=== PATIENT | male | born 1960 | race Caucasian/White ===

== ENCOUNTER 2024-03-09 09:48 | Inpatient (IN) | payer MEDICARE, SELFPAY ==
[2024-03-09] VITALS (25 sets, daily range): BP systolic 115–164; BP diastolic 82–103; PULSE 85–122; TEMP 36.3–36.7; O2SAT 93–99; BMI 25.1
--- NOTE | 2024-03-09 10:00 | ECG_ITS ---
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
--- NOTE | 2024-03-09 10:00 | XR_ITS ---
The [address] [address] Patient Name: PAIGE BALTAZAR MRN: [id number] date: 1960 Sex: M Assigned Patient Location: ED.MAIN Current Patient Location: ER Accession/Order Number: [id number] Exam Date: 03/09/2024 10:45 Report Date: 03/09/2024 11:03 At the request of: MARIE RUTLEDGE Procedure: XR chest 1V EXAMINATION: XR chest 1V HISTORY: SOB , chronic which is increased in severity COMPARISON: No relevant comparison available. FINDINGS: LUNGS: No infiltrate, pneumothorax, or pleural effusion. MEDIASTINUM: No abnormal widening. BOWEL GAS PATTERN: Non-obstructed. FREE AIR: None. CALCIFICATIONS: None significant. BONES: No fracture or visible bone lesion. OTHER: Negative. XR/XR chest 1V IMPRESSION: 1. No acute cardiopulmonary process. 2. Hyperexpanded lungs; mild COPD versus exaggerated inspiratory effort. Electronically authenticated by: KIM SOSA Date: 03/09/2024 11:03
--- NOTE | 2024-03-09 10:01 | ED_ITS ---
HPI - SOB/Dyspnea General Chief Complaint: Shortness of Breath/Dyspnea Stated Complaint: SOB Time Seen by Provider: 03/09/24 09:55 Source: patient Mode of arrival: ambulance History of Present Illness HPI Narrative: 63-year-old male presents to the emergency department for chief complaint of shortness of breath. He has had this apparently for several months. He was admitted to another hospital in early January and was told that he may have asthma. He has had follow-up with his PCP and has not seen a fur designer. He has been a heavy smoker all of his life but he is cut down and they prescribed him a nebulizer and albuterol inhaler. He has not had a fever or hemoptysis or complaints of chest pain or palpitations. No syncope or presyncope. Related Data Home Medications ?Medication ?Instructions ?Recorded ?Confirmed albuterol sulfate 90 mcg/actuation 1 puff inhalation Q8H PRN 03/09/24 03/09/24 aerosol inhaler shortness of breath or wheezing cetirizine 10 mg tablet 10 mg PO DAILY 03/09/24 03/09/24 montelukast 10 mg tablet 10 mg PO DAILY 03/09/24 03/09/24 nifedipine 60 mg tablet,extended 60 mg PO DAILY 03/09/24 03/09/24 release Previous Rx's ?Medication ?Instructions ?Recorded apixaban 5 mg tablet (Eliquis) 5 mg PO BID #30 tabs 03/09/24 Allergies Allergy/AdvReac Type Severity Reaction Status Date / Time No Known Drug Allergies Allergy Verified 03/09/24 09:52 Review of Systems ROS Narrative A ten point review of systems is negative except as noted above. Exam Narrative Exam Narrative: Nurses note and vital signs reviewed and patient is not hypoxic. General: The patient appears in no apparent respiratory distress. Skin: Warm, dry, no pallor noted. There is no rash noted. Head: Normocephalic, atraumatic Eye: Normal conjunctiva, no drainage Ears, Nose, Mouth, and Throat: oral mucosa is moist. Nares patent. Cardiovascular: Irregularly irregular, not tachycardic Respiratory: Bilateral rhonchi present Back: non-tender GI: Soft and nontender Musculoskeletal: The patient has no evidence of calf tenderness, bilateral ankle edema present Neurological: A&O, normal speech Psychiatric: Cooperative Constitutional Vital Signs, click to edit/add: Last Vital Signs Temp 98.0 F 03/09/24 09:49 Pulse 101 H 03/09/24 11:22 Resp 31 H 03/09/24 11:22 BP 133/95 H 03/09/24 11:45 Pulse Ox 96 03/09/24 11:32 O2 Del Method Nasal Cannula 03/09/24 10:11 O2 Flow Rate 2 03/09/24 10:11 Course Vital Signs Vital signs: Vital Signs Temperature 98.0 F 03/09/24 09:49 Pulse Rate 94 H 03/09/24 09:49 Respiratory Rate 28 H 03/09/24 09:49 Blood Pressure 164/88 H 03/09/24 09:49 Pulse Oximetry 94 L 03/09/24 09:49 Oxygen Delivery Method Nasal Cannula 03/09/24 09:49 Oxygen Delivery Flow Rate 2 03/09/24 09:49 Temperature 98.0 F 03/09/24 09:49 Pulse Rate 101 H 03/09/24 11:22 Respiratory Rate 31 H 03/09/24 11:22 Blood Pressure 133/95 H 03/09/24 11:45 Pulse Oximetry 96 03/09/24 11:32 Oxygen Delivery Method Nasal Cannula 03/09/24 10:11 Oxygen Delivery Flow Rate 2 03/09/24 10:11 MDM - SOB/Dyspnea MDM Narrative Medical decision making narrative: The patient has atrial fibrillation. This has not been previously diagnosed. However, when he was at [facility] on January 26 he had an EKG which showed atrial fibrillation. Family was unaware. He is not on any blood thinners. I have spoken to Dr. Pedroza and follow-up is arranged. I have written a prescription for echocardiogram to be done as an outpatient with the results to Dr. Pedroza. The patient is also placed on Eliquis. Treatment diagnosis and follow-up were discussed with the patient and his family. I also suspect that COPD is playing a role in his symptoms as well. I have no clinical suspicion of PE. Treatment diagnosis and follow-up were discussed with the patient Differential Diagnosis Differential diagnosis: Likely congestive heart failure, community acquired pneumonia and other (Atrial fibrillation) Medical Records Attestation: I reviewed the patient's medical records. Lab Data Attestation: I reviewed the patient's lab results. Labs: Lab Results 03/09/24 Range/Units 10:18 WBC 7.7 (4.0-11.0) 10^3/uL RBC 4.76 (4.70-6.10) 10^6/uL Hgb 15.4 (14.0-18.0) g/dL Hct 46.4 (42.0-54.0) % MCV 97.5 H (80.0-94.0) fL MCH 32.4 (25.9-34.0) pg MCHC 33.2 (29.9-35.2) g/dL RDW 12.8 (11.0-15.0) % Plt Count 193 (150-450) 10^3/uL MPV 8.4 L (9.5-13.5) fL Neut % (Auto) 65.4 (43.0-75.0) % Lymph % (Auto) 16.5 L (20.5-60.0) % [place]ock % (Auto) 9.5 (1.7-12.0) % Eos % (Auto) 7.3 H (0.9-7.0) % Baso % (Auto) 1.0 (0.2-2.0) % Neut # (Auto) 5.0 (1.4-6.5) 10^3/uL Lymph # (Auto) 1.3 (1.2-3.8) 10^3/uL Gl[place]ock # (Auto) 0.7 (0.3-0.8) 10^3/uL Eos # (Auto) 0.6 (0.0-0.7) 10^3/uL Baso # (Auto) 0.1 (0.0-0.1) 10^3/uL Abs Immat Gran (auto) 0.02 (0.00-0.03) 10^3/uL Imm/Tot Granulo (auto) 0.3 (0.0-0.5) % Sodium 137 (136-145) mmol/L Potassium 4.4 (3.5-5.1) mmol/L Chloride 102 (98-107) mmol/L Carbon Dioxide 25.4 (21.0-32.0) mmol/L Anion Gap 14.0 BUN 23.0 H (7.0-18.0) mg/dL Creatinine 0.91 (0.70-1.30) mg/dL Est GFR ( Amer) >60 (>=60) Est GFR (Non-Af Amer) >60 (>=60) BUN/Creatinine Ratio 25.3 Glucose 95 (74-106) mg/dL Calcium 9.7 (8.5-10.1) mg/dL Troponin I High Sens 17.7 (4.0-76.1) pg/mL Imaging Data Chest x-ray: Radiologist's impression: ITS Impressions Chest X-Ray 03/09/24 10:00 IMPRESSION: 1. No acute cardiopulmonary process. 2. Hyperexpanded lungs; mild COPD versus exaggerated inspiratory effort. Electronically authenticated by: KIM SOSA Date: 03/09/2024 11:03 ECG Data Attestation: I personally reviewed and interpreted this ECG as follows: (EKG on my interpretation shows atrial fibrillation with a rate of 82) Discharge Plan Discharge Stand Alone Forms: Portal Instructions Chief Complaint: Shortness of Breath/Dyspnea Clinical Impression: Atrial fibrillation, new onset Patient Disposition: Home, Self-Care Time of Disposition Decision: 12:12 Condition: Good Mode of Transportation: Private Vehicle Prescriptions / Home Meds: New Eliquis 5 mg tablet 5 mg PO BID Qty: 30 0RF No Action albuterol sulfate 90 mcg/actuation HFA aerosol inhaler 1 puff INHALATION Q8H PRN (Reason: shortness of breath or wheezing) cetirizine 10 mg tablet 10 mg PO DAILY montelukast 10 mg tablet 10 mg PO DAILY nifedipine 60 mg tablet extended release 60 mg PO DAILY Print Language: [place] Instructions: A-fib (Atrial Fibrillation) (ED), Blood Thinners (ED) Referrals: LIZETT MANCIA [Physician] - As soon as possible Jori Lala [Primary Care Provider] - 1 week
[2024-03-09] MEDS: ALBUTEROL SULFATE 2.5 MG/3 ML VIAL NEB IH (10:10)
--- NOTE | 2024-03-09 10:11 | PC.NURSE ---
pt arrived on O2, does not wear O2 at home
[2024-03-09 10:33] LABS: Basophils Absolute Auto 0.1 10^3/uL (0.0-0.1); Eosinophils Absolute Auto 0.6 10^3/uL (0.0-0.7); Eosinophils Percent Auto 7.3 % (0.9-7.0); Hematocrit 46.4 % (42.0-54.0); Hemoglobin 15.4 g/dL (14.0-18.0); Immature Granulocytes Abs Auto 0.02 10^3/uL (0.00-0.03); Immature Granulocytes Pct Auto 0.3 % (0.0-0.5); Lymphocytes Absolute Auto 1.3 10^3/uL (1.2-3.8); Lymphocytes Percent Auto 16.5 % (20.5-60.0); Mean Corpuscular HGB Conc 33.2 g/dL (29.9-35.2); Mean Corpuscular Hemoglobin 32.4 pg (25.9-34.0); Mean Corpuscular Volume 97.5 fL (80.0-94.0); Mean Platelet Volume 8.4 fL (9.5-13.5); Monocytes Absolute Auto 0.7 10^3/uL (0.3-0.8); Monocytes Percent Auto 9.5 % (1.7-12.0); Neutrophils Percent Auto 65.4 % (43.0-75.0); Platelet Count 193 10^3/uL (150-450); Red Blood Count 4.76 10^6/uL (4.70-6.10); Red Cell Distribution Width 12.8 % (11.0-15.0); White Blood Count 7.7 10^3/uL (4.0-11.0)
[2024-03-09 11:00] LABS: BUN Creatinine Ratio 25.3; Calcium 9.7 mg/dL (8.5-10.1); Carbon Dioxide 25.4 mmol/L (21.0-32.0); Chloride 102 mmol/L (98-107); Estimated GFR (African America >60 (>=60); Estimated GFR (Non-African Ame >60 (>=60); Glucose 95 mg/dL (74-106); Potassium 4.4 mmol/L (3.5-5.1); Sodium 137 mmol/L (136-145); Troponin I High Sensitivity 17.7 pg/mL (4.0-76.1)
--- NOTE | 2024-03-09 11:25 | PC.NURSE ---
Pt. disconnected from oxygen to monitor satuation per Dr. mukherjee.
--- NOTE | 2024-03-09 12:56 | CT_ITS ---
[address] [address] Patient Name: PAIGE BALTAZAR MRN: [id number] date: 1960 Sex: M Assigned Patient Location: ER Current Patient Location: ER Accession/Order Number: [id number] Exam Date: 03/09/2024 13:15 Report Date: 03/09/2024 13:55 At the request of: MAREI RUTLEDGE Procedure: CT angio chest EXAMINATION: CT angio chest HISTORY: SOB COMPARISON: No relevant comparison available. TECHNIQUE: Multi-planar CT images were created with IV contrast. Axial, Coronal, and Sagittal images. Dose reduction techniques were achieved by using automated exposure control and/or adjustment of mA and/or kV according to patient size and/or use of iterative reconstruction technique. 3-D reconstruction was performed on a separate workstation. FINDINGS: VASCULATURE: No pulmonary embolism or abnormal opacity. LUNGS: Moderate emphysematous changes. No acute infiltrates or suspicious nodules. PLEURA: No mass, effusion, or pneumothorax. AMARILIS: No mass or adenopathy. MEDIASTINUM: No mass or adenopathy. CARDIAC: No enlargement, pericardial effusion, or pericardial thickening. AORTA: No aneurysm or dissection. CHEST WALL: No mass or axillary adenopathy. BONES: No bone lesion or fracture. LIMITED ABDOMEN: No suspicious findings. Limited images of the upper abdomen. OTHER: Negative. CT/CT angio chest IMPRESSION: 1. No pulmonary embolism. 2. Moderate emphysematous changes. 3. No acute infiltrates or specific findings to account for patient's symptoms. Electronically authenticated by: KIM SOSA Date: 03/09/2024 13:55
--- NOTE | 2024-03-09 12:58 | PC.NURSE ---
O2 placed at 2L for pt comfort
--- NOTE | 2024-03-09 14:08 | CA_ITS ---
Patient Name: PAIGE BALTAZAR MR#: [id number] : 1960 Exam Date: 03/09/2024 Ordering Doctor: DR SASHA NOVA . ECHOCARDIOGRAM REPORT PROCEDURE: CA ECHO DOPPLER COMPLETE INDICATIONS: Dyspnea COMPARISON: None. DESCRIPTION: COMPLETE ECHOCARDIOGRAM Real-time transthoracic echocardiography with 2D, M-mode, spectral and color flow Doppler performed. QUALITY: Technical quality was adequate. LEFT VENTRICLE: Normal chamber size. Normal left ventricular wall thickness. Normal systolic function. LV EF: normal left ventricular ejection fraction, (55%). DIASTOLIC: Not adequately assessed due to heart rhythm. ATRIAL SEPTUM: LEFT ATRIUM: Mild dilatation. RIGHT ATRIUM: Mild dilatation. RIGHT VENTRICLE: Normal chamber size. Normal right ventricular systolic function. TRICUSPID VALVE: Normal mobility and thickness. No stenosis with trivial regurgitation. Mild pulmonary hypertension. RVSP 40 mmHg MITRAL VALVE: Normal mobility and thickness. No evidence of mitral valve stenosis. There is no mitral annular calcification. Trivial mitral regurgitation. AORTIC VALVE: Normal trileaflet appearance. No visible sclerosis. Normal leaflet mobility. No evidence of aortic valve stenosis. AORTIC ROOT: Normal diameter and appearance. PULMONIC VALVE: Normal thickness and mobility. No stenosis. No regurgitation. PERICARDIUM: No evidence of pericardial effusion. IVC: Collapses with inspirations. Normal size. PLEURA: CONCLUSION: 1. Normal ventricular size and systolic function. LVEF is 55%. 2. Mild biatrial dilatation. 3. No significant valvular dysfunction. 4. Mildly elevated right-sided pressures. 5. The patient appears to be in atrial fibrillation during the exam. Adult Echocardiography Procedure Report Left Ventricle LVEDD (3.7 - 5.6 cm): 4.31 cm LVESD (2.2 - 4.0 cm): 2.82 cm LVIVS thickness (0.6 - 1.2 cm): 0.98 cm LVPW thickness (0.5 - 1.0 cm): 0.94 cm e': 0.11 m/s E - e': 5.56 LVOT Max Gradient: 1.07 mm[Hg] LVOT Area (cm2): 0.52 m/s Peak Velocity (LVOT): 0.52 m/s Mean Velocity (LVOT): 0.31 m/s LVOT Diameter 2.12 cm Left Ventricular Ejection Fraction: 55% Left Atrium LA Volume Index (2D A2C): 26.08 ml/m2 Left Atrium Systolic Dimension: 3.84 cm Mitral Valve MV E to A Ratio: 103.43 Mitral Valve A-Wave Peak Velocity: 0.01 m/s Mitral Valve E-Wave Peak Velocity: 0.63 m/s Right Ventricle RV Internal Diastolic Dimension: 3.33 cm Aorta AO Root Diam: 3.12 cm Aortic Valve AoV Area (Peak Sukumar): 2.63 cm2, 2.63 cm2 AoV Area (VTI): 2.69 cm2, 2.69 cm2 Peak Velocity(Antegrade Flow): 0.69 m/s Peak Gradient(Antegrade Flow): 1.93 mm[Hg] Mean Velocity(Antegrade Flow): 0.46 m/s Mean Gradient(Antegrade Flow): 0.95 mm[Hg] Velocity Time Integral: 12.62 cm Tricuspid Valve Peak Velocity (Regurgitant Flow): 2.94 m/s Pulmonic Valve Peak Velocity: 0.90 m/s Peak Gradient: 3.01 mm[Hg], 3.47 mm[Hg] Right Atrium Right Atrium Systolic Pressure: 44.82 ml, 44.82 ml Dictated by: Todd Ta M.D. on 03/09/2024 at 17:59 Approved by: Todd Ta M.D. on 03/09/2024 at 18:03
[2024-03-09 14:38] LABS: Alanine Aminotransferase 26 U/L (16-63); Albumin Globulin Ratio 1.1; Albumin Level 3.9 g/dL (3.4-5.0); Alkaline Phosphatase 78 U/L (46-116); Aspartate Amino Transferase 13 U/L (15-37); Bilirubin Direct 0.2 mg/dL (0.0-0.2); Bilirubin Total 1.1 mg/dL (0.2-1.0); Globulin 3.6 g/dL; Magnesium 2.2 mg/dL (1.8-2.4); Total Protein 7.5 g/dL (6.4-8.2)
--- NOTE | 2024-03-09 14:55 | P.HP_ITS ---
HPI H&P: HPI History of Present Illness Chief complaint: SOB, NEW ONSET A-FIB Narrative: Patient seen and evaluated in emergency with increasing shortness of breath. There is some confusion if this is new or old or recent onset of his atrial fibrillation but found to have atrial fibrillation with rapid ventricular response. His heart rate was improved. Still having significant dyspnea. He has had the dyspnea for quite some time. When I saw patient up on the medical surgical floor, and he was resting in bed not comfortable with his breathing, mild conversational dyspnea. On exam more consistent with acute exacerbation of COPD Opioid HPI Opioid Management Most Recent Opioid Data: Last Pain Assessment 03/09/24 19:00 Last ORT Total Score 0 03/09/24 15:00 Last ORT Risk Category Low Risk 03/09/24 15:00 Review of Systems ROS Status of ROS 10 or more systems reviewed and unremark able except as noted in history and below [facility] Medical History (Updated 03/09/24 @ 21:03 by Phoenix Talley MD) Hypertension ?I10 - Essential (primary) hypertension (ICD-10) Family History (Updated 03/09/24 @ 15:14 by Ashley Larsen LPN) Mother Family history of hypertension Family history of myocardial infarction Father Family history of stroke Social History Highest level of school completed/degree received: high school graduate Do you think of yourself as: straight/heterosexual Gender Identity: male Meds Home Medications and Allergies Home Medications ?Medication ?Instructions ?Recorded ?Confirmed ?Type albuterol sulfate 2.5 mg/3 mL 2.5 mg inhalation TID PRN 03/09/24 03/09/24 History (0.083 %) solution for nebulization shortness of breath or wheezing albuterol sulfate 90 mcg/actuation 1 puff inhalation Q8H PRN 03/09/24 03/09/24 History aerosol inhaler shortness of breath or wheezing apixaban 5 mg tablet (Eliquis) 5 mg PO BID #30 tabs 03/09/24 Rx cetirizine 10 mg tablet 10 mg PO DAILY 03/09/24 03/09/24 History montelukast 10 mg tablet 10 mg PO DAILY 03/09/24 03/09/24 History nifedipine 60 mg tablet,extended 60 mg PO DAILY 03/09/24 03/09/24 History release Allergies Allergy/AdvReac Type Severity Reaction Status Date / Time No Known Drug Allergies Allergy Verified 03/09/24 09:52 Exam Constitutional Vital Signs, click to edit/add: Last Vital Signs Temp 98.0 F 03/09/24 09:49 Pulse 122 H 03/09/24 12:11 Resp 16 03/09/24 14:11 BP 133/95 H 03/09/24 11:45 Pulse Ox 95 03/09/24 12:11 O2 Del Method Nasal Cannula 03/09/24 14:11 O2 Flow Rate 2 03/09/24 12:58 Documenting provider has reviewed patient's vital signs: yes Common normals: apparent distress (Mild conversational dyspnea with respiratory distress) Chest Common normals: inspection of chest normal Respiratory Common normals: abnormal respiratory effort (Mild conversational dyspnea with respiratory distress) Auscultation: rhonchi and wheezes (Tight wheeze) Cardio Common normals: irregular rate and irregular rhythm Rate: tachycardic Rhythm: abnormal rhythm GI Common normals: Normal to inspection, nondistended, normoactive bowel sounds present Extremity Common normals: normal to inspection, full ROM and no clubbing, cyanosis or edema Results Labs Labs: Short CBC 03/09/24 Range/Units 10:18 WBC 7.7 (4.0-11.0) 10^3/uL Hgb 15.4 (14.0-18.0) g/dL Hct 46.4 (42.0-54.0) % Plt Count 193 (150-450) 10^3/uL BMP 03/09/24 10:18 Sodium 137 Potassium 4.4 Chloride 102 Carbon Dioxide 25.4 BUN 23.0 H Creatinine 0.91 Glucose 95 Calcium 9.7 Liver Function 03/09/24 Range/Units 10:18 Total Bilirubin 1.1 H (0.2-1.0) mg/dL Direct Bilirubin 0.2 (0.0-0.2) mg/dL AST 13 L (15-37) U/L ALT 26 (16-63) U/L Alkaline Phosphatase 78 (46-116) U/L Albumin 3.9 (3.4-5.0) g/dL Assessment and Plan Assessment and Plan (1) Atrial fibrillation, new onset: (2) Acute exacerbation of COPD with asthma: Plan Tachycardia, respiratory distress, uncontrolled high blood pressure secondary to atrial fibrillation with rapid ventricular response. His heart rate is improved. Will place patient on oral Cardizem. Check on magnesium and thyroid levels. Check echocardiogram. Repeat BNP and HST in AM. Start Eliquis, change nifedipine to Cardizem for better rate control Acute exacerbation of COPD with 2 to 3-week history of increasing shortness of breath. Lung exam is more consistent with COPD possibly recreating the dyspnea. Patient aggressive with aerosol treatments IV antibiotics and steroids. Consider repeat chest x-ray in a.m. Admission status: Initially felt to be respiratory distress secondary to his tachycardia secondary to the atrial fibrillation, after exam I believe his dyspnea is more consistent with acute exacerbation of COPD. His medically necessary Seri treatment will span [address] patient inpatient status.
[2024-03-09 14:58] LABS: Troponin I High Sensitivity 15.1 pg/mL (4.0-76.1)
[2024-03-09] MEDS: DILTIAZEM HCL 180 MG CAP.ER.24H PO (15:31)
[2024-03-09] MEDS: CEFTRIAXONE 1,000 MG in 0.9 % SODIUM CHLORIDE 50 ML 100 MG IV (15:31)
[2024-03-09] MEDS: METHYLPREDNISOLONE SOD SUCC PF 125 MG/2 ML VIAL IVP ×2 (15:35→21:52)
[2024-03-09] MEDS: 0.9 % SODIUM CHLORIDE 250 ML 10 ML IV (15:56)
[2024-03-09] MEDS: HYDROXYZINE PAMOATE 25 MG CAPSULE PO ×2 (16:19→21:52)
[2024-03-09] MEDS: LEVALBUTEROL HCL 0.63 MG/3 ML VIAL.NEB 0.630000000000000004 MG IH ×2 (16:28→22:02)
[2024-03-09] MEDS: IPRATROPIUM BROMIDE 0.5 MG/2.5 ML VIAL.NEB IH ×2 (16:28→22:02)
[2024-03-09 17:29] LABS: Troponin I High Sensitivity 16.6 pg/mL (4.0-76.1)
[2024-03-09] MEDS: LEVOFLOXACIN IN DEXTROSE 5 % 750 MG/150 ML IV.SOLN 100 MG IV (17:34)
[2024-03-09] MEDS: APIXABAN 5 MG TABLET PO (21:52)
[2024-03-09] MEDS: BENZONATATE 100 MG CAPSULE 200 MG PO (21:52)
[2024-03-10] VITALS (22 sets, daily range): BP systolic 104–161; BP diastolic 56–96; PULSE 71–101; TEMP 36.3–36.6; O2SAT 90–98
[2024-03-10] MEDS: METHYLPREDNISOLONE SOD SUCC PF 125 MG/2 ML VIAL IVP ×2 (03:07→08:49)
[2024-03-10 04:55] LABS: Basophils Percent Auto 0.2 % (0.2-2.0); Hematocrit 47.6 % (42.0-54.0); Hemoglobin 15.7 g/dL (14.0-18.0); Immature Granulocytes Abs Auto 0.03 10^3/uL (0.00-0.03); Immature Granulocytes Pct Auto 0.5 % (0.0-0.5); Lymphocytes Absolute Auto 0.7 10^3/uL (1.2-3.8); Lymphocytes Percent Auto 11.4 % (20.5-60.0); Mean Corpuscular Hemoglobin 32.8 pg (25.9-34.0); Mean Corpuscular Volume 99.4 fL (80.0-94.0); Mean Platelet Volume 8.8 fL (9.5-13.5); Monocytes Absolute Auto 0.1 10^3/uL (0.3-0.8); Monocytes Percent Auto 1.1 % (1.7-12.0); Neutrophils Absolute Auto 5.6 10^3/uL (1.4-6.5); Neutrophils Percent Auto 86.8 % (43.0-75.0); Platelet Count 205 10^3/uL (150-450); Red Blood Count 4.79 10^6/uL (4.70-6.10); Red Cell Distribution Width 12.7 % (11.0-15.0); White Blood Count 6.4 10^3/uL (4.0-11.0)
[2024-03-10 05:06] LABS: Anion Gap 12.8; Calcium 9.9 mg/dL (8.5-10.1); Carbon Dioxide 28.2 mmol/L (21.0-32.0); Chloride 103 mmol/L (98-107); Estimated GFR (African America >60 (>=60); Estimated GFR (Non-African Ame >60 (>=60); Glucose 144 mg/dL (74-106); Sodium 140 mmol/L (136-145)
[2024-03-10] MEDS: LEVALBUTEROL HCL 0.63 MG/3 ML VIAL.NEB 0.630000000000000004 MG IH ×4 (05:20→22:45)
[2024-03-10] MEDS: IPRATROPIUM BROMIDE 0.5 MG/2.5 ML VIAL.NEB IH ×4 (05:20→22:45)
[2024-03-10] MEDS: DILTIAZEM HCL 240 MG CAP.ER.24H PO (08:49)
[2024-03-10] MEDS: APIXABAN 5 MG TABLET PO ×2 (08:49→20:55)
[2024-03-10] MEDS: CETIRIZINE HCL 10 MG TABLET PO (08:49)
[2024-03-10] MEDS: MONTELUKAST SODIUM 10 MG TABLET PO (08:50)
--- NOTE | 2024-03-10 09:26 | P.PN_ITS ---
Progress Note: Subjective Subjective Interval history: Patient seems more comfortable with his breathing this morning still some dyspnea with activity Exam Constitutional Vital Signs, click to edit/add: Last Vital Signs Temp 97.4 F L 03/10/24 07:51 Pulse 94 H 03/10/24 07:51 Resp 18 03/10/24 07:51 BP 145/96 H 03/10/24 07:51 Pulse Ox 93 L 03/10/24 07:51 O2 Del Method Room Air 03/10/24 07:51 O2 Flow Rate 2 03/10/24 05:28 Documenting provider has reviewed patient's vital signs: yes Common normals: no apparent distress Chest Common normals: inspection of chest normal Respiratory Common normals: normal respiratory effort Auscultation: rhonchi (Improved) and wheezes (Tight wheeze improved) Cardio Common normals: regular rate; irregular rhythm Rhythm: abnormal rhythm GI Common normals: Normal to inspection, nondistended, normoactive bowel sounds present Extremity Common normals: normal to inspection, full ROM and no clubbing, cyanosis or edema Progress Note: Objective Labs Labs: Short CBC 03/09/24 03/10/24 Range/Units 10:18 04:23 WBC 7.7 6.4 (4.0-11.0) 10^3/uL Hgb 15.4 15.7 (14.0-18.0) g/dL Hct 46.4 47.6 (42.0-54.0) % Plt Count 193 205 (150-450) 10^3/uL BMP 03/09/24 03/10/24 10:18 04:23 Sodium 137 140 Potassium 4.4 4.0 Chloride 102 103 Carbon Dioxide 25.4 28.2 BUN 23.0 H 23.0 H Creatinine 0.91 1.21 Glucose 95 144 H Calcium 9.7 9.9 Liver Function 03/09/24 Range/Units 10:18 Total Bilirubin 1.1 H (0.2-1.0) mg/dL Direct Bilirubin 0.2 (0.0-0.2) mg/dL AST 13 L (15-37) U/L ALT 26 (16-63) U/L Alkaline Phosphatase 78 (46-116) U/L Albumin 3.9 (3.4-5.0) g/dL Progress Note: A&P Assessment and Plan (1) Atrial fibrillation, new onset: (2) Acute exacerbation of COPD with asthma: Plan Admission findings: Tachycardia, respiratory distress, uncontrolled high blood pressure secondary to atrial fibrillation with rapid ventricular response. His heart rate is improved. Echocardiogram with only mild elevation in size of atria, consult to cardiology. Acute exacerbation of COPD with 2 to 3-week history of increasing shortness of breath. Lung exam is improved today. Maintain current treatment plan. Suspect 1 more day of IV antibiotics and steroids and possible discharge home unless cardiology has ultimate plan for his atrial fibrillation. Hyperglycemia secondary to steroids-monitor daily and will wean steroids . Admission status: Initially felt to be respiratory distress secondary to his tachycardia secondary to the atrial fibrillation, after exam I believe his dyspnea is more consistent with acute exacerbation of COPD. His medically necessary treatment will span 2 midnights. Maintain patient inpatient status. ?
--- NOTE | 2024-03-10 10:25 | CM.NOTE ---
Rounds made with Dr. Talley, pt continues with SOB increased with activity. No discharge today.
--- NOTE | 2024-03-10 14:39 | CM.NOTE ---
Important Message From Medicare discussed with pt, pt verbalizes understanding and requests for his to sign. signs paper and original given to pt and copy placed on pt's chart.
[2024-03-10] MEDS: METHYLPREDNISOLONE SOD SUCC PF 125 MG/2 ML VIAL 60 MG IVP ×2 (15:35→20:56)
[2024-03-10] MEDS: 0.9 % SODIUM CHLORIDE 250 ML 10 ML IV (15:35)
[2024-03-10] MEDS: CEFTRIAXONE 1,000 MG in 0.9 % SODIUM CHLORIDE 50 ML 100 MG IV (15:36)
[2024-03-10] MEDS: LEVOFLOXACIN IN DEXTROSE 5 % 750 MG/150 ML IV.SOLN 100 MG IV (17:03)
--- NOTE | 2024-03-10 17:43 | P.CACN_ITS ---
History of Present Illness History of Present Illness Consult date: 03/10/24 Requesting physician: Phoenix Talley Consult reason: atrial fibrillation Chief complaint: SOB, NEW ONSET A-FIB Narrative: 63yr old with PMH of COPD/ HTN was admitted to [facility] for COPD excaerbation. At this time, he was noted to be in Afib with RVR. [facility] he has been treated with meds for COPD and rates have been better controlled. No prior EKG revealed AF and this appears to be the first episode. ECHO reveals normal EF with biatrial enlargement. Review of Systems ROS Status of ROS 10 or more systems reviewed and unremark able except as noted in history and below [facility] Medical History (Updated 03/09/24 @ 21:03 by Phoenix Talley MD) Hypertension ?I10 - Essential (primary) hypertension (ICD-10) Family History Mother Family history of hypertension Family history of myocardial infarction Father Family history of stroke Social History Highest level of school completed/degree received: high school graduate Do you think of yourself as: straight/heterosexual Gender Identity: male Meds Home Medications and Allergies Home Medications ?Medication ?Instructions ?Recorded ?Confirmed ?Type albuterol sulfate 2.5 mg/3 mL 2.5 mg inhalation TID PRN 03/09/24 03/09/24 History (0.083 %) solution for nebulization shortness of breath or wheezing albuterol sulfate 90 mcg/actuation 1 puff inhalation Q8H PRN 03/09/24 03/09/24 History aerosol inhaler shortness of breath or wheezing apixaban 5 mg tablet (Eliquis) 5 mg PO BID #30 tabs 03/09/24 Rx cetirizine 10 mg tablet 10 mg PO DAILY 03/09/24 03/09/24 History montelukast 10 mg tablet 10 mg PO DAILY 03/09/24 03/09/24 History nifedipine 60 mg tablet,extended 60 mg PO DAILY 03/09/24 03/09/24 History release Allergies Allergy/AdvReac Type Severity Reaction Status Date / Time No Known Drug Allergies Allergy Verified 03/09/24 09:52 Exam Narrative Exam Narrative: GEN: Alert and oriented Chest Common normals: inspection of chest normal Respiratory Common normals: normal respiratory effort Auscultation: rhonchi (Improved) and wheezes (Tight wheeze improved) Cardio Common normals: irregular rhythm Rhythm: abnormal rhythm GI Common normals: Normal to inspection, nondistended, normoactive bowel sounds present Extremity Common normals: normal to inspection, full ROM and no clubbing, cyanosis or edema Constitutional Vital Signs, click to edit/add: Last Vital Signs Temp 97.8 F 03/10/24 15:48 Pulse 97 H 03/10/24 17:00 Resp 16 03/10/24 15:48 BP 134/88 03/10/24 15:48 Pulse Ox 95 03/10/24 16:43 O2 Del Method Room Air 03/10/24 16:43 O2 Flow Rate 2 03/10/24 05:28 Results Labs and Meds Lab results: CBC 03/10/24 Range/Units 04:23 WBC 6.4 (4.0-11.0) 10^3/uL RBC 4.79 (4.70-6.10) 10^6/uL Hgb 15.7 (14.0-18.0) g/dL Hct 47.6 (42.0-54.0) % Plt Count 205 (150-450) 10^3/uL Neut # (Auto) 5.6 (1.4-6.5) 10^3/uL Lymph # (Auto) 0.7 L (1.2-3.8) 10^3/uL [place] # (Auto) 0.1 L (0.3-0.8) 10^3/uL Eos # (Auto) 0.0 (0.0-0.7) 10^3/uL Baso # (Auto) 0.0 (0.0-0.1) 10^3/uL Comprehensive Metabolic Panel 03/10/24 Range/Units 04:23 Sodium 140 (136-145) mmol/L Potassium 4.0 (3.5-5.1) mmol/L Chloride 103 (98-107) mmol/L Carbon Dioxide 28.2 (21.0-32.0) mmol/L BUN 23.0 H (7.0-18.0) mg/dL Creatinine 1.21 (0.70-1.30) mg/dL Glucose 144 H (74-106) mg/dL Calcium 9.9 (8.5-10.1) mg/dL Intake and Output 03/10/24 03/10/24 03/10/24 07:59 15:59 23:59 Intake Total 600 / 650 50 / 650 Balance 600 / 650 50 / 650 Intake: Oral 350 / 350 IV 250 / 300 50 / 300 0.9 % Sodium Chloride 250 ml @ 250 / 250 10 mls/hr IV .Q24H PRN Rx#: [id number] Ceftriaxone 1,000 mg In 0.9 % 50 / 50 Sodium Chloride 50 ml @ 100 mls /hr IV Q24H JOHNSON Rx#:[id number] Imaging and Cardiology Echo: report reviewed ECG results: image reviewed EKG Interpretation ECG shows: atrial fibrillation Assessment and Plan Assessment and Plan (1) Atrial fibrillation, new onset: (2) Acute exacerbation of COPD with asthma: Plan Given this is the first episode, although the duration of which is unknown, I would recc continuing him on Ac with Eliquis or Xarelto. After being on Ac for 3 weeks, then consideration of cardioversion can be entertained. If he flios into sinus on his own, then add Amio at 400mg bid x 2 weeks and then 200mg once daily to follow up in EP clinic. Ct COPD treatment
[2024-03-11] VITALS (9 sets, daily range): BP systolic 131–138; BP diastolic 79–85; PULSE 78–122; TEMP 36.7; O2SAT 91–93
[2024-03-11] MEDS: METHYLPREDNISOLONE SOD SUCC PF 125 MG/2 ML VIAL 60 MG IVP ×2 (03:42→09:27)
[2024-03-11] MEDS: LEVALBUTEROL HCL 0.63 MG/3 ML VIAL.NEB 0.630000000000000004 MG IH ×2 (04:41→10:30)
[2024-03-11] MEDS: IPRATROPIUM BROMIDE 0.5 MG/2.5 ML VIAL.NEB IH ×2 (04:41→10:29)
[2024-03-11 05:29] LABS: Basophils Percent Auto 0.1 % (0.2-2.0); Hematocrit 43.3 % (42.0-54.0); Hemoglobin 14.3 g/dL (14.0-18.0); Immature Granulocytes Abs Auto 0.12 10^3/uL (0.00-0.03); Immature Granulocytes Pct Auto 0.8 % (0.0-0.5); Lymphocytes Absolute Auto 0.6 10^3/uL (1.2-3.8); Mean Corpuscular Hemoglobin 32.3 pg (25.9-34.0); Mean Corpuscular Volume 97.7 fL (80.0-94.0); Mean Platelet Volume 9.1 fL (9.5-13.5); Monocytes Absolute Auto 0.5 10^3/uL (0.3-0.8); Monocytes Percent Auto 3.1 % (1.7-12.0); Neutrophils Absolute Auto 13.7 10^3/uL (1.4-6.5); Platelet Count 208 10^3/uL (150-450); Red Blood Count 4.43 10^6/uL (4.70-6.10); Red Cell Distribution Width 12.8 % (11.0-15.0); White Blood Count 14.9 10^3/uL (4.0-11.0)
[2024-03-11 05:31] LABS: Anion Gap 12.4; BUN Creatinine Ratio 22.9; Calcium 9.9 mg/dL (8.5-10.1); Carbon Dioxide 27.8 mmol/L (21.0-32.0); Chloride 102 mmol/L (98-107); Estimated GFR (African America >60 (>=60); Estimated GFR (Non-African Ame >60 (>=60); Glucose 161 mg/dL (74-106); Potassium 4.2 mmol/L (3.5-5.1); Sodium 138 mmol/L (136-145)
--- NOTE | 2024-03-11 09:24 | P.DS_ITS ---
DS: Providers Provider Date of admission: 03/09/24 13:57 Primary care physician: Jori Lala Consults: 03/09/24 14:05 Consult to Pharmacy Routine Consulting Provider: Reason for consultation: Please [place] me when Med Rec is Updated Has provider been notified: No Occupational Therapy Eval and Treat Routine Reason for consultation: Only if needed for Rehab Has provider been notified: No Physical Therapy Eval and Treat Routine Reason for consultation: Eval and Treat Has provider been notified: No 03/10/24 09:25 Consult to Cardiology Routine Reason for consultation: afib Has provider been notified: No DS: Diagnosis Discharge Diagnosis (1) Atrial fibrillation, new onset: (2) Acute exacerbation of COPD with asthma: Plan Admission findings: Tachycardia, respiratory distress, uncontrolled high blood pressure secondary to atrial fibrillation with rapid ventricular response. Improving at the time of discharge Acute exacerbation of COPD with 2 to 3-week history of increasing shortness of breath. Improving at the time of discharge Hyperglycemia secondary to steroids-stable at the time of discharge Admission status: Initially felt to be respiratory distress secondary to his tachycardia secondary to the atrial fibrillation, after exam I believe his dyspnea is more consistent with acute exacerbation of COPD. His medically necessary treatment will span 2 midnights. Maintain patient inpatient status. ? ? DS: Summary Hospital Course Hospital Course: Patient presents to the emergency room with palpitations. Found to have A-fib with rapid ventricular response. His medications were adjusted and his heart rate is improved. He also has shortness of breath the last 2 weeks. I feel like this is more an acute exacerbation of his COPD causing his shortness of breath. He was started on aerosol treatments, antibiotics and steroids. On lung exam he is much improved today. He still feels little bit of shortness of breath. Will see how he does with ambulation. If ambulating well this morning, heart rate remained stable he will be discharged home in improving condition. Medications see this. Follow-up with his PCP within the next week. Status at Discharge Overall status at discharge: patient is not back to baseline Time Spent with Patient Time attestation: Total time spent providing and/or coordinating discharge services: Time spent: greater than 30 minutes Exam Constitutional Vital Signs, click to edit/add: Last Vital Signs Temp 98.1 F 03/11/24 07:27 Pulse 90 03/11/24 07:58 Resp 20 03/11/24 07:27 BP 138/85 03/11/24 07:27 Pulse Ox 92 L 03/11/24 07:27 O2 Del Method Room Air 03/11/24 07:27 O2 Flow Rate 2 03/10/24 05:28 Documenting provider has reviewed patient's vital signs: yes Common normals: no apparent distress Chest Common normals: inspection of chest normal Respiratory Common normals: normal respiratory effort Auscultation: rhonchi (Much improved from admission) and wheezes (Currently resolved) Cardio Common normals: regular rate; irregular rhythm Rhythm: abnormal rhythm GI Common normals: Normal to inspection, nondistended, normoactive bowel sounds present Extremity Common normals: normal to inspection, full ROM and no clubbing, cyanosis or edema DS: Data Data Completed and Pending Labs on day of discharge: Labs from last 24 hours 03/11/24 04:43 WBC 14.9 H RBC 4.43 L Hgb 14.3 Hct 43.3 MCV 97.7 H MCH 32.3 MCHC 33.0 RDW 12.8 Plt Count 208 MPV 9.1 L Neut % (Auto) 92.0 H Lymph % (Auto) 4.0 L [place] % (Auto) 3.1 Eos % (Auto) 0.0 L Baso % (Auto) 0.1 L Neut # (Auto) 13.7 H Lymph # (Auto) 0.6 L [place] # (Auto) 0.5 Eos # (Auto) 0.0 Baso # (Auto) 0.0 Abs Immat Gran (auto) 0.12 H Imm/Tot Granulo (auto) 0.8 H Sodium 138 Potassium 4.2 Chloride 102 Carbon Dioxide 27.8 Anion Gap 12.4 BUN 25.0 H Creatinine 1.09 Est GFR ( Amer) >60 Est GFR (Non-Af Amer) >60 BUN/Creatinine Ratio 22.9 Glucose 161 H Calcium 9.9 Discharge Plan Discharge Disposition: Home, Self-Care Condition: Good Discharge Medications: New Eliquis 5 mg tablet 5 mg PO BID Qty: 30 0RF prednisone 10 mg tablet 50 mg PO DAILY Qty: 47 0RF Rx Instructions: 5/day for 3 days. 4/day for 3 days, 3/day for 3 days, 2/day for 3 days, 1/day for 3 days, 1/2 /day for 4 days cefdinir 300 mg capsule 600 mg PO DAILY Qty: 14 0RF budesonide-formoterol [Symbicort] 80-4.5 mcg/actuation HFA aerosol inhaler 1 inh inhalation BID Qty: 10.2 11RF albuterol sulfate [Ventolin HFA] 90 mcg/actuation HFA aerosol inhaler 2 inh inhalation Q6H PRN (Reason: shortness of breath or wheezing) Qty: 8.5 11RF diltiazem HCl 240 mg Capsule,Extended Release 24hr 240 mg PO QD Qty: 30 11RF Continued albuterol sulfate 90 mcg/actuation HFA aerosol inhaler 1 puff INHALATION Q8H PRN (Reason: shortness of breath or wheezing) cetirizine 10 mg tablet 10 mg PO DAILY montelukast 10 mg tablet 10 mg PO DAILY nifedipine 60 mg tablet extended release 60 mg PO DAILY albuterol sulfate 2.5 mg /3 mL (0.083 %) solution for nebulization 2.5 mg inhalation TID PRN (Reason: shortness of breath or wheezing) Print Language: Khmer Patient Instructions: Diltiazem (By mouth), Albuterol (By breathing) (ProAir, AccuNeb, Proventil, Proventil..., Prednisone (By mouth), Cefdinir (By mouth), Budesonide/Formoterol (By breathing) (Symbicort, Symbicort Aerosphere), Apixaban (By mouth) (Eliquis), A-fib (Atrial Fibrillation) (DC), COPD (Chronic Obstructive Pulmonary Disease) (DC) Forms: Portal Instructions Follow Up Appointments: March 18 @ 10:30am with Dr. Lala [facility] [phone] March 25 @ 10:40am with [facility] at [facility] [address] [place] [address]
[2024-03-11] MEDS: MONTELUKAST SODIUM 10 MG TABLET PO (09:27)
[2024-03-11] MEDS: DILTIAZEM HCL 240 MG CAP.ER.24H PO (09:27)
[2024-03-11] MEDS: CETIRIZINE HCL 10 MG TABLET PO (09:27)
[2024-03-11] MEDS: APIXABAN 5 MG TABLET PO (09:28)
--- NOTE | 2024-03-11 09:42 | CM.NOTE ---
Rounds made with Dr. Talley. Plan for discharge today. Follow up one week with PCP and Cardiology in 2 weeks.
--- NOTE | 2024-03-17 15:47 | CM.DCFOLLOWU ---
1st attempt 03/17/24, no answer
== END 2024-03-11 10:54 | disposition home or self-care (01) | DRG 192 ==
LOC: ER 12:54 → MS 14:03
PROVIDERS: Admitting Provider Family Medicine; Emergency Provider Emergency Medicine; Visit Provider Family Medicine
DX: J44.1 Chronic obstructive pulmonary disease with (acute) exacerbation (principal); I48.91 Unspecified atrial fibrillation; I10 Essential (primary) hypertension; R06.03 Acute respiratory distress; R73.9 Hyperglycemia, unspecified; T38.0X5A Adverse effect of glucocorticoids and synthetic analogues, initial encounter; Z79.899 Other long term (current) drug therapy; Z82.3 Family history of stroke; Z82.49 Family history of ischemic heart disease and other diseases of the circulatory system; Z79.01 Long term (current) use of anticoagulants; F17.200 Nicotine dependence, unspecified, uncomplicated
CPT/HCPCS: 36415; 71045; 71275; 80048; 80076; 83735; 83880; 84484; 85025; 93005; 93306; 94640; 94667; 94668; 94761; 96365; 96366; 96367; 96375; 96376; 97161; 97165; 99285; J2919; Q9967

== ENCOUNTER 2024-04-02 17:36 | Observation (INO) | payer MEDICARE, SELFPAY ==
[2024-04-02] VITALS (8 sets, daily range): BP systolic 104–126; BP diastolic 70–88; PULSE 85–96; TEMP 36.2–37.1; O2SAT 94–97; BMI 25.6; BMI 25.5
--- NOTE | 2024-04-02 18:07 | ECG_ITS ---
The [facility] Test Date: 2024-04-02 Pat Name: PAIGE BALTAZAR Department: Room: - Gender: Male [employer]: : 1960 Requested By: 1860 Order Number: [id number] Reading MD: KITA MURPHY Measurements Intervals Hooks Rate: 85 P: -[id number] VA: -[id number] QRS: 73 QRSD: 80 T: 49 QT: 334 QTc: 377 Interpretive Statements 1210 Atrial fibrillation 0102 ARTIFACT PRESENT 9140 abnormal rhythm ECG Compared to ECG 03/09/2024 09:52:25 Myocardial infarct finding no longer present Electronically Signed On 04-02-2024 23:12:44 EDT by KITA MURPHY
[2024-04-02] MEDS: METHYLPREDNISOLONE SOD SUCC PF 125 MG/2 ML VIAL IVP (18:21)
[2024-04-02] MEDS: IPRATROPIUM/ALBUTEROL SULFATE 3 ML AMPUL.NEB 9 ML IH (18:21)
[2024-04-02 18:23] LABS: Basophils Percent Auto 0.5 % (0.2-2.0); Eosinophils Percent Auto 13.7 % (0.9-7.0); Hematocrit 41.4 % (42.0-54.0); Hemoglobin 13.9 g/dL (14.0-18.0); Immature Granulocytes Abs Auto 0.02 10^3/uL (0.00-0.03); Immature Granulocytes Pct Auto 0.3 % (0.0-0.5); Lymphocytes Absolute Auto 1.3 10^3/uL (1.2-3.8); Mean Corpuscular HGB Conc 33.6 g/dL (29.9-35.2); Mean Corpuscular Hemoglobin 32.6 pg (25.9-34.0); Mean Platelet Volume 8.6 fL (9.5-13.5); Monocytes Absolute Auto 1.1 10^3/uL (0.3-0.8); Monocytes Percent Auto 14.1 % (1.7-12.0); Neutrophils Absolute Auto 4.1 10^3/uL (1.4-6.5); Neutrophils Percent Auto 54.4 % (43.0-75.0); Platelet Count 223 10^3/uL (150-450); Red Blood Count 4.27 10^6/uL (4.70-6.10); Red Cell Distribution Width 12.8 % (11.0-15.0); White Blood Count 7.6 10^3/uL (4.0-11.0)
--- NOTE | 2024-04-02 18:35 | XR_ITS ---
The [address] [address] Patient Name: PAIGE BALTAZAR MRN: [id number] date: 1960 Sex: M Assigned Patient Location: ER Current Patient Location: ED.MAIN Accession/Order Number: [id number] Exam Date: 04/02/2024 18:30 Report Date: 04/02/2024 19:18 At the request of: GISELLA SANTOYO Procedure: XR chest 1V EXAM: XR chest 1V at 1829 hours HISTORY: shortness of breath COMPARISON: 03/09/2024 TECHNIQUE: AP upright portable chest x-ray FINDINGS: The heart is not enlarged and the vasculature is not distended. No acute infiltrate, effusion or pneumothorax is identified. The osseous structures are grossly intact. XR/XR chest 1V IMPRESSION: No acute infiltrate or evidence of cardiac decompensation. The overall appearance of the chest is essentially unchanged. Electronically authenticated by: RALPH OCHOA Date: 04/02/2024 19:18
[2024-04-02 18:39] LABS: Anion Gap 12.1; BUN Creatinine Ratio 18.6; Calcium 9.3 mg/dL (8.5-10.1); Carbon Dioxide 25.9 mmol/L (21.0-32.0); Chloride 103 mmol/L (98-107); Estimated GFR (African America >60 (>=60); Estimated GFR (Non-African Ame >60 (>=60); Glucose 90 mg/dL (74-106); Sodium 137 mmol/L (136-145); Troponin I High Sensitivity 4.1 pg/mL (4.0-76.1)
--- NOTE | 2024-04-02 18:46 | ED_ITS ---
HPI HPI - General Adult General Chief complaint: Shortness of Breath/Dyspnea Stated complaint: Difficulty Breathing, Possible Allergic Reaction Time Seen by Provider: 04/02/24 17:44 Source: patient and family Mode of arrival: walk-in Limitations: no limitations History of Present Illness HPI narrative: 63-year-old male to the emergency department chief complaint shortness of breath. Symptoms worsened over the last few days. He has a history of COPD. Recently diagnosed with atrial fibrillation. No fever, sweats, chills, cough. He did have a trace of red rash a few days ago which has resolved. Denies heart failure. Related Data Home Medications ?Medication ?Instructions ?Recorded ?Confirmed albuterol sulfate 2.5 mg/3 mL 2.5 mg inhalation TID PRN 03/09/24 03/09/24 (0.083 %) solution for nebulization shortness of breath or wheezing albuterol sulfate 90 mcg/actuation 1 puff inhalation Q8H PRN 03/09/24 03/09/24 aerosol inhaler shortness of breath or wheezing cetirizine 10 mg tablet 10 mg PO DAILY 03/09/24 03/09/24 montelukast 10 mg tablet 10 mg PO DAILY 03/09/24 03/09/24 nifedipine 60 mg tablet,extended 60 mg PO DAILY 03/09/24 03/09/24 release Previous Rx's ?Medication ?Instructions ?Recorded apixaban 5 mg tablet (Eliquis) 5 mg PO BID #30 tabs 03/09/24 albuterol sulfate 90 mcg/actuation 2 inh inhalation Q6H PRN shortness 03/11/24 aerosol inhaler (Ventolin HFA) of breath or wheezing #8.5 grams budesonide-formoterol HFA 80 1 inh inhalation BID #10.2 grams 03/11/24 mcg-4.5 mcg/actuation aerosol inhaler (Symbicort) cefdinir 300 mg capsule 600 mg (2 x 300 mg) PO DAILY #14 03/11/24 caps diltiazem HCl 240 mg 240 mg PO QD #30 caps 03/11/24 capsule,extended release 24 hr prednisone 10 mg tablet 50 mg (5 x 10 mg) PO DAILY #47 tabs 03/11/24 Allergies Allergy/AdvReac Type Severity Reaction Status Date / Time No Known Drug Allergies Allergy Verified 03/09/24 09:52 Opioid HPI Opioid Management Most Recent Opioid Data: Last Pain Intensity 3 03/10/24 09:44 Last ORT Total Score 0 03/09/24 15:00 Last ORT Risk Category Low Risk 03/09/24 15:00 Review of Systems ROS Status of ROS 10 or more systems reviewed and unremark able except as noted in history and below [facility] Medical History (Updated 04/02/24 @ 18:55 by Chavo Perez MD) Acute exacerbation of COPD with asthma ?J44.1 - Chronic obstructive pulmonary disease with (acute) exacerbation (ICD-10) ?J45.901 - Unspecified asthma with (acute) exacerbation (ICD-10) Atrial fibrillation, new onset ?I48.91 - Unspecified atrial fibrillation (ICD-10) Hypertension ?I10 - Essential (primary) hypertension (ICD-10) Family History Mother Family history of hypertension Family history of myocardial infarction Father Family history of stroke Social History Highest level of school completed/degree received: high school graduate Do you think of yourself as: straight/heterosexual Gender Identity: male Exam Narrative Exam Narrative: VITALS: I have reviewed the triage vital signs. GENERAL: Adult male in mild respiratory distress NEURO: Alert and oriented. Moves all extremities. Face is symmetric and expressive. EYES: PERRL. No scleral icterus or conjunctival injection. No discharge. HENT: Normocephalic, atraumatic. Hearing is grossly intact. Nares grossly patent and without discharge. Mucous membranes moist. NECK: No JVD. Patient moves neck without restriction. CARDIO: Rhythm regular. Normal rate. No murmur, rub, or gallop. Pulses equal bilaterally in the upper and lower extremity. No lower extremity edema. PULM: Decreased air movement. Mild conversational dyspnea. Mild increased work of breathing. GI/: Abdomen is soft and non-tender. Normoactive bowel sounds. EXTREMITIES: Symmetric muscle bulk. No joint swelling. No clubbing, cyanosis, or deformity. SKIN: Warm and dry. Normal turgor. No rash or lesions appreciated. PSYCH: Mood, affect, and interaction is appropriate to the setting. Constitutional Vital Signs, click to edit/add: Last Vital Signs Temp 98.8 F 04/02/24 17:42 Pulse 90 04/02/24 17:42 Resp 20 04/02/24 17:42 BP 126/88 04/02/24 17:42 Pulse Ox 95 04/02/24 18:01 O2 Del Method Room Air 04/02/24 18:01 Course Vital Signs Vital signs: Vital Signs Temperature 98.8 F 04/02/24 17:42 Pulse Rate 90 04/02/24 17:42 Respiratory Rate 20 04/02/24 17:42 Blood Pressure 126/88 04/02/24 17:42 Pulse Oximetry 97 04/02/24 17:42 Oxygen Delivery Method Room Air 04/02/24 17:42 Temperature 98.8 F 04/02/24 17:42 Pulse Rate 90 04/02/24 17:42 Respiratory Rate 20 04/02/24 17:42 Blood Pressure 126/88 04/02/24 17:42 Pulse Oximetry 95 04/02/24 18:01 Oxygen Delivery Method Room Air 04/02/24 18:01 Medical Decision Making MDM Narrative Medical decision making narrative: 63-year-old male to the emergency department chief complaint shortness of breath. Symptoms began over the last few days. He has a history of COPD. Recently diagnosed with atrial fibrillation. Cardiac workup is initiated. Care signed out to Dr. Delvalle with workup and disposition pending. Lab Data Lab results reviewed: Yes I reviewed the patient's lab results Labs: Lab Results 04/02/24 Range/Units 17:55 WBC 7.6 (4.0-11.0) 10^3/uL RBC 4.27 L (4.70-6.10) 10^6/uL Hgb 13.9 L (14.0-18.0) g/dL Hct 41.4 L (42.0-54.0) % MCV 97.0 H (80.0-94.0) fL MCH 32.6 (25.9-34.0) pg MCHC 33.6 (29.9-35.2) g/dL RDW 12.8 (11.0-15.0) % Plt Count 223 (150-450) 10^3/uL MPV 8.6 L (9.5-13.5) fL Neut % (Auto) 54.4 (43.0-75.0) % Lymph % (Auto) 17.0 L (20.5-60.0) % [place] % (Auto) 14.1 H (1.7-12.0) % Eos % (Auto) 13.7 H (0.9-7.0) % Baso % (Auto) 0.5 (0.2-2.0) % Neut # (Auto) 4.1 (1.4-6.5) 10^3/uL Lymph # (Auto) 1.3 (1.2-3.8) 10^3/uL [place] # (Auto) 1.1 H (0.3-0.8) 10^3/uL Eos # (Auto) 1.0 H (0.0-0.7) 10^3/uL Baso # (Auto) 0.0 (0.0-0.1) 10^3/uL Abs Immat Gran (auto) 0.02 (0.00-0.03) 10^3/uL Imm/Tot Granulo (auto) 0.3 (0.0-0.5) % Sodium 137 (136-145) mmol/L Potassium 4.0 (3.5-5.1) mmol/L Chloride 103 (98-107) mmol/L Carbon Dioxide 25.9 (21.0-32.0) mmol/L Anion Gap 12.1 BUN 22.0 H (7.0-18.0) mg/dL Creatinine 1.18 (0.70-1.30) mg/dL Est GFR ( Amer) >60 (>=60) Est GFR (Non-Af Amer) >60 (>=60) BUN/Creatinine Ratio 18.6 Glucose 90 (74-106) mg/dL Calcium 9.3 (8.5-10.1) mg/dL Troponin I High Sens 4.1 (4.0-76.1) pg/mL NT-Pro-B Natriuret Pep 973.0 H (<=900.0) pg/mL ECG Data Attestation: I personally reviewed and interpreted this ECG as follows: (Atrial fibrillation. No STEMI. Normal QTc) Discharge Plan Discharge Chief Complaint: Shortness of Breath/Dyspnea Clinical Impression: Shortness of breath Patient Disposition: Still a Patient Prescriptions / Home Meds: No Action albuterol sulfate 90 mcg/actuation HFA aerosol inhaler 1 puff INHALATION Q8H PRN (Reason: shortness of breath or wheezing) cetirizine 10 mg tablet 10 mg PO DAILY montelukast 10 mg tablet 10 mg PO DAILY nifedipine 60 mg tablet extended release 60 mg PO DAILY Eliquis 5 mg tablet 5 mg PO BID Qty: 30 0RF albuterol sulfate 2.5 mg /3 mL (0.083 %) solution for nebulization 2.5 mg inhalation TID PRN (Reason: shortness of breath or wheezing) prednisone 10 mg tablet 50 mg PO DAILY Qty: 47 0RF Rx Instructions: 5/day for 3 days. 4/day for 3 days, 3/day for 3 days, 2/day for 3 days, 1/day for 3 days, 1/2 /day for 4 days cefdinir 300 mg capsule 600 mg PO DAILY Qty: 14 0RF budesonide-formoterol [Symbicort] 80-4.5 mcg/actuation HFA aerosol inhaler 1 inh inhalation BID Qty: 10.2 11RF albuterol sulfate [Ventolin HFA] 90 mcg/actuation HFA aerosol inhaler 2 inh inhalation Q6H PRN (Reason: shortness of breath or wheezing) Qty: 8.5 11RF diltiazem HCl 240 mg Capsule,Extended Release 24hr 240 mg PO QD Qty: 30 11RF Print Language: Icelandic Referrals: Jori Lala [Primary Care Provider] - 1 week
[2024-04-02] MEDS: FUROSEMIDE 40 MG/4 ML VIAL IVP (21:26)
[2024-04-02 21:39] LABS: Adenovirus NOT DETECTED (NOT DETECTE); Coronavirus 229E NOT DETECTED (NOT DETECTE); Coronavirus HKU1 NOT DETECTED (NOT DETECTE); Coronavirus NL63 NOT DETECTED (NOT DETECTE); Coronavirus OC43 NOT DETECTED (NOT DETECTE); Human Metapneumovirus NOT DETECTED (NOT DETECTE); Human Rhinovirus/Enterovirus NOT DETECTED (NOT DETECTE); Influenza A NOT DETECTED (NOT DETECTE); Influenza B NOT DETECTED (NOT DETECTE); Parainfluenza Virus 1 NOT DETECTED (NOT DETECTE); Parainfluenza Virus 2 NOT DETECTED (NOT DETECTE); Parainfluenza Virus 3 NOT DETECTED (NOT DETECTE); Parainfluenza Virus 4 NOT DETECTED (NOT DETECTE); SARS-CoV-2 NOT DETECTED (NOT DETECTE)
[2024-04-02 21:40] LABS: Bordetella parapertussis NOT DETECTED (NOT DETECTE); Mycoplasma pneumoniae NOT DETECTED (NOT DETECTE); Respiratory Syncytial Virus NOT DETECTED (NOT DETECTE)
--- OUTSIDE RECORDS SUMMARY | 2024-04-02 22:01 | XMS_ITS | CCD ---
Author Organization [facility] Care Team Providers Care Engine Room Helper Name Role Phone DR KIM SOSA Consulting Unavailable KATTY, BEST Attending Unavailable KATTY, BEST Admitting Unavailable KATTY, BEST Consulting Unavailable JOAN, GEE Primary Care Unavailable WALL, GURVINDER Attending Unavailable POTHIREDDDOV Naqvi P Admitting Unavailable WALL, GURVINDER Attending Unavailable WALL, GURVINDER Referring Unavailable JOAN, GEE Primary Care Unavailable ELTAHAWY, EHAB Attending Unavailable Problems Problem Classification Problem Date Documented Da te Episodic/Chronic Cardiac dysrhythmias (2 sources) Paroxysmal atrial fibrillation; Translations: [Paroxysmal atrial fibrillation] Onset: 03-23-2024 Chronic E Codes: Struck by; against (1 source) Striking against or struck by other objects, initial encounter; Translations: [STRIKING AGNST/STRUCK OTH OBJ INIT] Onset: 05-30-2021 Episodic Other lower respiratory disease (1 source) Shortness of breath; Translations: [Shortness of breath] Onset: 01-27-2024 Episodic Other lower respiratory disease (1 source) Hypoxemia; Translations: [Hypoxemia] Onset: 01-27-2024 Episodic Other lower respiratory disease (1 source) Shortness of breath Onset: 01-27-2024 Episodic Other lower respiratory disease (1 source) Dyspnea Onset: 01-27-2024 Episodic Other non-traumatic joint disorders (3 sources) Pain in left knee; Translations: [PAIN IN LEFT KNEE] Onset: 05-26-2021 Episodic Other non-traumatic joint disorders (1 source) Effusion, left knee; Translations: [EFFUSION LEFT KNEE] Onset: 05-30-2021 Episodic Superficial injury; contusion (1 source) Contusion of left knee, initial encounter; Translations: [CONTUSION LEFT KNEE INITIAL ENC] Onset: 05-30-2021 Episodic Results Test Name Value Interpretation Reference Range [facility] ity Office Visiton 03-23-2024 Follow-up visit [id number] Paige Baltazar 1960 M Date Provider Department Center 03/23/2024 271-SYLVIE WARD C[facility] Family History Problem Relation Age of Onset Heart attack Mother Transient ischemic attack Father Family Status - Relation Status Age at Mother Father Level of Service:26436 [place] OFFICE/OUTPATIENT ESTABLISHED MOD MDM 30 MIN Normal [facility] CBC AND AUTO DIFFon 01-27-20 ABSOLUTE BASOPHIL 0.1 X10E9/L Normal 0.0-0.2 [facility] Comment on above: Performed By: #### C BCA, CMP, 69141-7, 97898-9, 49421-3, 04307-1 #### [facility] ([id number]) [address] [place] [address] 64510 ABSOLUTE NEUTROPHIL 4.6 X10E9/L Normal 1.5-6.6 [facility] Comment on above: Performed By: #### C BCA, CMP, 51317-6, 50010-9, 57573-9, 12741-5 #### [facility] ([id number]) [address] [place] [address] 08307 Basophils/100 WBC (Bld) 1.2 % Normal [facility] Comment on above: Performed By: #### C BCA, CMP, 18877-2, 16355-0, 52464-4, 43165-5 #### [facility] ([id number]) [address] [place] [address] 28863 Eosinophils (Bld) [#/Vol] 0.6 10*3/uL High 0.0-0.4 [facility] Comment on above: Performed By: #### C BCA, CMP, 07059-1, 27924-4, 08098-2, 46788-2 #### [facility] ([id number]) [address] [place] [address] 89035 Eosinophils/100 WBC (Bld) 6.2 % Normal [facility] Comment on above: Performed By: #### C BCA, CMP, 18440-3, 39566-0, 09574-5, 45653-3 #### [facility] ([id number]) [address] [place] [address] 78684 Erythrocyte distribution width (RBC) [Ratio] 13.8 % Normal 11.5-15.0 [facility] Comment on above: Performed By: #### C BCA, CMP, 80828-7, 01311-9, 01995-4, 60993-8 #### [facility] ([id number]) [address] [place] [address] 36037 Hematocrit (Bld) [Volume fraction] 49.1 % High 39-49 [facility] Comment on above: Performed By: #### C BCA, CMP, 83820-7, 10745-1, 90302-8, 25232-6 #### [facility] ([id number]) [address] [place] [address] 40065 Hemoglobin (Bld) [Mass/Vol] 16.9 g/dL Normal 13.0-17.0 [facility] Comment on above: Performed By: #### C BCA, CMP, 58742-2, 56442-2, 19522-7, 75979-1 #### [facility] ([id number]) [address] [place] [address] 95461 Lymphocytes (Bld) [#/Vol] 3.4 10*3/uL Normal 1.0-3.5 [facility] Comment on above: Performed By: #### C BCA, CMP, 38552-9, 26172-9, 16450-6, 58115-1 #### [facility] ([id number]) [address] [place] [address] 92379 Lymphocytes/100 WBC (Bld) 35.6 % Normal [facility] Comment on above: Performed By: #### C BCA, CMP, 14804-5, 94305-1, 38986-0, 74131-1 #### [facility] ([id number]) [address] [place] [address] 21428 MCH (RBC) [Entitic mass] 33.8 pg Normal 27-34 [facility] Comment on above: Performed By: #### C BCA, CMP, 62586-0, 98847-9, 74813-8, 95383-0 #### [facility] ([id number]) [address] [place] [address] 15140 MCHC (RBC) [Mass/Vol] 34.3 g/dL Normal 32-36 [facility] Comment on above: Performed By: #### C BCA, CMP, 29033-8, 79876-9, 68380-2, 75599-8 #### [facility] ([id number]) [address] [place] [address] 40286 MCV (RBC) [Entitic vol] 98 fL Normal 80-100 [facility] Comment on above: Performed By: #### C BCA, CMP, 41149-1, 35056-3, 53912-4, 91290-8 #### [facility] ([id number]) [address] [place] [address] 98981 Monocytes (Bld) [#/Vol] 0.9 10*3/uL Normal 0-0.9 [facility] Comment on above: Performed By: #### C BCA, CMP, 04503-0, 32800-6, 39073-2, 03758-3 #### [facility] ([id number]) [address] [place] [address] 66779 Monocytes/100 WBC (Bld) 9.3 % Normal [facility] Comment on above: Performed By: #### C BCA, CMP, 43110-9, 07997-5, 51806-2, 02536-5 #### [facility] ([id number]) [address] [place] [address] 39680 Neutrophils/100 WBC (Bld) 47.7 % Normal [facility] Comment on above: Performed By: #### C BCA, CMP, 51015-0, 82169-7, 09692-3, 09558-1 #### [facility] ([id number]) [address] [place] [address] 60918 Platelet mean volume (Bld) [Entitic vol] 7.0 fL Normal 7-12 [facility] Comment on above: Performed By: #### C BCA, CMP, 83062-1, 34844-8, 27482-6, 84219-8 #### [facility] ([id number]) [address] [place] [address] 99576 Platelets (Bld) [#/Vol] 249 10*3/uL Normal 150-450 [facility] Comment on above: Performed By: #### Rosi BCA, CMP, 32123-9, 25534-6, 75740-3, 01660-6 #### [facility] ([id number]) [address] [place] [address] 46300 RBC COUNT 4.99 X10E12/L Normal 4.10-5.70 [facility] Comment on above: Performed By: #### C BCA, CMP, 11945-5, 61659-8, 41226-7, 54818-8 #### [facility] ([id number]) [address] [place] [address] 53086 WBC (Bld) [#/Vol] 9.7 10*3/uL Normal 4.0-11.0 [facility] Comment on above: Performed By: #### C BCA, CMP, 31043-1, 20338-2, 52564-7, 17330-0 #### [facility] ([id number]) [address] [place] [address] 49905 COMPREHENSIVE METABOLIC PANE Skip 01-27-2024 Albumin [Mass/Vol] 4.7 g/dL Normal 3.2-5.3 [facility] Comment on above: Performed By: #### C BCA, CMP, 08525-7, 17789-1, 60363-2, 86635-1 #### [facility] ([id number]) [address] [place] [address] 38591 ALP [Catalytic activity/Vol] 91 U/L Normal 39-130 [facility] Comment on above: Performed By: #### C BCA, CMP, 29559-6, 07656-4, 53881-9, 42468-7 #### [facility] ([id number]) [address] [place] [address] 51031 ALT [Catalytic activity/Vol] 30 U/L Normal 0-40 [facility] Comment on above: Performed By: #### C BCA, CMP, 08611-6, 43471-4, 61831-3, 29856-7 #### [facility] ([id number]) [address] [place] [address] 24958 Anion gap [Moles/Vol] 10 mmol/L Normal 5-15 [facility] Comment on above: Performed By: #### C BCA, CMP, 24878-6, 85779-0, 30895-7, 98851-9 #### [facility] ([id number]) [address] [place] [address] 64236 AST [Catalytic activity/Vol] 27 U/L Normal 0-41 [facility] Comment on above: Performed By: #### C BCA, CMP, 75629-3, 26962-0, 63600-1, 18772-1 #### [facility] ([id number]) [address] [place] [address] 25435 Bilirubin [Mass/Vol] 0.8 mg/dL Normal 0.3-1.2 [facility] Comment on above: Performed By: #### C BCA, CMP, 07370-0, 56454-6, 62418-0, 49030-0 #### [facility] ([id number]) [address] [place] [address] 63492 Calcium [Mass/Vol] 9.5 mg/dL Normal 8.5-10.5 [facility] Comment on above: Performed By: #### C BCA, CMP, 09010-3, 81259-9, 76237-9, 80953-1 #### [facility] ([id number]) [address] [place] [address] 52844 Chloride [Moles/Vol] 99 mmol/L Normal 98-109 [facility] Comment on above: Performed By: #### C BCA, CMP, 50376-0, 22227-6, 10277-3, 76278-5 #### [facility] ([id number]) [address] [place] [address] 39570 CO2 [Moles/Vol] 26 mmol/L Normal 22-32 [facility] Comment on above: Performed By: #### C BCA, CMP, 85746-0, 98588-1, 27270-1, 07122-4 #### [facility] ([id number]) [address] [place] [address] 19029 Creatinine [Mass/Vol] 1.05 mg/dL Normal 0.70-1.20 [facility] Comment on above: Result Comment: METH OD TRACEABLE TO IDMS STANDARD Performed By: #### C BCA, CMP, 30415-3, 73942-1, 72303-8, 42357-8 #### [facility] ([id number]) [address] [place] [address] 86975 GFR/1.73 sq M.predicted among non-blacks MDRD (S/P/Bld) [Vol rate/Area] 79 mL/min/{1.73_m2} Normal >59 [facility] Comment on above: Result Comment: Reported eGFR is based on the CKD-EPI 2020 equation that does not use a race coefficient. Performed By: #### C BCA, CMP, 73002-9, 87802-2, 86557-0, 83719-9 #### [facility] ([id number]) [address] [place] [address] 37754 Glucose [Mass/Vol] 125 mg/dL High 65-99 [facility] Comment on above: Performed By: #### C BCA, CMP, 77419-3, 70646-2, 32457-9, 23305-0 #### [facility] ([id number]) [address] [place] [address] 50121 Potassium [Moles/Vol] 4.3 mmol/L Normal 3.5-5.0 [facility] Comment on above: Performed By: #### C BCA, CMP, 64293-8, 75896-8, 98627-8, 34225-3 #### [facility] ([id number]) [address] [place] [address] 48368 Protein [Mass/Vol] 8.4 g/dL High 6.0-8.0 [facility] Comment on above: Performed By: #### C BCA, CMP, 86434-2, 59018-6, 05603-0, 27011-2 #### [facility] ([id number]) [address] [place] [address] 35483 Sodium [Moles/Vol] 135 mmol/L Normal 134-146 [facility] Comment on above: Performed By: #### C BCA, CMP, 88213-7, 55064-6, 32129-7, 17907-5 #### [facility] ([id number]) [address] [place] [address] 34044 Urea nitrogen [Mass/Vol] 18 mg/dL Normal 5-27 [facility] Comment on above: Performed By: #### C BCA, CMP, 77339-6, 86874-1, 04365-4, 22955-5 #### [facility] ([id number]) [address] [place] [address] 57810 Fibrin D-dimer DDU (PPP) [Ma ss/Vol]on 01-27-2024 D DIMER <150 Normal <255 [facility] Comment on above: Result Comment: Results <255 ng/mL DDU: The presence of a VTE can safely be excluded with a negative D-Dimer result and Wells score. A negative result doesn't exclude the possibility of DIC. The test be repeated along with other diagnostic tests if the patient's symptoms persist or worsen. [email or web address] Performed By: #### C BCA, CMP, 60265-0, 95676-8, 76838-6, 96170-0 #### [facility] ([id number]) [address] [place] [address] 25447 MAGNESIUMon 01-27-2024 Magnesium [Mass/Vol] 2.1 mg/dL Normal 1.8-2.6 [facility] Comment on above: Performed By: #### C BCA, CMP, 05143-0, 41624-9, 17532-0, 34485-4 #### [facility] ([id number]) [address] [place] [address] 45558 Natriuretic peptide B [Mass/ Vol]on 01-27-2024 Natriuretic peptide B (Bld) [Mass/Vol] 64 pg/mL Normal <100.0 [facility] Comment on above: Performed By: #### C BCA, CMP, 43058-9, 47994-2, 20033-6, 78400-4 #### [facility] ([id number]) [address] [place] [address] 19182 SARS/FLU A+B/RSV by NAAT/Mol ecularon 01-27-2024 SARS/FLU A+B/RSV by NAAT/Molecular FLU A PCR Negative (qualifier value) FLU B PCR Negative (qualifier value) RSV by PCR Negative (qualifier value) SARS CoV 2 Not detected (qualifier value) NOTE The Xpert Xpress SARS-CoV-2/Flu/RSV Plus test is a rapid, multiplexed real-time RT-PCR test intended for the simultaneous qualitative detection and differentiation of SARS-CoV-2, influenza A, influenza B and respiratory syncytial virus (RSV) viral RNA from individuals suspected of respiratory viral infection consistent with COVID-19 by their healthcare provider. This test has not been validated in asymptomatic patients. The Xpert Xpress SARS-CoV-2 test is intended for use by qualified and trained operators who are performing tests using either [employer] or [employer] systems and is limited to laboratories that meet the CLIA requirements to perform high and moderate complexity tests. The Xpert Xpress SARS-CoV-2/Flu/RSV Plus is only for use under the Food and Drug Administration's Emergency Use Authorization. Results are for the simultaneous detection and differentiation of SARS-CoV-2, influenza A, influenza B and RSV nucleic acids in clinical specimens. SARS-CoV-2, influenza A, influenza B and RSV RNA identified by this test are generally detectable in upper respiratory samples during the acute phase of infection. Positive results are indicative of the presence of the identified virus, but do not rule out bacterial infection or co-infection with other pathogens not detected by this test. Clinical correlation with patient history and other diagnostic information is necessary to determine patient infection status. The agent detected may not be the definite cause of disease. Negative results do not preclude SARS-CoV-2, influenza A, influenza B and RSV infection and should not be used as the sole basis for treatment or other patient management decisions. Negative results must be combined with clinical observations, patient history and epidemiological information. An Invalid result may occur with specimen-associated inhibition unable to be resolved with specimen repeat. Fact Sheet for Healthcare Providers: https://www.fda.gov/m edia/376676/download Fact Sheet for Patients: https://www.fda.gov/m edia/762249/download Normal [facility] Comment on above: Performed By: #### C OVFLR #### [facility] ([id number]) [address] [place] [address], [place] [address] TROPONIN Ion 01-27-2024 Troponin I.cardiac [Mass/Vol] 0.01 ng/mL Normal 0.00-0.04 [facility] Comment on above: Performed By: #### C BCA, [facility], 45002-8, 39766-5, 98886-3, 84553-3 #### [facility] ([id number]) [address] [facility] [place] [address] XR CHEST 1 VWon 01-27-2024 XR CHEST 1 VW XR CHEST 1 VW Clinical history: Shortness of breath. Comparisons: 02/15/2023. Findings: AP portable upright chest radiograph obtained 1:04 AM. Heart size and pulmonary vasculature appear within normal limits. Lungs appear clear. There is no pleural effusion nor pneumothorax. IMPRESSION: No evidence for acute cardiac pulmonary disease. Finalized by Carlitos Lagunas MD on 01/27/2024 1:18 AM Normal [facility] Encounters Encounter Date Encounter Type Care Provider Facility Start: 03-23-2024 End: 03-23-2024 ambulatory [facility] Start: 01-27-2024 End: 01-28-2024 Emergency department patient visit GURVINDER NUNESGERS [facility] Start: 01-27-2024 End: 01-27-2024 ambulatory GEEVILMA FRANCO [facility] Start: 05-26-2021 End: 05-26-[address] KIM SOSA Facility: Payers Date Payer Category Payer Private Health Insurance CLI [id number] 2023 Medicare [id number] 1960 Unknown [id number] 1960 Unknown [id number] 1960 Unknown [id number] [id number] Unknown [id number] Progress note 03-23-2024 Note Date & Type Note Facility 03-23-2024 Note [facility] Cardiology Clinic Note Chief Complaint: Patient here for follow up [facility] for afib and hypertension. He was discharged on Eliquis and diltiazem, but he is not currently taking diltiazem. He denies chest pain, lightheadedness/syncope, and bleeding on Eliquis. Gets SOB, and does not see pulmonary. Still gets intermittent palpitations. HPI: In-patient consult: 63-year-old with a history of COPD and hypertension admitted to the [facility] for COPD exacerbation. Noted to be in atrial fibrillation with rapid ventricular response. Since being treated for COPD rates have been better controlled. No prior EKG revealing A-fib this appears to be the first episode. Echo reveals normal EF and biatrial enlargement. Assessment and plan: Atrial fibrillation new onset. Acute exacerbation of COPD with asthma. Plan: Given that this is the first episode, although the duration of which is unknown, I would recommend continuing anticoagulation with Eliquis or Xarelto. After being on anticoagulation for 3 weeks, consider cardioversion. If he converts to sinus on his own, then add amiodarone. He is to follow-up in the EP clinic. Has been doing well since discharge. No new cardiovascular symptoms. Denies a history of congestive heart failure, recently diagnosed with hypertension, no diabetes. No history of cerebrovascular accident or transient ischemic attacks. No history of vascular disease. Social history: Used to drink heavily at least 4-5 drinks every night, this is cut down to at least 1 or 2 currently. Denies other stimulants. He does smoke. Family history: His mother had heart disease but she was about the age of 60. Cardiology ROS: Review of Systems Cardiovascular: Positive for dyspnea on exertion and palpitations. All other systems reviewed and are negative. Past Medical History He has no past medical history on file. Surgical History He has no past surgical history on file. Social History He has no history on file for tobacco use, alcohol use, and drug use. Family History No family history on file. Allergies Patient has no allergy information on record. Medications No current outpatient medications on file. Last Recorded Vitals BP 106/70 (BP Location: Right arm, Patient Position: Sitting) Pulse 57 Ht 1.829 m (6') Wt 84.8 kg (187 lb) SpO2 97% BMI 25.36 kg/m??? Physical Examination: GENERAL: alert and oriented x3, well developed, in no acute distress. HEAD: atraumatic, normocephalic. EYES: RIGOBERTO, EOMI. NECK: trachea midline, no JVD present, no carotid bruits present. CARDIAC: S1, S2 present. RRR. No murmur, rubs, or gallops. RESPIRATORY: CTAB, no increased effort of breathing, no rales, rhonchi, or wheezing. ABDOMEN: soft, nontender, nondistended. EXTREMITIES: no lower extremity edema, peripheral pulses are 2+ bilaterally. No rash/skin discoloration present. NEURO: strength/sensation equal and symmetric in bilateral upper and lower extremities. PSYCH: appropriate mood, affect, and judgement. CTA chest 03/09/2024: Impression: No pulmonary embolism 2. Moderate emphysematous changes 3. No acute infiltrates or specific findings to account for patient's symptoms Echocardiogram 03/09/2024: Conclusion: 1. Normal ventricular size and systolic function; EF 55% 2. Mild biatrial dilatation 3. No significant valvular dysfunction 4. Mildly elevated right-sided pressures 5. The patient appears to be in atrial fibrillation during examination Assessment: Atrial fibrillation, controlled rates- on Eliquis HTN COPD - moderate emphysema Abnormal ECG ETOH use H/O COVID-19 Plan: He is to follow-up with Dr. Carrillo/our EP colleagues Given persistent atrial fibrillation, he will need to be scheduled for LAURIE guided cardioversion followed by initiation of amiodarone per Dr. Carrillo's recommendation. Given excessive ETOH intake, I have discussed the effects of ETOH on The heart including initiating and maintaining atrial fibrillation, the direct toxic effect, risk of systolic dysfunction and heart failure etc. For now until he sees Dr. Carrillo, I have instructed him to cut back significantly on any alcohol and other stimulants Treat noncardiac comorbidities particularly pulmonary as appropriate I will be happy to see him if any intervention needs arise Sylvie Ward MD, MPH, [facility], [facility], [facility] Interventional Cardiology Pager Email: [email or web address] Clinical Note 05-26-2021 Note Date & Type Note Facility 05-26-2021 Note PROCEDURE: XR KNEE L T 4V or > HISTORY: Pain ; lateral knee pain since hitting on object 3 weeks ago COMPARISON: None. FINDINGS: BONES:No fracture, acute abnormality, or significant arthropathy. SOFT TISSUES:No visible soft tissue swelling. EFFUSION:Small effusion. OTHER: Negative. IMPRESSION: 1. Small joint effusion. 2. No acute bone abnormality. Electronically authenticated by: KIM SOSA Date: 2021-05-26 12:17 [facility] Summary Purpose Family History No Family History Records FoundNo Family History Records FoundNo Family History Records Found Advance Directives No Advanced Directives Records FoundNo Advanced Directives Records FoundNo Advanced Directives Records Found Additional Source Comments (unrecognized sect ion and content) No Status Records FoundNo Status Records FoundNo Status Records Found INFORMATION SOURCE (unrecogn ized section and content) DATE CREATED AUTHOR 06/16/2021 [facility] DATE CREATED AUTHOR AUTHOR'S ORGANIZ ATION 01/28/2024 [facility] DATE CREATED AUTHOR AUTHOR'S ORGANIZ ATION 03/23/2024 [facility] FOR RECORDS PERTAINING TO PATIENTS WHO ARE OR HAVE BEEN ENROLLED IN A CHEMICAL DEPENDENCY/SUBSTANCEABUSE PROGRAM, SOME INFORMATION MAY BE OMITTED. This clinical summary was aggregated from multiple sources. Caution should be exercised in using it in the provision of clinical care. This summary normalizes information from multiple sources, and as a consequence, information in this document may materially change the coding, format and clinical context of patient data. In addition, data may be omitted in some cases. CLINICAL DECISIONS SHOULD BE BASED ON THE PRIMARY CLINICAL RECORDS. [facility]. provides no warranty or guarantee of the accuracy or completeness of information in this document.
[2024-04-02] MEDS: APIXABAN 5 MG TABLET PO (23:07)
[2024-04-03] VITALS (21 sets, daily range): BP systolic 116–150; BP diastolic 79–87; PULSE 72–117; TEMP 36.3–36.6; O2SAT 93–96
[2024-04-03 05:13] LABS: Hematocrit 40.8 % (42.0-54.0); Hemoglobin 13.8 g/dL (14.0-18.0); Mean Corpuscular HGB Conc 33.8 g/dL (29.9-35.2); Mean Corpuscular Hemoglobin 32.2 pg (25.9-34.0); Mean Corpuscular Volume 95.1 fL (80.0-94.0); Mean Platelet Volume 8.8 fL (9.5-13.5); Platelet Count 231 10^3/uL (150-450); Red Blood Count 4.29 10^6/uL (4.70-6.10); Red Cell Distribution Width 12.6 % (11.0-15.0); White Blood Count 5.6 10^3/uL (4.0-11.0)
[2024-04-03 05:29] LABS: Anion Gap 12.7; BUN Creatinine Ratio 18.7; Calcium 9.1 mg/dL (8.5-10.1); Carbon Dioxide 26.2 mmol/L (21.0-32.0); Chloride 103 mmol/L (98-107); Estimated GFR (African America >60 (>=60); Estimated GFR (Non-African Ame 59 (>=60); Glucose 165 mg/dL (74-106); Magnesium 2.1 mg/dL (1.8-2.4); Potassium 3.9 mmol/L (3.5-5.1); Sodium 138 mmol/L (136-145)
[2024-04-03] MEDS: NIFEdipine 30 MG TAB.ER.24 60 MG PO (08:26)
[2024-04-03] MEDS: APIXABAN 5 MG TABLET PO ×2 (08:26→21:37)
[2024-04-03] MEDS: FUROSEMIDE 20 MG/2 ML VIAL IVP ×2 (08:26→21:37)
[2024-04-03] MEDS: MONTELUKAST SODIUM 10 MG TABLET PO (08:26)
[2024-04-03] MEDS: CETIRIZINE HCL 10 MG TABLET PO (08:26)
--- NOTE | 2024-04-03 08:45 | CM.NOTE ---
Rounds made with Dr. Wooten. Dr. Wooten discusses plan of care. Mr. Murguia verbalizes understanding. No discharge today.
--- NOTE | 2024-04-03 09:25 | SWNOTE1 ---
SW met with pt to discuss dc needs. Pt lives at home with his . Pt is independent with all ADL'S. Pt voiced no anticipated discharge needs at this time. SW to follow as needed. Medicare Outpatient Observation Notice reviewed and discussed with patient. Pt. verbalized understanding and signed the form. Original given to patient and copy placed in patient?s chart.
[2024-04-03] MEDS: BUPROPION HCL 150 MG SR TABLET 12H PO (09:42)
[2024-04-03] MEDS: METHYLPREDNISOLONE SOD SUCC PF 125 MG/2 ML VIAL 60 MG IVP ×3 (09:42→21:37)
[2024-04-03] MEDS: FLUTICASONE PROPIONATE 50 MCG NASAL SPRAY 2 SPRAY NS (09:42)
--- NOTE | 2024-04-03 09:56 | PM.HP ---
HPI H&P: HPI History of Present Illness Chief complaint: Difficulty Breathing, Allergic Reaction, SOB Narrative: 63 y/o male to ER with SOB. History of COPD and recent diagnosis of afib presents to ER with SOB. Admitted 03/09-03/11 for COPD exacerbation and new onset afib. [place] like improved on steroids and antibiotics but symptoms started to worsen after finishing treatment. Increased SOB and chest tightness. [place] like not able to take deep breath and admitted. WBC normal and normal SpO2. Afebrile. Chest x-ray clear. BNP elevated but weight only up 2 pounds from discharge. No edema of legs. Admitted for treatment. Started IV lasix. Unchanged this am and continued SOB. Opioid HPI Opioid Management Most Recent Opioid Data: Last Pain Intensity 3 03/10/24 09:44 Last Pain Assessment 04/03/24 09:49 Last ORT Total Score 0 04/02/24 22:21 Last ORT Risk Category Low Risk 04/02/24 22:21 Review of Systems ROS Constitutional Denies: fever, chills or fatigue Cardiovascular Denies: chest pain, palpitations or edema Respiratory Reports: shortness of breath and cough; Denies: wheezing Gastrointestinal Denies: abdominal pain, nausea, vomiting or diarrhea Genitourinary Denies: painful urination [facility] Medical History (Updated 04/03/24 @ 09:01 by Gregg Wooten MD) Shortness of breath ?R06.02 - Shortness of breath (ICD-10) Atrial fibrillation, new onset ?I48.91 - Unspecified atrial fibrillation (ICD-10) Family History (Updated 04/02/24 @ 22:05 by Farheen Becerra RN) Mother Family history of hypertension Family history of myocardial infarction Family history of CHF (congestive heart failure) Father Family history of stroke Sister Family history of cancer Social History (Updated 04/02/24 @ 22:07 by Farheen Becerra RN) Within the past year, how often did you have a drink containing alcohol: monthly or less Within the past year, how many standard drinks containing alcohol did you have on a typical day: 1 or 2 Within the past year, how often did you have six or more drinks on one occasion: never Total score: 0 Score interpretation: A score less than 4 is consistent with normal alcohol consumption. Smoking status: Former smoker Non-prescribed substance use: denies use Previous occupational history: retired Highest level of school completed/degree received: 10th grade Are you now , , , , never or living with a partner: In a typical week, how many times do you talk on the telephone with family, friends, or neighbors: 3 or more times per week How often do you get together with friends or relatives: 3 or more times per week How often do you attend congregational or cheondoism services: never Little interest or pleasure in doing things: not at all Feeling down, depressed, or hopeless: not at all Feel stressed/tense/nervous/anxious/difficulty sleeping: to some extent Do you think of yourself as: straight/heterosexual Gender Identity: male Meds Home Medications and Allergies Home Medications ?Medication ?Instructions ?Recorded ?Confirmed ?Type albuterol sulfate 2.5 mg/3 mL 2.5 mg inhalation TID PRN 03/09/24 04/02/24 History (0.083 %) solution for nebulization shortness of breath or wheezing albuterol sulfate 90 mcg/actuation 1 puff inhalation Q8H PRN 03/09/24 04/02/24 History aerosol inhaler shortness of breath or wheezing apixaban 5 mg tablet (Eliquis) 5 mg PO BID #30 tabs 03/09/24 04/02/24 Rx cetirizine 10 mg tablet 10 mg PO DAILY PRN allergy symptoms 03/09/24 04/02/24 History montelukast 10 mg tablet 10 mg PO DAILY 03/09/24 04/02/24 History nifedipine 60 mg tablet,extended 60 mg PO DAILY 03/09/24 04/02/24 History release bupropion HCl (smoking deter) 150 150 mg PO QAM 04/03/24 04/03/24 History mg tablet,12 hr sustained-release(smoking deterrent) diltiazem HCl 240 mg 240 mg PO Q24H 04/03/24 04/03/24 History capsule,extended release 24 hr Allergies Allergy/AdvReac Type Severity Reaction Status Date / Time No Known Drug Allergies Allergy Verified 03/09/24 09:52 Exam Constitutional Vital Signs, click to edit/add: Last Vital Signs Temp 97.3 F L 04/03/24 07:29 Pulse 94 H 04/03/24 09:51 Resp 18 04/03/24 07:29 BP 118/80 04/03/24 04:00 Pulse Ox 94 L 04/03/24 07:29 O2 Del Method Room Air 04/03/24 07:29 Documenting provider has reviewed patient's vital signs: yes Common normals: no apparent distress, oriented x3 and alert HENMT Common normals: normocephalic Eye Common normals: PERRL and EOMs intact bilaterally Respiratory Common normals: normal respiratory effort Auscultation: wheezes expiratory wheezes and diminished lung sounds Cardio Common normals: no gallops, no murmurs and no rub Rhythm: abnormal rhythm irregularly irregular GI Common normals: Normal to inspection, nondistended, normoactive bowel sounds present and non-tender Extremity Common normals: no pedal edema Results Labs Labs: Short CBC 04/02/24 04/03/24 Range/Units 17:55 04:02 WBC 7.6 5.6 (4.0-11.0) 10^3/uL Hgb 13.9 L 13.8 L (14.0-18.0) g/dL Hct 41.4 L 40.8 L (42.0-54.0) % Plt Count 223 231 (150-450) 10^3/uL BMP 04/02/24 04/03/24 17:55 04:02 Sodium 137 138 Potassium 4.0 3.9 Chloride 103 103 Carbon Dioxide 25.9 26.2 BUN 22.0 H 23.0 H Creatinine 1.18 1.23 Glucose 90 165 H Calcium 9.3 9.1 Assessment and Plan Assessment and Plan (1) Acute on chronic heart failure with preserved ejection fraction (HFpEF): (2) Acute exacerbation of COPD with asthma: (3) Persistent atrial fibrillation: (4) Hypertension: Plan Presented with SOB and possible CHF with fluid overload. Received a lot of IV fluids during recent hospitalization. Recent echo showed normal EF 55%. Continue IV lasix. Decreased BS and chest tight. Start solu-medrol and continue breathing treatments. Resume home medication. Remains in afib but rate controlled.
[2024-04-03] MEDS: ALBUTEROL SULFATE 2.5 MG/3 ML VIAL NEB IH ×3 (11:23→23:00)
[2024-04-04] VITALS (11 sets, daily range): BP systolic 114–121; BP diastolic 73–83; PULSE 82–119; TEMP 36.3–36.6; O2SAT 92–96
[2024-04-04] MEDS: METHYLPREDNISOLONE SOD SUCC PF 125 MG/2 ML VIAL 60 MG IVP ×2 (03:22→09:21)
[2024-04-04 04:39] LABS: Basophils Percent Auto 0.1 % (0.2-2.0); Eosinophils Percent Auto 0.1 % (0.9-7.0); Hematocrit 39.6 % (42.0-54.0); Hemoglobin 13.4 g/dL (14.0-18.0); Immature Granulocytes Abs Auto 0.07 10^3/uL (0.00-0.03); Immature Granulocytes Pct Auto 0.6 % (0.0-0.5); Lymphocytes Absolute Auto 0.8 10^3/uL (1.2-3.8); Lymphocytes Percent Auto 6.4 % (20.5-60.0); Mean Corpuscular HGB Conc 33.8 g/dL (29.9-35.2); Mean Corpuscular Hemoglobin 31.9 pg (25.9-34.0); Mean Corpuscular Volume 94.3 fL (80.0-94.0); Mean Platelet Volume 8.5 fL (9.5-13.5); Monocytes Absolute Auto 0.4 10^3/uL (0.3-0.8); Monocytes Percent Auto 3.3 % (1.7-12.0); Neutrophils Absolute Auto 11.3 10^3/uL (1.4-6.5); Neutrophils Percent Auto 89.5 % (43.0-75.0); Platelet Count 238 10^3/uL (150-450); Red Cell Distribution Width 12.4 % (11.0-15.0); White Blood Count 12.6 10^3/uL (4.0-11.0)
[2024-04-04 04:47] LABS: Anion Gap 12.4; BUN Creatinine Ratio 25.8; Calcium 9.4 mg/dL (8.5-10.1); Carbon Dioxide 26.5 mmol/L (21.0-32.0); Chloride 101 mmol/L (98-107); Estimated GFR (African America >60 (>=60); Estimated GFR (Non-African Ame 59 (>=60); Glucose 152 mg/dL (74-106); Potassium 3.9 mmol/L (3.5-5.1); Sodium 136 mmol/L (136-145)
[2024-04-04 04:52] LABS: Estimated Average Glucose 123 mg/dL; Glycohemoglobin A1C 5.9 % (4.5-6.2)
[2024-04-04] MEDS: ALBUTEROL SULFATE 2.5 MG/3 ML VIAL NEB IH (07:56)
--- NOTE | 2024-04-04 08:28 | XR_ITS ---
[address] [address] Patient Name: PAIGE BALTAZAR MRN: [id number] date: 1960 Sex: M Assigned Patient Location: [place] Current Patient Location: [place] Accession/Order Number: [id number] Exam Date: 04/04/2024 08:45 Report Date: 04/04/2024 09:13 At the request of: CARMENCITA MONTANA Procedure: XR chest 1V EXAM: XR chest 1V HISTORY: shortness of breath COMPARISON: 04/02/2024 FINDINGS/IMPRESSION: 1. Lungs are clear 2. No pneumothorax. No pleural effusion. 3. Heart size and mediastinal contours are normal 4. No acute osseous abnormality Electronically authenticated by: FELIX STONER Date: 04/04/2024 09:13
--- NOTE | 2024-04-04 08:28 | PM.PN ---
Exam Constitutional Vital Signs, click to edit/add: Last Vital Signs Temp 97.9 F 04/04/24 07:52 Pulse 89 04/04/24 08:00 Resp 18 04/04/24 07:53 BP 121/83 04/04/24 07:52 Pulse Ox 96 04/04/24 07:56 O2 Del Method Room Air 04/04/24 07:56 Progress Note: Objective Labs Labs: Short CBC 04/04/24 Range/Units 04:07 WBC 12.6 H (4.0-11.0) 10^3/uL Hgb 13.4 L (14.0-18.0) g/dL Hct 39.6 L (42.0-54.0) % Plt Count 238 (150-450) 10^3/uL BMP 04/04/24 04:07 Sodium 136 Potassium 3.9 Chloride 101 Carbon Dioxide 26.5 BUN 32.0 H Creatinine 1.24 Glucose 152 H Calcium 9.4 Progress Note: A&P Assessment and Plan (1) Acute on chronic heart failure with preserved ejection fraction (HFpEF): (2) Acute exacerbation of COPD with asthma: (3) Persistent atrial fibrillation: (4) Hypertension:
[2024-04-04 08:55] LABS: Troponin I High Sensitivity 4.1 pg/mL (4.0-76.1)
[2024-04-04] MEDS: FUROSEMIDE 20 MG/2 ML VIAL IVP (09:21)
[2024-04-04] MEDS: CETIRIZINE HCL 10 MG TABLET PO (09:26)
[2024-04-04] MEDS: APIXABAN 5 MG TABLET PO (09:26)
[2024-04-04] MEDS: BUPROPION HCL 150 MG SR TABLET 12H PO (09:26)
[2024-04-04] MEDS: DILTIAZEM HCL 240 MG CAP.ER.24H PO (09:27)
[2024-04-04] MEDS: MONTELUKAST SODIUM 10 MG TABLET PO (09:28)
[2024-04-04] MEDS: FLUTICASONE PROPIONATE 50 MCG NASAL SPRAY 2 SPRAY NS (09:28)
[2024-04-04] MEDS: NIFEdipine 30 MG TAB.ER.24 60 MG PO (09:29)
--- NOTE | 2024-04-04 13:24 | PM.DS1 ---
DS: Providers Provider Date of admission: 04/02/24 21:55 Primary care physician: Jori Lala Admitting clinician: Gregg Wooten Attending physician on discharge: Mganolia Casiano DS: Diagnosis Discharge Diagnosis (1) Acute on chronic heart failure with preserved ejection fraction (HFpEF): (2) Acute exacerbation of COPD with asthma: (3) Persistent atrial fibrillation: (4) Hypertension: DS: Summary Hospital Course Hospital Course: 63 y/o male to ER with SOB. History of COPD and recent diagnosis of afib presents to ER with SOB. Admitted 03/09-03/11 for COPD exacerbation and new onset afib. [place] like improved on steroids and antibiotics but symptoms started to worsen after finishing treatment. Increased SOB and chest tightness. [place] like not able to take deep breath and admitted. WBC normal and normal SpO2. Afebrile. Chest x-ray clear. BNP elevated but weight only up 2 pounds from discharge. No edema of legs. Admitted for treatment. Started IV lasix 20mg BID, and IV steroids. At the time of discharge he has no oxygen requirements. His proBNP was normal, troponins normal and chest x-ray normal today. He has no signs of Leg edema. He will be discharged home on symbicort, albuterol, prednisone x 7 days and zithromax. He will call on saturday to Dr. Miller, pulmonology office for new patient appointment. He is to keep appointments with cardiology and PCP. Return to the ER with any worsening signs or symptoms. Status at Discharge Functional status at discharge: independent ambulation Overall status at discharge: patient is back to baseline Time Spent with Patient Time attestation: Total time spent providing and/or coordinating discharge services: Time spent: greater than 30 minutes Exam Narrative Exam Narrative: General: Patient is alert, and oriented to person, place and time with normal affect, proper hygiene Skin: no visible rashes, or ulcers Head: atraumatic, acephalic Eyes: PERRLA, no nystagmus present, conjunctiva clear, no scleral icterus Ears:normal gross auditory acuity Heart: Normal rate and rhythm, no murmurs/rubs/gallops Lungs: no audible wheezes, crackles and normal breath sounds all lung myles Musculoskeletal: no swelling bilateral lower extremities Neuro: CN II-X grossly intact Constitutional Vital Signs, click to edit/add: Last Vital Signs Temp 97.4 F L 04/04/24 11:49 Pulse 119 H 04/04/24 12:00 Resp 18 04/04/24 11:49 BP 116/73 04/04/24 11:49 Pulse Ox 92 L 04/04/24 11:49 O2 Del Method Room Air 04/04/24 11:49 DS: Data Data Completed and Pending Labs on day of discharge: Labs from last 24 hours 04/04/24 04:07 WBC 12.6 H RBC 4.20 L Hgb 13.4 L Hct 39.6 L MCV 94.3 H MCH 31.9 MCHC 33.8 RDW 12.4 Plt Count 238 MPV 8.5 L Neut % (Auto) 89.5 H Lymph % (Auto) 6.4 L [place] % (Auto) 3.3 Eos % (Auto) 0.1 L Baso % (Auto) 0.1 L Neut # (Auto) 11.3 H Lymph # (Auto) 0.8 L [place] # (Auto) 0.4 Eos # (Auto) 0.0 Baso # (Auto) 0.0 Abs Immat Gran (auto) 0.07 H Imm/Tot Granulo (auto) 0.6 H Sodium 136 Potassium 3.9 Chloride 101 Carbon Dioxide 26.5 Anion Gap 12.4 BUN 32.0 H Creatinine 1.24 Est GFR ( Amer) >60 Est GFR (Non-Af Amer) 59 L BUN/Creatinine Ratio 25.8 Glucose 152 H Estimat Average Glucose 123 Hemoglobin A1c 5.9 Calcium 9.4 Troponin I High Sens 4.1 NT-Pro-B Natriuret Pep 760.0 Discharge Plan Discharge Disposition: Home, Self-Care Discharge Medications: New prednisone 20 mg tablet 20 mg PO BID 7 Days Qty: 14 0RF azithromycin [Zithromax Z-Richi] 250 mg tablet See Rx Instructions .ROUTE .COMPLEX Qty: 6 0RF Rx Instructions: For 250 mg dose pack: take 500 mg today (day 1), then 250 mg for 4 days (days 2-5) budesonide-formoterol 80-4.5 mcg/actuation Hfa Aerosol Inhaler 1 inh inhalation BID 30 Days Qty: 1 0RF Continued albuterol sulfate 90 mcg/actuation HFA aerosol inhaler 1 puff INHALATION Q8H PRN (Reason: shortness of breath or wheezing) cetirizine 10 mg tablet 10 mg PO DAILY PRN (Reason: allergy symptoms) montelukast 10 mg tablet 10 mg PO DAILY nifedipine 60 mg tablet extended release 60 mg PO DAILY Eliquis 5 mg tablet 5 mg PO BID Qty: 30 0RF albuterol sulfate 2.5 mg /3 mL (0.083 %) solution for nebulization 2.5 mg inhalation TID PRN (Reason: shortness of breath or wheezing) diltiazem HCl 240 mg capsule,extended release 24hr 240 mg PO Q24H bupropion HCl (smoking deter) 150 mg tablet extended release 12 hr 150 mg PO QAM Activity: increase activity as tolerated Diet: advance to your usual diet Print Language: Bangladeshi Patient Instructions: A-fib (Atrial Fibrillation) (DC), COPD (Chronic Obstructive Pulmonary Disease) (DC) Forms: Portal Instructions Follow Up Appointments: please schedule follow up appt with your pcp [facility] within 5-7 days on saturday please give patient Dr. Miller clinic number at discharge for new patient appointment
--- NOTE | 2024-04-07 14:59 | CM.DCFOLLOWU ---
Person spoke with: Chang How are you feeling? pretty good. How is your pain? No pain Did you understand your discharge instructions? yes Do you have any questions about your discharge instructions? no Were you given any prescriptions at discharge? yes Were you able to get your prescriptions filled? yes Do you understand how to take your medications as ordered? yes Do you have any questions about your follow up appointment and do you plan to keep your follow up appointment? Yes I do Is there anything else that you would like to discuss? No. Feeling pretty good right now. Questions/Comments/Concerns/Other:
== END 2024-04-04 14:10 | disposition home or self-care (01) ==
LOC: ER 21:56 → MS 21:59
PROVIDERS: Family Medicine; Registered Nurse; Student in an Organized Health Care Education/Training Program; Admitting Provider Family Medicine; Emergency Provider Internal Medicine; Visit Provider Family Medicine
DX: I11.0 Hypertensive heart disease with heart failure (principal); I50.33 Acute on chronic diastolic (congestive) heart failure; J44.1 Chronic obstructive pulmonary disease with (acute) exacerbation; I48.19 Other persistent atrial fibrillation; J45.901 Unspecified asthma with (acute) exacerbation; Z87.891 Personal history of nicotine dependence; Z20.822 Contact with and (suspected) exposure to COVID-19; Z79.899 Other long term (current) drug therapy
CPT/HCPCS: 0202U; 36415; 71045; 80048; 83036; 83735; 83880; 84484; 85025; 85027; 93005; 94640; 94761; 96374; 96375; 96376; 99285; G0378; J1940; J2919

== ENCOUNTER 2024-05-12 13:00 | Outpatient (OUT) | payer MEDICARE, SELFPAY ==
--- NOTE | 2024-05-12 13:00 | RT_ITS ---
[facility] Test Date: 2024-05-12 Pat Name: PAIGE BALTAZAR Department: Room: - Gender: Male Broadcast Technician: Sindy Lindsey RRT : 1960 Requested By: Lang Miller Order Number: [id number] [place] MD: Lang Miller Interpretive Statements Pulmonary function testing was completed according to ATS criteria. Findings were considered accurate and reproducible, with exception of FVC which did not meet ATS standards. Both pre- and post-bronchodilator values utilized for spirometry. Spirometry (based on pre-bronchodilator values): -FEV1/FVC: Reduced @ 32% -FEV1: Severely reduced @ 32% -FVC: Mildly reduced @ 75% -[id number]%: Reduced @ 9 -There is a positive bronchodilator response in FEV1 and FVC. Lung volumes by plethysmography: -RV: Increased @ 162% -TLC: Normal @ 101% Diffusion capacity: -DLCO: Severe reduction @ 42% when corrected for Hb 12.6g/dL Flow-volume loop: -Very severe obstructive pattern Flow-pressure loop: ???Emphysematous pattern Impressions: -Spirometry suggests severe obstruction. There is a positive bronchodilator response. An elevated RV suggests air trapping. There is a severely reduced diffusion capacity. Overall study is compatible with COPD with a bronchodilator response or asthma/COPD overlap. Patient is at risk for ambulatory desaturations with a decreased DLCO. Clinical correlation required. Electronically Signed On 05-12-2024 17:03:33 EDT by Lang Miller
[2024-05-12] MEDS: ALBUTEROL SULFATE 2.5 MG/3 ML VIAL NEB IH (13:40)
== END 2024-05-12 13:01 | disposition home or self-care (01) ==
LOC: CARD 13:01
PROVIDERS: Visit Provider Internal Medicine
DX: J43.2 Centrilobular emphysema (principal)
CPT/HCPCS: 94060; 94726; 94729

== ENCOUNTER 2024-05-15 12:18 | Outpatient (OUT) | payer MEDICARE, SELFPAY ==
--- OUTSIDE RECORDS SUMMARY | 2024-05-15 12:22 | XMS_ITS | CCD ---
Author Organization [facility] Care Team Providers Care Profiling Machine Set Up Operator Name Role Phone DR KIM SOSA Consulting Unavailable KATTY, BEST Attending Unavailable KATTY, BEST Admitting Unavailable KATTY, BEST Consulting Unavailable JOAN, GEE Primary Care Unavailable WALL, GURVINDER Attending Unavailable POTHIREBRANDON, DOV P Admitting Unavailable WALL, GURVINDER Attending Unavailable WALL, GURVINDER Referring Unavailable JOAN, GEE Primary Care Unavailable ELTAHAWY, SYLVIE Attending Unavailable ALFONZO BARTON Attending Unavailable Problems Problem Classification Problem Date [...] LEFT KNEE INITIAL ENC] Onset: 05-30-2021 Episodic Unclassified (2 sources) Other persistent atrial fibrillation; Translations: [Other persistent atrial fibrillation] Onset: 04-07-2024 Results Test Name Value Interpretation Reference Range Facil ity Office Visiton 04-07-2024 Follow-up visit [id number] Paige Baltazar Christine 1960 M Date Provider Department Center 04/07/2024 ALFONZO WHITMAN CARD [facility] Family History Problem Relation Age of Onset Heart attack Mother Transient ischemic attack Father Family Status - Relation Status Age at Mother Father Level of Service:93557 [place] OFFICE/OUTPATIENT ESTABLISHED MOD MDM 30 MIN Normal [facility] Orders Onlyon 04-07-2024 Orders Only [id number] Paige Baltazar Christine 1960 M Date Provider Department Center 04/07/2024 DAVID GARCIA CARD [facility] Family History Problem Relation Age of Onset Heart attack Mother Transient ischemic attack Father Family Status - Relation Status Age at Mother Father Normal [facility] Office Visiton 03-23-2024 Follow-up visit [id number] Paige Baltazar Christine 1960 M Date Provider Department Center 03/23/2024 Rudy-SYLVIE WARD CARD [facility] Family History Problem Relation Age of Onset Heart attack Mother Transient ischemic attack Father Family Status - Relation Status Age at Mother Father Level of Service:66735 RI OFFICE/OUTPATIENT ESTABLISHED MOD MDM 30 MIN Normal [facility] CBC AND AUTO DIFFon 01-27-20 24 ABSOLUTE BASOPHIL 0.1 X10E9/L Normal 0.0-0.2 [facility] Comment on above: Performed By: #### C BCA, CMP, 02673-4, 61287-4, 31040-2, 34942-5 #### [facility] ([id number]) [address] [place] [address] 78121 ABSOLUTE NEUTROPHIL 4.6 X10E9/L Normal 1.5-6.6 [facility] Comment on above: Performed By: #### C BCA, CMP, 49257-5, 70777-1, 98434-6, 15833-7 #### [facility] ([id number]) [address] [place] [address] 91167 Basophils/100 WBC (Bld) 1.2 % Normal [facility] Comment on above: Performed By: #### C ARIADNE, CMP, 73506-9, 19153-1, 62019-1, 63743-9 #### [facility] ([id number]) [address] [place] [address] 54525 Eosinophils (Bld) [#/Vol] 0.6 10*3/uL High 0.0-0.4 [facility] Comment on above: Performed By: #### C ARIADNE, CMP, 10591-0, 11388-3, 40118-7, 51426-1 #### [facility] ([id number]) [address] [place] [address] 83106 Eosinophils/100 WBC (Bld) 6.2 % Normal [facility] Comment on above: Performed By: #### C ARIADNE, CMP, 67312-7, 69015-1, 82851-1, 87911-4 #### [facility] ([id number]) [address] [place] [address] 90997 Erythrocyte distribution width (RBC) [Ratio] 13.8 % Normal 11.5-15.0 [facility] Comment on above: Performed By: #### C ARIADNE, CMP, 55430-6, 22511-7, 92241-1, 22747-9 #### [facility] ([id number]) [address] [place] [address] 63180 Hematocrit (Bld) [Volume fraction] 49.1 % High 39-49 [facility] Comment on above: Performed By: #### C BCA, CMP, 01709-7, 21018-0, 30446-5, 20560-2 #### [facility] ([id number]) [address] [place] [address] 18967 Hemoglobin (Bld) [Mass/Vol] 16.9 g/dL Normal 13.0-17.0 [facility] Comment on above: Performed By: #### C BCA, CMP, 91186-6, 17129-6, 75564-2, 50810-3 #### [facility] ([id number]) [address] [place] [address] 34616 Lymphocytes (Bld) [#/Vol] 3.4 10*3/uL Normal 1.0-3.5 [facility] Comment on above: Performed By: #### C BCA, CMP, 21435-5, 92309-1, 61675-4, 82225-8 #### [facility] ([id number]) [address] [place] [address] 20787 Lymphocytes/100 WBC (Bld) 35.6 % Normal [facility] Comment on above: Performed By: #### C BCA, CMP, 91299-5, 67195-6, 30059-3, 94979-4 #### [facility] ([id number]) [address] [place] [address] 38144 MCH (RBC) [Entitic mass] 33.8 pg Normal 27-34 [facility] Comment on above: Performed By: #### C BCA, CMP, 78496-4, 98368-3, 41010-2, 10671-4 #### [facility] ([id number]) [address] [place] [address] 57933 MCHC (RBC) [Mass/Vol] 34.3 g/dL Normal 32-36 [facility] Comment on above: Performed By: #### C BCA, CMP, 65741-3, 67867-2, 75768-3, 20395-3 #### [facility] ([id number]) [address] [place] [address] 72951 MCV (RBC) [Entitic vol] 98 fL Normal 80-100 [facility] Comment on above: Performed By: #### C BCA, CMP, 99050-6, 48247-3, 92487-8, 36132-7 #### [facility] ([id number]) [address] [place] [address] 64434 Monocytes (Bld) [#/Vol] 0.9 10*3/uL Normal 0-0.9 [facility] Comment on above: Performed By: #### C BCA, CMP, 40149-6, 04851-8, 22483-9, 07575-6 #### [facility] ([id number]) [address] [place] [address] 65982 Monocytes/100 WBC (Bld) 9.3 % Normal [facility] Comment on above: Performed By: #### C BCA, CMP, 06912-5, 06153-5, 31112-2, 86620-9 #### [facility] ([id number]) [address] [place] [address] 61296 Neutrophils/100 WBC (Bld) 47.7 % Normal [facility] Comment on above: Performed By: #### C BCA, CMP, 93839-3, 49781-8, 50244-9, 09869-9 #### [facility] ([id number]) [address] [place] [address] 70721 Platelet mean volume (Bld) [Entitic vol] 7.0 fL Normal 7-12 [facility] Comment on above: Performed By: #### Rosi BCA, CMP, 11436-5, 99691-8, 11903-3, 29736-2 #### [facility] ([id number]) [address] [place] [address] 29882 Platelets (Bld) [#/Vol] 249 10*3/uL Normal 150-450 [facility] Comment on above: Performed By: #### Rosi BCA, CMP, 76891-3, 30756-4, 15017-2, 13285-8 #### [facility] ([id number]) [address] [place] [address] 64974 RBC COUNT 4.99 X10E12/L Normal 4.10-5.70 [facility] Comment on above: Performed By: #### C BCA, CMP, 88375-3, 70010-2, 10462-3, 50467-7 #### [facility] ([id number]) [address] [place] [address] 69043 WBC (Bld) [#/Vol] 9.7 10*3/uL Normal 4.0-11.0 [facility] Comment on above: Performed By: #### C BCA, CMP, 97082-8, 34320-8, 29262-5, 44505-4 #### [facility] ([id number]) [address] [place] [address] 26428 COMPREHENSIVE METABOLIC PANE Skip 01-27-2024 Albumin [Mass/Vol] 4.7 g/dL Normal 3.2-5.3 [facility] Comment on above: Performed By: #### C BCA, CMP, 04673-5, 75355-8, 06428-0, 66847-3 #### [facility] ([id number]) [address] [place] [address] 49400 ALP [Catalytic activity/Vol] 91 U/L Normal 39-130 [facility] Comment on above: Performed By: #### C BCA, CMP, 77911-6, 25293-2, 90497-4, 45536-6 #### [facility] ([id number]) [address] [place] [address] 35085 ALT [Catalytic activity/Vol] 30 U/L Normal 0-40 [facility] Comment on above: Performed By: #### C BCA, CMP, 91594-8, 62521-4, 28181-3, 90627-3 #### [facility] ([id number]) [address] [place] [address] 24511 Anion gap [Moles/Vol] 10 mmol/L Normal 5-15 [facility] Comment on above: Performed By: #### C BCA, CMP, 25882-0, 92725-1, 75588-3, 77193-6 #### [facility] ([id number]) [address] [place] [address] 30320 AST [Catalytic activity/Vol] 27 U/L Normal 0-41 [facility] Comment on above: Performed By: #### C BCA, CMP, 16466-3, 68584-6, 51056-2, 35832-8 #### [facility] ([id number]) [address] [place] [address] 41434 Bilirubin [Mass/Vol] 0.8 mg/dL Normal 0.3-1.2 [facility] Comment on above: Performed By: #### C BCA, CMP, 12261-1, 45840-5, 03152-6, 22941-7 #### [facility] ([id number]) [address] [place] [address] 38694 Calcium [Mass/Vol] 9.5 mg/dL Normal 8.5-10.5 [facility] Comment on above: Performed By: #### C BCA, CMP, 17960-3, 70728-1, 09489-2, 53273-7 #### [facility] ([id number]) [address] [place] [address] 87320 Chloride [Moles/Vol] 99 mmol/L Normal 98-109 [facility] Comment on above: Performed By: #### C BCA, CMP, 69791-7, 66200-6, 45892-5, 32310-8 #### [facility] ([id number]) [address] [place] [address] 55503 CO2 [Moles/Vol] 26 mmol/L Normal 22-32 [facility] Comment on above: Performed By: #### C BCA, CMP, 80100-2, 29593-0, 49926-3, 21905-2 #### [facility] ([id number]) [address] [place] [address] 61626 Creatinine [Mass/Vol] 1.05 mg/dL Normal 0.70-1.20 [facility] Comment on above: Result Comment: METH OD TRACEABLE TO IDMS STANDARD Performed By: #### C BCA, CMP, 99839-7, 40791-6, 43038-1, 21784-4 #### [facility] ([id number]) [address] [place] [address] 88644 GFR/1.73 sq M.predicted among non-blacks MDRD (S/P/Bld) [Vol rate/Area] 79 mL/min/{1.73_m2} Normal >59 [facility] Comment on above: Result Comment: Reported eGFR is based on the CKD-EPI 2020 equation that does not use a race coefficient. Performed By: #### C BCA, CMP, 87580-8, 91445-8, 44293-6, 26975-9 #### [facility] ([id number]) [address] [place] [address] 23115 Glucose [Mass/Vol] 125 mg/dL High 65-99 [facility] Comment on above: Performed By: #### C BCA, CMP, 85058-6, 50606-4, 98734-1, 66648-5 #### [facility] ([id number]) [address] [place] [address] 62851 Potassium [Moles/Vol] 4.3 mmol/L Normal 3.5-5.0 [facility] Comment on above: Performed By: #### C BCA, CMP, 61601-3, 48958-1, 82710-7, 84615-9 #### [facility] ([id number]) [address] [place] [address] 22270 Protein [Mass/Vol] 8.4 g/dL High 6.0-8.0 [facility] Comment on above: Performed By: #### C BCA, CMP, 69202-6, 56570-2, 78501-2, 71921-1 #### [facility] ([id number]) [address] [place] [address] 75107 Sodium [Moles/Vol] 135 mmol/L Normal 134-146 [facility] Comment on above: Performed By: #### C BCA, CMP, 15824-4, 92439-9, 43495-0, 18053-7 #### [facility] ([id number]) [address] [place] [address] 40633 Urea nitrogen [Mass/Vol] 18 mg/dL Normal 5-27 [facility] Comment on above: Performed By: #### C BCA, CMP, 05136-8, 13763-7, 94040-3, 16760-1 #### [facility] ([id number]) [address] [place] [address] 13753 Fibrin D-dimer DDU (PPP) [Ma ss/Vol]on 01-27-2024 D DIMER <150 Normal <255 [facility] Comment on above: Result Comment: Results <255 ng/mL DDU: The presence of a VTE can safely be excluded with a negative D-Dimer result and Wells score. A negative result doesn't exclude the possibility of DIC. The test be repeated along with other diagnostic tests if the patient's symptoms persist or worsen. [email or web address] Performed By: #### C BCA, CMP, 45729-4, 10108-4, 12657-0, 96059-0 #### [facility] ([id number]) [address] [place] [address] 43530 MAGNESIUMon 01-27-2024 Magnesium [Mass/Vol] 2.1 mg/dL Normal 1.8-2.6 [facility] Comment on above: Performed By: #### C BCA, CMP, 83640-6, 81590-1, 40502-3, 93520-7 #### [facility] ([id number]) [address] [facility], [place] [address] Natriuretic peptide B [Mass/ Vol]on 01-27-2024 Natriuretic peptide B (Bld) [Mass/Vol] 64 pg/mL Normal <100.0 [facility] Comment on above: Performed By: #### C BCA, [facility], 44106-8, 89259-7, 69228-2, 23982-1 #### [facility] ([id number]) [address] [facility], [place] [address] SARS/FLU A+B/RSV by NAAT/Mol ecularon 01-27-2024 SARS/FLU [...] operators who are performing tests using either [employer] or [employer] systems and is limited to laboratories that [...] repeat. Fact Sheet for Healthcare Providers: https://www.fda.gov/m edia/052654/download Fact Sheet for Patients: https://www.fda.gov/m edia/039578/download Normal [facility] Comment on above: Performed By: #### C OVFLR #### [facility] ([id number]) [address] [place] [address] 66885 TROPONIN Ion 01-27-2024 Troponin I.cardiac [Mass/Vol] 0.01 ng/mL Normal 0.00-0.04 [facility] Comment on above: Performed By: #### C BCA, CMP, 44398-3, 05858-4, 10670-1, 57586-7 #### [facility] ([id number]) [address] [place] [address] 40383 XR CHEST 1 VWon 01-27-2024 XR CHEST [...] Lagunas MD on 01/27/2024 1:18 AM Normal [facility] Encounters Encounter Date Encounter Type Care Provider Facility Start: 04-07-2024 End: 04-07-2024 ambulatory [facility] Start: 03-23-2024 End: 03-23-2024 ambulatory [facility] Start: 01-27-2024 End: 01-28-2024 Emergency department patient visit GURVINDER WALL [facility] Start: 01-27-2024 End: 01-27-2024 ambulatory GEE FRANCO [facility] Start: 05-26-2021 End: 05-26-[address] KIM SOSA Facility: Payers Date Payer Category Payer Private Health Insurance CLI [id number] 2023 Medicare [id number] 1960 Unknown [id number] [id number] 1960 Unknown [id number] [id number] 1960 Unknown [id number] Unknown [id number] Progress note 04-07-2024 Note Date & Type Note Facility 04-07-2024 Note [place] Electrophysiology Consult Note [place] [facility] - [facility] Reason for visit: atrial fibrillation HPI: Paige Baltazar is a 63 y.o. year old with past medical history of COPD was recently admitted to [facility] with A-fib with rapid ventricular rate at that time his ventricular rate was controlled with medication and echocardiogram revealed normal EF with biatrial enlargement. He was started on anticoagulation and subsequently discharged with advised to follow-up with the EP clinic. Given that he has consumed significant amount of alcohol he was advised to refrain from that. He was admitted to [facility] a few days ago for CHF and exacerbation of COPD with asthma. Denies chest pain, lightheadedness/syncope, and bleeding on Eliquis. EKG 03/23/2024 reveals atrial fibrillation PMH: Past Medical History: Diagnosis Date Abnormal ECG Arrhythmia Asthma Atrial fibrillation (CMS/HCC) COPD (chronic obstructive pulmonary disease) (CMS/HCC) Hypertension PSH: No past surgical history on file. SH: Social Determinants of Health Tobacco Use: Medium Risk (03/23/2024) Patient History Smoking Tobacco Use: Former Smokeless Tobacco Use: Never Passive Exposure: Not on file Alcohol Use: Not on file Financial Resource Strain: Not on file Food Insecurity: Not on file Transportation Needs: Not on file Physical Activity: Not on file Stress: Not on file Social Connections: Not on file Intimate Partner Violence: Unknown (03/11/2024) [place] Safety & Environment Fear of Current or Ex-Partner: Not on file Emotionally Abused: Not on file Physically Abused: Not on file Sexually Abused: Not on file Physically or Sexually Abused: Not on file Depression: Not on file Housing Stability: Not on file Utilities: Not on file Allergies: No Known Allergies Weight: 83.9kg Visit Vitals BP 108/78 (BP Location: Right arm, Patient Position: Sitting) Pulse 95 Ht 1.829 m (6') Wt 83.9 kg (185 lb) SpO2 97% BMI 25.09 kg/m??? Smoking Status Former BSA 2.06 m??? Meds: Current Outpatient Medications on File Prior to Visit Medication Sig Dispense Refill albuterol 90 mcg/actuation inhaler inhale 1 puff by mouth and INTO THE LUNGS every 8 hours if needed apixaban (Eliquis) 5 mg tablet Take 1 tablet (5 mg) by mouth in the morning and at bedtime. 60 tablet 0 buPROPion (Zyban) 150 mg 12 hr tablet 1 (one) time each day at the same time. cetirizine (ZyrTEC) 10 mg tablet Take 10 mg by mouth if needed each day. NIFEdipine CC (Adalat CC) 60 mg 24 hr tablet take 1 tablet by mouth once daily ON AN EMPTY STOMACH [DISCONTINUED] Eliquis 5 mg tablet Take 5 mg by mouth in the morning and at bedtime. No current facility-administered medications on file prior to visit. ROS: Cardio Basic Cardiovascular Symptoms: no lightheadedness, no leg edema, no syncope, no orthopnea, no PND, no claudication, Constitutional Constitutional: no fever, no night sweats, no significant weight gain, no significant weight loss, no exercise intolerance Eyes Eyes: no dry eyes, no irritation, no vision change ENMT Ears: no difficulty hearing, no ear pain Nose: no frequent nosebleeds, Mouth/Throat: no sore throat, no bleeding gums, no snoring, no dry mouth, no mouth ulcers, no oral abnormalities, no teeth problems Respiratory Respiratory: no cough, no wheezing, no coughing up blood, no sleep apnea Musculoskeletal Musculoskeletal: no muscle aches, no muscle weakness, joint pain+, no back pain, no swelling in the extremities Integumentary Skin no rash, no ulcer, no varicosities, no discoloration, no pruritus Neurologic Neurologic: no loss of consciousness, no weakness, no numbness, no seizures, no dizziness, no headaches Psychiatric Psych: no depression, feeling safe in relationship, no alcohol abuse, Hematologic/Lymphatic Hematologic/Lymphatic no swollen glands, no bruising Physical Exam: Constitutional General Appearance: well-nourished, well-developed, appears stated age Level of Distress: comfortable Psychiatric Mental Status: alert, normal affect Orientation: oriented to time, place, and person Insight: good judgement Eyes Lids and Conjunctivae: non-injected, no xanthelasma ENMT Ears: no lesions on external ear Nose: no lesions on external nose Oropharynx: no cyanosis, no pallor Neck Neck: supple, trachea midline Carotid Arteries: bilateral normal upstroke, no bruits Jugular Veins: normal jugular venous pressure Thyroid: not enlarged Lungs Respiratory Effort: unlabored Chest Exam: normal curvature, no thoracic deformity Auscultation: clear, no wheezing, no rales, no rhonchi Cardiovascular Rate And Rhythm: regular Heart Sounds: normal S1, normal s2, no gallop Systolic Murmur: not heard Diastolic Murmur: not heard Extremities: no cyanosis, no edema, no peripheral signs of emboli Peripheral Pulses Radial Pulse: normal Abdomen Inspection and (more content not included)... [facility] Progress note 03-23-2024 Note Date & Type Note Facility 03-23-2024 Note [facility] Cardiology Clinic Note Chief Complaint: Patient here for follow up [facility] for afib and hypertension. He was discharged on Eliquis and diltiazem, but he is not currently taking diltiazem. He denies chest pain, lightheadedness/syncope, and bleeding on Eliquis. Gets SOB, and does not see pulmonary. Still gets intermittent palpitations. HPI: In-patient consult: 63-year-old with a history of COPD and hypertension admitted to the [facility] for COPD exacerbation. Noted to be [...] Plan: He is to follow-up with Dr. Barton/our EP colleagues Given persistent atrial fibrillation, he will need to be scheduled for LAURIE guided cardioversion followed by initiation of amiodarone per Dr. Barton's recommendation. Given excessive ETOH intake, I have discussed the effects of ETOH on The heart including initiating and maintaining atrial fibrillation, the direct toxic effect, risk of systolic dysfunction and heart failure etc. For now until he sees Dr. Barton, I have instructed him to cut back significantly on any alcohol and other stimulants Treat noncardiac comorbidities particularly pulmonary as appropriate I will be happy to see him if any intervention needs arise Sylvie Ward MD, MPH, [facility], [facility], [facility] Interventional Cardiology Pager Email: [email or web address] Clinical Note 05-26-2021 Note Date & [...] authenticated by: KIM SOSA Date: 2021-05-26 12:17 [facility] Summary Purpose Family History No Family History Records FoundNo Family History Records FoundNo Family History Records Found Advance Directives No Advanced Directives Records FoundNo Advanced Directives Records FoundNo Advanced Directives Records Found Additional Source Comments (unrecognized sect ion and content) No Status Records FoundNo Status Records FoundNo Status Records Found INFORMATION SOURCE (unrecogn ized section and content) DATE CREATED AUTHOR 06/16/2021 [facility] DATE CREATED AUTHOR AUTHOR'S ORGANIZ ATION 01/28/2024 [facility] DATE CREATED AUTHOR AUTHOR'S ORGANIZ ATION 04/19/2024 [facility] FOR RECORDS PERTAINING TO PATIENTS [...] BE BASED ON THE PRIMARY CLINICAL RECORDS. [employer] provides no warranty or guarantee of the accuracy or completeness of information in this document.
[2024-05-15 12:47] LABS: Basophils Absolute Auto 0.1 10^3/uL (0.0-0.1); Basophils Percent Auto 0.4 % (0.2-2.0); Eosinophils Absolute Auto 0.1 10^3/uL (0.0-0.7); Eosinophils Percent Auto 0.6 % (0.9-7.0); Hematocrit 42.3 % (42.0-54.0); Hemoglobin 14.1 g/dL (14.0-18.0); Immature Granulocytes Abs Auto 0.11 10^3/uL (0.00-0.03); Immature Granulocytes Pct Auto 0.8 % (0.0-0.5); Lymphocytes Absolute Auto 1.8 10^3/uL (1.2-3.8); Mean Corpuscular HGB Conc 33.3 g/dL (29.9-35.2); Mean Corpuscular Hemoglobin 32.1 pg (25.9-34.0); Mean Corpuscular Volume 96.4 fL (80.0-94.0); Mean Platelet Volume 8.4 fL (9.5-13.5); Monocytes Absolute Auto 0.8 10^3/uL (0.3-0.8); Monocytes Percent Auto 5.9 % (1.7-12.0); Neutrophils Absolute Auto 11.1 10^3/uL (1.4-6.5); Neutrophils Percent Auto 79.3 % (43.0-75.0); Platelet Count 249 10^3/uL (150-450); Red Blood Count 4.39 10^6/uL (4.70-6.10); Red Cell Distribution Width 13.5 % (11.0-15.0)
[2024-05-15 12:54] LABS: Anion Gap 13.1; BUN Creatinine Ratio 10.4; Chloride 103 mmol/L (98-107); Estimated GFR (African America >60 (>=60); Estimated GFR (Non-African Ame 53 (>=60); Glucose 94 mg/dL (74-106); Potassium 4.1 mmol/L (3.5-5.1); Sodium 139 mmol/L (136-145)
== END 2024-05-15 12:19 | disposition home or self-care (01) ==
LOC: LAB 12:19
PROVIDERS: Visit Provider Internal Medicine Cardiovascular Disease
DX: Z01.812 Encounter for preprocedural laboratory examination (principal)
CPT/HCPCS: 36415; 80048; 85025

== ENCOUNTER 2024-10-19 06:59 | Outpatient (RCR) | payer MEDICARE, SELFPAY ==
--- NOTE | 2024-07-22 09:30 | CR1_ITS ---
[facility] Test Date: 2024-07-22 Pat Name: PAIGE BALTAZAR Department: Room: - Gender: Male Business Mgr: : 1960 Requested By: Lang Miller Order Number: [id number] Clau MD: KITA MURPHY Interpretive Statements Session Date: Electronically Signed On 07-23-2024 20:09:15 EDT by KITA MURPHY
--- NOTE | 2024-07-27 07:41 | CR1_ITS ---
[facility] Test Date: 2024-07-27 Pat Name: PAIGE BALTAZAR Department: Room: - Gender: Male Dual Rate Supervisor: : 1960 Requested By: KITA MURPHY Order Number: [id number] Clau MD: KITA MURPHY Interpretive Statements Session Date: Electronically Signed On 07-27-2024 22:41:59 EDT by KITA MURPHY
--- NOTE | 2024-08-20 12:53 | CR1_ITS ---
[facility] Test Date: 2024-08-20 Pat Name: PAIGE BALTAZAR Department: Room: - Gender: Male Music Video Producer: : 1960 Requested By: Lang Miller Order Number: [id number] Clau MD: KITA MURPHY Interpretive Statements Session Date: Electronically Signed On 08-20-2024 22:59:44 EDT by KITA MURPHY
--- NOTE | 2024-09-16 07:47 | CR1_ITS ---
The [facility] Test Date: 2024-09-16 Pat Name: PAIGE BALTAZAR Department: Room: - Gender: Male Operations Label Clerk: : 1960 Requested By: Lang Miller Order Number: [id number] Clau MD: KITA MURPHY Interpretive Statements Session Date: Electronically Signed On 09-16-2024 18:45:46 EST by KITA MURPHY
--- NOTE | 2024-10-20 07:42 | CR1_ITS ---
[facility] Test Date: 2024-10-20 Pat Name: PAIGE BALTAZAR Department: Room: - Gender: Male Early Childhood Aide Classroom: : 1960 Requested By: Lang Miller Order Number: [id number] Clau MD: KITA MURPHY Interpretive Statements Session Date: Electronically Signed On 10-21-2024 8:06:18 EST by KITA MURPHY
== END 2024-10-20 12:06 | disposition home or self-care (01) ==
LOC: CR 06:59
PROVIDERS: Visit Provider Internal Medicine
DX: J43.2 Centrilobular emphysema (principal)
CPT/HCPCS: 94625; G0239

== ENCOUNTER 2024-10-26 13:35 | Outpatient (OUT) | payer MEDICARE, SELFPAY | END 2024-10-26 13:36 | disposition home or self-care (01) | LOC: LAB 13:37 | PROVIDERS: PCP Nurse Practitioner Family; Visit Provider Nurse Practitioner Family | DX: Z12.5 Encounter for screening for malignant neoplasm of prostate (principal) | CPT/HCPCS: 36415; G0103 ==

== ENCOUNTER 2024-10-26 13:42 | Outpatient (OUT) | payer MEDICARE, SELFPAY ==
[2024-10-26 14:19] LABS: Basophils Absolute Auto 0.1 10^3/uL (0.0-0.1); Basophils Percent Auto 1.1 % (0.2-2.0); Eosinophils Absolute Auto 0.4 10^3/uL (0.0-0.7); Eosinophils Percent Auto 4.3 % (0.9-7.0); Hematocrit 43.3 % (42.0-54.0); Hemoglobin 14.3 g/dL (14.0-18.0); Immature Granulocytes Abs Auto 0.02 10^3/uL (0.00-0.03); Immature Granulocytes Pct Auto 0.2 % (0.0-0.5); Lymphocytes Percent Auto 24.2 % (20.5-60.0); Mean Corpuscular Hemoglobin 32.1 pg (25.9-34.0); Mean Corpuscular Volume 97.3 fL (80.0-94.0); Mean Platelet Volume 8.3 fL (9.5-13.5); Monocytes Absolute Auto 0.9 10^3/uL (0.3-0.8); Monocytes Percent Auto 10.5 % (1.7-12.0); Neutrophils Absolute Auto 4.8 10^3/uL (1.4-6.5); Neutrophils Percent Auto 59.7 % (43.0-75.0); Platelet Count 256 10^3/uL (150-450); Red Blood Count 4.45 10^6/uL (4.70-6.10); Red Cell Distribution Width 13.1 % (11.0-15.0); White Blood Count 8.1 10^3/uL (4.0-11.0)
[2024-10-26 14:37] LABS: Anion Gap 11.8; BUN Creatinine Ratio 9.5; Calcium 9.1 mg/dL (8.5-10.1); Carbon Dioxide 28.6 mmol/L (21.0-32.0); Chloride 105 mmol/L (98-107); Estimated GFR (African America >60 (>=60 mL/min/1.73m^2); Estimated GFR (Non-African Ame 52 (>=60 mL/min/1.73m^2); Glucose 89 mg/dL (74-106); Potassium 4.4 mmol/L (3.5-5.1); Sodium 141 mmol/L (136-145)
== END 2024-10-26 13:43 | disposition home or self-care (01) ==
LOC: LAB 13:43
PROVIDERS: PCP Nurse Practitioner Family; Visit Provider Internal Medicine Cardiovascular Disease
DX: I48.19 Other persistent atrial fibrillation (principal); Z12.5 Encounter for screening for malignant neoplasm of prostate
CPT/HCPCS: 36415; 80048; 85025; G0103

== ENCOUNTER 2024-12-23 12:11 | Inpatient (IN) | payer MEDICARE, SELFPAY ==
[2024-12-23] VITALS (41 sets, daily range): BP systolic 106–139; BP diastolic 64–100; PULSE 64–85; TEMP 36.4–36.7; O2SAT 92–99; BMI 30.3; BMI 30.1
--- OUTSIDE RECORDS SUMMARY | 2024-12-23 12:20 | XMS_ITS | CCD ---
Author Organization [facility] Care Team Providers Care News Videographer Name Role Phone DR KIM SOSA Consulting Unavailable KATTY, BEST Attending Unavailable KATTY, BEST Admitting Unavailable KATTY, BEST Consulting Unavailable JOAN, GEE Primary Care Unavailable WALL, GURVINDER Attending Unavailable POTHIREDDY, DOV Briones Admitting Unavailable WALL, GURVINDER Attending Unavailable WALL, GURVINDER Referring Unavailable JOAN, [facility] Primary Care Unavailable KVNG, HELDER Attending Unavailable CASA, JOSE Attending Unavailable JUAN, ATA Attending Unavailable CASA, JOSE Referring Unavailable CASA, JOSE Referring Unavailable CASA, JOSE Admitting Unavailable CASA, JOSE Attending Unavailable CASA, JOSE Referring Unavailable CASA, JOSE Admitting Unavailable CASA, JOSE Attending Unavailable CASA, JOSE Referring Unavailable CASA, JOSE Referring Unavailable CASA, JOSE Attending Unavailable ELTAHAWY, ALETHEA Attending Unavailable Problems Problem Classification Problem Date Documented Da te Episodic/Chronic Cardiac dysrhythmias (2 sources) Paroxysmal atrial fibrillation; Translations: [Paroxysmal atrial fibrillation] Onset: 04-17-2024 Chronic E Codes: Struck by; against (1 [...] (1 source) Dyspnea Onset: 01-27-2024 Episodic Other lower respiratory disease (2 sources) Other forms of dyspnea; Translations: [Other forms of dyspnea] Onset: 12-01-2024 Episodic Other non-traumatic joint disorders (3 sources) Pain in left knee; Translations: [PAIN IN LEFT KNEE] Onset: 05-26-2021 Episodic Other non-traumatic joint disorders (1 source) Effusion, left knee; Translations: [EFFUSION LEFT KNEE] Onset: 05-30-2021 Episodic Pulmonary heart disease (2 sources) Pulmonary hypertension, unspecified; Translations: [Pulmonary hypertension, unspecified] Onset: 12-01-2024 Chronic Superficial injury; contusion (1 source) Contusion of left knee, initial encounter; Translations: [CONTUSION LEFT KNEE INITIAL ENC] Onset: 05-30-2021 Episodic Unclassified (2 sources) Other persistent atrial fibrillation; Translations: [Other persistent atrial fibrillation] Onset: 09-24-2024 Results Test Name Value Interpretation Reference Range Facility 36on 12-09-2024 36 Ok, lets continue th e lasix 40mg daily and get a follow-up BMP/BNP in 1 week. Will plan to see him as scheduled on 01/05/25 and if he continues to have sx's when I see him then we can proceed with a stress test. Thanks [facility] 36 Did his weight come down at all? [facility] 37on 12-01-2024 37 *We will start you o n a water pill called lasix. Take 1 tablet twice a day for 2 days then start 1 tablet daily. -Monitor your weight daily in the AM after voiding and before eating. Write down readings to see if you are having any weight loss. *We will call you in 1 week to see how you are feeling. [facility] Follow-Upon 12-01-2024 Follow-Up [id number] Paige Baltazar 1960 M Date Provider Department Center 12/01/2024 [facility] Family History Problem Relation Age of Onset Heart attack Mother 65 Comments: massive PR Transient ischemic attack Father Liver disease Brother Family Status - Relation Status Age at Mother Father Brother Level of Service:71712 AL OFFICE/OUTPATIENT ESTABLISHED MOD MDM 30 MIN Reason for Visit and Comments: Atrial Fibrillation [80] Shortness of Breath [182372] [facility] Telephoneon 11-27-2024 Telephone [id number] Paige Baltazar S 1960 M Date Provider Department Center 11/27/20241986-MEENA CEBALLOS [facility] [place] [facility] Family History Problem Relation Age of Onset Heart attack Mother Transient ischemic attack Father Family Status - Relation Status Age at Mother Father Reason for Visit and Comments: 3 week post ablation f/u [Other] [facility] 36on 11-06-2024 36 returned call statin g he isnt feeling any better than before ablation.some fatigue.educated the first week with anesthesia can cause some fatigue.questioned when he could return to cardiac rehab.educated he can proceed as tolerated.otherwise taking blood thinners and antacids as ordered,groin site healing,some soreness at site of art line attempt by anesthesia.eating and drinking well.will call back with any other issues. [facility] Telephoneon 11-06-2024 Telephone [id number] Piage Baltazar 1960 M Date Provider Department Center 11/06/20241986-MEENA CEBALLOS [facility] [place] [facility] Family History Problem Relation Age of Onset Heart attack Mother Transient ischemic attack Father Family Status - Relation Status Age at Mother Father Reason for Visit and Comments: f/u post ablation [Other] [facility] Telephone [id number] ShantalPaige S 1960 M Date Provider Department Center 11/06/20241986-MEENA CEBALLOS [facility] [place] [facility] Family History Problem Relation Age of Onset Heart attack Mother Transient ischemic attack Father Family Status - Relation Status Age at Mother Father Reason for Visit and Comments: week f/u post ablation [Other] Normal [facility] HPon 10-28-2024 [facility] Electrophysiology Consult Note [place] [facility] Reason for visit: atrial fibrillation 10/28/24 Pt here for Afib ablation 08/11/24 Patient here to discuss afib ablation. He was taken for cardioversion after Amio load and an attempt on 05/25/2024 converted him to sinus rhythm. Denies chest pain, palpitations, and bleeding on Xarelto. He's up 12lbs since last month. Has some LE edema, which isn't worsening he says. He feels great in SR. Pulse check: SR. Prior HPI: Paige Baltazar is a 64 y.o. year old with past medical history of COPD was recently admitted to [facility] with A-fib with rapid ventricular rate at that time his ventricular rate was controlled with medication and echocardiogram revealed normal EF with biatrial enlargement. He was started on anticoagulation and subsequently discharged with advised to follow-up with the EP clinic. Given that he has consumed significant amount of alcohol he was advised to refrain from that. He was admitted to [facility] a few days ago for CHF and exacerbation of COPD with asthma. Denies chest pain, lightheadedness/syncop e, and bleeding on Eliquis. EKG 03/23/2024 reveals atrial fibrillation PMH: Past Medical History: Diagnosis Date Abnormal ECG Arrhythmia Asthma Atrial fibrillation (CMS/HCC) Centrilobular emphysema (CMS/HCC) COPD (chronic obstructive pulmonary disease) (CMS/HCC) Hypertension Hypoxia Other secondary pulmonary hypertension (CMS/HCC) Peripheral eosinophilia Shortness of breath PSH: Past Surgical History: Procedure Laterality Date CARDIOVERSION SH: Social Determinants of Health Tobacco Use: Medium Risk (10/28/2024) Patient History Smoking Tobacco Use: Former Smokeless Tobacco Use: Never Passive Exposure: Not on file Alcohol Use: Not At Risk (01/27/2024) Received from [employer] AUDIT-C Frequency of Alcohol Consumption: 4 or more times a week Average Number of Drinks: 1 or 2 Frequency of Binge Drinking: Never Financial Resource Strain: Low Risk (01/27/2024) Received from [employer], [employer] Overall Financial Resource Strain (CARDIA) Difficulty of Paying Living Expenses: Not hard at all Food Insecurity: No Food Insecurity (01/27/2024) Received from [employer], [employer] Hunger Screening Within the past 12 months we worried whether our food would run out before we got money to buy more.: Never True Within the past 12 months the food we bought just didn't last and we didn't have money to get more.: Never True Transportation Needs: No Transportation Needs (01/27/2024) Received from [employer], [employer] PRAPARE - Transportation Lack of Transportation (Medical): No Lack of Transportation (Non-Medical): No Physical Activity: Insufficiently Active (01/27/2024) Received from [employer] Exercise Vital Sign Days of Exercise per Week: 2 days Minutes of Exercise per Session: 20 min Stress: No Stress Concern Present (01/27/2024) Received from [employer], [employer] [place] [employer] - Occupational Stress Questionnaire Feeling of Stress : Only a little Social Connections: Moderately Integrated (01/27/2024) Received from [employer] Social Connection and Isolation Panel [NHANES] Frequency of Communication with Friends and Family: Twice a week Frequency of Social Gatherings with Friends and Family: Twice a week Attends Church Services: 1 to 4 times per year Active Member of Clubs or Organizations: No Attends Club or Organization Meetings: Never Marital Status: Intimate Partner Violence: Unknown (03/11/2024) [place] Safety & [place] Fear of Current or Ex-Partner: Not on file Emotionally Abused: Not on file Physically Abused: Not on file Sexually Abused: Not on file Physically or Sexually Abused: Not on file Depression: Not at risk (01/27/2024) Received from [employer] PHQ-2 Total Score: 0 Housing Stability: Low Risk (01/27/2024) Received from [employer] Housing Instability Are you worried or concerned that in the next two months you may not have stable housing that you own, rent or stay in as a part of a household?: No Utilities: Not At Risk (01/27/2024) Received from [employer] [facility] Utilities Threatened with loss of utilities: No Health Literacy: Not on file Allergies: No Known Allergies Weight: 93.9kg Visit Vitals BP 137/81 Pulse 86 Temp 36.5 ???C (97.7 ???F) (Temporal) Resp 16 Ht 1.829 m (6') Wt 97 kg (213 lb 13.5 oz) SpO2 98% BMI 29.00 kg/m??? Smoking Status Former BSA 2.22 m??? Meds: No current facility-administered medications on file prior to encounter. Current Out (more content not included)... Normal [facility] NURSNOTEon 10-28-2024 NURSNOTE Shift handoff to SONJA Barber. Normal [facility] POCT GLUCOSE METER UNSOLICIT ED RESULTSon 10-28-2024 Glucose [Mass/Vol] 105 mg/dL Normal 70-105 [facility] Comment on above: Order Comment: Waive d Testing in the ED is performed under the ED CLIA certificate #[id number]. Result Comment: ltol les Performed By: #### L [id number] ####[facility] ([employer])[address] [place] [address] PROTIME-INRon 10-28-2024 INR IN PPP BY COAGULATION ASSAY 0.93 Normal 0.90-1.10 [facility] Comment on above: Result Comment: ACCC P RECOMMENDED INR FOR WARFARIN THERAPY CONDITION INR PROPHYLAXIS OF VENOUS THROMBOSIS 2-3 (HIGH-RISK SURGERY) TREATMENT OF VENOUS THROMBOSIS 2-3 TREATMENT OF PULMONARY EMBOLISM 2-3 PREVENTION OF SYSTEMIC EMBOLISM: 2-3 ACUTE MYOCARDIAL INFARCTION TISSUE HEART VALVES VALVULAR HEART DISEASE ATRIAL FIBRILLATION RECURRENT SYSTEMIC EMBOLISM MECHANICAL HEART VALVE 2.5-3.5 FROM: ORAL ANTICOAGULANTS. MECHANISM OF ACTION, CLINICAL EFFECTIVENESS, AND OPTIMAL THERAPEUTIC RANGE. CHEST 1995;108:231S-246S. Performed By: #### L [id number] ####[facility] [employer])[address] [facility] [place] [address] PROTHROMBIN TIME (PT) IN PPP BY COAGULATION ASSAY 12.5 Seconds Normal 12.3-14.8 [facility] Comment on above: Performed By: #### L [id number] ####[facility] ([employer])[address] [place] [address] Prep for Procedureon 025 Prep for Procedure [id number] Paige Baltazar Christine 1960 M Date Provider Department Center 10/28/20241986-MEENA CEBALLOS [facility] [place] [facility] Family History Problem Relation Age of Onset Heart attack Mother Transient ischemic attack Father Family Status - Relation Status Age at Mother Father Normal [facility] Prep for Procedureon 024 Prep for Procedure [id number] Paige Baltazar S 1960 M Date Provider Department Center 09/24/20241986-MEENA CEBALLOS [facility] [place] [facility] Family History Problem Relation Age of Onset Heart attack Mother Transient ischemic attack Father Family Status - Relation Status Age at Mother Father Normal [facility] Orders Onlyon 09-23-2024 Orders Only [id number] TwilaalfredPaige King 1960 M Date Provider Department Center 09/23/2024 928-RAMON COOPER ALEJANDRA [facility] Family History Problem Relation Age of Onset Heart attack Mother Transient ischemic attack Father Family Status - Relation Status Age at Mother Father Normal [facility] Refillon 09-07-2024 Refill [id number] Paige Baltazar Christine 1960 M Date Provider Department Center 09/07/2024 CAITLIN TAM [facility] IM [facility] Family History Problem Relation Age of Onset Heart attack Mother Transient ischemic attack Father Family Status - Relation Status Age at Mother Father Reason for Visit and Comments: Med Refill [[id number]] Normal [facility] Office Visiton 08-11-2024 Follow-up visit [id number] CorbinaPige castillo 1960 M Date Provider Department Center 08/11/2024 241-JOSE CARRILLO ALEJANDRA [facility] Family History Problem Relation Age of Onset Heart attack Mother Transient ischemic attack Father Family Status - Relation Status Age at Mother Father Level of Service:67365 AL OFFICE/OUTPATIENT ESTABLISHED LOW MDM 20 MIN Normal [facility] Office Visiton 07-01-2024 Follow-up visit [id number] Paige Baltazar 1960 M Date Provider Department Center 07/01/2024 40413-YOBJOJPBATA LYON [facility] Family History Problem Relation Age of Onset Heart attack Mother Transient ischemic attack Father Family Status - Relation Status Age at Mother Father Level of Service:67430 AL OFFICE/OUTPATIENT ESTABLISHED LOW MDM 20 MIN Normal [facility] 36on 06-09-2024 36 Per casa pt has failed amio and will need ablation Normal [facility] HPon 05-25-2024 [facility] Electrophysiology Consult Note [place] [facility] - [facility] Reason for visit: atrial fibrillation HPI: Paige Baltazar is a 63 y.o. year old with past medical history of COPD was recently admitted to [facility] with A-fib with rapid ventricular rate at that time his ventricular rate was controlled with medication and echocardiogram revealed normal EF with biatrial enlargement. He was started on anticoagulation and subsequently discharged with advised to follow-up with the EP clinic. Given that he has consumed significant amount of alcohol he was advised to refrain from that. He was admitted to [facility] a few days ago for CHF and exacerbation of COPD with asthma. Denies chest pain, lightheadedness/syncop e, and bleeding on Eliquis. EKG 03/23/2024 reveals atrial fibrillation PMH: Past Medical History: Diagnosis Date Abnormal ECG Arrhythmia Asthma Atrial fibrillation (CMS/HCC) COPD (chronic obstructive pulmonary disease) (CMS/HCC) Hypertension PSH: History reviewed. No pertinent surgical history. SH: Social Determinants of Health Tobacco Use: Medium Risk (05/25/2024) Patient History Smoking Tobacco Use: Former Smokeless Tobacco Use: Never Passive Exposure: Not on file Alcohol Use: Not on file Financial Resource Strain: Not on file Food Insecurity: Not on file Transportation Needs: Not on file Physical Activity: Not on file Stress: Not on file Social Connections: Not on file Intimate Partner Violence: Unknown (03/11/2024) [place] Safety [place] Fear of Current or Ex-Partner: Not on file Emotionally Abused: Not on file Physically Abused: Not on file Sexually Abused: Not on file Physically or Sexually Abused: Not on file Depression: Not on file Housing Stability: Not on file Utilities: Not on file Allergies: No Known Allergies Weight: 83.9kg Visit Vitals BP (!) 113/91 Pulse 81 Resp 16 SpO2 99% Smoking Status Former Meds: No current facility-administered medications on file prior to encounter. Current Outpatient Medications on File Prior to Encounter Medication Sig Dispense Refill albuterol 90 mcg/actuation inhaler inhale 1 puff by mouth and INTO THE LUNGS every 8 hours if needed buPROPion (Zyban) 150 mg 12 hr tablet 1 (one) time each day at the same time. NIFEdipine CC (Adalat CC) 60 mg 24 hr tablet take 1 tablet by mouth once daily ON AN EMPTY STOMACH rivaroxaban (Xarelto) 20 mg tablet Take 1 tablet (20 mg) by mouth daily with evening meal. Take with food. 90 tablet 3 amiodarone (Pacerone) 200 mg tablet Take 1 tablet (200 mg) by mouth in the morning and at bedtime for 14 days, THEN 1 tablet (200 mg) in the morning. (Patient not taking: Reported on 05/25/2024) 118 tablet 0 amiodarone (Pacerone) 200 mg tablet Take 2 tablets (400 mg) by mouth in the morning and at bedtime for 14 days, THEN 1 tablet (200 mg) in the morning. (Patient not taking: Reported on 05/25/2024) 146 tablet 0 apixaban (Eliquis) 5 mg tablet Take 1 tablet (5 mg) by mouth in the morning and at bedtime. (Patient not taking: Reported on 05/25/2024) 60 tablet 0 cetirizine (ZyrTEC) 10 mg tablet Take 10 mg by mouth if needed each day. ROS: Cardio Basic Cardiovascular Symptoms: no lightheadedness, [...] pressure Thyroid: not enlarged Lungs Respiratory Effort: (more content not included)... Normal [facility] NURSNOTEon 05-25-2024 NURSNOTE RN educated pt on d/ c instructions. RN encouraged pt to voice any questions or concerns. Pt verbalizes no questions or concerns at this time. Pt was wheeled off of unit with all of belongings. Normal [facility] Office Visiton 04-07-2024 Follow-up visit [id number] Paige Baltazar 1960 M Date Provider Department Center 04/07/2024 JOSE WHITMAN ALEJANDRA [facility] Family History Problem Relation Age of Onset Heart attack Mother Transient ischemic attack Father Family Status - Relation Status Age at Mother Father Level of Service:92173 AL OFFICE/OUTPATIENT ESTABLISHED MOD MDM 30 MIN [facility] Orders Onlyon 04-07-2024 Orders Only [id number] Paige Baltazar 1960 M Date Provider Department Center 04/07/2024 DAVID GARCIA ALEJANDRA [facility] Family History Problem Relation Age of Onset Heart attack Mother Transient ischemic attack Father Family Status - Relation Status Age at Mother Father Normal [facility] Office Visiton 03-23-2024 Follow-up visit [id number] Paige Baltazar 1960 Date Provider Department Center 03/23/2024 271-LONNIE, [facility] Family History Problem Relation Age of Onset Heart attack Mother Transient ischemic attack Father Family Status - Relation Status Age at Mother Father Level of Service:14858 AL OFFICE/OUTPATIENT ESTABLISHED MOD MDM 30 MIN Normal [facility] CBC AND AUTO DIFFon 01-27-20 24 ABSOLUTE BASOPHIL 0.1 X10E9/L Normal 0.0-0.2 [facility] Comment on above: Performed By: #### C BCA, CMP, 83712-9, 35577-0, 05155-4, 70357-3 #### [facility] ([id number]) [address] [place] [address] 19457 ABSOLUTE NEUTROPHIL 4.6 X10E9/L Normal 1.5-6.6 [facility] Comment on above: Performed By: #### Rosi BCA, CMP, 12318-1, 95414-0, 68999-2, 42997-1 #### [facility] ([id number]) [address] [place] [address] 76358 Basophils/100 WBC (Bld) 1.2 % Normal [facility] Comment on above: Performed By: #### C BCA, CMP, 46396-0, 15705-2, 02905-8, 87941-5 #### [facility] ([id number]) [address] [place] [address] 08301 Eosinophils (Bld) [#/Vol] 0.6 10*3/uL High 0.0-0.4 [facility] Comment on above: Performed By: #### C BCA, CMP, 81587-1, 43533-1, 85453-3, 72411-9 #### [facility] ([id number]) [address] [place] [address] 89599 Eosinophils/100 WBC (Bld) 6.2 % Normal [facility] Comment on above: Performed By: #### C BCA, CMP, 84227-0, 04068-5, 32298-7, 58257-1 #### [facility] ([id number]) [address] [place] [address] 30334 Erythrocyte distribution width (RBC) [Ratio] 13.8 % Normal 11.5-15.0 [facility] Comment on above: Performed By: #### C BCA, CMP, 12105-4, 72835-4, 72763-4, 88229-3 #### [facility] ([id number]) [address] [place] [address] 97543 Hematocrit (Bld) [Volume fraction] 49.1 % High 39-49 [facility] Comment on above: Performed By: #### C BCA, CMP, 88191-0, 97060-5, 50869-1, 91004-7 #### [facility] ([id number]) [address] [place] [address] 04907 Hemoglobin (Bld) [Mass/Vol] 16.9 g/dL Normal 13.0-17.0 [facility] Comment on above: Performed By: #### C BCA, CMP, 66832-7, 36413-8, 37244-6, 85872-4 #### [facility] ([id number]) [address] [place] [address] 37025 Lymphocytes (Bld) [#/Vol] 3.4 10*3/uL Normal 1.0-3.5 [facility] Comment on above: Performed By: #### C BCA, CMP, 21241-5, 60422-7, 41582-9, 28951-7 #### [facility] ([id number]) [address] [place] [address] 73719 Lymphocytes/100 WBC (Bld) 35.6 % Normal [facility] Comment on above: Performed By: #### C BCA, CMP, 67534-4, 73684-5, 32702-1, 52715-4 #### [facility] ([id number]) [address] [place] [address] 98484 MCH (RBC) [Entitic mass] 33.8 pg Normal 27-34 [facility] Comment on above: Performed By: #### C BCA, CMP, 78327-8, 83624-7, 45057-5, 28202-0 #### [facility] ([id number]) [address] [place] [address] 66699 MCHC (RBC) [Mass/Vol] 34.3 g/dL Normal 32-36 [facility] Comment on above: Performed By: #### C BCA, CMP, 84226-5, 91693-6, 63446-3, 25872-6 #### [facility] ([id number]) [address] [place] [address] 25168 MCV (RBC) [Entitic vol] 98 fL Normal 80-100 [facility] Comment on above: Performed By: #### C BCA, CMP, 02277-7, 00883-6, 84899-2, 18211-7 #### [facility] ([id number]) [address] [place] [address] 39768 Monocytes (Bld) [#/Vol] 0.9 10*3/uL Normal 0-0.9 [facility] Comment on above: Performed By: #### C BCA, CMP, 45016-4, 97205-4, 08579-6, 71699-7 #### [facility] ([id number]) [address] [place] [address] 24883 Monocytes/100 WBC (Bld) 9.3 % Normal [facility] Comment on above: Performed By: #### C BCA, CMP, 17669-4, 74433-4, 19912-0, 23066-2 #### [facility] ([id number]) [address] [place] [address] 28039 Neutrophils/100 WBC (Bld) 47.7 % Normal [facility] Comment on above: Performed By: #### C BCA, CMP, 23794-0, 59063-6, 51234-8, 44819-2 #### [facility] ([id number]) [address] [place] [address] 30501 Platelet mean volume (Bld) [Entitic vol] 7.0 fL Normal 7-12 [facility] Comment on above: Performed By: #### C BCA, CMP, 39282-3, 61566-2, 47765-7, 06833-1 #### [facility] ([id number]) [address] [place] [address] 52611 Platelets (Bld) [#/Vol] 249 10*3/uL Normal 150-450 [facility] Comment on above: Performed By: #### C BCA, CMP, 53631-8, 66534-0, 05259-3, 08914-6 #### [facility] ([id number]) [address] [place] [address] 99140 RBC COUNT 4.99 X10E12/L Normal 4.10-5.70 [facility] Comment on above: Performed By: #### C BCA, CMP, 17924-7, 86098-9, 43443-5, 59010-1 #### [facility] ([id number]) [address] [place] [address] 83186 WBC (Bld) [#/Vol] 9.7 10*3/uL Normal 4.0-11.0 [facility] Comment on above: Performed By: #### C BCA, CMP, 87465-2, 89823-6, 77489-7, 51228-1 #### [facility] ([id number]) [address] [place] [address] 18167 COMPREHENSIVE METABOLIC PANE Skip 01-27-2024 Albumin [Mass/Vol] 4.7 g/dL Normal 3.2-5.3 [facility] Comment on above: Performed By: #### C BCA, CMP, 47995-4, 27333-4, 93388-5, 13241-9 #### [facility] ([id number]) [address] [place] [address]124 ALP [Catalytic activity/Vol] 91 U/L Normal 39-130 [facility] Comment on above: Performed By: #### C BCA, CMP, 26938-9, 80150-4, 09970-0, 19700-4 #### [facility] ([id number]) [address] [place] [address] 88536 ALT [Catalytic activity/Vol] 30 U/L Normal 0-40 [facility] Comment on above: Performed By: #### C BCA, CMP, 33969-2, 22268-7, 06988-8, 95086-7 #### [facility] ([id number]) [address] [place] [address] 60821 Anion gap [Moles/Vol] 10 mmol/L Normal 5-15 [facility] Comment on above: Performed By: #### C BCA, CMP, 28301-7, 08239-5, 77697-7, 95990-6 #### [facility] ([id number]) [address] [place] [address] 19987 AST [Catalytic activity/Vol] 27 U/L Normal 0-41 [facility] Comment on above: Performed By: #### C BCA, CMP, 41612-5, 76166-9, 36944-1, 27378-2 #### [facility] ([id number]) [address] [place] [address] 56716 Bilirubin [Mass/Vol] 0.8 mg/dL Normal 0.3-1.2 [facility] Comment on above: Performed By: #### C BCA, CMP, 19031-8, 37732-6, 18954-8, 50045-6 #### [facility] ([id number]) [address] [place] [address] 31442 Calcium [Mass/Vol] 9.5 mg/dL Normal 8.5-10.5 [facility] Comment on above: Performed By: #### C BCA, CMP, 46866-3, 40953-3, 05573-6, 25813-1 #### [facility] ([id number]) [address] [place] [address] 10420 Chloride [Moles/Vol] 99 mmol/L Normal 98-109 [facility] Comment on above: Performed By: #### C BCA, CMP, 27900-3, 73802-0, 44097-0, 98103-8 #### [facility] ([id number]) [address] [place] [address] 01112 CO2 [Moles/Vol] 26 mmol/L Normal 22-32 [facility] Comment on above: Performed By: #### C BCA, CMP, 71082-2, 03728-4, 86360-9, 36529-1 #### [facility] ([id number]) [address] [place] [address] 56352 Creatinine [Mass/Vol] 1.05 mg/dL Normal 0.70-1.20 [facility] Comment on above: Result Comment: METH OD TRACEABLE TO IDMS STANDARD Performed By: #### C BCA, CMP, 57100-4, 33444-3, 20460-8, 09358-0 #### [facility] ([id number]) [address] [place] [address] 71994 GFR/1.73 sq M.predicted among non-blacks MDRD (S/P/Bld) [Vol rate/Area] 79 mL/min/{1.73_m2} Normal >59 [facility] Comment on above: Result Comment: Reported eGFR is based on the CKD-EPI 2020 equation that does not use a race coefficient. Performed By: #### C BCA, CMP, 98801-3, 25749-0, 77863-5, 99274-4 #### [facility] ([id number]) [address] [place] [address] 34514 Glucose [Mass/Vol] 125 mg/dL High 65-99 [facility] Comment on above: Performed By: #### C BCA, CMP, 22161-6, 91955-9, 99646-4, 17851-8 #### [facility] ([id number]) [address] [place] [address] 68905 Potassium [Moles/Vol] 4.3 mmol/L Normal 3.5-5.0 [facility] Comment on above: Performed By: #### C BCA, CMP, 79821-1, 85373-0, 59390-7, 38093-6 #### [facility] ([id number]) [address] [place] [address] 38783 Protein [Mass/Vol] 8.4 g/dL High 6.0-8.0 [facility] Comment on above: Performed By: #### C BCA, CMP, 53579-8, 45256-0, 76313-5, 70868-1 #### [facility] ([id number]) [address] [place] [address] 38585 Sodium [Moles/Vol] 135 mmol/L Normal 134-146 [facility] Comment on above: Performed By: #### C BCA, CMP, 93463-3, 26112-5, 00007-9, 63086-0 #### [facility] ([id number]) [address] [place] [address] 52460 Urea nitrogen [Mass/Vol] 18 mg/dL Normal 5-27 [facility] Comment on above: Performed By: #### C BCA, CMP, 54250-6, 34582-6, 56526-1, 10729-3 #### [facility] ([id number]) [address] [place] [address] 70265 Fibrin D-dimer DDU (PPP) [Ma ss/Vol]on 01-27-2024 D DIMER <150 Normal <255 [facility] Comment on above: Result Comment: Results <255 ng/mL DDU: The presence of a VTE can safely be excluded with a negative D-Dimer result and Wells score. A negative result doesn't exclude the possibility of DIC. The test be repeated along with other diagnostic tests if the patient's symptoms persist or worsen. [email or web address] Performed By: #### C BCA, CMP, 91595-2, 07328-7, 28134-9, 16985-9 #### [facility] ([id number]) [address] [place] [address] 54218 MAGNESIUMon 01-27-2024 Magnesium [Mass/Vol] 2.1 mg/dL Normal 1.8-2.6 [facility] Comment on above: Performed By: #### C BCA, CMP, 60666-2, 49974-5, 28114-7, 11284-0 #### [facility] ([id number]) [address] [place] [address] 93684 Natriuretic peptide B [Mass/ Vol]on 01-27-2024 Natriuretic peptide B (Bld) [Mass/Vol] 64 pg/mL Normal <100.0 [facility] Comment on above: Performed By: #### C BCA, CMP, 93575-8, 50895-1, 08978-9, 41661-0 #### [facility] ([id number]) [address] [place] [address] 04230 SARS/FLU A+B/RSV by NAAT/Mol ecularon 01-27-2024 SARS/FLU [...] operators who are performing tests using either [employer] or [employer] systems and is limited to laboratories that [...] specimen repeat. Fact Sheet for Healthcare Providers: https://www.fda.gov/me tee/984070/download Fact Sheet for Patients: https://www.fda.gov/me tee/717330/download Normal [facility] Comment on above: Performed By: #### C OVFLR #### [facility] ([id number]) [address] [place] [address] 42968 TROPONIN Ion 01-27-2024 Troponin I.cardiac [Mass/Vol] 0.01 ng/mL Normal 0.00-0.04 [facility] Comment on above: Performed By: #### C BCA, CMP, 65753-3, 62150-0, 32329-1, 61701-6 #### [facility] ([id number]) [address] [place] [address], [place] [address] XR CHEST 1 VWon 01-27-2024 XR CHEST [...] Lagunas MD on 01/27/2024 1:18 AM Normal [facility] Encounters Encounter Date Encounter Type Care Provider Facility Start: 12-01-2024 End: 12-01-2024 ambulatory [facility] Start: 10-28-2024 ambulatory [facility] Start: 10-28-2024 End: 10-28-2024 ambulatory [facility] Start: 08-11-2024 End: 08-11-2024 ambulatory [facility] Start: 07-01-2024 End: 07-01-2024 ambulatory [facility] Start: 05-25-2024 End: 05-25-2024 ambulatory [facility] Start: 04-07-2024 End: 04-07-2024 ambulatory [facility] Start: 03-23-2024 End: 03-23-2024 ambulatory FLAQUITO[facility] Start: 01-27-2024 End: 01-28-2024 Emergency department patient visit GURVINDER WALL [facility] Start: 01-27-2024 End: 01-27-2024 ambulatory GEE FRANCO [facility] Start: 05-26-2021 End: 05-26-[address] KIM SOSA Facility: Payers Date Payer Category Payer Private Health Insurance CLI [id number] 2023 Medicare [id number] 1960 Unknown [id number] 1960 Unknown [id number] 1960 Unknown [id number] Unknown [id number] Clinical Notes 05-26-2021 to 12-01-2024 Note Date & Type Note Facility 12-01-2024 Note Patient here for [facility] afib ablation performed on 10/28/[address] Carrillo. C/o worsening SOB since procedure. C/o chest pain and tightness since procedure. Has minimal LE edema. Denies palpitations, lightheadedness/syncope, and bleeding on Xarelto. He is only taking famotidine PRN and didn't take omeprazole at all s/p ablation. Review of Systems Cardiovascular: Positive for chest pain, dyspnea on exertion and leg swelling (minimal). Respiratory: Positive for cough, shortness of breath and wheezing. All other systems reviewed and are negative. [facility] 12-01-2024 Note Cardiovascular Medic [facility] SUBJECTIVE Chief Complaint Patient presents with Atrial Fibrillation Shortness of Breath Paige Baltazar is a 64 y.o. male here for follow-up. His Melony accompanied him today. HPI PMHx: a.fib s/p ablation 10/28/24, COPD 12/01/2024 He c/o increased SOB since his ablation. Over this past weekend he had some chest tightness. Midsternal/left sided. Also felt like a pinching type of pain. Occurred at rest. Lasted february 30-45 minutes then resolved on its own. He has some leg edema. Denies any other CP, orthopnea, PND, palpitations, syncope. His notes he has had some weight gain. His baseline weight use to be 190#, he is now at 215#. Patient Active Problem List Diagnosis Hypoxia Shortness of breath Smoker Paroxysmal atrial fibrillation (CMS/HCC) Centrilobular emphysema (CMS/HCC) History of tobacco use Other secondary pulmonary hypertension (CMS/HCC) Peripheral eosinophilia Persistent atrial fibrillation (CMS/HCC) Body mass index (BMI) 32.0-32.9, adult Past Medical History: Diagnosis Date Abnormal ECG Arrhythmia Asthma Atrial fibrillation (CMS/HCC) Centrilobular emphysema (CMS/HCC) COPD (chronic obstructive pulmonary disease) (CMS/HCC) Hypertension Hypoxia Other secondary pulmonary hypertension (CMS/HCC) Peripheral eosinophilia Shortness of breath Family History Problem Relation Name Age of Onset Heart attack Mother 65 massive PR Transient ischemic attack Father Liver disease Brother Social History Tobacco Use Smoking status: Former Current packs/day: 0.00 Types: Cigarettes Quit date: 02/2024 Years since quittin.7 Smokeless tobacco: Never Vaping Use Vaping status: Never Used Substance Use Topics Alcohol use: Yes Comment: DAILY BEER 2-3 Drug use: Not Currently No Known Allergies ROS Cardiovascular: Positive for chest pain, dyspnea on exertion and leg swelling (minimal). Respiratory: Positive for cough, shortness of breath and wheezing. All other systems reviewed and are negative. OBJECTIVE Visit Vitals BP 136/84 (BP Location: Right arm, Patient Position: Sitting) Pulse 72 Ht 1.829 m (6') Wt 97.5 kg (215 lb) SpO2 97% BMI 29.16 kg/m??? Smoking Status Former BSA 2.23 m??? Medications: Current Outpatient Medications: albuterol 90 mcg/actuation inhaler, inhale 1 puff by mouth and INTO THE LUNGS every 8 hours if needed, Disp: , Rfl: famotidine (Pepcid) 20 mg tablet, Take 1 tablet (20 mg) by mouth two times daily. (Patient taking differently: Take 20 mg by mouth if needed.), Disp: 60 tablet, Rfl: 0 lwxsjhkgrfo-vnjjqxrbf-ohcaaglu (Trelegy Ellipta) 100-62.5-25 mcg blister with device, Inhale., Disp: , Rfl: NIFEdipine CC (Adalat CC) 60 mg 24 hr tablet, take 1 tablet by mouth once daily ON AN EMPTY STOMACH, Disp: , Rfl: rivaroxaban (Xarelto) 20 mg tablet, Take 1 tablet (20 mg) by mouth daily with evening meal. Take with food., Disp: 90 tablet, Rfl: 3 furosemide (Lasix) 40 mg tablet, Take 1 tablet (40 mg) by mouth in the morning., Disp: 30 tablet, Rfl: 11 Physical Exam Constitutional: Appearance: Normal appearance. He is normal weight. HENT: Head: Normocephalic and atraumatic. Right Ear: External ear normal. Left Ear: External ear normal. Eyes: Extraocular Movements: Extraocular movements intact. Pupils: Pupils are equal, round, and reactive to light. Neck: Vascular: No carotid bruit. Cardiovascular: Rate and Rhythm: Normal rate and regular rhythm. Pulses: Normal pulses. Heart sounds: Normal heart sounds. Pulmonary: Effort: Pulmonary effort is normal. Breath sounds: Normal breath sounds. Abdominal: General: Bowel sounds are normal. Palpations: Abdomen is soft. Musculoskeletal: General: Normal range of motion. Cervical back: Neck supple. Right lower leg: Edema present. Left lower leg: Edema present. Comments: +1 BLE pitting edema Skin: General: Skin is warm and dry. Neurological: General: No focal deficit present. Mental Status: He is alert and oriented to person, place, and time. Psychiatric: Mood and Affect: Mood normal. Behavior: Behavior normal. Thought Content: Thought content normal. Judgment: Judgment normal. Labs: Admission on 10/28/2024, Discharged on 10/28/2024 Component Date Value Ref Range Status Ventricular Rate 10/28/2024 73 BPM Final Atrial Rate 10/28/2024 73 BPM Final AL Interval 10/28/2024 158 ms Final QRS DURATION 10/28/2024 84 ms Final QT Interval 10/28/2024 374 ms Final QTC CALCULATION(BAZETT) 10/28/2024 412 ms Final P Whittier 10/28/2024 78 degrees Final R-Whittier 10/28/2024 32 degrees Final T Wave Whittier 10/28/2024 30 degrees Final Protime 10/28/2024 12.5 12.3 - 14.8 Seconds Final INR 10/28/2024 0.93 0.90 - 1.10 Final Glucose POC 10/28/2024 105 70 - 105 mg/dL Final Ventricular Rate 10/28/2024 75 BPM Final Atrial Rate 10/28/2024 75 BPM Final AL Interval 10/28/2024 116 (more content not included)... [facility] 10-28-2024 Note ATRIAL FIBRILLATION ABLATION PROCEDURE NOTE DATE OF PROCEDURE: 10/28/2024 PERFORMING PHYSICIAN: Dr. Jose Carrillo SUPPLY PERSON: FLOYD CONSENT: Patient NAME OF THE PROCEDURE: Pulmonary Vein Isolation and Comprehensive EP study. INDICATIONS FOR PROCEDURE: 1. Persistent atrial fibrillation. FLUROSCOPY: 1.9minutes/ 17mGy. EBL: 15cc SPECIMEN REMOVED: None PROCEDURES PERFORMED: 1. Sonosite guided venous access as noted below and images stored in PACS. 2. Comprehensive EP study and catheter ablation for persistent atrial fibrillation through the pulmonary vein isolation technique. This includes right atrial recording and pacing, His bundle recording and right ventricular recording and pacing. 3. Intracardiac EP 3D mapping. 4. Intracardiac echocardiogram 5. Left atrial and coronary sinus recording and pacing to assess ablation results. 6. Left heart pressure measurements and LV pacing and recording. 7. Induction of arrhythmia and testing of ablation results using intravenous adenosine infusion. 8. Fluroscopy. 9. Arterial line placement INDICATION: 64year old with past medical history of COPD was recently admitted to [facility] with A-fib with rapid ventricular rate. Echocardiogram revealed normal EF with biatrial enlargement. He was started on anticoagulation and subsequently discharged and was advised to refrain from alcohol. He was admitted to [facility] again for CHF and exacerbation of COPD with asthma. He was on Amio and could not tolerate and so opted to proceed with ablation. PROCEDURE NOTE: On the day of presentation, he was noted to be in SR and so LAURIE was deferred. Risks, benefits and alternatives of the procedure were discussed with the patient and family who agreed to proceed. Please refer to my consult note for details of the discussion and of indications. The patient was prepped and draped following which four venous access was procured on right side as noted below. Ultrasound was used to determine the course and patency of the femoral veins on both sides and they were noted to be patent and the image stored in PACS. After infiltration with 1% lidocaine, 4 venous sheaths were placed in the right as noted below and a left femoral arterial line was placed by me. LFA: 4F for hemodynamic monitoring. RFV: 8Fx3, [employer] ThermoCool SF Bi-Directional over SL1/ Vizigo, SL1: Octoray,, CS Catheter (EZ Steer). 9F: ICE catheter. Following venous access, heparin bolus was given followed by continuous intravenous drip to target ACT around 350. An intracardiac ultrasound catheter was inserted into the right atrium to examine the right atrial anatomy, atrial septum, pulmonary vein anatomy and to monitor for pericardial effusion and guide transseptal access. The LA and RA was moderately dilated. At baseline, there was no pericardial effusion and no HALEY clot but noted a very prominent Coumadin ridge. Esophagus was mapped using the mymxlogSOUND 3D mapping software and noted to be towards the middle. Transeptal access was procured with ICE guidance using a SL-1 sheath and Gil needle. During RF, patient went into Afib. DCCV was attempted x 2 and patient did not convert. Following this, Octoray, catheter was advanced and themultipolar mapping performed of the LA creating a geometry as well as bipolar voltage assessment was made in Afib. After FAM geometry was performed, a 2nd transseptal was performed with an SL1 sheath using a Gli needle. Following transseptal, the SL1 sheath was removed and Vizigo sheath was advanced over which the ablation catheter ST-SF thermocol ablation catheter was advanced. Ablation was then performed. A cooling probe was advanced to the stomach and cooled to 4C. Ablation was performed using 40 ruiz for 10-12s in the anterior LA and 5-8seconds in the posterior wall and roof area. After completion of the left sided WACA, no signals were noted in the LSPV or LIPV and entrance block was noted. After this, I proceeded to perform ablation of the right-sided vein. Following right WACA, the veins were isolated. I ensured that on the anterior aspect of right WACA and in fabricio area, phrenic capture was ruled out before any ablation was performed. I decided to perform superior roof line ablation and inferior roof line ablation but box isolation was not seen. I then went over to the right atrium and performed CTI ablation. Using ICE, the His and IVC junctions were marked with 3D CARTO mapping software. ICE revealed a small subeustachian pouch. Vizigo sheath was rand to the right side. Ablation was performed on the CTI line starting at the tricuspid valve aspect. 40W was utilized and I extended the ablation from the TV to the IVC aspect. Ibutilide 1mg was given along with KCl 40 Meq and 1gm of Magnesium. DCCV was then re attempted and he converted to SR. CTI bidirectional block was shown with timing of 154ms. I then mapped with pacing to note the leak and this (more content not included)... [facility] 10-28-2024 Note Patient: Paige fulton Procedure Summary Date: 10/28/24 Room / Location: [facility] DIGITAL PRESS OPERATOR 1 EP / [facility] HV VASCULAR LAB (Cath) Anesthesia Start: 0840 Anesthesia Stop: Procedure: Ablation atrial fibrillation Diagnosis: Persistent atrial fibrillation (CMS/HCC) (Persistent atrial fibrillation (CMS/HCC) [I48.19]) Providers: Jose Carrillo MD Responsible Provider: Clifford Howard MD Anesthesia Type: general ASA Status: 3 Anesthesia Type: general Vitals Value Taken Time BP 114/76 10/28/24 1220 Temp 36.1 10/28/24 1220 Pulse 67 10/28/24 1219 Resp 24 10/28/24 1219 SpO2 100 % 10/28/24 1219 Vitals shown include unfiled device data. Anesthesia Post Evaluation Patient location during evaluation: PACU Patient participation: complete - patient participated Level of consciousness: awake Pain score: 1 Pain management: adequate Airway patency: patent Cardiovascular status: stable Respiratory status: acceptable Hydration status: balanced Patient is hemodynamically stable and is able to be discharged from PACU per anesthesia protocol. No notable events documented. [facility] 10-28-2024 Note Airway Date/Time: 10/28/2024 8:59 AM Urgency: elective Airway not difficult General Information and Staff Patient location during procedure: OR Anesthesiologist: Clifford Howard MD Resident/SORT LINE/CAA: Ann Amin MD Performed: resident/SORT LINE/CAA Indications and Patient Condition Indications for airway management: anesthesia Spontaneous Ventilation: absent Sedation level: deep Preoxygenated: yes Patient position: sniffing Mask difficulty assessment: 1 - vent by mask Planned trial extubation Final Airway Details Final airway type: endotracheal airway Successful airway: ETT Cuffed: yes Successful intubation technique: video laryngoscopy Facilitating devices/methods: intubating stylet Endotracheal tube insertion site: oral Blade: Hudson Blade size: #4 ETT size (mm): 8.0 Cormack-Lehane Classification: grade I - full view of glottis Placement verified by: chest auscultation and capnometry Measured from: lips ETT to lips (cm): 23 Number of attempts at approach: 1 Number of other approaches attempted: 0 [facility] 10-28-2024 Note Patient: Paige fulton Procedure Information Date/Time: 10/28/24 0830 Procedure: Ablation atrial fibrillation Location: [facility] DIGITAL PRESS OPERATOR 1 EP / [facility] HVC VASCULAR LAB (Cath) Providers: Jose Carrillo MD Relevant Problems Anesthesia (within normal limits) Cardio (+) Other secondary pulmonary hypertension (CMS/HCC) (+) Paroxysmal atrial fibrillation (CMS/HCC) (+) Persistent atrial fibrillation (CMS/HCC) Pulmonary (+) Centrilobular emphysema (CMS/HCC) (Uses albuterol inhaler daily) Other (+) History of tobacco use (Quit January,) Encounter Date: 10/28/24 Electrocardiogram, 12-lead Result Value Ventricular Rate 73 Atrial Rate 73 AL Interval 158 QRS DURATION 84 QT Interval 374 QTC CALCULATION(BAZETT) 412 P Whittier 78 R-Whittier 32 T Wave Whittier 30 Impression Normal sinus rhythm Low voltage QRS Borderline ECG When compared with ECG of 25-MAY-2024 10:33, Criteria for Septal infarct are no longer Present No echocardiogram to review. Clinical information reviewed: Tobacco Allergies Meds Med Hx Surg Hx Fam Hx Soc Hx Physical Exam Airway Mallampati: III TM distance: >3 FB Neck ROM: full Cardiovascular Rhythm: regular Rate: normal Dental - normal exam Pulmonary Breath sounds clear to auscultation Abdominal - normal exam Anesthesia Plan ASA 3 general (GETA with standard ASA monitoring. Arterial line. ) The patient is not a current smoker. Patient was previously instructed to abstain from smoking on day of procedure. Patient did not smoke on day of procedure. Education provided regarding risk of obstructive sleep apnea. intravenous induction Postoperative administration of opioids is intended. Trial extubation is planned. Anesthetic plan and risks discussed with patient. Use of blood products discussed with patient who consented to blood products. Plan discussed with attending. Additional Equipment Requests [facility] 08-11-2024 Note [place] Electrophysiology Consult Note [place] Cardiology [facility] Reason for visit: atrial fibrillation 08/11/24 Patient here to discuss afib ablation. He was taken for cardioversion after Amio load and an attempt on 05/25/2024 converted him to sinus rhythm. Denies chest pain, palpitations, and bleeding on Xarelto. He's up 12lbs since last month. Has some LE edema, which isn't worsening he says. He feels great in SR. Pulse check: SR. Prior HPI: Paige Baltazar is a 64 y.o. year old with past medical history of COPD was recently admitted to [facility] with A-fib with rapid ventricular rate at that time his ventricular rate was controlled with medication and echocardiogram revealed normal EF with biatrial enlargement. He was started on anticoagulation and subsequently discharged with advised to follow-up with the EP clinic. Given that he has consumed significant amount of alcohol he was advised to refrain from that. He was admitted to [facility] a few days ago for CHF and exacerbation of COPD with asthma. Denies chest pain, lightheadedness/syncope, and bleeding on Eliquis. EKG 03/23/2024 reveals atrial fibrillation PMH: Past Medical History: Diagnosis Date Abnormal ECG Arrhythmia Asthma Atrial fibrillation (CMS/HCC) COPD (chronic obstructive pulmonary disease) (CMS/HCC) Hypertension PSH: Past Surgical History: Procedure Laterality Date CARDIOVERSION SH: Social Determinants of Health Tobacco Use: Medium Risk (08/11/2024) Patient History Smoking Tobacco Use: Former Smokeless Tobacco Use: Never Passive Exposure: Not on file Alcohol Use: Not on file Financial Resource Strain: Not on file Food Insecurity: Not on file Transportation Needs: Not on file Physical Activity: Not on file Stress: Not on file Social Connections: Not on file Intimate Partner Violence: Unknown (03/11/2024) [place] [facility] [employer] [place] Fear of Current or Ex-Partner: Not on file Emotionally Abused: Not on file Physically Abused: Not on file Sexually Abused: Not on file Physically or Sexually Abused: Not on file Depression: Not on file Housing Stability: Not on file Utilities: Not on file Allergies: No Known Allergies Weight: 93.9kg Visit Vitals BP 120/74 (BP Location: Right arm, Patient Position: Sitting) Pulse 78 Ht 1.829 m (6') Wt 93.9 kg (207 lb) SpO2 96% BMI 28.07 kg/m??? Smoking Status Former BSA 2.18 m??? Meds: Current Outpatient Medications on File Prior to Visit Medication Sig Dispense Refill albuterol 90 mcg/actuation inhaler inhale 1 puff by mouth and INTO THE LUNGS every 8 hours if needed buPROPion (Zyban) 150 mg 12 hr tablet 1 (one) time each day at the same time. cetirizine (ZyrTEC) 10 mg tablet Take 10 mg by mouth if needed each day. knkyxjavjir-uwuygyctt-edkoqand (Trelegy Ellipta) 100-62.5-25 mcg blister with device Inhale. NIFEdipine CC (Adalat CC) 60 mg 24 hr tablet take 1 tablet by mouth once daily ON AN EMPTY STOMACH rivaroxaban (Xarelto) 20 mg tablet Take 1 tablet (20 mg) by mouth daily with evening meal. Take with food. 90 tablet 3 [DISCONTINUED] budesonide-formoteroL (Symbicort) 160-4.5 mcg/actuation inhaler Inhale 2 puffs in the morning and at bedtime. amiodarone (Pacerone) 200 mg tablet Take 1 tablet (200 mg) by mouth in the morning. (Patient not taking: Reported on 07/01/2024) 90 tablet 0 apixaban (Eliquis) 5 mg tablet Take 1 tablet (5 mg) by mouth in the morning and at bedtime. (Patient not taking: Reported on 07/01/2024) 60 tablet 0 No current facility-administered medications on file prior to visit. ROS: Review of Systems Constitutional: Positive for weight gain (12# since Jun 2024). Cardiovascular: Positive for leg swelling. Respiratory: Positive for shortness of breath. All other systems reviewed and are negative. Physical Exam: Constitutional General Appearance: well-nourished, well-developed, [...] Pulses Radial Pulse: normal Abdomen Inspection and Palpation: soft, non distended, no bruit, non tender Musculoskeletal Inspection: no (more content not included)... [facility] 07-01-2024 Note -Discussed with brandt ent the recommendation for atrial ablation s/p cardioversion. Procedure with risk and benefits was explained. Follow-up scheduled with Dr. Carrillo for additional recommendations regarding atrial ablation. -Patient is no longer taking amiodarone due to adverse reaction of chest tightness. -Patient has switched from Eliquis to Xarelto for anticoagulation. [facility] 07-01-2024 Note [facility] CARDIOLOGY PROGR ESS NOTE [facility] HPI: Paige Baltazar is a 64 y.o. male with PMHx of COPD and a-fib with RVR s/p cardioversion for one month follow up. Pt denies chest pain, palpatations, dizziness. Review of Systems Cardiovascular: Positive for leg swelling. Respiratory: Positive for shortness of breath. Social History Tobacco Use Smoking status: Former Types: Cigarettes Quit date: 02/2024 Years since quittin.3 Smokeless tobacco: Never Substance Use Topics Alcohol use: Yes Comment: occasional No Known Allergies Medications: Current Outpatient Medications on File Prior to Visit Medication Sig Dispense Refill albuterol 90 mcg/actuation inhaler inhale 1 puff by mouth and INTO THE LUNGS every 8 hours if needed buPROPion (Zyban) 150 mg 12 hr tablet 1 (one) time each day at the same time. NIFEdipine CC (Adalat CC) 60 mg 24 hr tablet take 1 tablet by mouth once daily ON AN EMPTY STOMACH rivaroxaban (Xarelto) 20 mg tablet Take 1 tablet (20 mg) by mouth daily with evening meal. Take with food. 90 tablet 3 amiodarone (Pacerone) 200 mg tablet Take 1 tablet (200 mg) by mouth in the morning. (Patient not taking: Reported on 07/01/2024) 90 tablet 0 apixaban (Eliquis) 5 mg tablet Take 1 tablet (5 mg) by mouth in the morning and at bedtime. (Patient not taking: Reported on 07/01/2024) 60 tablet 0 cetirizine (ZyrTEC) 10 mg tablet Take 10 mg by mouth if needed each day. No current facility-administered medications on file prior to visit. No results found for: PTWEIGHT Physical Exam: BP 150/85 (BP Location: Right arm, Patient Position: Sitting) Pulse 56 Ht 1.829 m (6') Wt 88.5 kg (195 lb) SpO2 98% BMI 26.45 kg/m??? Physical exam: General: Awake, alert, good spirits. NAD Eyes: anicteric sclera. Non-injected conjunctiva. No xanthelasmas Neck: No elevated JVP. No carotid bruit Pulm: Breath sounds clear to ascultation bilaterally with no wheeze, crackles or rhonchi Cards: HRRR. NL S1, S2. No S3 or S4 gallop. Murmur: none Abd: Soft, Nontender, physiologic bowel sounds are present Extr: Lower extremity edema: none. DP pulses present bilaterally Skin: warm, dry, well perfused Neuro: A&Ox3, No gross deficits Labs: 05/15/2024 Chem: Na 139. K 4.1. BUN 14. Cr 1.34 CBC: HGB 14.1, hematocrit 42.3 Last lab values have been reviewed CV Testing: EKG 07/01/2024 Sinus bradycardia, HR 52 Echo 03/09/2024 CONCLUSION: 1. Normal ventricular size and systolic function. LVEF is 55%. 2. Mild biatrial dilatation. 3. No significant valvular dysfunction. 4. Mildly elevated right-sided pressures. 5. The patient appears to be in atrial fibrillation during the exam. CTA Chest 03/09/2024 IMPRESSION: 1. No pulmonary embolism. 2. Moderate emphysematous changes. 3. No acute infiltrates or specific findings to account for patient's symptoms. Assessment/Plan: Paige Baltazar is a 64 y.o. male with a PMHx of COPD and a-fib RVR s/p cardioversion. #Paroxysmal atrial fibrillation -Discussed with patient the recommendation for atrial ablation s/p cardioversion. Procedure with risk and benefits was explained. Follow-up scheduled with Dr. Carrillo for additional recommendations regarding atrial ablation. -Patient is no longer taking amiodarone due to adverse reaction of chest tightness. -Patient has switched from Eliquis to Xarelto for anticoagulation. #Hypertension -Patient was hypertensive at today's visit, and told us that he had been out of his nifidepine 60 mg for the past few days. He plans to resume the medication when picked up from pharmacy today. Follow up: Will follow-up with Dr. Carrillo in office in July. Ata Lyon PA-C [facility] Cardiology Available 7-5pm via [employer] Pager #: [phone] [facility] 07-01-2024 Note Pt is here for [facility] cardioversion follow up. Pt denies chest pain, palpatations, dizziness Review of Systems Cardiovascular: Positive for leg swelling. Respiratory: Positive for shortness of breath. [facility] 05-25-2024 Note DIRECT CARDIOVERSION PROCEDURE NOTE Date: 05/25/24 Type of procedure: DC Cardioversion. Performed by: Jose Carrillo MD Informed consent: Signed by patient. Preparation and technique: Patient was brought into the procedure room. After an informed consent was obtained following a discussion with the patient where I explained the risk and benefit of the procedure that is not limited to skin chan, fluid in the lungs, heart attack, stroke, or even , though that is very rare. Patches were placed in anteroposterior direction and once patient was made comfortable with Versed 4mg and Fentanyl 37..5mcg. Following sedation, the patient underwent synchronized cardioversion using 360J which failed to converted to sinus rhythm. Defibrillation was reattempted afterrepositioning of patches and 360J converted to sinus. Post procedure, the patient was stable. No complications noted. Plan: Continue anticoagulation and consider ablation. Jose Carrillo MD Cardiac Electrophysiology [facility] 05-25-2024 Note Patient: Paige fulton Procedure Information Date/Time: 05/25/24 1100 Procedure: Cardioversion - PC APPROVED Location: [facility] DIGITAL PR[facility]PER[facility] HOLDING ROOM / [facility] HV VASCULAR LAB (Cath) Providers: Jose Carrillo MD Clinical information reviewed: Allergies Meds Med Hx Surg Hx Fam Hx Soc Hx Physical Exam Airway Mallampati: II TM distance: >3 FB Neck ROM: full Cardiovascular Dental Pulmonary Abdominal Anesthesia Plan ASA 2 CSE Anesthetic plan and risks discussed with patient. Use of blood products discussed with patient who. Additional Equipment Requests [facility] 04-07-2024 Note [place] Electrophysiology Consult Note [place] Cardiology - [facility] Reason for visit: atrial fibrillation HPI: Paige Baltazar is a 63 y.o. year old with past medical history of COPD was recently admitted to [facility] with A-fib with rapid ventricular rate at that time his ventricular rate was controlled with medication and echocardiogram revealed normal EF with biatrial enlargement. He was started on anticoagulation and subsequently discharged with advised to follow-up with the EP clinic. Given that he has consumed significant amount of alcohol he was advised to refrain from that. He was admitted to [facility] a few days ago for CHF and exacerbation of COPD with asthma. Denies chest pain, lightheadedness/syncope, and bleeding on Eliquis. EKG 03/23/2024 reveals atrial fibrillation PMH: Past Medical History: Diagnosis Date Abnormal ECG Arrhythmia Asthma Atrial fibrillation ([facility]/HCC) COPD (chronic obstructive pulmonary disease) ([facility]) Hypertension PSH: No past surgical history on [...] on file Intimate Partner Violence: Unknown (03/11/2024) [place] Safety & Environment Fear of Current or [...] Abdomen Inspection and (more content not included)... [facility] 03-23-2024 Note [facility] Cardiology Clinic Note Chief Complaint: Patient here for follow up [facility] for afib and hypertension. He was discharged on Eliquis and diltiazem, but he is not currently taking diltiazem. He denies chest pain, lightheadedness/syncope, and bleeding on Eliquis. Gets SOB, and does not see pulmonary. Still gets intermittent palpitations. HPI: In-patient consult: 63-year-old with a history of COPD and hypertension admitted to the [facility] for COPD exacerbation. Noted to be [...] see him if any intervention needs arise Alethea Ward MD, MPH, FACC, [facility] Interventional Cardiology Pager Email: [email or web address] 05-26-2021 Note PROCEDURE: XR KNEE L T 4V or > HISTORY: Pain ; lateral knee pain since hitting on object 3 weeks ago COMPARISON: None. FINDINGS: BONES:No fracture, acute abnormality, or significant arthropathy. SOFT TISSUES:No visible soft tissue swelling. EFFUSION:Small effusion. OTHER: Negative. IMPRESSION: 1. Small joint effusion. 2. No acute bone abnormality. Electronically authenticated by: KIM SOSA Date: 2021-05-26 12:17 [facility] Summary Purpose Family History No Family History Records FoundNo Family History Records FoundNo Family History Records Found Advance Directives No Advanced Directives Records FoundNo Advanced Directives Records FoundNo Advanced Directives Records Found Additional Source Comments (unrecognized sect ion and content) No Status Records FoundNo Status Records FoundNo Status Records Found INFORMATION SOURCE (unrecogn ized section and content) DATE CREATED AUTHOR 06/16/2021 [facility] DATE CREATED AUTHOR AUTHOR'S ORGANIZ ATION 01/28/2024 [facility] DATE CREATED AUTHOR AUTHOR'S ORGANIZ ATION 12/10/2024 [facility] FOR RECORDS PERTAINING TO PATIENTS WHO ARE [...] BE BASED ON THE PRIMARY CLINICAL RECORDS. [employer] provides no warranty or guarantee of the accuracy or completeness of information in this document.
--- NOTE | 2024-12-23 12:36 | ECG_ITS ---
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 Measurements Intervals [place] Rate: 79 P: 90 VT: 142 QRS: 63 QRSD: 82 T: 53 QT: 366 QTc: 400 Interpretive Statements 1100 Sinus rhythm 3433 Septal myocardial infarction, probably old 9150 abnormal ECG Compared to ECG 04/02/2024 17:48:07 Atrial fibrillation no longer present Electronically Signed On 12-24-2024 6:29:52 EST by DYLAN BERNSTEIN M.D.
[2024-12-23 12:55] LABS: Basophils Absolute Auto 0.1 10^3/uL (0.0-0.1); Basophils Percent Auto 1.1 % (0.2-2.0); Eosinophils Absolute Auto 1.2 10^3/uL (0.0-0.7); Eosinophils Percent Auto 14.6 % (0.9-7.0); Hematocrit 42.2 % (42.0-54.0); Hemoglobin 14.2 g/dL (14.0-18.0); Immature Granulocytes Abs Auto 0.01 10^3/uL (0.00-0.03); Immature Granulocytes Pct Auto 0.1 % (0.0-0.5); Lymphocytes Absolute Auto 2.1 10^3/uL (1.2-3.8); Lymphocytes Percent Auto 26.8 % (20.5-60.0); Mean Corpuscular HGB Conc 33.6 g/dL (29.9-35.2); Mean Corpuscular Hemoglobin 32.5 pg (25.9-34.0); Mean Corpuscular Volume 96.6 fL (80.0-94.0); Mean Platelet Volume 8.2 fL (9.5-13.5); Monocytes Absolute Auto 0.8 10^3/uL (0.3-0.8); Monocytes Percent Auto 10.3 % (1.7-12.0); Neutrophils Absolute Auto 3.7 10^3/uL (1.4-6.5); Neutrophils Percent Auto 47.1 % (43.0-75.0); Platelet Count 247 10^3/uL (150-450); Red Blood Count 4.37 10^6/uL (4.70-6.10); Red Cell Distribution Width 12.5 % (11.0-15.0); White Blood Count 7.9 10^3/uL (4.0-11.0)
[2024-12-23 13:11] LABS: Sodium 138 mmol/L (136-145)
[2024-12-23 13:12] LABS: Alanine Aminotransferase 25 U/L (16-63); Alkaline Phosphatase 92 U/L (46-116); Anion Gap 12.1; Aspartate Amino Transferase 17 U/L (15-37); BUN Creatinine Ratio 13.1; Bilirubin Total 0.6 mg/dL (0.2-1.0); Calcium 9.3 mg/dL (8.5-10.1); Carbon Dioxide 27.9 mmol/L (21.0-32.0); Chloride 102 mmol/L (98-107); Estimated GFR (African America >60 (>=60 mL/min/1.73m^2); Estimated GFR (Non-African Ame 52 (>=60 mL/min/1.73m^2); Glucose 92 mg/dL (74-106); Total Protein 7.5 g/dL (6.4-8.2)
[2024-12-23 13:13] LABS: Albumin Globulin Ratio 1.1; Globulin 3.5 g/dL
[2024-12-23 13:16] LABS: Troponin I High Sensitivity 4.3 pg/mL (4.0-76.1)
--- NOTE | 2024-12-23 13:30 | ED_ITS ---
HPI HPI - General Adult General Chief complaint: Dizziness Stated complaint: dizziness - sent from cardiac rehab Time Seen by Provider: 12/23/24 12:19 Source: patient Mode of arrival: Wheelchair Limitations: no limitations History of Present Illness HPI narrative: Patient presents to ED from cardiac rehab for evaluation of dizziness. Patient states over the past couple of weeks he has had some dizziness but it has been increasing lately. He said today was one of the worst. He reports that the dizziness comes on suddenly and he has to sit down or he feels like he is going to pass out. Patient states a lot of family members have been sick around him and he has been having a scratchy throat and mild cough. He does have a history of COPD and feels like his lungs and breathing have been slightly worse recently. Patient had a cardiac ablation done in the past for A-fib but he is mostly in cardiac rehab for his pulmonary issues. Dr. Miller has him going to cardiac rehab. Patient has not had a stress test in the past or carotid ultrasound that he knows about. Patient denies any chest pain no diaphoresis no abdominal pain. No fevers. He does report some headaches. No neurological deficit. He also reports he gets some tightness in his throat sometimes but he does state that last year he had some issues with anxiety and this feels slightly similar however he cannot be sure if this is anxiety or not. Vital signs stable patient resting comfortably in the bed. Related Data Home Medications ?Medication ?Instructions ?Recorded ?Confirmed albuterol sulfate 2.5 mg/3 mL 2.5 mg inhalation Q6H PRN 03/09/24 12/23/24 (0.083 %) solution for nebulization shortness of breath or wheezing albuterol sulfate 90 mcg/actuation 1 puff inhalation Q4H PRN 03/09/24 12/23/24 aerosol inhaler shortness of breath or wheezing cetirizine 10 mg tablet 10 mg PO DAILY PRN allergy symptoms 03/09/24 04/02/24 nifedipine 60 mg tablet,extended 60 mg PO DAILY 03/09/24 12/23/24 release diltiazem HCl 240 mg 240 mg PO Q24H 04/03/24 04/03/24 capsule,extended release 24 hr budesonide-formoterol HFA 160 2 puff inhalation Q12H 12/23/24 12/23/24 mcg-4.5 mcg/actuation aerosol inhaler furosemide 40 mg tablet 40 mg PO DAILY 12/23/24 12/23/24 nifedipine 60 mg tablet,extended 60 mg PO DAILY 12/23/24 12/23/24 release 24 hr Previous Rx's ?Medication ?Instructions ?Recorded apixaban 5 mg tablet (Eliquis) 5 mg PO BID #30 tabs 03/09/24 Allergies Allergy/AdvReac Type Severity Reaction Status Date / Time No Known Drug Allergies Allergy Verified 03/09/24 09:52 Opioid HPI Opioid Management Most Recent Opioid Data: Last Pain Scale 0 04/04/24 12:29 04/04/24 Last Pain Intensity 3 03/10/24 09:44 03/10/24 Last ORT Total Score 0 04/02/24 22:21 04/02/24 Last ORT Risk Category Low Risk 04/02/24 22:21 04/02/24 Review of Systems ROS Status of ROS 10 or more systems reviewed and unremark able except as noted in history and below PFSH PFSH Medical History (Updated 12/23/24 @ 16:36 by Trisha Ortega DO) Hypertension ?I10 - Essential (primary) hypertension (ICD-10) Shortness of breath ?R06.02 - Shortness of breath (ICD-10) Atrial fibrillation, new onset ?I48.91 - Unspecified atrial fibrillation (ICD-10) Family History (Updated 04/02/24 @ 22:05 by Farheen Becerra, SONJA) Mother Family history of hypertension Family history of myocardial infarction Family history of CHF (congestive heart failure) Father Family history of stroke Sister Family history of cancer Social History (Updated 04/02/24 @ 22:07 by Farheen Becerra, SONJA) Within the past year, how often did you have a drink containing alcohol: monthly or less Within the past year, how many standard drinks containing alcohol did you have on a typical day: 1 or 2 Within the past year, how often did you have six or more drinks on one occasion: never Total score: 0 Score interpretation: A score less than 4 is consistent with normal alcohol consumption. Smoking status: Former smoker Non-prescribed substance use: denies use Previous occupational history: retired Highest level of school completed/degree received: 10th grade Are you now , , , , never or living with a partner: In a typical week, how many times do you talk on the telephone with family, friends, or neighbors: 3 or more times per week How often do you get together with friends or relatives: 3 or more times per week How often do you attend synagogue or orthodox services: never Little interest or pleasure in doing things: not at all Feeling down, depressed, or hopeless: not at all Feel stressed/tense/nervous/anxious/difficulty sleeping: to some extent Do you think of yourself as: straight/heterosexual Gender Identity: male Exam Narrative Exam Narrative: Time Seen: [] Vital Signs: [Per nurse's notes.] General: [Alert] Skin: [Warm, dry, no rash.] Head: [Normocephalic, atraumatic.] Neck: [Supple, trachea midline.] Eye: [Pupils are equal, round and reactive to light, extraocular movements are intact, normal conjunctiva.] Ears, nose, mouth and throat: oral mucosa moist. Cardiovascular: [Regular rate and rhythm, no murmur.] Respiratory: [Lungs are clear to auscultation, respirations are non-labored, breath sounds are equal.] Chest wall: [No tenderness, no deformity.] Gastrointestinal: [Soft, nontender, non distended, normal bowel sounds.] MSK: 5 out of 5 muscle strength x 4 extremities no calf pain or edema Lymphatics: [No lymphadenopathy.] Psychiatric: [Cooperative, appropriate mood & affect.] Neurological: [Alert and oriented to person, place, time, and situation, no focal neurological deficit observed.] Constitutional Vital Signs, click to edit/add: Last Vital Signs Temp 98.1 F 12/23/24 12:17 Pulse 76 12/23/24 16:10 Resp 15 12/23/24 16:10 BP 136/100 H 12/23/24 15:01 Pulse Ox 96 12/23/24 16:14 O2 Del Method Nasal Cannula 12/23/24 16:14 O2 Flow Rate 2 12/23/24 16:14 Course Vital Signs Vital signs: Vital Signs Temperature 98.1 F 12/23/24 12:17 Pulse Rate 80 12/23/24 12:17 Respiratory Rate 22 H 12/23/24 12:17 Blood Pressure 133/74 12/23/24 12:17 Pulse Oximetry 95 12/23/24 12:17 Oxygen Delivery Method Room Air 12/23/24 12:17 Temperature 98.1 F 12/23/24 12:17 Pulse Rate 76 12/23/24 16:10 Respiratory Rate 15 12/23/24 16:10 Blood Pressure 136/100 H 12/23/24 15:01 Pulse Oximetry 96 12/23/24 16:14 Oxygen Delivery Method Nasal Cannula 12/23/24 16:14 Oxygen Delivery Flow Rate 2 12/23/24 16:14 Medical Decision Making MDM Narrative Medical decision making narrative: Patient's labs are nonacute. Patient did have periods where he stood up and felt lightheaded and near syncopal here in the ED. After CAT scan patient was increasingly short of breath. He was placed on 2 L of oxygen after CAT scan and a DuoNeb was ordered. CT scan was negative for PE. I spoke to Dr. Patel who knows the patient and he said the shortness of breath could be explained by the fact that he is out of his medication but it would not really explain the dizziness and lightheadedness. Patient states the dizziness and lightheadedness has become increasingly worse and he has had some near syncopal events. Patient will be admitted to Dr. Talley for further evaluation, possible carotid ultrasounds. I also discussed anxiety with the patient and he said he used to be on something that helped him to quit smoking but it was also used for anxiety and since he had stopped smoking in the past he thought he did not need the medication anymore. He recently stopped taking his medication for that and the symptoms did seem to get worse as well. He does describe some throat tightness and when he gets short of breath he seems anxious with that as well. He may need to go back on an anxiety medication. He could not remember the name of his medication. Patient is stable and comfortable with care plan for admission. Differential Diagnosis Differential Diagnosis: COPD emphysema PE anxiety arrhythmia Medical Records Medical records reviewed: Yes I reviewed the patient's medical records Lab Data Labs: Lab Results 12/23/24 12/23/24 Range/Units 12:45 14:23 WBC 7.9 (4.0-11.0) 10^3/uL RBC 4.37 L (4.70-6.10) 10^6/uL Hgb 14.2 (14.0-18.0) g/dL Hct 42.2 (42.0-54.0) % MCV 96.6 H (80.0-94.0) fL MCH 32.5 (25.9-34.0) pg MCHC 33.6 (29.9-35.2) g/dL RDW 12.5 (11.0-15.0) % Plt Count 247 (150-450) 10^3/uL MPV 8.2 L (9.5-13.5) fL Neut % (Auto) 47.1 (43.0-75.0) % Lymph % (Auto) 26.8 (20.5-60.0) % [place] % (Auto) 10.3 (1.7-12.0) % Eos % (Auto) 14.6 H (0.9-7.0) % Baso % (Auto) 1.1 (0.2-2.0) % Neut # (Auto) 3.7 (1.4-6.5) 10^3/uL Lymph # (Auto) 2.1 (1.2-3.8) 10^3/uL [place] # (Auto) 0.8 (0.3-0.8) 10^3/uL Eos # (Auto) 1.2 H (0.0-0.7) 10^3/uL Baso # (Auto) 0.1 (0.0-0.1) 10^3/uL Abs Immat Gran (auto) 0.01 (0.00-0.03) 10^3/uL Imm/Tot Granulo (auto) 0.1 (0.0-0.5) % Sodium 138 (136-145) mmol/L Potassium 4.0 (3.5-5.1) mmol/L Chloride 102 (98-107) mmol/L Carbon Dioxide 27.9 (21.0-32.0) mmol/L Anion Gap 12.1 BUN 18.0 (7.0-18.0) mg/dL Creatinine 1.37 H (0.70-1.30) mg/dL Est GFR ( Amer) >60 (>=60 mL/min/1.73m^2) Est GFR (Non-Af Amer) 52 L (>=60 mL/min/1.73m^2) BUN/Creatinine Ratio 13.1 Glucose 92 (74-106) mg/dL Calcium 9.3 (8.5-10.1) mg/dL Total Bilirubin 0.6 (0.2-1.0) mg/dL AST 17 (15-37) U/L ALT 25 (16-63) U/L Alkaline Phosphatase 92 (46-116) U/L Troponin I High Sens 4.3 (4.0-76.1) pg/mL NT-Pro-B Natriuret Pep 281.0 (<=900.0) pg/mL Total Protein 7.5 (6.4-8.2) g/dL Albumin 4.0 (3.4-5.0) g/dL Globulin 3.5 g/dL Albumin/Globulin Ratio 1.1 Influenza Type A Ag Negative Influenza Type B Ag Negative SARS-CoV-2 Ag (CV2AG) Negative (NEGATIVE) Imaging Data CT scan - chest: Attestation: I have reviewed the pertinent imaging results. ECG Data Attestation: ?I have reviewed the pertinent ECG results. Interpretation: EKG INTERPRETATION Time: [] 1224 Rate: [] 79 Rhythm: _ [] Normal sinus rhythm ST segments: _ [] No acute ST elevation or depression T waves: _ [] Ectopy: _ [] P wave/UT interval: _ [] QRS interval: _ [] QT interval: _ [] Comparison: _ [] Comparison EKG date: [] Performed by: [self] artifact present Discharge Plan Discharge Chief Complaint: Dizziness Clinical Impression: COPD exacerbation, Near syncope Patient Disposition: Admitted as Observation Time of Disposition Decision: 16:36 Condition: Fair Prescriptions / Home Meds: No Action albuterol sulfate 90 mcg/actuation HFA aerosol inhaler 1 puff INHALATION Q4H PRN (Reason: shortness of breath or wheezing) cetirizine 10 mg tablet 10 mg PO DAILY PRN (Reason: allergy symptoms) nifedipine 60 mg tablet extended release 60 mg PO DAILY Eliquis 5 mg tablet 5 mg PO BID Qty: 30 0RF albuterol sulfate 2.5 mg /3 mL (0.083 %) solution for nebulization 2.5 mg inhalation Q6H PRN (Reason: shortness of breath or wheezing) diltiazem HCl 240 mg capsule,extended release 24hr 240 mg PO Q24H budesonide-formoterol 160-4.5 mcg/actuation HFA aerosol inhaler 2 puff INHALATION Q12H furosemide 40 mg tablet 40 mg PO DAILY nifedipine 60 mg tablet extended release 24hr 60 mg PO DAILY Print Language: Amharic Referrals: Hetal Ocampo NP [Primary Care Provider] - 1 week
--- NOTE | 2024-12-23 14:37 | PC.NURSE ---
pt ambulatory to restroom at this time independently with steady gait. pt denies needs of assistance. after returning to ED room, pt has increased WOB, states that this is his baseline being winded with activity.oxygen saturation is 95% on RA, Dr. Ortega updated on pts increased WOB and SOB with activity. pt to CT via stretcher at this time.
[2024-12-23] MEDS: IPRATROPIUM/ALBUTEROL SULFATE 3 ML AMPUL.NEB IH ×2 (15:05→23:45)
[2024-12-23 15:15] LABS: Influenza Virus A Antigen Negative; Influenza Virus B Antigen Negative; Internal Control Within Normal Limits
[2024-12-23 15:16] LABS: Internal Control Within Normal Limits; SARS-CoV-2 Ag NEGATIVE (NEGATIVE)
--- NOTE | 2024-12-23 18:18 | PC.NURSE ---
pt transported via wheelchair upstairs to bed assignment for admission. pt taken upstairs at 1807 by nurse international accounting manager. report given to Serene CASILLAS by this RN around 1700, all questions answered. pt denied needs prior to admission.
--- NOTE | 2024-12-23 18:36 | P.HP_ITS ---
HPI H&P: HPI History of Present Illness Chief complaint: dizziness - near syncope sob Narrative: Patient admitted with acute onset of shortness of breath, had significant hypoxia he does not wear oxygen at home, but was hypoxic in the low 80s prior to coming into the emergency room where he was already on 3 L I saw patient up in the medical surgical floor, sitting at the edge of the bed resting breathing uncomfortably dyspneic Opioid HPI Opioid Management Most Recent Pain and Opioid Data: Last Pain Scale 0 04/04/24 12:29 04/04/24 Last Pain Intensity 3 03/10/24 09:44 03/10/24 Last Pain Assessment 12/23/24 19:32 Last ORT Total Score 0 12/23/24 19:28 12/23/24 Last ORT Risk Category Low Risk 12/23/24 19:28 12/23/24 Review of Systems ROS Status of ROS 10 or more systems reviewed and unremark able except as noted in history and below PFSH PFSH Medical History (Updated 12/23/24 @ 16:36 by Trisha Ortega DO) Hypertension ?I10 - Essential (primary) hypertension (ICD-10) Shortness of breath ?R06.02 - Shortness of breath (ICD-10) Atrial fibrillation, new onset ?I48.91 - Unspecified atrial fibrillation (ICD-10) Family History (Updated 04/02/24 @ 22:05 by Farheen Becerra RN) Mother Family history of hypertension Family history of myocardial infarction Family history of CHF (congestive heart failure) Father Family history of stroke Sister Family history of cancer Social History (Updated 04/02/24 @ 22:07 by Farheen Becerra RN) Within the past year, how often did you have a drink containing alcohol: monthly or less Within the past year, how many standard drinks containing alcohol did you have on a typical day: 1 or 2 Within the past year, how often did you have six or more drinks on one occasion: never Total score: 0 Score interpretation: A score less than 4 is consistent with normal alcohol consumption. Smoking status: Former smoker Non-prescribed substance use: denies use Previous occupational history: retired Highest level of school completed/degree received: high school graduate Are you now , , , , never or living with a partner: In a typical week, how many times do you talk on the telephone with family, friends, or neighbors: 3 or more times per week How often do you get together with friends or relatives: 3 or more times per week How often do you attend latter day or advent services: never Little interest or pleasure in doing things: not at all Feeling down, depressed, or hopeless: not at all Feel stressed/tense/nervous/anxious/difficulty sleeping: to some extent Do you think of yourself as: straight/heterosexual Gender Identity: male Meds Home Medications and Allergies Home Medications ?Medication ?Instructions ?Recorded ?Confirmed ?Type albuterol sulfate 2.5 mg/3 mL 2.5 mg inhalation Q6H PRN 03/09/24 12/23/24 History (0.083 %) solution for nebulization shortness of breath or wheezing albuterol sulfate 90 mcg/actuation 1 puff inhalation Q4H PRN 03/09/24 12/23/24 History aerosol inhaler shortness of breath or wheezing cetirizine 10 mg tablet 10 mg PO DAILY PRN allergy symptoms 03/09/24 12/23/24 History budesonide-formoterol HFA 160 2 puff inhalation BID 12/23/24 12/23/24 History mcg-4.5 mcg/actuation aerosol inhaler furosemide 40 mg tablet 40 mg PO DAILY 12/23/24 12/23/24 History nifedipine 60 mg tablet,extended 60 mg PO DAILY 12/23/24 12/23/24 History release 24 hr Allergies Allergy/AdvReac Type Severity Reaction Status Date / Time No Known Drug Allergies Allergy Verified 03/09/24 09:52 Exam Constitutional Vital Signs, click to edit/add: Last Vital Signs Temp 98.1 F 12/23/24 12:17 Pulse 77 12/23/24 16:43 Resp 25 H 12/23/24 16:43 BP 138/85 12/23/24 16:43 Pulse Ox 96 12/23/24 16:14 O2 Del Method Nasal Cannula 12/23/24 16:14 O2 Flow Rate 2 12/23/24 16:14 Documenting provider has reviewed patient's vital signs: yes Common normals: apparent distress (Moderate respiratory distress) Respiratory Common normals: abnormal respiratory effort (Moderate respiratory distress) Auscultation: rhonchi, wheezes (Very tight wheeze) and diminished lung sounds Cardio Common normals: regular rate; irregular rhythm Rhythm: abnormal rhythm GI Common normals: negative for Normal to inspection, nondistended, normoactive bowel sounds present (Morbid obesity) Results Labs Labs: Short CBC 12/23/24 Range/Units 12:45 WBC 7.9 (4.0-11.0) 10^3/uL Hgb 14.2 (14.0-18.0) g/dL Hct 42.2 (42.0-54.0) % Plt Count 247 (150-450) 10^3/uL BMP 12/23/24 12:45 Sodium 138 Potassium 4.0 Chloride 102 Carbon Dioxide 27.9 BUN 18.0 Creatinine 1.37 H Glucose 92 Calcium 9.3 Liver Function 12/23/24 Range/Units 12:45 Total Bilirubin 0.6 (0.2-1.0) mg/dL AST 17 (15-37) U/L ALT 25 (16-63) U/L Alkaline Phosphatase 92 (46-116) U/L Albumin 4.0 (3.4-5.0) g/dL Assessment and Plan Assessment and Plan (1) COPD exacerbation: (2) Persistent atrial fibrillation: (3) Hypertension: Plan Admit findings: Respiratory distress, acute hypoxia, uncontrolled hypertension,, with a acute exacerbation of COPD, possibly viral related normal white blood cell count Acute exacerbation of COPD-with hypoxia-steroids, aerosols, IV antibiotics, try to obtain sputum culture Atrial fibrillation with rapid ventricular response-history of heart failure- consult cardiology, maintained anticoagulation with Xarelto Hypertension-continue with home medications Admission status: Patient with significant hypoxia due to acute exacerbation of COPD, medically necessary treatment will span 2 midnights. Inpatient status
[2024-12-23 19:14] LABS: Lactate/Lactic Acid 1.4 mmol/L (0.4-2.0)
[2024-12-23 19:18] LABS: Magnesium 1.9 mg/dL (1.8-2.4)
[2024-12-23] MEDS: ALBUTEROL SULFATE 2.5 MG/3 ML VIAL NEB IH (19:54)
[2024-12-23 20:45] LABS: ABG PCO2 40.2 mmHg (35.0-45.0); Allen Test POSITIVE (POSITIVE); Base Excess ABG 1.4 mmol/L (-2.0-2.0); HCO3 ABG 25.9 mmol/L (22.0-26.0); Liters per Minute 2; O2 Mode NASAL CANNULA; Oxygen Saturation ABG 96.7 %; PO2 ABG 77.5 mmHg (80.0-100.0); Puncture Site RR; pH ABG 7.418 (7.350-7.450)
[2024-12-23] MEDS: METHYLPREDNISOLONE SOD SUCC PF 125 MG/2 ML VIAL IVP (21:02)
[2024-12-23] MEDS: LEVOFLOXACIN IN DEXTROSE 5 % 750 MG/150 ML PREMIX 100 MG IV (21:03)
[2024-12-23] MEDS: RIVAROXABAN 10 MG TABLET 20 MG PO (21:11)
[2024-12-23] MEDS: BUDESONIDE 0.5 MG/2 ML AMPULE NEB IH (23:44)
[2024-12-24] VITALS (25 sets, daily range): BP systolic 123–146; BP diastolic 70–86; PULSE 65–96; TEMP 36.4–36.7; O2SAT 93–98
[2024-12-24] MEDS: METHYLPREDNISOLONE SOD SUCC PF 125 MG/2 ML VIAL IVP ×4 (03:25→20:11)
[2024-12-24] MEDS: IPRATROPIUM/ALBUTEROL SULFATE 3 ML AMPUL.NEB IH ×6 (04:07→23:39)
[2024-12-24 06:03] LABS: Hematocrit 39.6 % (42.0-54.0); Hemoglobin 13.2 g/dL (14.0-18.0); Mean Corpuscular HGB Conc 33.3 g/dL (29.9-35.2); Mean Corpuscular Volume 96.1 fL (80.0-94.0); Mean Platelet Volume 8.4 fL (9.5-13.5); Platelet Count 233 10^3/uL (150-450); Red Blood Count 4.12 10^6/uL (4.70-6.10); Red Cell Distribution Width 12.5 % (11.0-15.0); White Blood Count 4.6 10^3/uL (4.0-11.0)
[2024-12-24 06:09] LABS: Anion Gap 13.5; BUN Creatinine Ratio 16.1; Carbon Dioxide 24.8 mmol/L (21.0-32.0); Chloride 103 mmol/L (98-107); Estimated GFR (African America >60 (>=60 mL/min/1.73m^2); Estimated GFR (Non-African Ame 52 (>=60 mL/min/1.73m^2); Glucose 218 mg/dL (74-106); Potassium 4.3 mmol/L (3.5-5.1); Sodium 137 mmol/L (136-145)
[2024-12-24 06:23] LABS: Troponin I High Sensitivity 5.1 pg/mL (4.0-76.1)
[2024-12-24 06:35] LABS: Monocytes Absolute Manual 0.09 10^3/uL (0.30-0.80)
--- NOTE | 2024-12-24 07:15 | P.PN_ITS ---
Progress Note: Subjective Subjective Interval history: Looks more comfortable with breathing - feels better Exam Constitutional Vital Signs, click to edit/add: Last Vital Signs Temp 97.6 F 12/24/24 04:13 Pulse 76 12/24/24 06:00 Resp 17 12/24/24 04:13 BP 123/70 12/24/24 04:13 Pulse Ox 94 L 12/24/24 04:15 O2 Del Method Nasal Cannula 12/24/24 04:15 O2 Flow Rate 1 12/24/24 04:15 Documenting provider has reviewed patient's vital signs: yes Common normals: apparent distress (mild resp distress - iumproved) Respiratory Common normals: abnormal respiratory effort (Mild respiratory distress) Auscultation: rhonchi (mild), wheezes (Very tight wheeze) and diminished lung sounds (tight wheeze) Cardio Common normals: regular rate; irregular rhythm Rhythm: abnormal rhythm GI Common normals: negative for Normal to inspection, nondistended, normoactive bowel sounds present (Morbid obesity) Progress Note: Objective Labs Labs: Short CBC 12/23/24 12/24/24 Range/Units 12:45 05:38 WBC 7.9 4.6 (4.0-11.0) 10^3/uL Hgb 14.2 13.2 L (14.0-18.0) g/dL Hct 42.2 39.6 L (42.0-54.0) % Plt Count 247 233 (150-450) 10^3/uL BMP 12/23/24 12/24/24 12:45 05:38 Sodium 138 137 Potassium 4.0 4.3 Chloride 102 103 Carbon Dioxide 27.9 24.8 BUN 18.0 22.0 H Creatinine 1.37 H 1.37 H Glucose 92 218 H Calcium 9.3 9.0 Liver Function 12/23/24 Range/Units 12:45 Total Bilirubin 0.6 (0.2-1.0) mg/dL AST 17 (15-37) U/L ALT 25 (16-63) U/L Alkaline Phosphatase 92 (46-116) U/L Albumin 4.0 (3.4-5.0) g/dL Progress Note: A&P Assessment and Plan (1) COPD exacerbation: (2) Persistent atrial fibrillation: (3) Hypertension: Plan Admit findings: Respiratory distress, acute hypoxia, uncontrolled hypertension,, with a acute exacerbation of COPD, possibly viral related normal white blood cell count Acute exacerbation of COPD-with hypoxia-steroids, aerosols, IV antibiotics, try to obtain sputum culture - some improvement - will review notes by pulmonology Atrial fibrillation with rapid ventricular response-history of heart failure- consult cardiology, maintained anticoagulation with Xarelto Hypertension-continue with home medications Hyperglycemia - monitor DOMITILA - baseline creat .91, admission cratinine 1.37 which is 150.5% above baseline - shahram decreased urine output in last 6 hours would meet critgeria for DOIMTILA stage 1 Admission status: Patient with significant hypoxia due to acute exacerbation of COPD, medically necessary treatment will span 2 midnights. Inpatient status ?
--- NOTE | 2024-12-24 07:22 | P.PLCN_ITS ---
History of Present Illness History of Present Illness Consult date: 12/24/24 Requesting physician: Phoenix Talley Reason for consult: COPD and hypoxemia Chief complaint: dizziness - near syncope sob Narrative: 64yo male presents with dyspnea and near-syncope. He is known to me as I see him outpatient for COPD. He was @ pulm rehab yesterday and complained of worsening dyspnea. It was slowly declining over the past week, which also coincided with the patient running out of his Trelegy. He purchases Trelegy from [place] to save money; however, the shipment has been delayed and will not arrive until around 01/04/2025. He has also had issues with afib in the past and was looking into having a cardiac ablation when I last saw him on 10/27/2024 (was to be done 10/28/2024). Yesterday, he was hypoxic, which he is not on any O2 @ baseline. He was also noted to have orthostatic hypotension. CTA showed no pulmonary emboli or obvious infiltrates. Today he is feeling better. Still has some chest tightness and dyspnea, but less than before. Denies any fevers, chills, sweats. Review of Systems ROS Status of ROS 10 or more systems reviewed and unremark able except as noted in history and below [facility] Medical History (Updated 12/23/24 @ 16:36 by Trisha Ortega DO) Hypertension ?I10 - Essential (primary) hypertension (ICD-10) Shortness of breath ?R06.02 - Shortness of breath (ICD-10) Atrial fibrillation, new onset ?I48.91 - Unspecified atrial fibrillation (ICD-10) Family History (Updated 04/02/24 @ 22:05 by Farheen Becerra RN) Mother Family history of hypertension Family history of myocardial infarction Family history of CHF (congestive heart failure) Father Family history of stroke Sister Family history of cancer Social History (Updated 04/02/24 @ 22:07 by Farheen Becerra RN) Within the past year, how often did you have a drink containing alcohol: monthly or less Within the past year, how many standard drinks containing alcohol did you have on a typical day: 1 or 2 Within the past year, how often did you have six or more drinks on one occasion: never Total score: 0 Score interpretation: A score less than 4 is consistent with normal alcohol consumption. Smoking status: Former smoker Non-prescribed substance use: denies use Previous occupational history: retired Highest level of school completed/degree received: high school graduate Are you now , , , , never or living with a partner: In a typical week, how many times do you talk on the telephone with family, friends, or neighbors: 3 or more times per week How often do you get together with friends or relatives: 3 or more times per week How often do you attend jewish or uatsdin services: never Little interest or pleasure in doing things: not at all Feeling down, depressed, or hopeless: not at all Feel stressed/tense/nervous/anxious/difficulty sleeping: to some extent Do you think of yourself as: straight/heterosexual Gender Identity: male Meds Home Medications and Allergies Home Medications ?Medication ?Instructions ?Recorded ?Confirmed ?Type albuterol sulfate 2.5 mg/3 mL 2.5 mg inhalation Q6H PRN 03/09/24 12/23/24 History (0.083 %) solution for nebulization shortness of breath or wheezing albuterol sulfate 90 mcg/actuation 1 puff inhalation Q4H PRN 03/09/24 12/23/24 History aerosol inhaler shortness of breath or wheezing cetirizine 10 mg tablet 10 mg PO DAILY PRN allergy symptoms 03/09/24 12/23/24 History budesonide-formoterol HFA 160 2 puff inhalation BID 12/23/24 12/23/24 History mcg-4.5 mcg/actuation aerosol inhaler furosemide 40 mg tablet 40 mg PO DAILY 12/23/24 12/23/24 History nifedipine 60 mg tablet,extended 60 mg PO DAILY 12/23/24 12/23/24 History release 24 hr Allergies Allergy/AdvReac Type Severity Reaction Status Date / Time No Known Drug Allergies Allergy Verified 03/09/24 09:52 Exam Constitutional Vital Signs, click to edit/add: Last Vital Signs Temp 97.6 F 12/24/24 04:13 Pulse 76 12/24/24 06:00 Resp 17 12/24/24 04:13 BP 123/70 12/24/24 04:13 Pulse Ox 94 L 12/24/24 04:15 O2 Del Method Nasal Cannula 12/24/24 04:15 O2 Flow Rate 1 12/24/24 04:15 Other: Does not appear to be in any acute distress HENMN Other: Wearing nasal cannula Respiratory Other: Breathing non-labored. Diminished breath sounds - tight. Mild expiratory wheezes with forced exhalation. Cardio Other: RRR Extremity Other: No edema Neuro Other: No fasciculations Psych Other: A&O Results Laboratory Findings ABG, PT/INR, D-dimer: ABG ABG pH 7.418 (7.350-7.450) 12/23/24 20:31 ABG pCO2 40.2 mmHg (35.0-45.0) 12/23/24 20: ABG pO2 77.5 mmHg (80.0-100.0) L 12/23/24 20:31 ABG O2 Saturation 96.7 % 12/23/24 20:31 Abnormal lab findings: Abnormal Labs 12/23/24 12/23/24 12/24/24 12:45 20:31 05:38 RBC 4.37 L 4.12 L Hgb 13.2 L Hct 39.6 L MCV 96.6 H 96.1 H MPV 8.2 L 8.4 L Eos % (Auto) 14.6 H Eos # (Auto) 1.2 H Seg Neuts % (Manual) 87.0 H Lymphocytes % (Manual) 11.0 L Eosinophils % (Manual) 0.0 L Basophils % (Manual) 0.0 L Lymphocytes # (Manual) 0.50 L Monocytes # (Manual) 0.09 L ABG pO2 77.5 L BUN 22.0 H Creatinine 1.37 H 1.37 H Est GFR (Non-Af Amer) 52 L 52 L Glucose 218 H Assessment and Plan Assessment and Plan (1) COPD exacerbation: Assessment and Plan: 1. Acute exacerbation of COPD. Due in part to running out of his maintenance inhaler (Trelegy). This is why I do not recommend purchasing medications from outside the [place]. Improving with steroids and bronchodilators. Question anxiety component, but would not explain his symptoms entirely. 2. Acute hypoxic respiratory failure. Secondary to #1. RA is baseline. Wean O2, assess for ambulatory desaturations prior to discharge. 3. Peripheral eosinophilia: - 12/23/2024: 14.6%/ abs. ct. 1200 -04/02/2024: 13.7% / abs. ct. 1000 -03/09/2024: 7.3% / abs. ct. 600 I discussed Dupixent with him prior visits. Will recommend proceeding with this at his outpatient F/U visit. 4. History of tobacco abuse. LDCT was due 02/2025, but can be rescheduled d/t CTA chest showing no evidence of nodules or mass.
[2024-12-24] MEDS: SODIUM CHLORIDE 0.9% INHALATION 3 ML NEB 6 ML IH ×4 (07:40→20:18)
[2024-12-24] MEDS: FUROSEMIDE 40 MG TABLET PO (08:47)
[2024-12-24] MEDS: NIFEdipine 30 MG TAB.ER.24 60 MG PO (08:47)
--- NOTE | 2024-12-24 09:00 | CM.NOTE ---
Rounds made with Dr. Talley, pt continues to require oxygen this AM. RN will attempt to wean oxygen as tolerated. No discharge today. Dr. Miller also consulted on pt for further recommendations.
[2024-12-24] MEDS: BUDESONIDE 0.5 MG/2 ML AMPULE NEB IH ×2 (11:26→23:39)
--- NOTE | 2024-12-24 11:49 | CM.NOTE ---
Important message from Medicare discussed with pt, pt verbalizes understanding and signs paper. Original given to pt and copy placed on pt's chart.
--- NOTE | 2024-12-24 12:27 | CM.NOTE ---
Spoke with pt regarding chronic disease management. Pt does see Dr. Miller for COPD and is active in pulmonary rehab. Pt has only one visit left in pulmonary rehab. Discussed with pt about continuing pulmonary rehab for out of pocket expense of 5 dollars/visit to maintain health and exercise. Pt verbalizes understanding. Pt verbalizes understanding of preventative medicine and importance of f/u visits with PCP and Pharmacy Director.
[2024-12-24] MEDS: RIVAROXABAN 10 MG TABLET 20 MG PO (17:22)
[2024-12-24] MEDS: BENZONATATE 100 MG CAPSULE 200 MG PO (20:11)
[2024-12-24] MEDS: LEVOFLOXACIN IN DEXTROSE 5 % 750 MG/150 ML PREMIX 100 MG IV (20:12)
[2024-12-25] VITALS (9 sets, daily range): BP systolic 127–130; BP diastolic 75–79; PULSE 64–96; TEMP 36.5–36.6; O2SAT 93–97
[2024-12-25] MEDS: METHYLPREDNISOLONE SOD SUCC PF 125 MG/2 ML VIAL IVP ×2 (02:17→08:35)
[2024-12-25] MEDS: ACETAMINOPHEN 500 MG TABLET 1000 MG PO (02:21)
[2024-12-25] MEDS: IPRATROPIUM/ALBUTEROL SULFATE 3 ML AMPUL.NEB IH ×2 (04:03→07:14)
[2024-12-25 05:56] LABS: Basophils Percent Auto 0.1 % (0.2-2.0); Eosinophils Percent Auto 0.2 % (0.9-7.0); Hematocrit 38.2 % (42.0-54.0); Hemoglobin 12.7 g/dL (14.0-18.0); Immature Granulocytes Abs Auto 0.04 10^3/uL (0.00-0.03); Immature Granulocytes Pct Auto 0.3 % (0.0-0.5); Lymphocytes Absolute Auto 0.6 10^3/uL (1.2-3.8); Lymphocytes Percent Auto 4.9 % (20.5-60.0); Mean Corpuscular HGB Conc 33.2 g/dL (29.9-35.2); Mean Corpuscular Hemoglobin 32.2 pg (25.9-34.0); Mean Corpuscular Volume 96.7 fL (80.0-94.0); Mean Platelet Volume 8.6 fL (9.5-13.5); Monocytes Absolute Auto 0.3 10^3/uL (0.3-0.8); Monocytes Percent Auto 2.4 % (1.7-12.0); Neutrophils Percent Auto 92.1 % (43.0-75.0); Platelet Count 238 10^3/uL (150-450); Red Blood Count 3.95 10^6/uL (4.70-6.10); Red Cell Distribution Width 12.7 % (11.0-15.0); White Blood Count 13.1 10^3/uL (4.0-11.0)
[2024-12-25 06:24] LABS: Anion Gap 14.4; Calcium 9.3 mg/dL (8.5-10.1); Carbon Dioxide 25.3 mmol/L (21.0-32.0); Chloride 104 mmol/L (98-107); Estimated GFR (African America 56 (>=60 mL/min/1.73m^2); Estimated GFR (Non-African Ame 46 (>=60 mL/min/1.73m^2); Glucose 193 mg/dL (74-106); Potassium 3.7 mmol/L (3.5-5.1); Sodium 140 mmol/L (136-145); Troponin I High Sensitivity 4.4 pg/mL (4.0-76.1)
--- NOTE | 2024-12-25 07:01 | P.PN_ITS ---
Progress Note: Subjective Subjective Interval history: Looks more comfortable with breathing - feels better Exam Constitutional Vital Signs, click to edit/add: Last Vital Signs Temp 97.8 F 12/25/24 03:00 Pulse 86 12/25/24 06:00 Resp 16 12/25/24 04:02 BP 127/79 12/25/24 03:00 Pulse Ox 94 L 12/25/24 04:02 O2 Del Method Room Air 12/25/24 04:02 O2 Flow Rate 1 12/24/24 11:31 Progress Note: Objective Labs Labs: Short CBC 12/25/24 Range/Units 05:23 WBC 13.1 H (4.0-11.0) 10^3/uL Hgb 12.7 L (14.0-18.0) g/dL Hct 38.2 L (42.0-54.0) % Plt Count 238 (150-450) 10^3/uL BMP 12/25/24 05:23 Sodium 140 Potassium 3.7 Chloride 104 Carbon Dioxide 25.3 BUN 29.0 H Creatinine 1.53 H Glucose 193 H Calcium 9.3 Progress Note: A&P Assessment and Plan (1) COPD exacerbation: (2) Persistent atrial fibrillation: (3) Hypertension: Plan Admit findings: Respiratory distress, acute hypoxia, uncontrolled hypertension,, with a acute exacerbation of COPD, possibly viral related normal white blood cell count Acute exacerbation of COPD-with hypoxia-steroids, aerosols, IV antibiotics, try to obtain sputum culture - some improvement - will review notes by pulmonology Atrial fibrillation with rapid ventricular response-history of heart failure- consult cardiology, maintained anticoagulation with Xarelto Hypertension-continue with home medications Hyperglycemia - monitor DOMITILA - baseline creat .91, admission cratinine 1.37 which is 150.5% above baseline - shahram decreased urine output in last 6 hours would meet critgeria for DOMITILA stage 1 Admission status: Patient with significant hypoxia due to acute exacerbation of COPD, medically necessary treatment will span 2 midnights. Inpatient status ?
[2024-12-25] MEDS: SODIUM CHLORIDE 0.9% INHALATION 3 ML NEB 6 ML IH (07:15)
[2024-12-25] MEDS: NIFEdipine 30 MG TAB.ER.24 60 MG PO (08:35)
[2024-12-25] MEDS: FUROSEMIDE 40 MG TABLET PO (08:35)
--- NOTE | 2024-12-25 08:44 | CM.NOTE ---
Rounds made with Dr. Talley. Plan for discharge to home today. Mr. Murguia in agreement.
--- NOTE | 2024-12-25 09:33 | P.DS_ITS ---
DS: Providers Provider Date of admission: 12/23/24 20:11 Primary care physician: Hetal Ocampo NP Consults: 12/23/24 18:33 Consult to Pharmacy Routine Consulting Provider: Reason for consultation: Please [place] me when Med Rec is Updated Has provider been notified: No Occupational Therapy Eval and Treat Routine Reason for consultation: Only if needed for Rehab Has provider been notified: No Physical Therapy Eval and Treat Routine Reason for consultation: Eval and Treat Has provider been notified: No 12/23/24 20:10 Consult to Cardiology Routine Reason for consultation: chf, afib Consult to Pulmonology Routine Consulting Provider: Lang Miller Reason for consultation: copd DS: Diagnosis Discharge Diagnosis (1) COPD exacerbation: (2) Persistent atrial fibrillation: (3) Hypertension: Plan Admit findings: Respiratory distress, acute hypoxia, uncontrolled hypertension,, with a acute exacerbation of COPD, possibly viral related normal white blood cell count Acute exacerbation of COPD-with hypoxia-steroids, aerosols, IV antibiotics, try to obtain sputum culture - some improvement - will review notes by pulmonology Atrial fibrillation with rapid ventricular response-history of heart failure- consult cardiology, maintained anticoagulation with Xarelto Hypertension-continue with home medications Hyperglycemia - monitor DOMITILA - baseline creat .91, admission cratinine 1.37 which is 150.5% above baseline - wieth decreased urine output in last 6 hours would meet critgeria for DOMITILA stage 1 Admission status: Patient with significant hypoxia due to acute exacerbation of COPD, medically necessary treatment will span 2 midnights. Inpatient status ? DS: Summary Hospital Course Hospital Course: Admitted with acute hypoxia, he is not on supplemental oxygen at home, his O2 sats were in the mid 80s, placed on supplemental oxygen 3 L but still has significant dyspnea. Lung exam at the time of admission was really tight very poor air exchange, tight wheeze. Treated with steroids, antibiotics, frequent aerosol treatments with IPV patient tolerated well, he was improved yesterday but still on supplemental oxygen at 1 to 2 L, overnight he has been able to be weaned off of that, back on room air plan this morning is to have him ambulate in the halls if there is no hypoxia he can be discharged to home in improving condition. Medications see list. Follow-up with PCP within the next week. Follow-up with pulmonology as well Time Spent with Patient Time attestation: Total time spent providing and/or coordinating discharge services: Exam Constitutional Vital Signs, click to edit/add: Last Vital Signs Temp 97.7 F 12/25/24 07:45 Pulse 93 H 12/25/24 08:00 Resp 18 12/25/24 07:45 BP 130/75 12/25/24 07:45 Pulse Ox 97 12/25/24 07:45 O2 Del Method Room Air 12/25/24 07:45 O2 Flow Rate 1 12/24/24 11:31 Documenting provider has reviewed patient's vital signs: yes Common normals: no apparent distress Chest Common normals: inspection of chest normal and palpation of chest normal Respiratory Common normals: normal respiratory effort and no retractions Auscultation: wheezes (Minimal wheeze much improved) Cardio Common normals: regular rate and regular rhythm GI Common normals: Normal to inspection, nondistended, normoactive bowel sounds present DS: Data Data Completed and Pending Labs on day of discharge: Labs from last 24 hours 12/25/24 05:23 WBC 13.1 H RBC 3.95 L Hgb 12.7 L Hct 38.2 L MCV 96.7 H MCH 32.2 MCHC 33.2 RDW 12.7 Plt Count 238 MPV 8.6 L Neut % (Auto) 92.1 H Lymph % (Auto) 4.9 L Dawes % (Auto) 2.4 Eos % (Auto) 0.2 L Baso % (Auto) 0.1 L Neut # (Auto) 12.0 H Lymph # (Auto) 0.6 L Dawes # (Auto) 0.3 Eos # (Auto) 0.0 Baso # (Auto) 0.0 Abs Immat Gran (auto) 0.04 H Imm/Tot Granulo (auto) 0.3 Sodium 140 Potassium 3.7 Chloride 104 Carbon Dioxide 25.3 Anion Gap 14.4 BUN 29.0 H Creatinine 1.53 H Est GFR ( Amer) 56 L Est GFR (Non-Af Amer) 46 L BUN/Creatinine Ratio 19.0 Glucose 193 H Calcium 9.3 Troponin I High Sens 4.4 NT-Pro-B Natriuret Pep 493.0 Discharge Plan Discharge Disposition: Home, Self-Care Condition: Fair Discharge Medications: New Xarelto 10 mg Tablet 20 mg PO 1700 Qty: 30 11RF prednisone 10 mg tablet 40 mg PO DAILY Qty: 32 0RF Rx Instructions: 4/day for 3 days, 3/day for 3 days, 2/day for 3 days, 1/day for 3 days, 1/2 /day for 4 days Trelegy Ellipta 200-62.5-25 mcg blister with device 1 inh inhalation DAILY Qty: 60 0RF fluticasone propion-salmeterol 232-14 mcg/actuation aerosol powdr breath activated 1 inh inhalation Q12H Qty: 1 11RF Continued albuterol sulfate 90 mcg/actuation HFA aerosol inhaler 1 puff INHALATION Q4H PRN (Reason: shortness of breath or wheezing) cetirizine 10 mg tablet 10 mg PO DAILY PRN (Reason: allergy symptoms) albuterol sulfate 2.5 mg /3 mL (0.083 %) solution for nebulization 2.5 mg inhalation Q6H PRN (Reason: shortness of breath or wheezing) furosemide 40 mg tablet 40 mg PO DAILY nifedipine 60 mg tablet extended release 24hr 60 mg PO DAILY budesonide-formoterol 160-4.5 mcg/actuation HFA aerosol inhaler 2 puff INHALATION BID Activity: increase activity as tolerated Diet: advance to your usual diet Print Language: Urdu Patient Instructions: Prednisone (By mouth), COPD (Chronic Obstructive Pulmonary Disease) (DC) Forms: Portal Instructions Follow Up Appointments: Follow up at PCP office with NICOL Ansari: December 31 at 8:45am. Office Address: [facility] [place] [address] Office Discharge Date/Time: 12/25/24 10:05
--- NOTE | 2024-12-25 10:09 | PC.NURSE ---
discharge instructions given to pt and . pt dressed and taken to exit in wheelchair with belongings. discharged to private vehicle.
--- NOTE | 2024-12-28 15:37 | CM.DCFOLLOWU ---
1st attempt 12/28/24, no answer
--- NOTE | 2024-12-30 15:23 | CM.DCFOLLOWU ---
Person spoke with: Chang Murguia How are you feeling? ok How is your pain? none Did you understand your discharge instructions? yes Do you have any questions about your discharge instructions?no Were you given any prescriptions at discharge? yes Were you able to get your prescriptions filled? working on getting Trelegy. He goes through [place] to get med. Supposed to get on Thursday 01/04. If he doesn't, he plans on using local pharmacy Do you understand how to take your medications as ordered? yes Do you have any questions about your follow up appointment and do you plan to keep your follow up appointment? no, he cancelled appoint for 12/31 because he just had an appointment recently. Discussed importance of followup appointment Is there anything else that you would like to discuss? no Questions/Comments/Concerns/Other:none
== END 2024-12-25 10:05 | disposition home or self-care (01) | DRG 190 ==
LOC: ER 18:17 → MS 18:24
PROVIDERS: Admitting Provider Family Medicine; Emergency Provider Emergency Medicine; PCP Nurse Practitioner Family; Visit Provider Family Medicine
DX: J44.1 Chronic obstructive pulmonary disease with (acute) exacerbation (principal); J96.01 Acute respiratory failure with hypoxia; I48.19 Other persistent atrial fibrillation; N17.9 Acute kidney failure, unspecified; J43.2 Centrilobular emphysema; I11.0 Hypertensive heart disease with heart failure; I50.9 Heart failure, unspecified; B34.9 Viral infection, unspecified; T38.0X6A Underdosing of glucocorticoids and synthetic analogues, initial encounter; Z91.138 Patient's unintentional underdosing of medication regimen for other reason; D72.19 Other eosinophilia; R73.9 Hyperglycemia, unspecified; I95.1 Orthostatic hypotension; Z79.01 Long term (current) use of anticoagulants; Z79.899 Other long term (current) drug therapy; Z87.891 Personal history of nicotine dependence
CPT/HCPCS: 36415; 36600; 70450; 71045; 71275; 80048; 80053; 82805; 83605; 83735; 83880; 84484; 85007; 85025; 85027; 87070; 87205; 87804; 87811; 93005; 94625; 94640; 94667; 94668; 94761; 97110; 97161; 97165; 99285; J2919; Q9967

== ENCOUNTER 2024-12-31 13:10 | Outpatient (OUT) | payer MEDICARE, SELFPAY ==
--- OUTSIDE RECORDS SUMMARY | 2024-12-31 13:30 | XMS_ITS | CCD ---
Author Organization [facility] Care Team Providers Care Knitted Goods Shaper Name Role Phone DR KIM SOSA Consulting Unavailable KATTY, BEST Attending Unavailable KATTY, BEST Admitting Unavailable KATTY, BEST Consulting Unavailable JOAN, GEE Primary Care Unavailable WALL, GURVINDER Attending Unavailable POTHIREDDY, DOV Briones Admitting Unavailable WALL, GURVINDER Attending Unavailable WALL, GURVINDER Referring Unavailable JOAN, [facility] Primary Care Unavailable KVNG, HELDER Attending Unavailable [...] can proceed with a stress test. Thanks [facility] 36 Did his weight come down at all? [facility] 37on 12-01-2024 37 *We will start you [...] week to see how you are feeling. [facility] Follow-Upon 12-01-2024 Follow-Up [id number] Paige Baltazar 1960 M Date Provider Department Center 12/01/2024 166-[facility] Family History Problem Relation Age of Onset Heart attack Mother 65 Comments: massive [place] Transient ischemic attack Father Liver disease Brother Family Status - Relation Status Age at Mother Father Brother Level of Service:95080 [place] OFFICE/OUTPATIENT ESTABLISHED MOD MDM 30 MIN Reason for Visit and Comments: Atrial Fibrillation [80] Shortness of Breath [024834] [facility] Telephoneon 11-27-2024 Telephone [id number] Paige Baltazar S 1960 M Date Provider Department Center 11/27/20241986-MEENA CEBALLOS [facility] [place] [facility] Family History Problem Relation Age of Onset Heart attack Mother Transient ischemic attack Father Family Status - Relation Status Age at Mother Father Reason for Visit and Comments: 3 week post ablation f/u [Other] [facility] 36on 11-06-2024 36 returned call statin g [...] call back with any other issues. Normal [facility] Telephoneon 11-06-2024 Telephone [id number] Paige Baltazar 1960 M Date Provider Department Center 11/06/20241986-MEENA [facility]ALLOS [facility]AS [facility] [place] Family History Problem Relation Age of Onset Heart attack Mother Transient ischemic attack Father Family Status - Relation Status Age at Mother Father Reason for Visit and Comments: f/u post ablation [Other] [facility] Telephone [id number] ShantalPaige S 1960 M Date Provider Department Center 11/06/20241986-MEENA CEBALLOS [facility] [place] Family History Problem Relation Age of Onset Heart attack Mother Transient ischemic attack Father Family Status - Relation Status Age at Mother Father Reason for Visit and Comments: week f/u post ablation [Other] Normal [facility] HPon 10-28-[address] [facility] Electrophysiology Consult Note [place] Cardiology [facility] Reason for visit: atrial fibrillation 10/28/24 [...] history of COPD was recently admitted to [facility] with A-fib with rapid ventricular rate at that time his ventricular rate was controlled with medication and echocardiogram revealed normal EF with biatrial enlargement. He was started on anticoagulation and subsequently discharged with advised to follow-up with the EP clinic. Given that he has consumed significant amount of alcohol he was advised to refrain from that. He was admitted to [facility] a few days ago for CHF [...] Use: Not At Risk (01/27/2024) Received from [employer] AUDIT-C Frequency of Alcohol Consumption: 4 or more times a week Average Number of Drinks: 1 or 2 Frequency of Binge Drinking: Never Financial Resource Strain: Low Risk (01/27/2024) Received from [employer] Overall Financial Resource Strain (CARDIA) Difficulty of Paying Living Expenses: Not hard at all Food Insecurity: No Food Insecurity (01/27/2024) Received from [employer] Hunger Screening Within the past 12 months we worried whether our food would run out before we got money to buy more.: Never True Within the past 12 months the food we bought just didn't last and we didn't have money to get more.: Never True Transportation Needs: No Transportation Needs (01/27/2024) Received from [employer] PRAPARE - Transportation Lack of Transportation (Medical): No Lack of Transportation (Non-Medical): No Physical Activity: Insufficiently Active (01/27/2024) Received from [employer] Exercise Vital Sign Days of Exercise per Week: 2 days Minutes of Exercise per Session: 20 min Stress: No Stress Concern Present (01/27/2024) Received from [employer] - Occupational Stress Questionnaire Feeling of Stress : Only a little Social Connections: Moderately Integrated (01/27/2024) Received from [employer] Social Connection and Isolation Panel [NHANES] Frequency of Communication with Friends and Family: Twice a week Frequency of Social Gatherings with Friends and Family: Twice a week Attends Sikhism Services: 1 to 4 times per year Active Member of Clubs or Organizations: No Attends Club or Organization Meetings: Never Marital Status: Intimate Partner Violence: Unknown (03/11/2024) [place] Safety & Environment Fear of Current or Ex-Partner: Not on file Emotionally Abused: Not on file Physically Abused: Not on file Sexually Abused: Not on file Physically or Sexually Abused: Not on file Depression: Not at risk (01/27/2024) Received from [employer] PHQ-2 Total Score: 0 Housing Stability: Low Risk (01/27/2024) Received from [employer] Housing Instability Are you worried or concerned that in the next two months you may not have stable housing that you own, rent or stay in as a part of a household?: No Utilities: Not At Risk (01/27/2024) Received from [employer] [facility] Utilities Threatened with loss of [...] Current Out (more content not included)... Normal [facility] NURSNOTEon 10-28-2024 NURSNOTE Shift handoff to SONJA Barber. Normal [facility] POCT GLUCOSE METER UNSOLICIT ED RESULTSon 10-28-2024 Glucose [Mass/Vol] 105 mg/dL Normal 70-105 [facility] Comment on above: Order Comment: Waive d Testing in the ED is performed under the ED CLIA certificate #[id number]. Result Comment: ltol les Performed By: #### L [id number] ####[facility] ([email or web address])[address] [place] [address] PROTIME-INRon 10-28-2024 INR IN PPP BY COAGULATION ASSAY 0.93 Normal 0.90-1.10 [facility] Comment on above: Result Comment: ACCC P [...] CHEST 1995;108:231S-246S. Performed By: #### L [id number] ####[facility] [employer])[address] [place] [address] PROTHROMBIN TIME (PT) IN PPP BY COAGULATION ASSAY 12.5 Seconds Normal 12.3-14.8 [facility] Comment on above: Performed By: #### L [id number] ####[facility] (BEAKER)[address] [place] [address] Prep for Procedureon 025 Prep for Procedure [id number] Paige Baltazar Christine 1960 M Date Provider Department Center 10/28/20241986-MEENA CEBALLOS [facility] [place] Family History Problem Relation Age of Onset Heart attack Mother Transient ischemic attack Father Family Status - Relation Status Age at Mother Father Normal [facility] Prep for Procedureon 024 Prep for Procedure [id number] Paige Baltazar S 1960 M Date Provider Department Center 09/24/20241986-MEENA CEBALLOS [facility] [place] Family History Problem Relation Age of Onset Heart attack Mother Transient ischemic attack Father Family Status - Relation Status Age at Mother Father Normal [facility] Orders Onlyon 09-23-2024 Orders Only [id number] TwilaalfredPaige King 1960 M Date Provider Department Center 09/23/2024 928-RAMON COOPER ALEJANDRA [facility] Family History Problem Relation Age of Onset Heart attack Mother Transient ischemic attack Father Family Status - Relation Status Age at Mother Father Normal [facility] Refillon 09-07-2024 Refill [id number] Paige Baltazar Christine 1960 M Date Provider Department Center 09/07/2024 CAITLIN TAM [facility] IM [facility] Family History Problem Relation Age of Onset Heart attack Mother Transient ischemic attack Father Family Status - Relation Status Age at Mother Father Reason for Visit and Comments: Med Refill [[id number]] Normal [facility] Office Visiton 08-11-2024 Follow-up visit [id number] CorbinPaige castillo 1960 M Date Provider Department Center 08/11/2024 241-JOSE CARRILLO ALEJANDRA [facility] Family History Problem Relation Age of Onset Heart attack Mother Transient ischemic attack Father Family Status - Relation Status Age at Mother Father Level of Service:97788 [place] OFFICE/OUTPATIENT ESTABLISHED LOW MDM 20 MIN Normal [facility] Office Visiton 07-01-2024 Follow-up visit [id number] Paige Baltazar 1960 M Date Provider Department Center 07/01/2024 [id number]-SVPXCZLLATA LYON [facility] Family History Problem Relation Age of Onset Heart attack Mother Transient ischemic attack Father Family Status - Relation Status Age at Mother Father Level of Service:92176 [place] OFFICE/OUTPATIENT ESTABLISHED LOW MDM 20 MIN Normal [facility] 36on 06-09-2024 36 Per casa pt has failed amio and will need ablation Normal [facility] HPon 05-25-[address] [facility] Electrophysiology Consult Note [place] Cardiology - [facility] Reason for visit: atrial fibrillation HPI: Paige Baltazar is a 63 y.o. year old with past medical history of COPD was recently admitted to [facility] with A-fib with rapid ventricular rate at that time his ventricular rate was controlled with medication and echocardiogram revealed normal EF with biatrial enlargement. He was started on anticoagulation and subsequently discharged with advised to follow-up with the EP clinic. Given that he has consumed significant amount of alcohol he was advised to refrain from that. He was admitted to [facility] a few days ago for CHF [...] on file Intimate Partner Violence: Unknown (03/11/2024) [place] Safety & Environment Fear of Current or [...] Respiratory Effort: (more content not included)... Normal [facility] NURSNOTEon 05-25-2024 NURSNOTE RN educated pt on d/ c instructions. RN encouraged pt to voice any questions or concerns. Pt verbalizes no questions or concerns at this time. Pt was wheeled off of unit with all of belongings. Normal [facility] Office Visiton 04-07-2024 Follow-up visit [id number] Paige Baltazar 1960 M Date Provider Department Center 04/07/2024 JOSE WHITMAN ALEJANDRA [facility] Family History Problem Relation Age of Onset Heart attack Mother Transient ischemic attack Father Family Status - Relation Status Age at Mother Father Level of Service:22523 [place] OFFICE/OUTPATIENT ESTABLISHED MOD MDM [address] [facility] Orders Onlyon 04-07-2024 Orders Only [id number] Paige Baltazar 1960 M Date Provider Department Center 04/07/2024 DAVID GARCIA ALEJANDRA [facility] Family History Problem Relation Age of Onset Heart attack Mother Transient ischemic attack Father Family Status - Relation Status Age at Mother Father Normal [facility] Office Visiton 03-23-2024 Follow-up visit [id number] Paige Baltazar 1960 Date Provider Department Center 03/23/2024 271-LONNIE, [facility] Family History Problem Relation Age of Onset Heart attack Mother Transient ischemic attack Father Family Status - Relation Status Age at Mother Father Level of Service:93982 [place] OFFICE/OUTPATIENT ESTABLISHED MOD MDM 30 MIN Normal [facility] CBC AND AUTO DIFFon 01-27-20 24 ABSOLUTE BASOPHIL 0.1 X10E9/L Normal 0.0-0.2 [facility] Comment on above: Performed By: #### C BCA, CMP, 82048-0, 78746-5, 75830-3, 63022-5 #### [facility] ([id number]) [address] [place] [address] 37466 ABSOLUTE NEUTROPHIL 4.6 X10E9/L Normal 1.5-6.6 [facility] Comment on above: Performed By: #### Rosi BCA, CMP, 37613-5, 55983-9, 48266-6, 95743-4 #### [facility] ([id number]) [address] [place] [address] 47392 Basophils/100 WBC (Bld) 1.2 % Normal [facility] Comment on above: Performed By: #### C BCA, CMP, 11712-4, 62197-3, 10431-5, 74811-2 #### [facility] ([id number]) [address] [place] [address] 08230 Eosinophils (Bld) [#/Vol] 0.6 10*3/uL High 0.0-0.4 [facility] Comment on above: Performed By: #### C BCA, CMP, 17622-0, 31598-8, 70249-7, 69260-6 #### [facility] ([id number]) [address] [place] [address] 22083 Eosinophils/100 WBC (Bld) 6.2 % Normal [facility] Comment on above: Performed By: #### C BCA, CMP, 03034-3, 89123-2, 37755-0, 28825-1 #### [facility] ([id number]) [address] [place] [address] 56423 Erythrocyte distribution width (RBC) [Ratio] 13.8 % Normal 11.5-15.0 [facility] Comment on above: Performed By: #### C BCA, CMP, 64192-1, 41225-6, 94550-5, 21289-2 #### [facility] ([id number]) [address] [place] [address] 92892 Hematocrit (Bld) [Volume fraction] 49.1 % High 39-49 [facility] Comment on above: Performed By: #### C BCA, CMP, 76926-9, 47837-5, 44607-2, 95674-9 #### [facility] ([id number]) [address] [place] [address] 08446 Hemoglobin (Bld) [Mass/Vol] 16.9 g/dL Normal 13.0-17.0 [facility] Comment on above: Performed By: #### C BCA, CMP, 84558-0, 07382-4, 70766-9, 08455-1 #### [facility] ([id number]) [address] [place] [address] 92656 Lymphocytes (Bld) [#/Vol] 3.4 10*3/uL Normal 1.0-3.5 [facility] Comment on above: Performed By: #### C BCA, CMP, 08994-9, 51970-7, 52604-5, 55953-4 #### [facility] ([id number]) [address] [place] [address] 51730 Lymphocytes/100 WBC (Bld) 35.6 % Normal [facility] Comment on above: Performed By: #### C BCA, CMP, 30598-4, 07407-8, 87519-0, 03519-6 #### [facility] ([id number]) [address] [place] [address] 14969 MCH (RBC) [Entitic mass] 33.8 pg Normal 27-34 [facility] Comment on above: Performed By: #### C BCA, CMP, 28446-6, 34500-9, 53122-6, 85973-2 #### [facility] ([id number]) [address] [place] [address] 68845 MCHC (RBC) [Mass/Vol] 34.3 g/dL Normal 32-36 [facility] Comment on above: Performed By: #### C BCA, CMP, 70094-8, 16686-9, 72978-4, 59063-8 #### [facility] ([id number]) [address] [place] [address] 43225 MCV (RBC) [Entitic vol] 98 fL Normal 80-100 [facility] Comment on above: Performed By: #### C BCA, CMP, 57764-8, 69013-6, 89399-9, 91689-0 #### [facility] ([id number]) [address] [place] [address] 47920 Monocytes (Bld) [#/Vol] 0.9 10*3/uL Normal 0-0.9 [facility] Comment on above: Performed By: #### C BCA, CMP, 97411-3, 19377-9, 95063-9, 03183-1 #### [facility] ([id number]) [address] [place] [address] 68242 Monocytes/100 WBC (Bld) 9.3 % Normal [facility] Comment on above: Performed By: #### C BCA, CMP, 77224-6, 60410-4, 55641-6, 93719-6 #### [facility] ([id number]) [address] [place] [address] 08675 Neutrophils/100 WBC (Bld) 47.7 % Normal [facility] Comment on above: Performed By: #### C BCA, CMP, 79989-3, 37434-3, 81403-6, 97846-1 #### [facility] ([id number]) [address] [place] [address] 48215 Platelet mean volume (Bld) [Entitic vol] 7.0 fL Normal 7-12 [facility] Comment on above: Performed By: #### C BCA, CMP, 10889-4, 71350-4, 57503-8, 79926-3 #### [facility] ([id number]) [address] [place] [address] 59819 Platelets (Bld) [#/Vol] 249 10*3/uL Normal 150-450 [facility] Comment on above: Performed By: #### C BCA, CMP, 36649-2, 91847-0, 38511-5, 66420-8 #### [facility] ([id number]) [address] [place] [address] 32672 RBC COUNT 4.99 X10E12/L Normal 4.10-5.70 [facility] Comment on above: Performed By: #### C BCA, CMP, 79738-2, 90046-0, 09764-5, 59694-8 #### [facility] ([id number]) [address] [place] [address] 54178 WBC (Bld) [#/Vol] 9.7 10*3/uL Normal 4.0-11.0 [facility] Comment on above: Performed By: #### C BCA, CMP, 37965-3, 61362-7, 15618-2, 63713-9 #### [facility] ([id number]) [address] [place] [address] 53478 COMPREHENSIVE METABOLIC PANE Skip 01-27-2024 Albumin [Mass/Vol] 4.7 g/dL Normal 3.2-5.3 [facility] Comment on above: Performed By: #### C BCA, CMP, 28789-5, 52092-9, 15586-3, 95069-3 #### [facility] ([id number]) [address] [place] [address] 93925 ALP [Catalytic activity/Vol] 91 U/L Normal 39-130 [facility] Comment on above: Performed By: #### C BCA, CMP, 45683-6, 59818-4, 31789-4, 78748-1 #### [facility] ([id number]) [address] [place] [address] 92225 ALT [Catalytic activity/Vol] 30 U/L Normal 0-40 [facility] Comment on above: Performed By: #### C BCA, CMP, 48084-6, 47453-3, 00330-3, 68589-4 #### [facility] ([id number]) [address] [place] [address] 49081 Anion gap [Moles/Vol] 10 mmol/L Normal 5-15 [facility] Comment on above: Performed By: #### C BCA, CMP, 22783-4, 58612-0, 79129-8, 61278-9 #### [facility] ([id number]) [address] [place] [address] 21562 AST [Catalytic activity/Vol] 27 U/L Normal 0-41 [facility] Comment on above: Performed By: #### C BCA, CMP, 72279-4, 95816-4, 76817-7, 02291-2 #### [facility] ([id number]) [address] [place] [address] 15173 Bilirubin [Mass/Vol] 0.8 mg/dL Normal 0.3-1.2 [facility] Comment on above: Performed By: #### C BCA, CMP, 84768-5, 48587-9, 08366-9, 28543-0 #### [facility] ([id number]) [address] [place] [address] 12042 Calcium [Mass/Vol] 9.5 mg/dL Normal 8.5-10.5 [facility] Comment on above: Performed By: #### C BCA, CMP, 61429-8, 57727-5, 82273-6, 27905-7 #### [facility] ([id number]) [address] [place] [address] 87258 Chloride [Moles/Vol] 99 mmol/L Normal 98-109 [facility] Comment on above: Performed By: #### C BCA, CMP, 87466-4, 21488-3, 09132-9, 91946-4 #### [facility] ([id number]) [address] [place] [address] 61922 CO2 [Moles/Vol] 26 mmol/L Normal 22-32 [facility] Comment on above: Performed By: #### C BCA, CMP, 29136-5, 08369-7, 10851-4, 01395-1 #### [facility] ([id number]) [address] [place] [address] 18425 Creatinine [Mass/Vol] 1.05 mg/dL Normal 0.70-1.20 [facility] Comment on above: Result Comment: METH OD TRACEABLE TO IDMS STANDARD Performed By: #### C BCA, CMP, 28805-2, 23962-8, 95861-4, 02663-5 #### [facility] ([id number]) [address] [place] [address] 61183 GFR/1.73 sq M.predicted among non-blacks MDRD (S/P/Bld) [Vol rate/Area] 79 mL/min/{1.73_m2} Normal >59 [facility] Comment on above: Result Comment: Reported eGFR is based on the CKD-EPI 2020 equation that does not use a race coefficient. Performed By: #### C BCA, CMP, 85494-8, 74563-5, 66763-0, 93059-9 #### [facility] ([id number]) [address] [place] [address] 84837 Glucose [Mass/Vol] 125 mg/dL High 65-99 [facility] Comment on above: Performed By: #### C BCA, CMP, 38082-4, 66649-6, 05820-4, 96598-3 #### [facility] ([id number]) [address] [place] [address] 48153 Potassium [Moles/Vol] 4.3 mmol/L Normal 3.5-5.0 [facility] Comment on above: Performed By: #### C BCA, CMP, 17605-4, 67896-8, 31730-2, 53879-5 #### [facility] ([id number]) [address] [place] [address] 47796 Protein [Mass/Vol] 8.4 g/dL High 6.0-8.0 [facility] Comment on above: Performed By: #### C BCA, CMP, 83990-6, 80699-8, 02258-7, 05795-8 #### [facility] ([id number]) [address] [place] [address] 79177 Sodium [Moles/Vol] 135 mmol/L Normal 134-146 [facility] Comment on above: Performed By: #### C BCA, CMP, 99909-3, 12841-1, 81338-3, 34122-6 #### [facility] ([id number]) [address] [place] [address] 20523 Urea nitrogen [Mass/Vol] 18 mg/dL Normal 5-27 [facility] Comment on above: Performed By: #### C BCA, CMP, 33942-6, 92362-4, 94925-4, 08367-4 #### [facility] ([id number]) [address] [place] [address] 28737 Fibrin D-dimer DDU (PPP) [Ma ss/Vol]on 01-27-2024 D DIMER <150 Normal <255 [facility] Comment on above: Result Comment: Results <255 ng/mL DDU: The presence of a VTE can safely be excluded with a negative D-Dimer result and Wells score. A negative result doesn't exclude the possibility of DIC. The test be repeated along with other diagnostic tests if the patient's symptoms persist or worsen. [email or web address] Performed By: #### C BCA, CMP, 13240-2, 12716-3, 06302-2, 68368-4 #### [facility] ([id number]) [address] [place] [address] 98870 MAGNESIUMon 01-27-2024 Magnesium [Mass/Vol] 2.1 mg/dL Normal 1.8-2.6 [facility] Comment on above: Performed By: #### C BCA, CMP, 52990-1, 28350-0, 54807-2, 40233-1 #### [facility] ([id number]) [address] [place] [address] 08486 Natriuretic peptide B [Mass/ Vol]on 01-27-2024 Natriuretic peptide B (Bld) [Mass/Vol] 64 pg/mL Normal <100.0 [facility] Comment on above: Performed By: #### C BCA, CMP, 58874-0, 54169-3, 21821-8, 26843-5 #### [facility] ([id number]) [address] [place] [address] 44260 SARS/FLU A+B/RSV by NAAT/Mol ecularon 01-27-2024 SARS/FLU [...] operators who are performing tests using either [employer] or [employer] systems and is limited to laboratories that [...] repeat. Fact Sheet for Healthcare Providers: https://www.fda.gov/me tee/155387/download Fact Sheet for Patients: https://www.fda.gov/me tee/420132/download Normal [facility] Comment on above: Performed By: #### C OVFLR #### [facility] ([id number]) [address] [place] [address] 95631 TROPONIN Ion 01-27-2024 Troponin I.cardiac [Mass/Vol] 0.01 ng/mL Normal 0.00-0.04 [facility] Comment on above: Performed By: #### C BCA, CMP, 95975-5, 56193-4, 51663-3, 04387-3 #### [facility] ([id number]) [address] [place] [address], [place] [address] XR CHEST 1 VWon 01-27-2024 XR CHEST [...] Lagunas MD on 01/27/2024 1:18 AM Normal [facility] Encounters Encounter Date Encounter Type Care Provider Facility Start: 12-01-2024 End: 12-01-2024 ambulatory [facility] Start: 10-28-2024 ambulatory [facility] Start: 10-28-2024 End: 10-28-2024 ambulatory [facility] Start: 08-11-2024 End: 08-11-2024 ambulatory [facility] Start: 07-01-2024 End: 07-01-2024 ambulatory [facility] Start: 05-25-2024 End: 05-25-2024 ambulatory [facility] Start: 04-07-2024 End: 04-07-2024 ambulatory [facility] Start: 03-23-2024 End: 03-23-2024 ambulatory FLAQUITOAB [facility] Start: 01-27-2024 End: 01-28-2024 Emergency department patient visit GURVINDER WALL [facility] Start: 01-27-2024 End: 01-27-2024 ambulatory [facility] [facility] Start: 05-26-2021 End: 05-26-[address] KIM SOSA Facility: Payers Date Payer Category Payer Private Health Insurance CLI [id number] 2023 Medicare [id number] 1960 Unknown [id number] 1960 Unknown [id number] 1960 Unknown [id number] Unknown [id number] Clinical Notes 05-26-2021 to 12-01-2024 Note Date & Type Note Facility 12-01-2024 Note Patient here for [facility] afib ablation performed on 10/28/2024 by [...] All other systems reviewed and are negative. [facility] 12-01-2024 Note Cardiovascular Medic [facility] SUBJECTIVE Chief Complaint Patient presents [...] of Onset Heart attack Mother 65 massive [place] Transient ischemic attack Father Liver disease Brother [...] if needed.), Disp: 60 tablet, Rfl: 0 vkjmxafdjzp-gqupatvha-stctoxjp (Trelegy Ellipta) 100-62.5-25 mcg blister with device, [...] Final Atrial Rate 10/28/2024 73 BPM Final OH Interval 10/28/2024 158 ms Final QRS DURATION 10/28/2024 84 ms Final QT Interval 10/28/2024 374 ms Final QTC CALCULATION(BAZETT) 10/28/2024 412 ms Final P [place] 10/28/2024 78 degrees Final R-[place] 10/28/2024 32 degrees Final T Wave [place] 10/28/2024 30 degrees Final Protime 10/28/2024 12.5 12.3 - 14.8 Seconds Final INR 10/28/2024 0.93 0.90 - 1.10 Final Glucose POC 10/28/2024 105 70 - 105 mg/dL Final Ventricular Rate 10/28/2024 75 BPM Final Atrial Rate 10/28/2024 75 BPM Final OH Interval 10/28/2024 116 (more content not included)... [facility] 10-28-2024 Note ATRIAL FIBRILLATION ABLATION PROCEDURE NOTE DATE OF PROCEDURE: 10/28/2024 PERFORMING PHYSICIAN: Dr. Jose Carrillo SUPERVISOR UNLOADING: FLOYD CONSENT: Patient NAME OF THE PROCEDURE: [...] history of COPD was recently admitted to [facility] with A-fib with rapid ventricular rate. Echocardiogram revealed normal EF with biatrial enlargement. He was started on anticoagulation and subsequently discharged and was advised to refrain from alcohol. He was admitted to [facility] again for CHF and exacerbation of [...] Coumadin ridge. Esophagus was mapped using the [employer] 3D mapping software and noted to be [...] performed with an SL1 sheath using a Gil needle. Following transseptal, the SL1 sheath was [...] leak and this (more content not included)... [facility] 10-28-2024 Note Patient: Paige fulton Procedure Summary Date: 10/28/24 Room / Location: [facility] ACADEMIC MANAGER 1 EP / [facility] HV VASCULAR LAB (Cath) Anesthesia Start: 0840 [...] per anesthesia protocol. No notable events documented. [facility] 10-28-2024 Note Airway Date/Time: 10/28/2024 8:59 AM Urgency: elective Airway not difficult General Information and Staff Patient location during procedure: OR Anesthesiologist: Clifford Howard MD Resident/BISCUITWARE BRUSHER/CAA: Ann Amin MD Performed: resident/BISCUITWARE BRUSHER/CAA Indications and Patient Condition Indications for airway [...] 1 Number of other approaches attempted: 0 [facility] 10-28-2024 Note Patient: Paige fulton Procedure Information Date/Time: 10/28/24 0830 Procedure: Ablation atrial fibrillation Location: [facility] ACADEMIC MANAGER 1 EP / [facility] HVC VASCULAR LAB (Cath) Providers: Jose Carrillo MD Relevant Problems Anesthesia (within normal limits) Cardio (+) Other secondary pulmonary hypertension (CMS/HCC) (+) Paroxysmal atrial fibrillation (CMS/HCC) (+) Persistent atrial fibrillation (CMS/HCC) Pulmonary (+) Centrilobular emphysema (CMS/HCC) (Uses albuterol inhaler daily) Other (+) History of tobacco use (Quit January,) Encounter Date: 10/28/24 Electrocardiogram, 12-lead Result Value Ventricular Rate 73 Atrial Rate 73 OH Interval 158 QRS DURATION 84 QT Interval 374 QTC CALCULATION(BAZETT) 412 P [place] 78 R-[place] 32 T Wave [place] 30 Impression Normal sinus rhythm Low voltage [...] Plan discussed with attending. Additional Equipment Requests [facility] 08-11-2024 Note IA Electrophysiology Consult Note IA Cardiology [facility] Reason for visit: atrial fibrillation 08/11/24 [...] history of COPD was recently admitted to [facility] with A-fib with rapid ventricular rate at that time his ventricular rate was controlled with medication and echocardiogram revealed normal EF with biatrial enlargement. He was started on anticoagulation and subsequently discharged with advised to follow-up with the EP clinic. Given that he has consumed significant amount of alcohol he was advised to refrain from that. He was admitted to [facility] a few days ago for CHF [...] mg by mouth if needed each day. dvyjyjgdtly-pddtqnwyv-odhsysms (Trelegy Ellipta) 100-62.5-25 mcg blister with device [...] Musculoskeletal Inspection: no (more content not included)... [facility] 07-01-2024 Note -Discussed with brandt ent the recommendation for atrial ablation s/p cardioversion. Procedure with risk and benefits was explained. Follow-up scheduled with Dr. Carrillo for additional recommendations regarding atrial ablation. -Patient is no longer taking amiodarone due to adverse reaction of chest tightness. -Patient has switched from Eliquis to Xarelto for anticoagulation. [facility] 07-01-2024 Note [facility] CARDIOLOGY PROGR ESS NOTE [facility] HPI: Paige Baltazar is a 64 [...] Lyon PA-C [facility] Cardiology Available 7-5pm via [employer] Chat Pager #: [phone] [facility] 07-01-2024 Note Pt is here for [facility] cardioversion follow up. Pt denies chest pain, palpatations, dizziness Review of Systems Cardiovascular: Positive for leg swelling. Respiratory: Positive for shortness of breath. [facility] 05-25-2024 Note DIRECT CARDIOVERSION PROCEDURE NOTE Date: [...] consider ablation. Jose Carrillo MD Cardiac Electrophysiology [facility] 05-25-2024 Note Patient: Paige fulton Procedure Information Date/Time: 05/25/24 1100 Procedure: Cardioversion - PC APPROVED Location: [facility] ACADEMIC MANAGER HOLDING ROOM / [facility] HV VASCULAR LAB (Cath) Providers: Jose Carrillo MD Clinical information reviewed: Allergies Meds Med Hx Surg Hx Fam Hx Soc Hx Physical Exam Airway Mallampati: II TM distance: >3 FB Neck ROM: full Cardiovascular Dental Pulmonary Abdominal Anesthesia Plan ASA 2 CSE Anesthetic plan and risks discussed with patient. Use of blood products discussed with patient who. Additional Equipment Requests [facility] 04-07-2024 Note IA Electrophysiology Consult Note IA Cardiology - [facility] Reason for visit: atrial fibrillation HPI: Paige Baltazar is a 63 y.o. year old with past medical history of COPD was recently admitted to [facility] with A-fib with rapid ventricular rate at that time his ventricular rate was controlled with medication and echocardiogram revealed normal EF with biatrial enlargement. He was started on anticoagulation and subsequently discharged with advised to follow-up with the EP clinic. Given that he has consumed significant amount of alcohol he was advised to refrain from that. He was admitted to [facility] a few days ago for CHF and exacerbation of COPD with asthma. Denies chest pain, lightheadedness/syncope, and bleeding on Eliquis. EKG 03/23/2024 reveals atrial fibrillation PMH: Past Medical History: Diagnosis Date Abnormal ECG Arrhythmia Asthma Atrial fibrillation ([facility]/HCC) COPD (chronic obstructive pulmonary disease) ([facility]) Hypertension PSH: No past surgical history on [...] on file Intimate Partner Violence: Unknown (03/11/2024) [place] Safety & Environment Fear of Current or [...] Abdomen Inspection and (more content not included)... [facility] 03-23-2024 Note [facility] Cardiology Clinic Note Chief Complaint: Patient here for follow up [facility] for afib and hypertension. He was discharged on Eliquis and diltiazem, but he is not currently taking diltiazem. He denies chest pain, lightheadedness/syncope, and bleeding on Eliquis. Gets SOB, and does not see pulmonary. Still gets intermittent palpitations. HPI: In-patient consult: 63-year-old with a history of COPD and hypertension admitted to the [facility] for COPD exacerbation. Noted to be in [...] needs arise Alethea Ward MD, MPH, FACC, [facility] Interventional Cardiology Pager Email: [email or web address] 05-26-2021 Note PROCEDURE: XR KNEE L T 4V or > HISTORY: Pain ; lateral knee pain since hitting on object 3 weeks ago COMPARISON: None. FINDINGS: BONES:No fracture, acute abnormality, or significant arthropathy. SOFT TISSUES:No visible soft tissue swelling. EFFUSION:Small effusion. OTHER: Negative. IMPRESSION: 1. Small joint effusion. 2. No acute bone abnormality. Electronically authenticated by: KIM SOSA Date: 2021-05-26 12:17 [facility] Summary Purpose Family History No Family History Records FoundNo Family History Records FoundNo Family History Records Found Advance Directives No Advanced Directives Records FoundNo Advanced Directives Records FoundNo Advanced Directives Records Found Additional Source Comments (unrecognized sect ion and content) No Status Records FoundNo Status Records FoundNo Status Records Found INFORMATION SOURCE (unrecogn ized section and content) DATE CREATED AUTHOR 06/16/2021 [facility] [place] DATE CREATED AUTHOR AUTHOR'S ORGANIZ ATION 01/28/2024 [facility] DATE CREATED AUTHOR AUTHOR'S ORGANIZ ATION 12/10/2024 [facility] FOR RECORDS PERTAINING TO PATIENTS [...] BE BASED ON THE PRIMARY CLINICAL RECORDS. [employer] provides no warranty or guarantee of the accuracy or completeness of information in this document.
[2024-12-31 14:12] LABS: Anion Gap 12.4; BUN Creatinine Ratio 13.1; Calcium 9.3 mg/dL (8.5-10.1); Carbon Dioxide 29.8 mmol/L (21.0-32.0); Chloride 102 mmol/L (98-107); Estimated GFR (African America >60 (>=60 mL/min/1.73m^2); Estimated GFR (Non-African Ame 55 (>=60 mL/min/1.73m^2); Glucose 113 mg/dL (74-106); Potassium 4.2 mmol/L (3.5-5.1); Sodium 140 mmol/L (136-145)
== END 2024-12-31 13:11 | disposition home or self-care (01) ==
LOC: LAB 13:12
PROVIDERS: PCP Nurse Practitioner Family; Visit Provider Nurse Practitioner Family
DX: I27.20 Pulmonary hypertension, unspecified (principal); R06.09 Other forms of dyspnea
CPT/HCPCS: 36415; 80048; 83880

== ENCOUNTER 2025-01-08 07:05 | Outpatient (RCR) | payer MEDICARE, SELFPAY ==
--- NOTE | 2024-11-10 11:13 | PC.NURSE ---
Called to outreach patient. Patient recently had an ablation and has not contact staff since his procedure. Left voice mail for patient to call back and follow up and letter sent to his home
--- NOTE | 2024-11-19 08:08 | CR1_ITS ---
[facility] Test Date: 2024-11-19 Pat Name: PAIGE BALTAZAR Department: Room: - Gender: Male Regulatory Affairs Coordinator: : 1960 Requested By: Lang Miller Order Number: [id number] Clau MD: KITA MURPHY Interpretive Statements Session Date: Electronically Signed On 11-20-2024 7:07:09 EST by KITA MURPHY
--- NOTE | 2024-12-17 07:15 | CR1_ITS ---
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
--- NOTE | 2025-01-13 07:11 | CR1_ITS ---
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
== END 2025-02-04 08:58 | disposition home or self-care (01) ==
LOC: CR 07:05
PROVIDERS: Visit Provider Internal Medicine
DX: J43.2 Centrilobular emphysema (principal)
CPT/HCPCS: 94625; G0239

== ENCOUNTER 2025-01-18 09:55 | Outpatient (OUT) | payer MEDICARE, SELFPAY ==
--- NOTE | 2025-01-18 10:00 | CA_ITS ---
Patient Name: PAIGE BALTAZAR MR#: [id number] : 1960 Exam Date: 01/18/2025 Ordering Doctor: HELDER CALDERON CNP 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 DESCRIPTION: COMPLETE ECHOCARDIOGRAM Real-time transthoracic echocardiography with 2D, M-mode, spectral and color flow Doppler performed. QUALITY: Technical quality was good. LEFT VENTRICLE: Normal chamber size. Mild concentric left ventricular hypertrophy. Normal systolic function. LV EF: Normal left ventricular ejection fraction, (>55%). DIASTOLIC: Diastolic function is indeterminate. ATRIAL SEPTUM: Visually appears intact. LEFT ATRIUM: Mild dilatation. RIGHT ATRIUM: Mild dilatation. RIGHT VENTRICLE: Normal chamber size. Normal right ventricular systolic function. TRICUSPID VALVE: Normal mobility and thickness. No stenosis with trivial regurgitation. Doppler studies reveal mildly (35-45) elevated right sided pressures. RVSP 36 mmHg MITRAL VALVE: Normal mobility and thickness. No evidence of mitral valve stenosis. There is no mitral annular calcification. No mitral regurgitation. AORTIC VALVE: Normal trileaflet appearance. No visible sclerosis. Normal leaflet mobility. No evidence of aortic valve stenosis. Mild aortic regurgitation. AORTIC ROOT: Normal diameter and appearance, measuring 3.8 cm. Ascending aorta is dilated (4.1 cm). PULMONIC VALVE: Normal thickness and mobility. No stenosis. No regurgitation. PERICARDIUM: No evidence of pericardial effusion. IVC: Collapses with inspirations. PLEURA: CONCLUSION: 1. Mild concentric left ventricular hypertrophy with normal systolic function. LVEF is estimated at 60 to 65%. 2. Normal right ventricular size and systolic function. 3. Mild biatrial dilatation. 4. No significant valvular dysfunction. 5. Mildly elevated right-sided pressures. 6. Mildly dilated ascending aorta measuring 4.1 cm. 7. No pericardial effusion. Adult Echocardiography Procedure Report Left Ventricle LVEDD (3.7 - 5.6 cm): 4.57 cm LVESD (2.2 - 4.0 cm): 3.14 cm LVIVS thickness (0.6 - 1.2 cm): 1.15 cm LVPW thickness (0.5 - 1.0 cm): 1.23 cm e': 0.13 m/s E - e': 4.67 LVOT Max Gradient: 2.61 mm[Hg] LVOT Area (cm2): 0.81 m/s Peak Velocity (LVOT): 0.81 m/s Mean Velocity (LVOT): 0.53 m/s LVOT Diameter 2.30 cm Left Atrium LA Volume Index (2D A2C): 28.72 ml/m2 Left Atrium Systolic Dimension: 4.50 cm Mitral Valve MV E to A Ratio: 0.96 Mitral Valve A-Wave Peak Velocity: 0.65 m/s Mitral Valve E-Wave Peak Velocity: 0.62 m/s Right Ventricle Aorta AO Root Diam: 3.77 cm Ascending Ao Diam: 3.83 cm Aortic Valve AoV Area (Peak Sukumar): 3.20 cm2, 3.20 cm2 AoV Area (VTI): 3.76 cm2, 3.76 cm2 Peak Velocity(Antegrade Flow): 1.05 m/s Peak Gradient(Antegrade Flow): 4.43 mm[Hg] Mean Velocity(Antegrade Flow): 0.64 m/s Mean Gradient(Antegrade Flow): 1.95 mm[Hg] Velocity Time Integral: 20.63 cm Tricuspid Valve Peak Velocity (Regurgitant Flow): 2.87 m/s Pulmonic Valve Mean Gradient: 2.28 mm[Hg] Mean Velocity: 0.71 m/s Peak Velocity: 1.07 m/s, 1.05 m/s Peak Gradient: 4.38 mm[Hg], 4.56 mm[Hg] Right Atrium Right Atrium Systolic Pressure: 61.02 ml, 61.02 ml Dictated by: Todd Ta M.D. on 01/18/2025 at 19:58 Approved by: Todd Ta M.D. on 01/18/2025 at 20:00
--- OUTSIDE RECORDS SUMMARY | 2025-01-18 10:09 | XMS_ITS | CCD ---
Author Organization [facility] Care Team Providers [employer] Salesperson Name Role Phone DR KIM SOSA Consulting Unavailable KATTY, BEST Attending Unavailable KATTY, BEST Admitting Unavailable KATTY, BEST Consulting Unavailable JOAN, GEE Primary Care Unavailable WALL, GURVINDER Attending Unavailable POTHIREDDY, DOV Briones Admitting Unavailable WALL, GURVINDER Attending Unavailable WALL, GURVINDER Referring Unavailable JOAN, [facility] Primary Care Unavailable CASA, JOSE Referring Unavailable CASA, JOSE Referring Unavailable CASA, JOSE Attending Unavailable CASA, JOSE Referring Unavailable ELTAHAWY, EHAB Attending Unavailable KVNG, HELDER Attending Unavailable KVNG, HELDER Attending Unavailable CASA, JOSE Admitting Unavailable CASA, JOSE Attending Unavailable CASA, JOSE Referring Unavailable CASA, JOSE Admitting Unavailable CASA, JOSE Attending Unavailable CASA, JOSE Attending Unavailable JUAN, ATA Attending Unavailable CASA, JOSE Referring Unavailable Problems Problem Classification Problem Date Documented Da te Episodic/Chronic Cardiac dysrhythmias (2 sources) Paroxysmal atrial fibrillation; Translations: [Paroxysmal atrial fibrillation] Onset: 04-17-2024 Chronic E Codes: Struck by; against (1 source) Striking against or struck by other objects, initial encounter; Translations: [STRIKING AGNST/STRUCK OTH OBJ INIT] Onset: 05-30-2021 Episodic Other and ill-defined heart disease (2 sources) Other ill-defined heart diseases; Translations: [Other ill-defined heart diseases] Onset: 01-05-2025 Chronic Other lower respiratory disease (1 source) Shortness [...] hypertension, unspecified; Translations: [Pulmonary hypertension, unspecified] Onset: 01-05-2025 Chronic Superficial injury; contusion (1 source) Contusion of left knee, initial encounter; Translations: [CONTUSION LEFT KNEE INITIAL ENC] Onset: 05-30-2021 Episodic Unclassified (2 sources) Other persistent atrial fibrillation; Translations: [Other persistent atrial fibrillation] Onset: 09-24-2024 Results Test Name Value Interpretation Reference Range Facility Office Visiton 01-05-2025 Follow-up visit [id number] Paige Baltazar 1960 M Date Provider Department Center 01/05/2025 HELDER FARRIS CARD [facility] Family History Problem Relation Age of Onset Heart attack Mother 65 Comments: massive [place] Transient ischemic attack Father Liver disease Brother Family Status - Relation Status Age at Mother Father Brother Level of Service:07151 CO OFFICE/OUTPATIENT ESTABLISHED LOW MDM 20 MIN Reason for Visit and Comments: Atrial Fibrillation [80] Shortness of Breath [489008] [facility] 36on 12-09-2024 36 Ok, lets continue th e lasix 40mg daily and get a follow-up BMP/BNP in 1 week. Will plan to see him as scheduled on 01/05/25 and if he continues to have sx's when I see him then we can proceed with a stress test. Thanks Normal [facility] 36 Did his weight come down at all? [facility] 37on 12-01-2024 37 *We will [...] week to see how you are feeling. Normal [facility] Follow-Upon 12-01-2024 Follow-Up [id number] Paige Baltazar 1960 M Date Provider Department Center 12/01/2024 Ange-HELDER CALDERON CARD [facility] Family History Problem Relation Age of Onset Heart attack Mother 65 Comments: massive [place] Transient ischemic attack Father Liver disease Brother Family Status - Relation Status Age at Mother Father Brother Level of Service:53240 CO OFFICE/OUTPATIENT ESTABLISHED MOD MDM 30 MIN Reason for Visit and Comments: Atrial Fibrillation [80] Shortness of Breath [[id number]] Normal [facility] Telephoneon 11-27-2024 Telephone [id number] Paige Baltazar 1960 [facility] Provider Department Center 11/27/2024 MEENA CENTENO [facility] Family History Problem Relation Age of Onset Heart attack Mother Transient ischemic attack Father Family Status - Relation Status Age at Mother Father Reason for Visit and Comments: 3 week post ablation f/u [Other] [facility] 36on 11-06-2024 36 returned call [...] call back with any other issues. Normal [facility] Telephoneon 11-06-2024 Telephone [id number] Paige Baltazar 1960 Date Provider Department Center 11/06/2024 Rodrigue-MEENA CEBALLOS [facility] Family History Problem Relation Age of Onset Heart attack Mother Transient ischemic attack Father Family Status - Relation Status Age at Mother Father Reason for Visit and Comments: week f/u post ablation [Other] Normal [facility] Telephone [id number] Paige Baltazar 1960 [facility] Provider Department Center 11/06/20241986-MEENA CEBALLOS [facility] Family History Problem Relation Age of Onset Heart attack Mother Transient ischemic attack Father Family Status - Relation Status Age at Mother Father Reason for Visit and Comments: f/u post ablation [Other] Normal [facility] HPon 10-28-2024 [facility] Electrophysiology Consult Note [place] [facility] - [facility] Reason for visit: atrial fibrillation 10/28/24 [...] history of COPD was recently admitted to [facility] with A-fib with rapid ventricular rate at that time his ventricular rate was controlled with medication and echocardiogram revealed normal EF with biatrial enlargement. He was started on anticoagulation and subsequently discharged with advised to follow-up with the EP clinic. Given that he has consumed significant amount of alcohol he was advised to refrain from that. He was admitted to [facility] a few days ago for [...] Use: Not At Risk (01/27/2024) Received from [employer] [facility] AUDIT-C Frequency of Alcohol Consumption: 4 or more times a week Average Number of Drinks: 1 or 2 Frequency of Binge Drinking: Never Financial Resource Strain: Low Risk (01/27/2024) Received from [employer] Overall Financial Resource Strain (CARDIA) Difficulty of Paying Living Expenses: Not hard at all Food Insecurity: No Food Insecurity (01/27/2024) [facility] Hunger Screening Within the past 12 months we worried whether our food would run out before we got money to buy more.: Never True Within the past 12 months the food we bought just didn't last and we didn't have money to get more.: Never True Transportation Needs: No Transportation Needs (01/27/2024) [facility] PRAPARE - Transportation Lack of Transportation (Medical): No Lack of Transportation (Non-Medical): No Physical Activity: Insufficiently Active (01/27/2024) [facility] restOpolis Exercise Vital Sign Days of Exercise per Week: 2 days Minutes of Exercise per Session: 20 min Stress: No Stress Concern Present (01/27/2024) [facility] [employer] [facility], [facility] [place] of Occupational Health - Occupational Stress Questionnaire Feeling of Stress : Only a little Social Connections: Moderately Integrated (01/27/2024) [facility] Social Connection and Isolation Panel [NHANES] Frequency of Communication with Friends and Family: Twice a week Frequency of Social Gatherings with Friends and Family: Twice a week Attends Spiritism Services: 1 to 4 times per year Active Member of Clubs or Organizations: No Attends Club or Organization Meetings: Never Marital Status: Intimate Partner Violence: Unknown (03/11/2024) [place] Safety & Environment Fear of Current or Ex-Partner: Not on file Emotionally Abused: Not on file Physically Abused: Not on file Sexually Abused: Not on file Physically or Sexually Abused: Not on file Depression: Not at risk (01/27/2024) Received from [employer], [facility] PHQ-2 Total Score: 0 Housing Stability: Low Risk (01/27/2024) Received from [employer] [facility], [facility] Housing Instability Are you worried or concerned that in the next two months you may not have stable housing that you own, rent or stay in as a part of a household?: No Utilities: Not At Risk (01/27/2024) Received from [employer], [employer] [facility] Utilities Threatened with loss of utilities: No [...] Current Out (more content not included)... Normal [facility] NURSNOTEon 10-28-2024 NURSNOTE Shift handoff to SONJA Barber. Normal [facility] POCT GLUCOSE METER UNSOLICIT ED RESULTSon 10-28-2024 Glucose [Mass/Vol] 105 mg/dL Normal 70-105 [facility] Comment on above: Order Comment: Waive d Testing in the ED is performed under the ED CLIA certificate #[id number]. Result Comment: ltol les Performed By: #### L [id number] ####[facility] ([facility])[address] [place] [address] PROTIME-INRon 10-28-2024 INR IN PPP BY COAGULATION ASSAY 0.93 Normal 0.90-1.10 [facility] Comment on above: Result Comment: ACCC [...] CHEST 1995;108:231S-246S. Performed By: #### L [id number] ####[facility] ([facility])[address] [place] [address] PROTHROMBIN TIME (PT) IN PPP BY COAGULATION ASSAY 12.5 Seconds Normal 12.3-14.8 [facility] Comment on above: Performed By: #### L [id number] ####[facility] ([facility])[address] [place] [address] Prep for Procedureon 025 Prep for Procedure [id number] Paige Baltazar 1960 M Date Provider Department Center 10/28/2024 1987-MEENA CEBALLOS [facility] [place] [facility] Family History Problem Relation Age of Onset Heart attack Mother Transient ischemic attack Father Family Status - Relation Status Age at Mother Father Normal [facility] Prep for Procedureon 024 Prep for Procedure [id number] Paige Baltazar S 1960 M Date Provider Department Center 09/24/2024 1987-MEENA CEBALLOS [facility] Family History Problem Relation Age of Onset Heart attack Mother Transient ischemic attack Father Family Status - Relation Status Age at Mother Father Normal [facility] Orders Onlyon 09-23-2024 Orders Only [id number] Paige Baltazar 1960 M Date Provider Department Center 09/23/2024 Aliza-RAMON COOPER [facility] Family History Problem Relation Age of Onset Heart attack Mother Transient ischemic attack Father Family Status - Relation Status Age at Mother Father Normal [facility] Refillon 09-07-2024 Refill [id number] Paige Baltazar 1960 M Date Provider Department Center 09/07/2024 CAITLIN TAM [facility] IM [facility] Family History Problem Relation Age of Onset Heart attack Mother Transient ischemic attack Father Family Status - Relation Status Age at Mother Father Reason for Visit and Comments: Med Refill [[id number]] Normal [facility] Office Visiton 08-11-2024 Follow-up visit [id number] Paige Baltazar 1960 M Date Provider Department Center 08/11/2024 241-JOSE CARRILLO ALEJANDRA [facility] Family History Problem Relation Age of Onset Heart attack Mother Transient ischemic attack Father Family Status - Relation Status Age at Mother Father Level of Service:74223 CO OFFICE/OUTPATIENT ESTABLISHED LOW MDM 20 MIN Normal [facility] Office Visiton 07-01-2024 Follow-up visit [id number] Paige Baltazar 1960 M Date Provider Department Center 07/01/2024 [id number] LYON [facility] Family History Problem Relation Age of Onset Heart attack Mother Transient ischemic attack Father Family Status - Relation Status Age at Mother Father Level of Service:31724 CO OFFICE/OUTPATIENT ESTABLISHED LOW MDM 20 MIN Normal [facility] 36on 06-09-2024 36 Per casa pt has failed amio and will need ablation [facility] HPon 05-25-2024 [facility] Electrophysiology Consult Note [place] [facility] Reason for visit: atrial fibrillation HPI: Paige Baltazar is a 63 y.o. year old with past medical history of COPD was recently admitted to [facility] with A-fib with rapid ventricular rate at that time his ventricular rate was controlled with medication and echocardiogram revealed normal EF with biatrial enlargement. He was started on anticoagulation and subsequently discharged with advised to follow-up with the EP clinic. Given that he has consumed significant amount of alcohol he was advised to refrain from that. He was admitted to [facility] a few days ago for [...] on file Intimate Partner Violence: Unknown (03/11/2024) [place] Fear of Current or [...] Respiratory Effort: (more content not included)... Normal [facility] NURSNOTEon 05-25-2024 NURSNOTE RN educated pt on d/ c instructions. RN encouraged pt to voice any questions or concerns. Pt verbalizes no questions or concerns at this time. Pt was wheeled off of unit with all of belongings. Normal [facility] Office Visiton 04-07-2024 Follow-up visit [id number] Paige Baltazar 1960 Date Provider Department Center 04/07/2024 JOSE WHITMAN CARD [facility] Family History Problem Relation Age of Onset Heart attack Mother Transient ischemic attack Father Family Status - Relation Status Age at Mother Father Level of Service:97093 CO OFFICE/OUTPATIENT ESTABLISHED MOD MDM 30 MIN Normal [facility] Orders Onlyon 04-07-2024 Orders Only [id number] Paige Baltazar S 1960 M Date Provider Department Center 04/07/2024 DAVID GARCIA CARD [facility] Family History Problem Relation Age of Onset Heart attack Mother Transient ischemic attack Father Family Status - Relation Status Age at Mother Father Normal [facility] Office Visiton 03-23-2024 Follow-up visit [id number] Paige Baltazar Christine 1960 M Date Provider Department Center 03/23/2024 SYLVIE ASHLEY CARD [facility] Family History Problem Relation Age of Onset Heart attack Mother Transient ischemic attack Father Family Status - Relation Status Age at Mother Father Level of Service:39980 CO OFFICE/OUTPATIENT ESTABLISHED MOD MDM 30 MIN Normal [facility] CBC AND AUTO DIFFon 01-27-20 24 ABSOLUTE BASOPHIL 0.1 X10E9/L Normal 0.0-0.2 [facility] Comment on above: Performed By: #### C BCA, CMP, 63273-7, 96574-1, 23940-7, 29279-0 #### [facility] ([id number]) [address] [place] [address] 25189 ABSOLUTE NEUTROPHIL 4.6 X10E9/L Normal 1.5-6.6 [facility] Comment on above: Performed By: #### C BCA, CMP, 26478-0, 72030-8, 88760-9, 17473-3 #### [facility] ([id number]) [address] [place] [address] 66237 Basophils/100 WBC (Bld) 1.2 % Normal [facility] Comment on above: Performed By: #### C BCA, CMP, 36589-9, 47062-0, 89915-2, 32738-3 #### [facility] ([id number]) [address] [place] [address] 11420 Eosinophils (Bld) [#/Vol] 0.6 10*3/uL High 0.0-0.4 [facility] Comment on above: Performed By: #### C BCA, CMP, 94121-2, 51693-3, 74070-6, 88391-6 #### [facility] ([id number]) [address] [place] [address] 24657 Eosinophils/100 WBC (Bld) 6.2 % Normal [facility] Comment on above: Performed By: #### C BCA, CMP, 82799-5, 17801-5, 71653-2, 54924-7 #### [facility] ([id number]) [address] [place] [address] 84927 Erythrocyte distribution width (RBC) [Ratio] 13.8 % Normal 11.5-15.0 [facility] Comment on above: Performed By: #### C BCA, CMP, 76948-2, 31564-5, 94779-1, 60963-1 #### [facility] ([id number]) [address] [place] [address] 17344 Hematocrit (Bld) [Volume fraction] 49.1 % High 39-49 [facility] Comment on above: Performed By: #### C BCA, CMP, 49174-1, 63784-2, 10128-2, 02008-6 #### [facility] ([id number]) [address] [place] [address] 82506 Hemoglobin (Bld) [Mass/Vol] 16.9 g/dL Normal 13.0-17.0 [facility] Comment on above: Performed By: #### C BCA, CMP, 04043-8, 41940-8, 34482-3, 59945-3 #### [facility] ([id number]) [address] [place] [address] Lymphocytes (Bld) [#/Vol] 3.4 10*3/uL Normal 1.0-3.5 [facility] Comment on above: Performed By: #### C BCA, CMP, 54286-5, 64020-8, 86230-5, 16043-0 #### [facility] ([id number]) [address] [place] [address] 40706 Lymphocytes/100 WBC (Bld) 35.6 % Normal [facility] Comment on above: Performed By: #### C BCA, CMP, 27267-7, 78231-3, 34356-7, 16552-5 #### [facility] ([id number]) [address] [place] [address] 14294 MCH (RBC) [Entitic mass] 33.8 pg Normal 27-34 [facility] Comment on above: Performed By: #### C BCA, CMP, 11621-6, 37012-6, 79485-7, 95435-1 #### [facility] ([id number]) [address] [place] [address] 09233 MCHC (RBC) [Mass/Vol] 34.3 g/dL Normal 32-36 [facility] Comment on above: Performed By: #### C BCA, CMP, 15230-8, 69632-9, 35252-1, 00282-7 #### [facility] ([id number]) [address] [place] [address] 38515 MCV (RBC) [Entitic vol] 98 fL Normal 80-100 [facility] Comment on above: Performed By: #### C BCA, CMP, 19236-3, 97528-2, 02665-4, 35298-9 #### [facility] ([id number]) [address] [place] [address] 16099 Monocytes (Bld) [#/Vol] 0.9 10*3/uL Normal 0-0.9 [facility] Comment on above: Performed By: #### C BCA, CMP, 87199-1, 24712-5, 43814-8, 55977-1 #### [facility] ([id number]) [address] [place] [address] 51138 Monocytes/100 WBC (Bld) 9.3 % Normal [facility] Comment on above: Performed By: #### C BCA, CMP, 48679-1, 34954-9, 46336-0, 54634-3 #### [facility] ([id number]) [address] [place] [address] 36008 Neutrophils/100 WBC (Bld) 47.7 % Normal [facility] Comment on above: Performed By: #### C BCA, CMP, 28014-4, 43345-4, 89126-9, 53536-9 #### [facility] ([id number]) [address] [place] [address] 46544 Platelet mean volume (Bld) [Entitic vol] 7.0 fL Normal 7-12 [facility] Comment on above: Performed By: #### C BCA, CMP, 76536-0, 54449-6, 27705-8, 79444-3 #### [facility] ([id number]) [address] [place] [address] 85776 Platelets (Bld) [#/Vol] 249 10*3/uL Normal 150-450 [facility] Comment on above: Performed By: #### C BCA, CMP, 83076-9, 55775-3, 42271-1, 89464-6 #### [facility] ([id number]) [address] [place] [address] 33099 RBC COUNT 4.99 X10E12/L Normal 4.10-5.70 [facility] Comment on above: Performed By: #### C BCA, CMP, 86962-8, 75909-6, 11848-8, 06365-4 #### [facility] ([id number]) [address] [place] [address] 13873 WBC (Bld) [#/Vol] 9.7 10*3/uL Normal 4.0-11.0 [facility] Comment on above: Performed By: #### C BCA, CMP, 50865-4, 23076-9, 79387-4, 60502-1 #### [facility] ([id number]) [address] [place] [address] 13056 COMPREHENSIVE METABOLIC PANE Skip 01-27-2024 Albumin [Mass/Vol] 4.7 g/dL Normal 3.2-5.3 [facility] Comment on above: Performed By: #### C BCA, CMP, 06360-2, 52223-7, 40279-2, 11729-6 #### [facility] ([id number]) [address] [place] [address] 20109 ALP [Catalytic activity/Vol] 91 U/L Normal 39-130 [facility] Comment on above: Performed By: #### C BCA, CMP, 52691-3, 24586-4, 62705-7, 08525-2 #### [facility] ([id number]) [address] [place] [address] 55230 ALT [Catalytic activity/Vol] 30 U/L Normal 0-40 [facility] Comment on above: Performed By: #### C BCA, CMP, 99016-5, 45952-1, 60500-9, 95236-7 #### [facility] ([id number]) [address] [place] [address] 12414 Anion gap [Moles/Vol] 10 mmol/L Normal 5-15 [facility] Comment on above: Performed By: #### C BCA, CMP, 79858-8, 51115-1, 02762-3, 65225-8 #### [facility] ([id number]) [address] [place] [address] 94927 AST [Catalytic activity/Vol] 27 U/L Normal 0-41 [facility] Comment on above: Performed By: #### C BCA, CMP, 59858-3, 80235-2, 62710-6, 55413-1 #### [facility] ([id number]) [address] [place] [address] 35901 Bilirubin [Mass/Vol] 0.8 mg/dL Normal 0.3-1.2 [facility] Comment on above: Performed By: #### C BCA, CMP, 58096-9, 61709-7, 11972-7, 60146-9 #### [facility] ([id number]) [address] [place] [address] 10670 Calcium [Mass/Vol] 9.5 mg/dL Normal 8.5-10.5 [facility] Comment on above: Performed By: #### C BCA, CMP, 59543-7, 03718-1, 93589-8, 78519-3 #### [facility] ([id number]) [address] [place] [address] 28711 Chloride [Moles/Vol] 99 mmol/L Normal 98-109 [facility] Comment on above: Performed By: #### C BCA, CMP, 72653-0, 98899-8, 87093-3, 86673-8 #### [facility] ([id number]) [address] [place] [address] 98893 CO2 [Moles/Vol] 26 mmol/L Normal 22-32 [facility] Comment on above: Performed By: #### C BCA, CMP, 99379-1, 03019-2, 72789-9, 58089-5 #### [facility] ([id number]) [address] [place] [address] 69863 Creatinine [Mass/Vol] 1.05 mg/dL Normal 0.70-1.20 [facility] Comment on above: Result Comment: METH OD TRACEABLE TO IDMS STANDARD Performed By: #### C BCA, CMP, 80731-2, 63798-3, 42489-6, 10962-0 #### [facility] ([id number]) [address] [place] [address] 05415 GFR/1.73 sq M.predicted among non-blacks MDRD (S/P/Bld) [Vol rate/Area] 79 mL/min/{1.73_m2} Normal >59 [facility] Comment on above: Result Comment: Reported eGFR is based on the CKD-EPI 2020 equation that does not use a race coefficient. Performed By: #### C BCA, CMP, 78676-0, 05020-2, 57576-3, 51280-3 #### [facility] ([id number]) [address] [place] [address] 29158 Glucose [Mass/Vol] 125 mg/dL High 65-99 [facility] Comment on above: Performed By: #### C BCA, CMP, 05547-2, 73395-1, 01321-7, 60554-9 #### [facility] ([id number]) [address] [place] [address] 64008 Potassium [Moles/Vol] 4.3 mmol/L Normal 3.5-5.0 [facility] Comment on above: Performed By: #### C BCA, CMP, 64007-0, 99178-8, 82838-2, 41188-6 #### [facility] ([id number]) [address] [place] [address] 96989 Protein [Mass/Vol] 8.4 g/dL High 6.0-8.0 [facility] Comment on above: Performed By: #### C BCA, CMP, 86281-7, 50862-2, 50627-5, 40611-6 #### [facility] ([id number]) [address] [place] [address] 20589 Sodium [Moles/Vol] 135 mmol/L Normal 134-146 [facility] Comment on above: Performed By: #### C BCA, CMP, 64572-5, 38621-0, 89756-0, 37388-4 #### [facility] ([id number]) [address] [place] [address] 60700 Urea nitrogen [Mass/Vol] 18 mg/dL Normal 5-27 [facility] Comment on above: Performed By: #### C BCA, CMP, 21096-3, 78688-4, 05796-2, 86585-4 #### [facility] ([id number]) [address] [place] [address] 95111 Fibrin D-dimer DDU (PPP) [Ma ss/Vol]on 01-27-2024 D DIMER <150 Normal <255 [facility] Comment on above: Result Comment: Results <255 ng/mL DDU: The presence of a VTE can safely be excluded with a negative D-Dimer result and Wells score. A negative result doesn't exclude the possibility of DIC. The test be repeated along with other diagnostic tests if the patient's symptoms persist or worsen. [email or web address] Performed By: #### C BCA, CMP, 82534-3, 06436-5, 78489-6, 64376-7 #### [facility] ([id number]) [address] [place] [address] 20972 MAGNESIUMon 01-27-2024 Magnesium [Mass/Vol] 2.1 mg/dL Normal 1.8-2.6 [facility] Comment on above: Performed By: #### C BCA, CMP, 04076-2, 08386-6, 68470-5, 49553-6 #### [facility] ([id number]) [address] [place] [address] 13056 Natriuretic peptide B [Mass/ Vol]on 01-27-2024 Natriuretic peptide B (Bld) [Mass/Vol] 64 pg/mL Normal <100.0 [facility] Comment on above: Performed By: #### C BCA, [facility], 74539-8, 44408-3, 14869-3, 72330-1 #### [facility] ([id number]) [address] [place] [address] SARS/FLU A+B/RSV by NAAT/Mol ecularon 01-27-2024 SARS/FLU [...] operators who are performing tests using either CloSys DX or Tengion systems and is limited to laboratories that [...] specimen repeat. Fact Sheet for Healthcare Providers: https://www.fda.gov/nm tee/543677/download Fact Sheet for Patients: https://www.fda.gov/nm tee/154569/download Normal [facility] Comment on above: Performed By: #### C OVFLR #### [facility] ([id number]) [address] [place] [address] 45071 TROPONIN Ion 01-27-2024 Troponin I.cardiac [Mass/Vol] 0.01 ng/mL Normal 0.00-0.04 [facility] Comment on above: Performed By: #### C BCA, CMP, 81563-0, 20271-2, 49412-7, 38056-0 #### [facility] ([id number]) [address] [place] [address] 69346 XR CHEST 1 VWon 01-27-2024 XR CHEST [...] on 01/27/2024 1:18 AM Normal [facility] Encounters Encounter Date Encounter Type Care Provider Facility Start: 01-05-2025 End: 01-05-2025 ambulatory [facility] Start: 12-01-2024 End: 12-01-2024 ambulatory [facility] Start: 10-28-2024 ambulatory [facility] Start: 10-28-2024 End: 10-28-2024 ambulatory [facility] Start: 08-11-2024 End: 08-11-2024 ambulatory [facility] Start: 07-01-2024 End: 07-01-2024 ambulatory ATA LYON [facility] Start: 05-25-2024 End: 05-25-2024 ambulatory [facility] Start: 04-07-2024 End: 04-07-2024 ambulatory [facility] Start: 03-23-2024 End: 03-23-2024 ambulatory SYLVIE ROMEROFLORENCIADANIEL [facility] Start: 01-27-2024 End: 01-28-2024 Emergency department patient visit GURVINDER NUNESGERS [facility] Start: 01-27-2024 End: 01-27-2024 ambulatory GEE FRANCO [facility] Start: 05-26-2021 End: 05-26-[address] KIM SOSA Facility: Payers Date Payer Category Payer Private Health Insurance CLI [id number] 2023 Medicare [id number] 1960 Unknown [id number] 1960 Unknown [id number] 1960 Unknown [id number] Unknown [id number] Clinical Notes 05-26-2021 to 01-05-2025 Note Date & Type Note Facility 01-05-2025 Note Patient here for 6 w deering follow up SOB and LE edema. He was admitted to [facility] 2 weeks ago for COPD exacerbation. He had follow up labs last week. Chest pain has resolved. His SOB and LE edema are much better. He still has a few more days left of prednisone and is worried he will be more SOB once he's finished. Denies palpitations, lightheadedness/syncope, and bleeding on Xarelto. Review of Systems Cardiovascular: Positive for dyspnea on exertion (improving) and leg swelling (improving). Respiratory: Positive for shortness of breath. All other systems reviewed and are negative. [facility] 01-05-2025 Note Cardiovascular Medic [facility] SUBJECTIVE Chief Complaint Patient presents with Atrial Fibrillation Shortness of Breath Paige Baltazar is a 64 y.o. male here for follow-up. His Melony accompanied him today. HPI PMHx: a.fib s/p ablation 10/28/24, COPD 01/05/2025 Patient here for 6 week follow up SOB and LE edema. He was admitted to [facility] 2 weeks ago for COPD exacerbation. He had follow up labs last week. He would like to resume cardiac rehab. Chest pain has resolved. His SOB and LE edema are much better. He still has a few more days left of prednisone and is worried he will be more SOB once he's finished. Denies palpitations, lightheadedness/syncope, and bleeding on Xarelto. 12/01/2024 He c/o increased SOB since his [...] of Onset Heart attack Mother 65 massive [place] Transient ischemic attack Father Liver disease Brother Social History Tobacco Use Smoking status: Former Current packs/day: 0.00 Types: Cigarettes Quit date: 02/2024 Years since quittin.8 Smokeless tobacco: Never Vaping Use Vaping status: Never Used Substance Use Topics Alcohol use: Yes Comment: DAILY BEER 2-3 Drug use: Not Currently No Known Allergies ROS Cardiovascular: Positive for dyspnea on exertion (improving) and leg swelling (improving). Respiratory: Positive for shortness of breath. All other systems reviewed and are negative. OBJECTIVE Visit Vitals BP 128/82 (BP Location: Right arm, Patient Position: Sitting) Pulse 78 Ht 1.829 m (6') Wt 96.2 kg (212 lb) SpO2 95% BMI 28.75 kg/m??? Smoking Status Former BSA 2.21 m??? Medications: Current Outpatient Medications: albuterol 90 mcg/actuation inhaler, inhale 1 puff by mouth and INTO THE LUNGS every 8 hours if needed, Disp: , Rfl: buPROPion SR (Wellbutrin SR) 150 mg 12 hr tablet, Take 150 mg by mouth once daily as directed., Disp: , Rfl: famotidine (Pepcid) 20 mg tablet, Take 1 tablet (20 mg) by mouth two times daily. (Patient taking differently: Take 20 mg by mouth if needed.), Disp: 60 tablet, Rfl: 0 euhthtbzsuf-pupzkoija-uvrrsiyv (Trelegy Ellipta) 100-62.5-25 mcg blister with device, Inhale., Disp: , Rfl: furosemide (Lasix) 40 mg tablet, Take 1 tablet (40 mg) by mouth in the morning., Disp: 90 tablet, Rfl: 3 NIFEdipine CC (Adalat CC) 60 mg 24 hr tablet, take 1 tablet by mouth once daily ON AN EMPTY STOMACH, Disp: , Rfl: rivaroxaban (Xarelto) 20 mg tablet, Take 1 tablet (20 mg) by mouth daily with evening meal. Take with food., Disp: 90 tablet, Rfl: 3 Physical Exam Constitutional: Appearance: Normal appearance. He [...] Cervical back: Neck supple. Right lower leg: No edema. Left lower leg: No edema. Skin: General: Skin is warm and dry. [...] Final Atrial Rate 10/28/2024 73 BPM Final CO Interval 10/28/2024 158 ms Fin (more content not included)... [facility] 12-01-2024 Note Cardiovascular Medic ine [facility] SUBJECTIVE Chief Complaint Patient presents with [...] of Onset Heart attack Mother 65 massive [place] Transient ischemic attack Father Liver disease Brother [...] if needed.), Disp: 60 tablet, Rfl: 0 kopczyxkhoq-mfivobhwf-ukukdvxx (Trelegy Ellipta) 100-62.5-25 mcg blister with device, [...] Final Atrial Rate 10/28/2024 73 BPM Final CO Interval 10/28/2024 158 ms Final QRS DURATION 10/28/2024 84 ms Final QT Interval 10/28/2024 374 ms Final QTC CALCULATION(BAZETT) 10/28/2024 412 ms Final P [place] 10/28/2024 78 degrees Final R-Colfax 10/28/2024 32 degrees Final T Wave [place] 10/28/2024 30 degrees Final Protime 10/28/2024 12.5 12.3 - 14.8 Seconds Final INR 10/28/2024 0.93 0.90 - 1.10 Final Glucose POC 10/28/2024 105 70 - 105 mg/dL Final Ventricular Rate 10/28/2024 75 BPM Final Atrial Rate 10/28/2024 75 BPM Final CO Interval 10/28/2024 116 (more content not included)... [facility] 12-01-2024 Note Patient here for [facility] up afib ablation performed on 10/28/[address] [...] All other systems reviewed and are negative. [facility] 10-28-2024 Note ATRIAL FIBRILLATION ABLATION PROCEDURE NOTE DATE OF PROCEDURE: 10/28/2024 PERFORMING PHYSICIAN: Dr. Jose Carrillo MOLD BREAKER: FLOYD CONSENT: Patient NAME OF THE PROCEDURE: [...] history of COPD was recently admitted to [facility] with A-fib with rapid ventricular rate. Echocardiogram revealed normal EF with biatrial enlargement. He was started on anticoagulation and subsequently discharged and was advised to refrain from alcohol. He was admitted to [facility] again for CHF and exacerbation [...] Coumadin ridge. Esophagus was mapped using the [employer] 3D mapping software and noted to be [...] performed with an SL1 sheath using a Igl needle. Following transseptal, the SL1 sheath was [...] leak and this (more content not included)... [facility] 10-28-2024 Note Patient: Paige fulton Procedure Summary Date: 10/28/24 Room / Location: [facility] NURSE CHARGE RN 1 EP / [facility] HVC VASCULAR LAB (Cath) Anesthesia Start: 839 Anesthesia Stop: Procedure: Ablation atrial fibrillation Diagnosis: [...] per anesthesia protocol. No notable events documented. [facility] 10-28-2024 Note Airway Date/Time: 10/28/2024 8:59 AM Urgency: elective Airway not difficult General Information and Staff Patient location during procedure: OR Anesthesiologist: Clifford Howard MD Resident/COLLARETTE SEPARATOR/CAA: Ann Amin MD Performed: resident/COLLARETTE SEPARATOR/CAA Indications and Patient Condition Indications for airway management: anesthesia Spontaneous Ventilation: absent Sedation level: deep Preoxygenated: yes Patient position: sniffing Mask difficulty assessment: 1 - vent by mask Planned trial extubation Final Airway Details Final airway type: endotracheal airway Successful airway: ETT Cuffed: yes Successful intubation technique: video laryngoscopy Facilitating devices/methods: intubating stylet Endotracheal tube insertion site: oral Blade: Hudsno Blade size: #4 ETT size (mm): 8.0 Cormack-Lehane Classification: grade I - full view of glottis Placement verified by: chest auscultation and capnometry Measured from: lips ETT to lips (cm): 23 Number of attempts at approach: 1 Number of other approaches attempted: 0 [facility] 10-28-2024 Note Patient: Paige fulton Procedure Information Date/Time: 10/28/2430 Procedure: Ablation atrial fibrillation Location: [facility] NURSE CHARGE RN 1 EP / [facility] HVC VASCULAR LAB (Cath) Providers: Jose Carrillo MD Relevant Problems Anesthesia (within normal limits) Cardio (+) Other secondary pulmonary hypertension (CMS/HCC) (+) Paroxysmal atrial fibrillation (CMS/HCC) (+) Persistent atrial fibrillation (CMS/HCC) Pulmonary (+) Centrilobular emphysema (CMS/HCC) (Uses albuterol inhaler daily) Other (+) History of tobacco use (Quit January,) Encounter Date: 10/28/24 Electrocardiogram, 12-lead Result Value Ventricular Rate 73 Atrial Rate 73 CO Interval 158 QRS DURATION 84 QT Interval 374 QTC CALCULATION(BAZETT) 412 P Colfax 78 R-Colfax 32 T Wave [place] 30 Impression Normal sinus rhythm Low voltage [...] Plan discussed with attending. Additional Equipment Requests [facility] 08-11-2024 Note [place] Consult [place] [facility] Reason for visit: atrial fibrillation 08/11/24 [...] history of COPD was recently admitted to [facility] with A-fib with rapid ventricular rate at that time his ventricular rate was controlled with medication and echocardiogram revealed normal EF with biatrial enlargement. He was started on anticoagulation and subsequently discharged with advised to follow-up with the EP clinic. Given that he has consumed significant amount of alcohol he was advised to refrain from that. He was admitted to [facility] a few days ago for [...] on file Intimate Partner Violence: Unknown (03/11/2024) [place] Safety & Environment Fear of Current or [...] mg by mouth if needed each day. xymmfqbalqh-tfabmevdf-uokibuha (Trelegy Ellipta) 100-62.5-25 mcg blister with device [...] Musculoskeletal Inspection: no (more content not included)... [facility] 07-01-2024 Note -Discussed with brandt ent the recommendation for atrial ablation s/p cardioversion. Procedure with risk and benefits was explained. Follow-up scheduled with Dr. Carrillo for additional recommendations regarding atrial ablation. -Patient is no longer taking amiodarone due to adverse reaction of chest tightness. -Patient has switched from Eliquis to Xarelto for anticoagulation. [facility] 07-01-2024 Note Pt is here for one m onth cardioversion follow up. Pt denies chest pain, palpatations, dizziness Review of Systems Cardiovascular: Positive for leg swelling. Respiratory: Positive for shortness of breath. [facility] 07-01-2024 Note [facility] CARDIOLOGY PROGR ESS NOTE [facility] HPI: Paige Baltazar is a 64 [...] Lyon PA-C [facility] Cardiology Available 7-5pm via [employer] Coverage Chat Pager #: [phone] [facility] 05-25-2024 Note DIRECT CARDIOVERSION PROCEDURE NOTE [...] consider ablation. Jose Carrillo MD Cardiac Electrophysiology [facility] 05-25-2024 Note Patient: Paige fulton Procedure Information Date/Time: 05/25/24 1100 Procedure: Cardioversion - PC APPROVED Location: [facility] NURSE CHARGE RN HOLDING ROOM / [facility] VASCULAR LAB (Cath) Providers: Jose Carrillo MD Clinical information reviewed: Allergies Meds Med Hx Surg Hx Fam Hx Soc Hx Physical Exam Airway Mallampati: II TM distance: >3 FB Neck ROM: full Cardiovascular Dental Pulmonary Abdominal Anesthesia Plan ASA 2 CSE Anesthetic plan and risks discussed with patient. Use of blood products discussed with patient who. Additional Equipment Requests [facility] 04-07-2024 Note [place] Electrophysiology Consult Note [place] Cardiology - [facility] Reason for visit: atrial fibrillation HPI: Paige Baltazar is a 63 y.o. year old with past medical history of COPD was recently admitted to [facility] with A-fib with rapid ventricular rate at that time his ventricular rate was controlled with medication and echocardiogram revealed normal EF with biatrial enlargement. He was started on anticoagulation and subsequently discharged with advised to follow-up with the EP clinic. Given that he has consumed significant amount of alcohol he was advised to refrain from that. He was admitted to [facility] a few days ago for [...] on file Intimate Partner Violence: Unknown (03/11/2024) [place] Safety [place] Fear of Current or [...] Abdomen Inspection and (more content not included)... [facility] 03-23-[address] [facility] Cardiology Clinic Note Chief Complaint: Patient here for follow up [facility] for afib and hypertension. He was discharged on Eliquis and diltiazem, but he is not currently taking diltiazem. He denies chest pain, lightheadedness/syncope, and bleeding on Eliquis. Gets SOB, and does not see pulmonary. Still gets intermittent palpitations. HPI: In-patient consult: 63-year-old with a history of COPD and hypertension admitted to the [facility] for COPD exacerbation. Noted to be in [...] intervention needs arise Sylvie Ward MD, MPH, [facility], [facility], [facility] Interventional Cardiology Pager Email: [email or web address] 05-26-2021 Note PROCEDURE: XR KNEE L T 4V or > HISTORY: Pain ; lateral knee pain since hitting on object 3 weeks ago COMPARISON: None. FINDINGS: BONES:No fracture, acute abnormality, or significant arthropathy. SOFT TISSUES:No visible soft tissue swelling. EFFUSION:Small effusion. OTHER: Negative. IMPRESSION: 1. Small joint effusion. 2. No acute bone abnormality. Electronically authenticated by: KIM SOSA Date: 2021-05-26 12:17 [facility] Summary Purpose Family History No Family History Records FoundNo Family History Records FoundNo Family History Records Found Advance Directives No Advanced Directives Records FoundNo Advanced Directives Records FoundNo Advanced Directives Records Found Additional Source Comments (unrecognized sect ion and content) No Status Records FoundNo Status Records FoundNo Status Records Found INFORMATION SOURCE (unrecogn ized section and content) DATE CREATED AUTHOR 06/16/2021 [facility] DATE CREATED AUTHOR AUTHOR'S ORGANIZ ATION 01/28/2024 [facility] DATE CREATED AUTHOR AUTHOR'S ORGANIZ ATION 01/09/2025 [facility] FOR RECORDS PERTAINING TO PATIENTS WHO [...] BE BASED ON THE PRIMARY CLINICAL RECORDS. [employer] provides no warranty or guarantee of the accuracy or completeness of information in this document.
== END 2025-01-18 09:56 | disposition home or self-care (01) ==
LOC: CARD 09:55
PROVIDERS: PCP Nurse Practitioner Family; Visit Provider Nurse Practitioner Family
DX: I27.20 Pulmonary hypertension, unspecified (principal); I51.89 Other ill-defined heart diseases
CPT/HCPCS: 93306

== ENCOUNTER 2025-01-25 13:26 | Emergency (ER) | payer MEDICARE, SELFPAY ==
[2025-01-25] VITALS (11 sets, daily range): BP systolic 108–136; BP diastolic 76–79; PULSE 70–84; TEMP 36.7; O2SAT 95–99; BMI 29.7
--- NOTE | 2025-01-25 13:37 | ECG_ITS ---
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 Measurements Intervals [place] Rate: 75 P: 77 CT: 142 QRS: 50 QRSD: 80 T: 54 QT: 360 QTc: 388 Interpretive Statements 1100 Sinus rhythm 9110 normal ECG Compared to ECG 12/23/2024 12:24:53 Myocardial infarct finding no longer present Electronically Signed On 01-25-2025 17:50:49 EDT by DYLAN BERNSTEIN M.D.
--- NOTE | 2025-01-25 13:43 | ED_ITS ---
Documented by User: NICOL Cobian 01/25/25 14:58 HPI HPI - General Adult General Chief complaint: Chest Pain Stated complaint: chest/upper extremity pain Time Seen by Provider: 01/25/25 13:27 Source: patient Mode of arrival: walk-in History of Present Illness HPI narrative: Patient is a 64-year-old male with a history of A-fib, anticoagulated with Xarelto, as well as COPD who presents to the emergency department for a 1 week history of pain in the left side of the neck radiating into the left trapezius area and shoulder. He states he does feel some pain going into the left upper chest. Pain is worse with movement of the neck and shoulder, he took Tylenol prior to arrival. He states the tightness in the neck and shoulder is making it hard for me to breathe although he is sitting comfortably in no distress speaking and breathing easily with stable vital signs on arrival. He was admitted to this facility for COPD exacerbation about 1 month ago and he had a negative CTA of the chest performed at that time. He denies any recent steroids or antibiotics. He denies any fevers, upper respiratory symptoms, peripheral edema. Related Data Home Medications ?Medication ?Instructions ?Recorded ?Confirmed albuterol sulfate 2.5 mg/3 mL 2.5 mg inhalation Q6H PRN 03/09/24 01/25/25 (0.083 %) solution for nebulization shortness of breath or wheezing albuterol sulfate 90 mcg/actuation 1 puff inhalation Q4H PRN 03/09/24 01/25/25 aerosol inhaler shortness of breath or wheezing nifedipine 60 mg tablet,extended 60 mg PO DAILY 12/23/24 01/25/25 release 24 hr bupropion HCl 150 mg tablet,12 hr 150 mg PO QAM 01/25/25 01/25/25 sustained-release fluticasone fur. 100 mcg-umeclid 1 inh inhalation DAILY 01/25/25 01/25/25 62.5 mcg-vilant 25 mcg inhalat.powder (Trelegy Ellipta) furosemide 40 mg tablet (Lasix) 40 mg PO DAILY 01/25/25 01/25/25 nifedipine 60 mg tablet,extended 60 mg PO DAILY 01/25/25 01/25/25 release Previous Rx's ?Medication ?Instructions ?Recorded rivaroxaban 10 mg tablet (Xarelto) 20 mg (2 x 10 mg) PO 1700 #30 tabs 12/25/24 hydrocodone 5 mg-acetaminophen 325 1 tab PO Q6H PRN pain 3 days #12 01/25/25 mg tablet tabs methocarbamol 750 mg tablet 750 mg PO TID PRN pain #20 tabs 01/25/25 methylprednisolone 4 mg tablets in See Rx Instructions .Route 01/25/25 a dose pack (Medrol (Richi)) .COMPLEX #21 ea Allergies Allergy/AdvReac Type Severity Reaction Status Date / Time No Known Drug Allergies Allergy Verified 03/09/24 09:52 Opioid HPI Opioid Management Most Recent Opioid Data: Last Pain Scale 7 01/25/25 13:59 01/25/25 Last Pain Intensity 0 12/25/24 09:10 12/25/24 Last MAR Pain Assessment 01/25/25 13:59 Last ORT Total Score 0 12/23/24 19:28 12/23/24 Last ORT Risk Category Low Risk 12/23/24 19:28 12/23/24 Review of Systems ROS Constitutional Denies: fever or chills Ears, nose, mouth, and throat Denies: throat pain or nasal congestion Cardiovascular Reports: chest pain; Denies: edema or swelling of feet/ankles Respiratory Denies: cough Gastrointestinal Denies: nausea or vomiting Musculoskeletal Reports: neck pain and extremity pain; Denies: back pain Integumentary/Breast Denies: rash Neurological Denies: numbness in extremities or weakness in extremities Hematologic/Lymphatic Reports: easy bruising and easy bleeding [facility] Medical History (Updated 01/25/25 @ 14:52 by NICOL Cobian) Near syncope ?R55 - Syncope and collapse (ICD-10) COPD exacerbation ?J44.1 - Chronic obstructive pulmonary disease with (acute) exacerbation (ICD-10) Persistent atrial fibrillation ?I48.19 - Other persistent atrial fibrillation (ICD-10) Hypertension ?I10 - Essential (primary) hypertension (ICD-10) Shortness of breath ?R06.02 - Shortness of breath (ICD-10) Atrial fibrillation, new onset ?I48.91 - Unspecified atrial fibrillation (ICD-10) Family History (Updated 04/02/24 @ 22:05 by Farheen Becerra RN) Mother Family history of hypertension Family history of myocardial infarction Family history of CHF (congestive heart failure) Father Family history of stroke Sister Family history of cancer Social History Within the past year, how often did you have a drink containing alcohol: monthly or less Within the past year, how many standard drinks containing alcohol did you have on a typical day: 1 or 2 Within the past year, how often did you have six or more drinks on one occasion: never Total score: 0 Score interpretation: A score less than 4 is consistent with normal alcohol consumption. Smoking status: Former smoker Non-prescribed substance use: denies use Previous occupational history: retired Highest level of school completed/degree received: high school graduate Are you now , , , , never or living with a partner: In a typical week, how many times do you talk on the telephone with family, friends, or neighbors: 3 or more times per week How often do you get together with friends or relatives: 3 or more times per week How often do you attend restorationism or pentecostalism services: never Little interest or pleasure in doing things: not at all Feeling down, depressed, or hopeless: not at all Feel stressed/tense/nervous/anxious/difficulty sleeping: to some extent Do you think of yourself as: straight/heterosexual Gender Identity: male Exam Narrative Exam Narrative: Gen.: Awake, alert, in no distress Head: Normocephalic, atraumatic ENT: Moist mucous membranes, diffuse tenderness of the paraspinal muscles of the left cervical spine and left trapezius area is tender. No obvious deformity Respiratory: No respiratory distress, lungs clear bilaterally Cardio: Regular rate and rhythm Extremities: Moves extremities equally, no injuries noted; diffuse tenderness of the left trapezius and shoulder. No obvious deformity or sulcus sign. Normal retirement administrator strength in the left hand. 2+ left radial pulse. Psych: Normal mood and affect Neuro: No focal neuro deficit Skin: Warm, dry, intact Constitutional Vital Signs, click to edit/add: Last Vital Signs Temp 98.1 F 01/25/25 13:30 Pulse 70 01/25/25 14:50 Resp 26 H 01/25/25 14:50 BP 136/79 01/25/25 14:00 Pulse Ox 97 01/25/25 14:50 O2 Del Method Room Air 01/25/25 13:30 Course Vital Signs Vital signs: Vital Signs Temperature 98.1 F 01/25/25 13:30 Pulse Rate 84 01/25/25 13:30 Respiratory Rate 18 01/25/25 13:30 Blood Pressure 124/79 01/25/25 13:30 Pulse Oximetry 98 01/25/25 13:30 Oxygen Delivery Method Room Air 01/25/25 13:30 Temperature 98.1 F 01/25/25 13:30 Pulse Rate 70 01/25/25 14:50 Respiratory Rate 26 H 01/25/25 14:50 Blood Pressure 136/79 01/25/25 14:00 Pulse Oximetry 97 01/25/25 14:50 Oxygen Delivery Method Room Air 01/25/25 13:30 Medical Decision Making MDM Narrative Medical decision making narrative: Patient treated with oxycodone, muscle relaxant and steroid in the ER. He is hemodynamically stable. EKG, laboratory studies including troponin are within normal limits. Patient had a negative CT angio of the chest 1 month ago. His symptoms have been ongoing for 1 week. Consistent with musculoskeletal pain in the left neck and shoulder. He was encouraged to rest, ice, gently stretch the area. He will be placed on a short course of analgesics, muscle relaxants and a steroid taper for home. Follow-up with primary care and return to the emergency department if symptoms change or worsen. SUPERVISED APC VISIT, PHYSICIAN ATTESTATION: Based on the medical record the care appears appropriate. ? Medical Records Medical records reviewed: Yes I reviewed the patient's medical records Lab Data Lab results reviewed: Yes I reviewed the patient's lab results Labs: Lab Results 01/25/25 Range/Units 13:45 WBC 5.5 (4.0-11.0) 10^3/uL RBC 4.61 L (4.70-6.10) 10^6/uL Hgb 14.7 (14.0-18.0) g/dL Hct 43.3 (42.0-54.0) % MCV 93.9 (80.0-94.0) fL MCH 31.9 (25.9-34.0) pg MCHC 33.9 (29.9-35.2) g/dL RDW 12.8 (11.0-15.0) % Plt Count 202 (150-450) 10^3/uL MPV 8.0 L (9.5-13.5) fL Neut % (Auto) 52.4 (43.0-75.0) % Lymph % (Auto) 27.4 (20.5-60.0) % Cache % (Auto) 13.9 H (1.7-12.0) % Eos % (Auto) 5.4 (0.9-7.0) % Baso % (Auto) 0.7 (0.2-2.0) % Neut # (Auto) 2.9 (1.4-6.5) 10^3/uL Lymph # (Auto) 1.5 (1.2-3.8) 10^3/uL Cache # (Auto) 0.8 (0.3-0.8) 10^3/uL Eos # (Auto) 0.3 (0.0-0.7) 10^3/uL Baso # (Auto) 0.0 (0.0-0.1) 10^3/uL Abs Immat Gran (auto) 0.01 (0.00-0.03) 10^3/uL Imm/Tot Granulo (auto) 0.2 (0.0-0.5) % PT 11.0 (9.0-11.6) sec INR 1.04 Sodium 135 L (136-145) mmol/L Potassium 4.1 (3.5-5.1) mmol/L Chloride 100 (98-107) mmol/L Carbon Dioxide 27.8 (21.0-32.0) mmol/L Anion Gap 11.3 BUN 14.0 (7.0-18.0) mg/dL Creatinine 1.35 H (0.70-1.30) mg/dL Est GFR ( Amer) >60 (>=60 mL/min/1.73m^2) Est GFR (Non-Af Amer) 53 L (>=60 mL/min/1.73m^2) BUN/Creatinine Ratio 10.4 Glucose 96 (74-106) mg/dL Calcium 9.1 (8.5-10.1) mg/dL Total Bilirubin 0.5 (0.2-1.0) mg/dL AST 23 (15-37) U/L ALT 46 (16-63) U/L Alkaline Phosphatase 92 (46-116) U/L Troponin I High Sens <4.0 L (4.0-76.1) pg/mL NT-Pro-B Natriuret Pep 242.0 (<=900.0) pg/mL Total Protein 7.9 (6.4-8.2) g/dL Albumin 3.8 (3.4-5.0) g/dL Globulin 4.1 g/dL Albumin/Globulin Ratio 0.9 Imaging Data Chest x-ray: Attestation: I have reviewed the pertinent imaging results. ECG Data Attestation: I personally reviewed and interpreted this ECG as follows: (Normal sinus rhythm at a rate of 75, no acute ST elevation or ectopy. EKG reviewed by attending physician normal sinus rhythm) Discharge Plan Discharge Chief Complaint: Chest Pain Clinical Impression: Cervical sprain, Left shoulder strain Patient Disposition: Home, Self-Care Time of Disposition Decision: 14:52 Condition: Good Prescriptions / Home Meds: New hydrocodone-acetaminophen 5-325 mg tablet 1 tab PO Q6H PRN (Reason: pain) 3 Days Qty: 12 0RF Rx Instructions: M54.2 methylprednisolone [Medrol (Richi)] 4 mg tablets,dose pack See Rx Instructions .ROUTE .COMPLEX Qty: 21 0RF Rx Instructions: Taper as directed methocarbamol 750 mg tablet 750 mg PO TID PRN (Reason: pain) Qty: 20 0RF No Action albuterol sulfate 90 mcg/actuation HFA aerosol inhaler 1 puff INHALATION Q4H PRN (Reason: shortness of breath or wheezing) albuterol sulfate 2.5 mg /3 mL (0.083 %) solution for nebulization 2.5 mg inhalation Q6H PRN (Reason: shortness of breath or wheezing) bupropion HCl 150 mg tablet sustained-release 12 hr 150 mg PO QAM nifedipine 60 mg tablet extended release 60 mg PO DAILY furosemide [Lasix] 40 mg tablet 40 mg PO DAILY Trelegy Ellipta 100-62.5-25 mcg blister with device 1 inh inhalation DAILY nifedipine 60 mg tablet extended release 24hr 60 mg PO DAILY Xarelto 10 mg Tablet 20 mg PO 1700 Qty: 30 11RF Print Language: Cypriot Instructions: Muscle Strain (ED) Referrals: Hetal Ocampo NP [Primary Care Provider] - 1 week Discharge Date/Time: 01/25/25 15:07 Documented by User: Armin Gagnon MD 01/25/25 18:06 HPI HPI - General Adult General Chief complaint: Chest Pain Stated complaint: chest/upper extremity pain Time Seen by Provider: 01/25/25 13:27 Related Data Home Medications ?Medication ?Instructions ?Recorded ?Confirmed albuterol sulfate 2.5 mg/3 mL 2.5 mg inhalation Q6H PRN 03/09/24 01/25/25 (0.083 %) solution for nebulization shortness of breath or wheezing albuterol sulfate 90 mcg/actuation 1 puff inhalation Q4H PRN 03/09/24 01/25/25 aerosol inhaler shortness of breath or wheezing nifedipine 60 mg tablet,extended 60 mg PO DAILY 12/23/24 01/25/25 release 24 hr bupropion HCl 150 mg tablet,12 hr 150 mg PO QAM 01/25/25 01/25/25 sustained-release fluticasone fur. 100 mcg-umeclid 1 inh inhalation DAILY 01/25/25 01/25/25 62.5 mcg-vilant 25 mcg inhalat.powder (Trelegy Ellipta) furosemide 40 mg tablet (Lasix) 40 mg PO DAILY 01/25/25 01/25/25 nifedipine 60 mg tablet,extended 60 mg PO DAILY 01/25/25 01/25/25 release Previous Rx's ?Medication ?Instructions ?Recorded rivaroxaban 10 mg tablet (Xarelto) 20 mg (2 x 10 mg) PO 1700 #30 tabs 12/25/24 hydrocodone 5 mg-acetaminophen 325 1 tab PO Q6H PRN pain 3 days #12 01/25/25 mg tablet tabs methocarbamol 750 mg tablet 750 mg PO TID PRN pain #20 tabs 01/25/25 methylprednisolone 4 mg tablets in See Rx Instructions .Route 01/25/25 a dose pack (Medrol (Richi)) .COMPLEX #21 ea Allergies Allergy/AdvReac Type Severity Reaction Status Date / Time No Known Drug Allergies Allergy Verified 03/09/24 09:52 Opioid HPI Opioid Management Most Recent Opioid Data: Last Pain Scale 7 01/25/25 13:59 01/25/25 Last Pain Intensity 0 12/25/24 09:10 12/25/24 Last MAR Pain Assessment 01/25/25 13:59 Last ORT Total Score 0 12/23/24 19:28 12/23/24 Last ORT Risk Category Low Risk 12/23/24 19:28 12/23/24 PFS PFS Medical History (Updated 01/25/25 @ 14:52 by NICOL Cobian) Near syncope ?R55 - Syncope and collapse (ICD-10) COPD exacerbation ?J44.1 - Chronic obstructive pulmonary disease with (acute) exacerbation (ICD-10) Persistent atrial fibrillation ?I48.19 - Other persistent atrial fibrillation (ICD-10) Hypertension ?I10 - Essential (primary) hypertension (ICD-10) Shortness of breath ?R06.02 - Shortness of breath (ICD-10) Atrial fibrillation, new onset ?I48.91 - Unspecified atrial fibrillation (ICD-10) Family History (Updated 04/02/24 @ 22:05 by Farheen Becerra RN) Mother Family history of hypertension Family history of myocardial infarction Family history of CHF (congestive heart failure) Father Family history of stroke Sister Family history of cancer Social History Within the past year, how often did you have a drink containing alcohol: monthly or less Within the past year, how many standard drinks containing alcohol did you have on a typical day: 1 or 2 Within the past year, how often did you have six or more drinks on one occasion: never Total score: 0 Score interpretation: A score less than 4 is consistent with normal alcohol consumption. Smoking status: Former smoker Non-prescribed substance use: denies use Previous occupational history: retired Highest level of school completed/degree received: high school graduate Are you now , , , , never or living with a partner: In a typical week, how many times do you talk on the telephone with family, friends, or neighbors: 3 or more times per week How often do you get together with friends or relatives: 3 or more times per week How often do you attend restorationism or pentecostalism services: never Little interest or pleasure in doing things: not at all Feeling down, depressed, or hopeless: not at all Feel stressed/tense/nervous/anxious/difficulty sleeping: to some extent Do you think of yourself as: straight/heterosexual Gender Identity: male Exam Constitutional Vital Signs, click to edit/add: Last Vital Signs Temp 98.1 F 01/25/25 13:30 Pulse 70 01/25/25 14:50 Resp 26 H 01/25/25 14:50 BP 136/79 01/25/25 14:00 Pulse Ox 97 01/25/25 14:50 O2 Del Method Room Air 01/25/25 13:30 Course Vital Signs Vital signs: Vital Signs Temperature 98.1 F 01/25/25 13:30 Pulse Rate 84 01/25/25 13:30 Respiratory Rate 18 01/25/25 13:30 Blood Pressure 124/79 01/25/25 13:30 Pulse Oximetry 98 01/25/25 13:30 Oxygen Delivery Method Room Air 01/25/25 13:30 Temperature 98.1 F 01/25/25 13:30 Pulse Rate 70 01/25/25 14:50 Respiratory Rate 26 H 01/25/25 14:50 Blood Pressure 136/79 01/25/25 14:00 Pulse Oximetry 97 01/25/25 14:50 Oxygen Delivery Method Room Air 01/25/25 13:30 Medical Decision Making MDM Narrative Medical decision making narrative: Patient treated with oxycodone, muscle relaxant and steroid in the ER. He is hemodynamically stable. EKG, laboratory studies including troponin are within normal limits. Patient had a negative CT angio of the chest 1 month ago. His symptoms have been ongoing for 1 week. Consistent with musculoskeletal pain in the left neck and shoulder. He was encouraged to rest, ice, gently stretch the area. He will be placed on a short course of analgesics, muscle relaxants and a steroid taper for home. Follow-up with primary care and return to the emergency department if symptoms change or worsen. SUPERVISED APC VISIT, PHYSICIAN ATTESTATION: Based on the medical record the care appears appropriate. I, Dr Gagnon, have reviewed the above progress note and course of action in the ER; agree with the above. I have personally gone over history and physical, and discussed disposition and treatment plan with the PA. Lab Data Labs: Lab Results 01/25/25 Range/Units 13:45 WBC 5.5 (4.0-11.0) 10^3/uL RBC 4.61 L (4.70-6.10) 10^6/uL Hgb 14.7 (14.0-18.0) g/dL Hct 43.3 (42.0-54.0) % MCV 93.9 (80.0-94.0) fL MCH 31.9 (25.9-34.0) pg MCHC 33.9 (29.9-35.2) g/dL RDW 12.8 (11.0-15.0) % Plt Count 202 (150-450) 10^3/uL MPV 8.0 L (9.5-13.5) fL Neut % (Auto) 52.4 (43.0-75.0) % Lymph % (Auto) 27.4 (20.5-60.0) % Cache % (Auto) 13.9 H (1.7-12.0) % Eos % (Auto) 5.4 (0.9-7.0) % Baso % (Auto) 0.7 (0.2-2.0) % Neut # (Auto) 2.9 (1.4-6.5) 10^3/uL Lymph # (Auto) 1.5 (1.2-3.8) 10^3/uL Cache # (Auto) 0.8 (0.3-0.8) 10^3/uL Eos # (Auto) 0.3 (0.0-0.7) 10^3/uL Baso # (Auto) 0.0 (0.0-0.1) 10^3/uL Abs Immat Gran (auto) 0.01 (0.00-0.03) 10^3/uL Imm/Tot Granulo (auto) 0.2 (0.0-0.5) % PT 11.0 (9.0-11.6) sec INR 1.04 Sodium 135 L (136-145) mmol/L Potassium 4.1 (3.5-5.1) mmol/L Chloride 100 (98-107) mmol/L Carbon Dioxide 27.8 (21.0-32.0) mmol/L Anion Gap 11.3 BUN 14.0 (7.0-18.0) mg/dL Creatinine 1.35 H (0.70-1.30) mg/dL Est GFR ( Amer) >60 (>=60 mL/min/1.73m^2) Est GFR (Non-Af Amer) 53 L (>=60 mL/min/1.73m^2) BUN/Creatinine Ratio 10.4 Glucose 96 (74-106) mg/dL Calcium 9.1 (8.5-10.1) mg/dL Total Bilirubin 0.5 (0.2-1.0) mg/dL AST 23 (15-37) U/L ALT 46 (16-63) U/L Alkaline Phosphatase 92 (46-116) U/L Troponin I High Sens <4.0 L (4.0-76.1) pg/mL NT-Pro-B Natriuret Pep 242.0 (<=900.0) pg/mL Total Protein 7.9 (6.4-8.2) g/dL Albumin 3.8 (3.4-5.0) g/dL Globulin 4.1 g/dL Albumin/Globulin Ratio 0.9 Discharge Plan Discharge Chief Complaint: Chest Pain Clinical Impression: Cervical sprain, Left shoulder strain Patient Disposition: Home, Self-Care Time of Disposition Decision: 14:52 Condition: Good Prescriptions / Home Meds: New hydrocodone-acetaminophen 5-325 mg tablet 1 tab PO Q6H PRN (Reason: pain) 3 Days Qty: 12 0RF Rx Instructions: M54.2 methylprednisolone [Medrol (Richi)] 4 mg tablets,dose pack See Rx Instructions .ROUTE .COMPLEX Qty: 21 0RF Rx Instructions: Taper as directed methocarbamol 750 mg tablet 750 mg PO TID PRN (Reason: pain) Qty: 20 0RF No Action albuterol sulfate 90 mcg/actuation HFA aerosol inhaler 1 puff INHALATION Q4H PRN (Reason: shortness of breath or wheezing) albuterol sulfate 2.5 mg /3 mL (0.083 %) solution for nebulization 2.5 mg inhalation Q6H PRN (Reason: shortness of breath or wheezing) bupropion HCl 150 mg tablet sustained-release 12 hr 150 mg PO QAM nifedipine 60 mg tablet extended release 60 mg PO DAILY furosemide [Lasix] 40 mg tablet 40 mg PO DAILY Trelegy Ellipta 100-62.5-25 mcg blister with device 1 inh inhalation DAILY nifedipine 60 mg tablet extended release 24hr 60 mg PO DAILY Xarelto 10 mg Tablet 20 mg PO 1700 Qty: 30 11RF Print Language: Cypriot Instructions: Muscle Strain (ED) Referrals: Hetal Ocampo NP [Primary Care Provider] - 1 week Discharge Date/Time: 01/25/25 15:07
[2025-01-25 13:48] LABS: Basophils Percent Auto 0.7 % (0.2-2.0); Eosinophils Absolute Auto 0.3 10^3/uL (0.0-0.7); Eosinophils Percent Auto 5.4 % (0.9-7.0); Hematocrit 43.3 % (42.0-54.0); Hemoglobin 14.7 g/dL (14.0-18.0); Immature Granulocytes Abs Auto 0.01 10^3/uL (0.00-0.03); Immature Granulocytes Pct Auto 0.2 % (0.0-0.5); Lymphocytes Absolute Auto 1.5 10^3/uL (1.2-3.8); Lymphocytes Percent Auto 27.4 % (20.5-60.0); Mean Corpuscular HGB Conc 33.9 g/dL (29.9-35.2); Mean Corpuscular Hemoglobin 31.9 pg (25.9-34.0); Mean Corpuscular Volume 93.9 fL (80.0-94.0); Monocytes Absolute Auto 0.8 10^3/uL (0.3-0.8); Monocytes Percent Auto 13.9 % (1.7-12.0); Neutrophils Absolute Auto 2.9 10^3/uL (1.4-6.5); Neutrophils Percent Auto 52.4 % (43.0-75.0); Platelet Count 202 10^3/uL (150-450); Red Blood Count 4.61 10^6/uL (4.70-6.10); Red Cell Distribution Width 12.8 % (11.0-15.0); White Blood Count 5.5 10^3/uL (4.0-11.0)
[2025-01-25] MEDS: ORPHENADRINE 60 MG/2 ML VIAL IV (13:59)
[2025-01-25] MEDS: METHYLPREDNISOLONE SOD SUCC PF 125 MG/2 ML VIAL IVP (13:59)
[2025-01-25] MEDS: OXYCODONE HCL/ACETAMINOPHEN 5MG/325MG 1 TAB PO (13:59)
[2025-01-25 14:06] LABS: Alanine Aminotransferase 46 U/L (16-63); Albumin Globulin Ratio 0.9; Albumin Level 3.8 g/dL (3.4-5.0); Alkaline Phosphatase 92 U/L (46-116); Anion Gap 11.3; Aspartate Amino Transferase 23 U/L (15-37); BUN Creatinine Ratio 10.4; Bilirubin Total 0.5 mg/dL (0.2-1.0); Calcium 9.1 mg/dL (8.5-10.1); Carbon Dioxide 27.8 mmol/L (21.0-32.0); Chloride 100 mmol/L (98-107); Estimated GFR (African America >60 (>=60 mL/min/1.73m^2); Estimated GFR (Non-African Ame 53 (>=60 mL/min/1.73m^2); Globulin 4.1 g/dL; Glucose 96 mg/dL (74-106); INR 1.04; Potassium 4.1 mmol/L (3.5-5.1); Sodium 135 mmol/L (136-145); Total Protein 7.9 g/dL (6.4-8.2)
[2025-01-25 14:12] LABS: Troponin I High Sensitivity <4.0 pg/mL (4.0-76.1)
== END 2025-01-25 15:07 | disposition home or self-care (01) ==
PROVIDERS: Physician Assistant; Emergency Provider Emergency Medicine; PCP Nurse Practitioner Family
DX: S13.4XXA Sprain of ligaments of cervical spine, initial encounter (principal); S43.492A Other sprain of left shoulder joint, initial encounter; R07.89 Other chest pain; M54.2 Cervicalgia; M25.512 Pain in left shoulder
CPT/HCPCS: 36415; 71045; 72040; 73030; 80053; 83880; 84484; 85025; 85610; 93005; 96374; 96375; 99285; J2360; J2919

== ENCOUNTER 2025-03-24 12:48 | Outpatient (OUT) | payer MEDICARE, SELFPAY ==
--- OUTSIDE RECORDS SUMMARY | 2024-12-31 04:45 | XMS_ITS ---
Author Organization [facility] Address [address] [facility] [place] [id number] Care Team Providers Care [employer] Chair Name Role Phone Hetal Ocampo Primary Care Provider Caden Ansari [phone] REASON FOR VISIT [facility] f/u 12/23-12/25 COPD-scheduled by Meagan from [facility] Social History Sex Assigned At : Social History Observation Description Sex Assigned At Male Encounters Encounter Location Date Provider Diagnosis Main [address] [place], [place] [id number] 12/31/2024 Caden Ansari Plan Of Treatment Next Appt Details Provider Name:Hetal jimenez, 04/15/2025 03:15:00 PM, [address] [place], [place], [id number], Progress Notes * Chang BALTAZARDOB: [birth year] (64 yo M)Acc No.[id number]:12/31/2024 Medical Note Patient: Chang MCCLOUD Provider: Skyler Ansari :1960 A ge:64 Y S ex:Male Date:12/31/2024 [facility] [id number] Pcp:Hetal Ocampo Subjective: * Chief Complaints: * 1 . [facility] f/u 12/23-12/25 COPD-scheduled by Meagan from [facility]. * Medical History: Objective: * Vitals: Assessment: Plan: * Treatment: * Billing Information: * Visit Code: * Procedure Codes: * Electronic signature of Nicho in NICOL Ansari on 03/24/2025 at 12:50 PM EDT Sign off status: Pending * Provider: Skyler Ansari Date: 0 12/31/2024 Generated for Suleman dougherty/Dariela/Tashi on: 0 03/24/2025 12:50 PM EDT
--- OUTSIDE RECORDS SUMMARY | 2025-03-02 09:33 | XMS_ITS ---
Author Organization [facility] in [place] Address [address] [place] [address] Care Team Providers Care Ecological Modeler Name Role Phone Terrence MONAE, Hetal Primary Care Provider Un available Lang Miller Unavailable [phone] REASON FOR VISIT [facility] Encounters Encounter Location Date Provider Diagnosis Pulmonary Medicine [place] [address] [place] [address] 03/02/2025 Langrosario Duncan Plan Of Treatment Next Appt Details Provider Name:Lang Miller, 05/18/2025 02:30:00 PM, [address] [place], [address], Progress Notes * Chang BALTAZAR SDOB:[birth year] (64 yo M)Acc No.[id number]:03/02/2025 Patient: Christine Chang CLEMENT :1960 A ge:64 Y S ex:Male Address:[address] [place], [place] [address], [address] * true * Date: Generated for Printi ng/Faxing/eTransmitting on: 0 03/24/2025 12:50 PM EDT
--- OUTSIDE RECORDS SUMMARY | 2025-03-10 06:03 | XMS_ITS ---
Author Organization [facility] [place] Address [address] [place] [address] Care Team Providers Care News Producer Name Role Phone Terrence MONAE, Hetal Primary Care Provider Un available Lang Miller Unavailable [phone] REASON FOR VISIT [facility] Encounters Encounter Location Date Provider Diagnosis Pulmonary Medicine [place] [address] [place] [address] 03/10/2025 Langrosario Duncan Plan Of Treatment Next Appt Details Provider Name:Lang Miller, 05/18/2025 02:30:00 PM, [address] [place], [address], Progress Notes * Chang BALTAZAR SDOB:[birth year] (64 yo M)Acc No.[id number]:03/10/2025 Patient: Christine Chang CLEMENT :1960 A ge:64 Y S ex:Male Address:[address] [place] [address], [address] * true * Date: Generated for Printi ng/Faxing/eTransmitting on: 0 03/24/2025 12:50 PM EDT
--- OUTSIDE RECORDS SUMMARY | 2025-03-10 10:30 | XMS_ITS ---
Author Organization [facility] Address [address] [place] [address] Care Team Providers Care Carbider Name Role Phone Terrence MONAE, Hetal Primary Care Provider Un available Lang Miller Unavailable [phone] Allergies No Known Allergies REASON FOR VISIT DUPIXENT INJECTION/NURSE Medications Medication SIG (Take, Route, Frequency, Duration) Notes Start Date End Date Status Cetirizine HCl 10 MG take 1 tablet by mouth once daily Oral for 90 Days Active NIFEdipine ER 60 MG TAKE 1 TABLET BY MOUTH DAILY ON AN EMPTY STOMACH Oral for 90 Days Active Trelegy Ellipta 200-62.5-25 MCG/ACT 1 puff Inhalation Once a day for 90 days Rinse after use Dispense #3 inhalers 07/15/2024 Active Xarelto 20 MG 1 tablet with food Orally Once a day Active Dupixent 300 MG/2ML Subcutaneous for 56 Days Active Albuterol Sulfate (2.5 MG/3ML) 0.083% INHALE CONTENTS OF 1 VIAL VIA NEBULIZER EVERY 8 HOURS NEEDED Inhalation for 8 Days Active Albuterol Sulfate HFA 108 (90 Base) MCG/ACT INHALE 2 PUFFS BY MOUTH INTO THE LUNGS EVERY 4-6 HOURS NEEDED Inhalation for 16 Days Active Vital Signs Weight 219.4 lbs 03/10/2025 Height 69 in 03/10/2025 Blood pressure systolic 123 mm Hg 03/10/20 25 Blood pressure diastolic 87 mm Hg 025 Temperature 96.8 degrees Fahrenheit 03/10/20 25 Heart Rate 90 /min 03/10/2025 Respiratory Rate 18 /min 03/10/2025 BMI 32.4 kg/m2 03/10/2025 Oximetry 96 % 03/10/2025 Pre & Post Injection Encounters Encounter Location Date Provider Diagnosis [facility] [place] [address] [place] [address] 03/10/2025 Lang Miller Centrilobular emphys julio J43.2 Assessments Encounter Date Diagnosis (ICD Code) Assessment Notes Treatment Notes Treatment Clinical Notes Section Notes 03/10/2025 Centrilobular emphysema (ICD-10 - J43.2) Vitals obtained. Patient requesting Dupixent to be given in the Right upper arm subcutaneously. Area was cleaned with Alcohol and allowed enough time to dry. The skin was pinched between the thumb and index finger (around an inch and a half apart) and held in that position until the medication was fully administered from the auto-injector. Patient was given one Dupixent 300mg/2mL Prefilled Pen SQ right upper arm. Band-aid was placed on the patient's arm. Patient tolerated the procedure without difficulty. Patient was held for the appropriate time. No adverse reactions were noted. Post Injection Vitals taken. [facility]:7844-2571-0 0. Lot#[id number]. Exp:2026-11-20. Patient was advised to self administer Dupixent in 2 weeks at home. Brian Jordan CMA. Plan Of Treatment Next Appt Details Provider Name:Lang Miller, 05/18/2025 02:30:00 PM, [address] [place], [address], Medications Administered Medication Instructions Date of Administration Dosage Notes Dupixent 03/10/2025 300 mg Patient rand t the medication with him to the appt. Progress Notes * Chang BALTAZAR SDOB:[birth year] (64 yo M)Acc No.[id number]:03/10/2025 Nurse Visit Patient: Christine MAGDIELFIDELINA Chang hCristine Provider: Yulia Miller DO :1960 A ge:64 Y S ex:Male Date:03/10/2025 Address:[address] [place], [place] [address] Pcp:Hetal Ocampo NP Check In:02:29 PM ESTCheck O ut:03:12 PM EST Subjective: * Chief Complaints: * D UPIXENT INJECTION/NURSE * HPI: G eneral: Patient presents for his Initial Dupixent Injection. Patient's spouse is present for the appointment.Patient brought the medication with him to the appointment. [facility] Patient was provided Education regarding Dupixent. Demonstration Autoinjector was used while providing the Education. All questions and concerns answered with patient and spouse. Patient elected to proceed with the Dupixent Injection. * Active Problem List J43.2 Centrilobular emphys julio Modified On:05/05/2024 Status:confirmed I48.91 Atrial fibrillation Modified On:05/05/2024 Status:confirmed Z87.891 History of tobacco a buse Modified On:05/05/2024 Status:confirmed I27.29 Other secondary pulm onary hypertension Modified On:05/05/2024 Status:confirmed D72.19 Peripheral eosinophi jacek Modified On:05/05/2024 Status:confirmed Z79.51 director long term care (current) use of inhaled steroids Modified On:07/15/2024 Status:confirmed J44.1 Chronic obstructive pulmonary disease with (acute) exacerbation Modified On:12/25/2024 Status:confirmed D72.19 Other eosinophilia Modified On:12/25/2024 Status:confirmed I48.91 Atrial fibrillation with rapid ventricular response Modified On:01/04/2025 Status:confirmed * Medical History: * Surgical History: C ardioversion 05/25/2024 * Hospitalization/Major Diagno stic Procedure: S [facility] 01/27/2024FIB/COPD Exacerbation-[facility] 03/09/2024OPD Exacerbation-[facility] 04/02/2024OPD Exacerbation-[facility] 12/23/2024 * Medications: T akingAlbuterol Sulfate (2.5 MG/3ML) 0.083% Nebulization Solution INHALE CONTENTS OF 1 VIAL VIA NEBULIZER EVERY 8 HOURS NEEDED Inhalation Albuterol Sulfate HFA 108 (90 Base) MCG/ACT Aerosol Solution INHALE 2 PUFFS BY MOUTH INTO THE LUNGS EVERY 4-6 HOURS NEEDED Inhalation Cetirizine HCl 10 MG Tablet take 1 tablet by mouth once daily Oral Dupixent(Dupilumab) 300 MG/2ML Solution Auto-injector Subcutaneous NIFEdipine ER 60 MG Tablet Extended Release 24 Hour TAKE 1 TABLET BY MOUTH DAILY ON AN EMPTY STOMACH Oral Trelegy Ellipta(Ipmmcvuwbwe-Ebugdnrpk-Dzozrm) 200-62.5-25 MCG/ACT Aerosol Powder Breath Activated 1 puff Inhalation Once a day Rinse after use, Notes to Pharmacist: Dispense #3 inhalersXarelto(Rivaroxaban) 20 MG Tablet 1 tablet with food Orally Once a day Medication List reviewed and reconciled with the patientTaking Albuterol Sulfate (2.5 MG/3ML) 0.083% Nebulization Solution INHALE CONTENTS OF 1 VIAL VIA NEBULIZER EVERY 8 HOURS NEEDED Inhalation Taking Albuterol Sulfate HFA 108 (90 Base) MCG/ACT Aerosol Solution INHALE 2 PUFFS BY MOUTH INTO THE LUNGS EVERY 4-6 HOURS NEEDED Inhalation Taking Cetirizine HCl 10 MG Tablet take 1 tablet by mouth once daily Oral Taking Dupixent(Dupilumab) 300 MG/2ML Solution Auto-injector Subcutaneous Taking NIFEdipine ER 60 MG Tablet Extended Release 24 Hour TAKE 1 TABLET BY MOUTH DAILY ON AN EMPTY STOMACH Oral Taking Trelegy Ellipta(Wansuntsxfo-Okfyuzpra-Slyjgn) 200-62.5-25 MCG/ACT Aerosol Powder Breath Activated 1 puff Inhalation Once a day Rinse after use, Notes to Pharmacist: Dispense #3 inhalersTaking Xarelto(Rivaroxaban) 20 MG Tablet 1 tablet with food Orally Once a day Medication List reviewed and reconciled with the patient * Allergies: N .K.D.A.no[Allergies Verified] Objective: * Vitals: W t:219.4lbs, Ht: 69 in, BP: sittin/84 mm Hg,repeat:123/87mm Hg, Temp:Forehead:96.8F, HR: 88 /min,90/min, RR: 18 /min,18/min, BMI:32.4Index, Oxygen sat %: Room Air:95 %,Room Air:96%, Ht-cm: 175.26 cm, Wt-k.52 kg. Pre & Post Injection. Assessment: * Assessment: 1. C entrilobular emphysema - J43.2 (Primary) Vitals obtained. Patient req uesting Dupixent to be given in the Right upper arm subcutaneously. Area was cleaned with Alcohol and allowed enough time to dry. The skin was pinched between the thumb and index finger (around an inch and a half apart) and held in that position until the medication was fully administered from the auto-injector. Patient was given one Dupixent 300mg/2mL Prefilled Pen SQ right upper arm. Band-aid was placed on the patient's arm. Patient tolerated the procedure without difficulty. Patient was held for the appropriate time. No adverse reactions were noted. Post Injection Vitals taken. [facility]:2054-7429-24. Lot#[id number]. Exp:2026-11-20. Patient was advised to self administer Dupixent in 2 weeks at home. Brian Jordan CMA. Plan: * Treatment: * Therapeutic Injections: Dupixent : 300 mg (Dose No:1) (Route: Subcutaneous) given by SALVADOR Sosa on right arm subcutaneous (Centrilobular emphysema) * Procedure Codes: J 3490 UNCLASSIFIED [id number] INJ. CHEMO, NON-HORMONAL * * Sign off status: Completed Visit Status: C HK (Check Out) true * Provider: Yulia Miller DO Date: 0 03/10/2025 Generated for Suleman dougherty/Dariela/Williamitting on: 0 03/24/2025 12:50 PM EDT History and Physical Notes * HPI (History of Present Illness) Category Sub-Category Detail Notes Category Not es General Patient present s for his Initial Dupixent Injection. Patient's spouse is present for the appointment.Patient brought the medication with him to the appointment. [facility]. Patient was provided Education regarding Dupixent. Demonstration Autoinjector was used while providing the Education. All questions and concerns answered with patient and spouse. Patient elected to proceed with the Dupixent Injection.
--- NOTE | 2025-03-24 12:50 | CT_ITS ---
The [address] [address] Patient Name: PAIGE BALTAZAR MRN: [id number] date: 1960 Sex: M Assigned Patient Location: CT Current Patient Location: CT Accession/Order Number: [id number] Exam Date: 03/24/2025 13:19 Report Date: 03/24/2025 13:35 At the request of: ROSA CHIU DO Procedure: CT lung screening low-dose LOW-DOSE SCREENING CHEST CT WITHOUT CONTRAST COMPARISON: 12/23/2024 CLINICAL DATA: Former smoker with 45 year history of tobacco use. Spiral axial unenhanced low-dose images were obtained through the chest. Images were reviewed using both narrow and wide window settings. This CT exam was performed using one or more following dose reduction techniques: Automated exposure control, adjustment of the mA and/or kV according to patient size, or use of iterative reconstruction technique. The heart is within normal limits for size. No pericardial effusion is visualized. There is mild dilatation ascending aorta with diameter approximately 4.2 cm. This is similar. There are few tiny nonpathologic lymph nodes. There is mild dextroscoliotic curvature as well as endplate spurring at the spine. There is obstructive lung disease with airspace lucencies. There is a new small irregular opacity in the left suprahilar region. The at the inferior lateral left lower lobe there is also a developing opacity which appears more nodular in the axial plane though elongates on the reconstructed images. These findings may be infectious or inflammatory. Linear scarring or atelectasis again noted at the lateral right lower lobe. There is no additional consolidation, pleural effusion or pneumothorax. No developing pulmonary nodularity is seen. Limited cuts through the upper abdomen show no contributory findings. CT/CT lung screening low-dose IMPRESSION: OBSTRUCTIVE LUNG DISEASE. DEVELOPING LEFT UPPER LOBE PULMONARY OPACITY SINCE THE STUDY OF 3 MONTHS AGO. AN INFECTIOUS OR INFLAMMATORY ETIOLOGY IS FAVORED. NO OTHER DEVELOPING PULMONARY NODULARITY. Lung RADS category 1S - negative for pulmonary nodules however developing left upper lobe parenchymal changes Clinical correlation is suggested and short interval CT follow-up of the left upper lobe findings could be considered following therapy. Impression dictated by: Norma Lucero M.D. 03/24/2025 1:35 PM Dictation Location: [place] [address] Electronically authenticated by: [id number] Y Date: 03/24/2025 13:35
--- OUTSIDE RECORDS SUMMARY | 2025-03-24 12:51 | XMS_ITS | Clinical Summary ---
Author Organization [employer] tem Address [id number] [address] [place] [address] Care Team Providers Care Social Work Professor Name Role Phone Jori Lala PA-C Primary Care Provider [phone] Allergies No known active allergies Medications NIFEdipine CC (ADALAT CC) 60 MG 24 hr tablet Take 1 tablet (60 mg total) by mouth in the morning. Active albuterol (PROVENTIL,VENT REKHA) 2.5 mg /3 mL (0.083 %) nebulizer solutionIndicat ions:Hypoxia Inhale 3 mL (2.5 mg total) by nebulization every 6 (six) hours as needed for wheezing. 75 mL Active Active Problems Problem Noted Date Diagnosed Date Shortness of breath 01/27/2024 Hypoxia 01/27/2024 Smoker 01/27/2024 Social History Tobacco Use Types Packs/Day Years Used Date Smoking Tobacco: Every Day Cigarettes Smokeless Tobacco: Current Tobacco Cessation:Ready to Q uit: Yes; Counseling Given: Yes [facility] Utilities Answer Date Recorded In the past 12 months has [employer], oil, or water [employer] threatened to shut off services in your home? No 01/27/2024 Social Connection and Isolation Panel [NHANES] A nswer Date Recorded In a typical week, how many times do you talk on the phone with family, friends, or neighbors? Twice a week 01/27/20 How often do you get togethe r with friends or relatives? Twice a week 01/27/2024 How often do you attend [facility] or [facility] services? 1 to 4 times per year 01/27/2024 Do you belong to any clubs o r organizations such as advent groups, unions, fraternal or athletic groups, or school groups? No 01/27/2024 How often do you attend meet ings of the clubs or organizations you belong to? Never 01/27/2024 Are you , , di vorced, , never , or living with a partner? 01/27/2024 AUDIT-C Answer Date Recorded Q1: How often do you have a drink containing alcohol? 4 or more times a week 01/27/2024 Q2: How many drinks containi ng alcohol do you have on a typical day when you are drinking? 1 or 2 Q3: How often do you have si x or more drinks on one occasion? Never 01/27/2024 Overall Financial Resource Strain (CARDIA) Answe r Date Recorded How hard is it for you to pa y for the very basics like food, housing, medical care, and heating? Not hard at all 01/27/2024 PHQ-2 Answer Date Recorded Total Score 0 01/27/2024 [facility] - Occupational Stress Questionnaire Answer Date Recorded Do you feel stress - tense, restless, nervous, or anxious, or unable to sleep at night because your mind is troubled all the time - these days? Only a little 01/27/2024 Exercise Vital Sign Answer Date Recorde d On average, how many days pe r week do you engage in moderate to strenuous exercise (like a brisk walk)? 2 days 01/27/2024 On average, how many minutes do you engage in exercise at this level? 20 min 01/27/2024 PRAPARE - Transportation Answer Date Re corded In the past 12 months, has l ack of transportation kept you from medical appointments or from getting medications? No 05/2024 In the past 12 months, has l ack of transportation kept you from meetings, work, or from getting things needed for daily living? No 01/27/2024 Housing Instability Answer Date Recorde d Are you worried or concerned that in the next two months you may not have stable housing that you own, rent or stay in as a part of a household? No 01/27/2024 Childcare Answer Date Recorded Do problems getting child ca re make it difficult for you to work or study? No 01/27/2024 Employment Answer Date Recorded Do you need help finding a [facility] career [facility] and/or a training program? No 01/27/2024 Hunger Screening Answer Date Recorded Within the past 12 months we worried whether our food would run out before we got money to buy more. Never True 01/27/2024 Within the past 12 months th e food we bought just didn't last and we didn't have money to get more. Never True 01/27/2024 Purpose - Life Answer Date Recorded I have a purpose and direction in my life. Agree 01/27/2024 Sex and Gender Information Value Date Recorded Sex Assigned at Not on file Legal Sex Male 11:39 AM EDT Gender Identity Not on file Sexual Orientation Not on file Last Filed Vital Signs Vital Sign Reading Time Taken Comments Blood Pressure 128/75 01/27/2024 12:05 PM EDT Pulse 81 01/27/2024 12:05 PM EDT Temperature 36.9 C (98.4 F) 01/27/2024 12:08 AM EDT Respiratory Rate 18 01/27/2024 12:05 PM EDT Oxygen Saturation 96% 01/27/2024 12:05 PM EDT Inhaled Oxygen Concentration - - Weight 86.2 kg (190 lb) 01/27/2024 12:08 AM EDT Height 177.8 cm (5' 10 ) 01/27/2024 12:08 AM EDT Body Mass Index 27.26 01/27/2024 12:08 AM EDT Plan of Treatment Health Maintenance Due Date Last Done Comments Tobacco Screening 1970 DTaP,Tdap and Td Vaccines (1 - Tdap) 1977 Zoster (Shingles) Vaccine (1 of 2) 2008 Fall Risk Screening 2023 COVID-19 Vaccine ( season) 2024, 01/09/2021 Adult BMI Screening 01/26/2025 01/27/2024 Depression Screening 01/26/2025 01/27/2024 Influenza Vaccine 06/21/2025 08/06/2023 Medical Devices Not on file Insurance MEDICARE [employer] Care Teams Social Work Professor Relationship Specialty Start Date End Date Jori Lala PA-C PCP - General Physician Pearl Hand 02/15/23
--- OUTSIDE RECORDS SUMMARY | 2025-03-24 12:51 | XMS_ITS | Patient Health Record ---
Author Organization [facility] Address [address] [place], [place] [id number] Care Team Providers [employer] Name Role Phone Hetal Ocampo Primary Care Provider Dai Jori Unavailable [phone] Malathi Anders Unavailable [phone] Lucero Barnhart Unavailable [phone] Caden Ansari Unavailable [phone] Allergies No Known Allergies Results Component Value Reference Range Notes Basic Metabolic Panel Reviewed date:12/31/2024 03:06:17 PM Interpretation: Performing Lab: Notes/Report: , [facility] Sodium 140 136-145 mmol/L Potassium 4.2 3.5-5.1 mmol/L Chloride 102 98-107 mmol/L Carbon Dioxide 29.8 21.0-32.0 mmol/L Anion Gap 12.4 Glucose 113 74-106 mg/dL Blood Urea Nitrogen 17.0 7.0-18.0 mg/dL Creatinine 1.30 0.70-1.30 mg/dL Estimated GFR ( Mercedes >60 >=60 mL/min/1.73m 2 Estimated GFR (Non- Alice 55 >=60 mL/min/1.73m 2 BUN Creatinine Ratio 13.1 Calcium 9.3 8.5-10.1 mg/dL Performing Lab: see note ML - [facility] LB NT Pro B Type Natriuretic Pe pt Reviewed date:12/31/2024 03:06:10 PM Interpretation: Performing Lab: Notes/Report: [facility] , NT Pro B Type Natriuretic Pept 441.0 <=900.0 pg/mL Performing Lab: see note ML - [facility] [place] Prothrombin Time INR Reviewed date:01/26/2025 09:05:10 AM Interpretation: Performing Lab: Notes/Report: , [facility] Prothrombin Time 11.0 9.0-11.6 sec INR 1.04 DESIRED INR: 2.0-3.0 CONDITIONS NOT LISTED BELOW 2.5-3.5 FOR PROSTHETIC HEART VALVE REPLACEMENT 2.5-3.5 RECURRENT THROMBOSIS Performing Lab: see note ML - [facility] Troponin I High Sensitivity Reviewed date:01/26/2025 09:05:00 AM Interpretation: Performing Lab: Notes/Report: , [facility] Troponin I High Sensitivity <4.0 4.0-76.1 pg/mL CUT-OFF POINTS HAVE BEEN ESTABLISHED BASED ON THE FOURTH UNIVERSAL DEFINITION OF MYOCARDIAL INFARCTION. THE UPPER REFERENCE LIMIT (URL) OF TROPONIN, DEFINED THE 99TH PERCENTILE OF cTnI DISTRIBUTION IN A REFERENCE POPULATION, HAS BEEN CONFIRMED THE DECISION THRESHOLD FOR MO DIAGNOSIS. 99TH PERCENTILE = 76.2 PG/ML NOTE: HIGH-SENSITIVITY TROPONIN ASSAY IS NOT INTENDED TO BE USED IN ISOLATION BUT SHOULD BE INTERPRETED IN CONJUNCTION WITH OTHER DIAGNOSTIC AND CLINICAL INFORMATION. Performing Lab: see note ML - [facility] Comprehensive Metabolic Pane l Reviewed date:01/26/2025 09:05:05 AM Interpretation: Performing Lab: Notes/Report: [facility] , Sodium 135 136-145 mmol/L Potassium 4.1 3.5-5.1 mmol/L Chloride 100 98-107 mmol/L Carbon Dioxide 27.8 21.0-32.0 mmol/L Anion Gap 11.3 Glucose 96 74-106 mg/dL Blood Urea Nitrogen 14.0 7.0-18.0 mg/dL Creatinine 1.35 0.70-1.30 mg/dL Estimated GFR ( Mercedes >60 >=60 mL/min/1.73m 2 Estimated GFR (Non- Alice 53 >=60 mL/min/1.73m 2 BUN Creatinine Ratio 10.4 Calcium 9.1 8.5-10.1 mg/dL Bilirubin Total 0.5 0.2-1.0 mg/dL Aspartate Amino Transferase 23 15-37 U/L Alanine Aminotransferase 46 16-63 U/L Alkaline Phosphatase 92 46-116 U/L Total Protein 7.9 6.4-8.2 g/dL Albumin Level 3.8 3.4-5.0 g/dL Globulin 4.1 Albumin Globulin Ratio 0.9 Performing Lab: see note ML - [facility] LB Complete Blood Count Auto Di ff Reviewed date:01/26/2025 09:05:14 AM Interpretation: Performing Lab: Notes/Report: , [facility] White Blood Count 5.5 4.0-11.0 10 3/uL Red Blood Count 4.61 4.70-6.10 10 6/uL Hemoglobin 14.7 14.0-18.0 g/dL Hematocrit 43.3 42.0-54.0 % Mean Corpuscular Volume 93.9 80.0-94.0 fL Mean Corpuscular Hemoglobin 31.9 25.9-34.0 pg Mean Corpuscular HGB Conc 33.9 29.9-35.2 g/dL Red Cell Distribution Width 12.8 11.0-15.0 % Platelet Count 202 150-450 10 3/uL Mean Platelet Volume 8.0 9.5-13.5 fL Neutrophils Percent Auto 52.4 43.0-75.0 % Lymphocytes Percent Auto 27.4 20.5-60.0 % Monocytes Percent Auto 13.9 1.7-12.0 % Eosinophils Percent Auto 5.4 0.9-7.0 % Basophils Percent Auto 0.7 0.2-2.0 % Immature Granulocytes Pct Auto 0.2 0.0-0.5 % Neutrophils Absolute Auto 2.9 1.4-6.5 10 3/uL Lymphocytes Absolute Auto 1.5 1.2-3.8 10 3/uL Monocytes Absolute Auto 0.8 0.3-0.8 10 3/uL Eosinophils Absolute Auto 0.3 0.0-0.7 10 3/uL Basophils Absolute Auto 0.0 0.0-0.1 10 3/uL Immature Granulocytes Abs Auto 0.01 0.00-0.03 10 3/uL Performing Lab: see note ML - [facility] LB NT Pro B Type Natriuretic Pe pt Reviewed date:01/26/2025 09:04:57 AM Interpretation: Performing Lab: Notes/Report: [facility] , NT Pro B Type Natriuretic Pept 242.0 <=900.0 pg/mL Performing Lab: see note ML - [facility] LB Arterial Blood Gas Reviewed date:12/24/2024 07:45:47 AM Interpretation: Performing Lab: Notes/Report: , [facility] pH ABG 7.418 7.350-7.450 ABG PCO2 40.2 35.0-45.0 mmHg PO2 ABG 77.5 80.0-100.0 mmHg HCO3 ABG 25.9 22.0-26.0 mmol/L Base Excess ABG 1.4 -2.0-2.0 mmol/L Oxygen Saturation ABG 96.7 Uche Test POSITIVE POSITIVE O2 Mode NASAL CANNULA Liters per Minute 2 Puncture Site RR Performing Lab: see note ML - [facility] LB Lactate/Lactic Acid Reviewed date:12/24/2024 07:46:02 AM Interpretation: Performing Lab: Notes/Report: , [facility] Lactate/Lactic Acid 1.4 0.4-2.0 mmol/L Performing Lab: see note ML - [facility] Magnesium Reviewed date:12/24/2024 07:45:56 AM Interpretation: Performing Lab: Notes/Report: , [facility] Magnesium 1.9 1.8-2.4 mg/dL Performing Lab: see note ML - [facility] LB ECG 12 lead Reviewed date:12/24/2024 07:46:07 AM Interpretation: Performing Lab: Notes/Report: Source Facility: [facility]-[address] [place] [address] [place] [address] Electrocardiograph Report Signed Patient: PAIGE BALTAZAR MR#: [id number] : 1960 Acct:[id number] Age/Sex: 64 / M ADM Date: 12/23/24 Loc: MS 218-[address]: [place] Talley M.D. Ordering Physician: Trisha Ortega D.O. 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 Measurements Intervals [place] Rate: 79 P: 90 PA: 142 QRS: 63 QRSD: 82 T: 53 QT: 366 QTc: 400 Interpretive Statements 1100 Sinus rhythm 3433 Septal myocardial infarction, probably old 9150 abnormal ECG Compared to ECG 04/02/2024 17:48:07 Atrial fibrillation no longer present Electronically Signed On 12-24-2024 6:29:52 EST by DYLAN BERNSTEIN M.D. Dictated By: DYLAN BERNSTEIN Signed By: 12/24/2429 DD/ 1224 TD/TT: [facility]: Basic Metabolic Panel Reviewed date:12/24/2024 07:45:41 AM Interpretation: Performing Lab: Notes/Report: , [facility] Sodium 137 136-145 mmol/L Potassium 4.3 3.5-5.1 mmol/L Chloride 103 98-107 mmol/L Carbon Dioxide 24.8 21.0-32.0 mmol/L Anion Gap 13.5 Glucose 218 74-106 mg/dL Blood Urea Nitrogen 22.0 7.0-18.0 mg/dL Creatinine 1.37 0.70-1.30 mg/dL Estimated GFR ( Mercedes >60 >=60 mL/min/1.73m 2 Estimated GFR (Non- Alice 52 >=60 mL/min/1.73m 2 BUN Creatinine Ratio 16.1 Calcium 9.0 8.5-10.1 mg/dL Performing Lab: see note ML - [facility] LB NT Pro B Type Natriuretic Pe pt Reviewed date:12/24/2024 07:45:22 AM Interpretation: Performing Lab: Notes/Report: [facility] , NT Pro B Type Natriuretic Pept 204.0 <=900.0 pg/mL Performing Lab: see note ML - [facility] LB Complete Blood Count Auto Di ff Reviewed date:12/24/2024 07:45:30 AM Interpretation: Performing Lab: Notes/Report: [facility] , White Blood Count 4.6 4.0-11.0 10 3/uL Red Blood Count 4.12 4.70-6.10 10 6/uL Hemoglobin 13.2 14.0-18.0 g/dL Hematocrit 39.6 42.0-54.0 % Mean Corpuscular Volume 96.1 80.0-94.0 fL Mean Corpuscular Hemoglobin 32.0 25.9-34.0 pg Mean Corpuscular HGB Conc 33.3 29.9-35.2 g/dL Red Cell Distribution Width 12.5 11.0-15.0 % Platelet Count 233 150-450 10 3/uL Mean Platelet Volume 8.4 9.5-13.5 fL Performing Lab: see note ML - [facility] Manual Differential Reviewed date:12/24/2024 07:45:17 AM Interpretation: Performing Lab: Notes/Report: [facility] , Segmented Neutrophils % Manual 87.0 43.0-75.0 Lymphocytes Percent Manual 11.0 20.5-60.0 % Monocytes Percent Manual 2.0 1.7-12.0 % Eosinophils Percent Manual 0.0 0.9-7.0 % Basophils Percent Manual 0.0 0.2-2.0 % Segmented Neut Absolute Manual 4.00 1.4-6.5 10 3/uL Lymphocytes Absolute Manual 0.50 1.20-3.80 10 3/uL Monocytes Absolute Manual 0.09 0.30-0.80 10 3/ uL Eosinophils Absolute Manual 0.00 0.00-0.70 10 3/uL Basophils Abs Manual 0.00 0.00-0.10 10 3/uL Performing Lab: see note - [facility] Troponin I High Sensitivity Reviewed date:12/24/2024 07:45:26 AM Interpretation: Performing Lab: Notes/Report: [facility] , Troponin I High Sensitivity 5.1 4.0-76.1 pg/mL CUT-OFF POINTS HAVE BEEN ESTABLISHED BASED ON THE FOURTH UNIVERSAL DEFINITION OF MYOCARDIAL INFARCTION. THE UPPER REFERENCE LIMIT (URL) OF TROPONIN, DEFINED THE 99TH PERCENTILE OF cTnI DISTRIBUTION IN A REFERENCE POPULATION, HAS BEEN CONFIRMED THE DECISION THRESHOLD FOR MO DIAGNOSIS. 99TH PERCENTILE = 76.2 PG/ML NOTE: HIGH-SENSITIVITY TROPONIN ASSAY IS NOT INTENDED TO BE USED IN ISOLATION BUT SHOULD BE INTERPRETED IN CONJUNCTION WITH OTHER DIAGNOSTIC AND CLINICAL INFORMATION. Performing Lab: see note - [facility] CA echo doppler complete Reviewed date:01/19/2025 06:42:18 AM Interpretation: Performing Lab: Notes/Report: Source Facility: [facility]-[address] [place] [address] [address] Cardiology Report Signed Patient: PAIGE BALTAZAR MR#: [id number] : 1960 Acct:[id number] Age/Sex: 64 / M ADM Date: 01/18/25 Loc: CARD Attending Dr: HELDER CALDERON APRN Ordering Physician: HELDER CALDERON APRN Date of Service: 01/18/25 Procedure(s): CA echo doppler complete Accession Number(s): [id number] cc: Hetal Ocampo NP; HELDER CADLERON APRN Patient Name: PAIGE BALTAZAR MR#: [id number] : 1960 Exam Date: 01/18/2025 Ordering 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 DESCRIPTION: COMPLETE ECHOCARDIOGRAM Real-time transthoracic echocardiography with 2D, M-mode, spectral and color flow Doppler performed. QUALITY: Technical quality was good. LEFT VENTRICLE: Normal chamber size. Mild concentric left ventricular hypertrophy. Normal systolic function. LV EF: Normal left ventricular ejection fraction, (>55%). DIASTOLIC: Diastolic function is indeterminate. ATRIAL SEPTUM: Visually appears intact. LEFT ATRIUM: Mild dilatation. RIGHT ATRIUM: Mild dilatation. RIGHT VENTRICLE: Normal chamber size. Normal right ventricular systolic function. TRICUSPID VALVE: Normal mobility and thickness. No stenosis with trivial regurgitation. Doppler studies reveal mildly (35-45) elevated right sided pressures. RVSP 36 mmHg MITRAL VALVE: Normal mobility and thickness. No evidence of mitral valve stenosis. There is no mitral annular calcification. No mitral regurgitation. AORTIC VALVE: Normal trileaflet appearance. No visible sclerosis. Normal leaflet mobility. No evidence of aortic valve stenosis. Mild aortic regurgitation. AORTIC ROOT: Normal diameter and appearance, measuring 3.8 cm. Ascending aorta is dilated (4.1 cm). PULMONIC VALVE: Normal thickness and mobility. No stenosis. No regurgitation. PERICARDIUM: No evidence of pericardial effusion. IVC: Collapses with inspirations. PLEURA: CONCLUSION: 1. Mild concentric left ventricular hypertrophy with normal systolic function. LVEF is estimated at 60 to 65%. 2. Normal right ventricular size and systolic function. 3. Mild biatrial dilatation. 4. No significant valvular dysfunction. 5. Mildly elevated right-sided pressures. 6. Mildly dilated ascending aorta measuring 4.1 cm. 7. No pericardial effusion. Adult Echocardiography Procedure Report Left Ventricle LVEDD (3.7 - 5.6 cm): 4.57 cm LVESD (2.2 - 4.0 cm): 3.14 cm LVIVS thickness (0.6 - 1.2 cm): 1.15 cm LVPW thickness (0.5 - 1.0 cm): 1.23 cm e': 0.13 m/s E - e': 4.67 LVOT Max Gradient: 2.61 mm[Hg] LVOT Area (cm2): 0.81 m/s Peak Velocity (LVOT): 0.81 m/s Mean Velocity (LVOT): 0.53 m/s LVOT Diameter 2.30 cm Left Atrium LA Volume Index (2D A2C): 28.72 ml/m2 Left Atrium Systolic Dimension: 4.50 cm Mitral Valve MV E to A Ratio: 0.96 Mitral Valve A-Wave Peak Velocity: 0.65 m/s Mitral Valve E-Wave Peak Velocity: 0.62 m/s Right Ventricle Aorta AO Root Diam: 3.77 cm Ascending Ao Diam: 3.83 cm Aortic Valve AoV Area (Peak Sukumar): 3.20 cm2, 3.20 cm2 AoV Area (VTI): 3.76 cm2, 3.76 cm2 Peak Velocity(Antegrade Flow): 1.05 m/s Peak Gradient(Antegrade Flow): 4.43 mm[Hg] Mean Velocity(Antegrade Flow): 0.64 m/s Mean Gradient(Antegrade Flow): 1.95 mm[Hg] Velocity Time Integral: 20.63 cm Tricuspid Valve Peak Velocity (Regurgitant Flow): 2.87 m/s Pulmonic Valve Mean Gradient: 2.28 mm[Hg] Mean Velocity: 0.71 m/s Peak Velocity: 1.07 m/s, 1.05 m/s Peak Gradient: 4.38 mm[Hg], 4.56 mm[Hg] Right Atrium Right Atrium Systolic Pressure: 61.02 ml, 61.02 ml Dictated by: Dylan Bernstein M.D. on 01/18/2025 at 19:58 Approved by: Dylan Bernstein M.D. on 01/18/2025 at 20:00 Dictated By: DYLAN BERNSTEIN Signed By: 01/18/252000 DD/ 99 TD/TT: [facility]: ECG 12 lead Reviewed date:01/26/2025 09:05:20 AM Interpretation: Performing Lab: Notes/Report: Source Facility: [place] [address] Electrocardiograph Report Signed Patient: PAIGE BALTAZAR MR#: [id number] : 1960 Acct:[id number] Age/Sex: 64 / M ADM Date: 01/25/25 Loc: ER Attending Dr: Ordering Physician: Irma Nunn Date of Service: 01/25/25 Procedure(s): ECG 12 lead Accession Number(s): [id number] cc: [facility] Test Date: 2025-01-25 Pat Name: PAIGE BALTAZAR Department: Room: - 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 Measurements Intervals [place] Rate: 75 P: 77 PA: 142 QRS: 50 QRSD: 80 T: 54 QT: 360 QTc: 388 Interpretive Statements 1100 Sinus rhythm 9110 normal ECG Compared to ECG 12/23/2024 12:24:53 Myocardial infarct finding no longer present Electronically Signed On 01-25-2025 17:50:49 EDT by DYLAN BERNSTEIN M.D. Dictated By: DYLAN BERNSTEIN Signed By: 01/25/251750 DD/ TD/TT: [facility]: Troponin I High Sensitivity Reviewed date:12/25/2024 10:55:07 AM Interpretation: Performing Lab: Notes/Report: [facility] , Troponin I High Sensitivity 4.4 4.0-76.1 pg/mL CUT-OFF POINTS HAVE BEEN ESTABLISHED BASED ON THE FOURTH UNIVERSAL DEFINITION OF MYOCARDIAL INFARCTION. THE UPPER REFERENCE LIMIT (URL) OF TROPONIN, DEFINED THE 99TH PERCENTILE OF cTnI DISTRIBUTION IN A REFERENCE POPULATION, HAS BEEN CONFIRMED THE DECISION THRESHOLD FOR MO DIAGNOSIS. 99TH PERCENTILE = 76.2 PG/ML NOTE: HIGH-SENSITIVITY TROPONIN ASSAY IS NOT INTENDED TO BE USED IN ISOLATION BUT SHOULD BE INTERPRETED IN CONJUNCTION WITH OTHER DIAGNOSTIC AND CLINICAL INFORMATION. Performing Lab: see note ML - [facility] LB Complete Blood Count Auto Di ff Reviewed date:12/25/2024 10:55:19 AM Interpretation: Performing Lab: Notes/Report: [facility] , White Blood Count 13.1 4.0-11.0 10 3/uL Red Blood Count 3.95 4.70-6.10 10 6/uL Hemoglobin 12.7 14.0-18.0 g/dL Hematocrit 38.2 42.0-54.0 % Mean Corpuscular Volume 96.7 80.0-94.0 fL Mean Corpuscular Hemoglobin 32.2 25.9-34.0 pg Mean Corpuscular HGB Conc 33.2 29.9-35.2 g/dL Red Cell Distribution Width 12.7 11.0-15.0 % Platelet Count 238 150-450 10 3/uL Mean Platelet Volume 8.6 9.5-13.5 fL Neutrophils Percent Auto 92.1 43.0-75.0 % Lymphocytes Percent Auto 4.9 20.5-60.0 % Monocytes Percent Auto 2.4 1.7-12.0 % Eosinophils Percent Auto 0.2 0.9-7.0 % Basophils Percent Auto 0.1 0.2-2.0 % Immature Granulocytes Pct Auto 0.3 0.0-0.5 % Neutrophils Absolute Auto 12.0 1.4-6.5 10 3/uL Lymphocytes Absolute Auto 0.6 1.2-3.8 10 3/uL Monocytes Absolute Auto 0.3 0.3-0.8 10 3/uL Eosinophils Absolute Auto 0.0 0.0-0.7 10 3/uL Basophils Absolute Auto 0.0 0.0-0.1 10 3/uL Immature Granulocytes Abs Auto 0.04 0.00-0.03 10 3/uL Performing Lab: see note ML - [facility] LB NT Pro B Type Natriuretic Pe pt Reviewed date:12/25/2024 10:55:03 AM Interpretation: Performing Lab: Notes/Report: [facility] , NT Pro B Type Natriuretic Pept 493.0 <=900.0 pg/mL Performing Lab: see note [facility] Basic Metabolic Panel Reviewed date:12/25/2024 10:55:14 AM Interpretation: Performing Lab: Notes/Report: [facility] , Sodium 140 136-145 mmol/L Potassium 3.7 3.5-5.1 mmol/L Chloride 104 98-107 mmol/L Carbon Dioxide 25.3 21.0-32.0 mmol/L Anion Gap 14.4 Glucose 193 74-106 mg/dL Blood Urea Nitrogen 29.0 7.0-18.0 mg/dL Creatinine 1.53 0.70-1.30 mg/dL Estimated GFR ( Mercedes 56 >=60 mL/min/1.73m 2 Estimated GFR (Non- Alice 46 >=60 mL/min/1.73m 2 BUN Creatinine Ratio 19.0 Calcium 9.3 8.5-10.1 mg/dL Performing Lab: see note - [facility] LB Lower Respiratory Culture Reviewed date:12/28/2024 07:03:24 PM Interpretation: Performing Lab: Notes/Report: [facility] , Lower Respiratory Culture See Below For Report Lower Respiratory Culture WILL FOLLOW Lower Respiratory Culture Routine respir atory maribel Lower Respiratory Culture WILL FOLLOW Lower Respiratory Culture Performed at: - [facility] Lower Respiratory Culture WILL FOLLOW Lower Respiratory Culture [address] [facility] [place] [id number] Lower Respiratory Culture WILL FOLLOW Lower Respiratory Culture Waist Pleater: Wesley Sierra PhD, Phone: [phone] Lower Respiratory Culture WILL FOLLOW Performing Lab: see note LC - [facility] LB SEE REPORT - [employer] Architect Id information not found for OBX-specific event producer legend Gram Stain Evaluation Reviewed date:12/28/2024 07:03:29 PM Interpretation: Performing Lab: Notes/Report: [facility] , Gram Stain Evaluation See Below For Report Gram Stain Evaluation This specimen is of good quality and is acceptable for routine Gram Stain Evaluation bacterial culture. Gram Stain Evaluation This specimen is of good quality and is acceptable for routine Performing Lab: see note LC - [facility] LB Result 4 Reviewed date:12/28/2024 07:03:34 PM Interpretation: Performing Lab: Notes/Report: [facility] , Result 4 See Below For Report Result 4 Small amount of yeast seen. Performing Lab: see note LC - [facility] LB Result 3 Reviewed date:12/28/2024 07:03:39 PM Interpretation: Performing Lab: Notes/Report: [facility] , Result 3 See Below For Report Result 3 Few gram positive cocci Performing Lab: see note LC - [facility] LB Result 2 Reviewed date:12/28/2024 07:03:49 PM Interpretation: Performing Lab: Notes/Report: [facility] , Result 2 See Below For Report Result 2 Moderate number of gram positive rods. Performing Lab: see note LC - [facility] LB Result 1 Reviewed date:12/28/2024 07:03:53 PM Interpretation: Performing Lab: Notes/Report: [facility] , Result 1 See Below For Report Result 1 Moderate gram negative rods. Performing Lab: see note LC - [facility] LB Epithelial Cells Reviewed date:12/28/2024 07:03:57 PM Interpretation: Performing Lab: Notes/Report: [facility] , Epithelial Cells See Below For Report Epithelial Cells Few Performing Lab: see note LC - [facility] LB White Blood Cells Reviewed date:12/28/2024 07:04:02 PM Interpretation: Performing Lab: Notes/Report: [facility] , White Blood Cells See Below For Report White Blood Cells White Blood Cells None seen White Blood Cells Performing Lab: see note LC - [facility] LB LIPID PANEL WITH REFLEX TO D IRECT LDL Reviewed date:07/01/2024 10:00:04 PM Interpretation: Performing Lab: Notes/Report: CHOLESTEROL 223 <200 mg/dL TRIGLYCERIDES 107 <149 mg/dL HDL-CHOL 106 >39 mg/dL LDL-CHOL, CALCULATED 96 <100 mg/dL VLDL-CHOL, CALCULATED 21 <30 mg/dL LDL/HDL 0.9 <3.55 RATIO CHOL/HDL 2.1 <4.97 RATIO COMPREHENSIVE METABOLIC PANE L WITH GFR Reviewed date:07/01/2024 07:04:15 PM Interpretation: Performing Lab: Notes/Report: GLUCOSE 95 70-99 mg/dL BUN 12 8-23 mg/dL CREATININE, BLOOD 1.34 0.80-1.40 mg/dL eGFR (2020 CKD-EPI) 58 >60 mL/min/1.73 CALCIUM 10.0 8.5-10.5 mg/dL SODIUM 137 133-146 meq/L POTASSIUM 4.7 3.5-5.4 meq/L CHLORIDE 101 95-107 meq/L CO2 27 19-31 meq/L ANION GAP 9.0 7.0-16.0 meq/L T. BILIRUBIN 0.7 <=1.2 mg/dL ALK PHOS 92 40-125 U/L AST-SGOT 23 9-50 U/L ALT-SGPT 27 5-50 U/L T. PROTEIN 7.0 6.1-8.3 g/dL ALBUMIN 4.7 3.5-5.2 g/dL [facility] [address] [place] [address] CLIA No. [id number] CAP Accreditation No. [id number] Laboratory Scientist: Lamar Fry M.D. NT Pro B Type Natriuretic Pe pt Reviewed date:12/23/2024 04:44:53 PM Interpretation: Performing Lab: Notes/Report: [facility] , NT Pro B Type Natriuretic Pept 281.0 <=900.0 pg/mL Performing Lab: see note ML - [facility] LB Complete Blood Count Auto Di ff Reviewed date:12/23/2024 04:45:07 PM Interpretation: Performing Lab: Notes/Report: [facility] , White Blood Count 7.9 4.0-11.0 10 3/uL Red Blood Count 4.37 4.70-6.10 10 6/uL Hemoglobin 14.2 14.0-18.0 g/dL Hematocrit 42.2 42.0-54.0 % Mean Corpuscular Volume 96.6 80.0-94.0 fL Mean Corpuscular Hemoglobin 32.5 25.9-34.0 pg Mean Corpuscular HGB Conc 33.6 29.9-35.2 g/dL Red Cell Distribution Width 12.5 11.0-15.0 % Platelet Count 247 150-450 10 3/uL Mean Platelet Volume 8.2 9.5-13.5 fL Neutrophils Percent Auto 47.1 43.0-75.0 % Lymphocytes Percent Auto 26.8 20.5-60.0 % Monocytes Percent Auto 10.3 1.7-12.0 % Eosinophils Percent Auto 14.6 0.9-7.0 % Basophils Percent Auto 1.1 0.2-2.0 % Immature Granulocytes Pct Auto 0.1 0.0-0.5 % Neutrophils Absolute Auto 3.7 1.4-6.5 10 3/uL Lymphocytes Absolute Auto 2.1 1.2-3.8 10 3/uL Monocytes Absolute Auto 0.8 0.3-0.8 10 3/uL Eosinophils Absolute Auto 1.2 0.0-0.7 10 3/uL Basophils Absolute Auto 0.1 0.0-0.1 10 3/uL Immature Granulocytes Abs Auto 0.01 0.00-0.03 10 3/uL Performing Lab: see note ML - [facility] LB Comprehensive Metabolic Pane l Reviewed date:12/23/2024 04:45:03 PM Interpretation: Performing Lab: Notes/Report: [facility] , Sodium 138 136-145 mmol/L Potassium 4.0 3.5-5.1 mmol/L Chloride 102 98-107 mmol/L Carbon Dioxide 27.9 21.0-32.0 mmol/L Anion Gap 12.1 Glucose 92 74-106 mg/dL Blood Urea Nitrogen 18.0 7.0-18.0 mg/dL Creatinine 1.37 0.70-1.30 mg/dL Estimated GFR ( Mercedes >60 >=60 mL/min/1.73m 2 Estimated GFR (Non- Alice 52 >=60 mL/min/1.73m 2 BUN Creatinine Ratio 13.1 Calcium 9.3 8.5-10.1 mg/dL Bilirubin Total 0.6 0.2-1.0 mg/dL Aspartate Amino Transferase 17 15-37 U/L Alanine Aminotransferase 25 16-63 U/L Alkaline Phosphatase 92 46-116 U/L Total Protein 7.5 6.4-8.2 g/dL Albumin Level 4.0 3.4-5.0 g/dL Globulin 3.5 Albumin Globulin Ratio 1.1 Performing Lab: see note ML - [facility] LB Troponin I High Sensitivity Reviewed date:12/23/2024 04:44:58 PM Interpretation: Performing Lab: Notes/Report: [facility] , Troponin I High Sensitivity 4.3 4.0-76.1 pg/mL CUT-OFF POINTS HAVE BEEN ESTABLISHED BASED ON THE FOURTH UNIVERSAL DEFINITION OF MYOCARDIAL INFARCTION. THE UPPER REFERENCE LIMIT (URL) OF TROPONIN, DEFINED THE 99TH PERCENTILE OF cTnI DISTRIBUTION IN A REFERENCE POPULATION, HAS BEEN CONFIRMED THE DECISION THRESHOLD FOR MO DIAGNOSIS. 99TH PERCENTILE = 76.2 PG/ML NOTE: HIGH-SENSITIVITY TROPONIN ASSAY IS NOT INTENDED TO BE USED IN ISOLATION BUT SHOULD BE INTERPRETED IN CONJUNCTION WITH OTHER DIAGNOSTIC AND CLINICAL INFORMATION. Performing Lab: see note ML - [facility] LB Influenza A and B Antigen Reviewed date:12/23/2024 04:44:46 PM Interpretation: Performing Lab: Notes/Report: [facility] , Influenza Virus A Antigen Negative Negative for Flu A protein antigen. Infection due to Flu A cannot be ruled out. Flu A antigen in the sample may be below the detection limit of the test. Influenza Virus B Antigen Negative Negative for Flu B protein antigen. Infection due to Flu B cannot be ruled out. Flu B antigen in the sample may be below the detection limit of the test. Performing Lab: see note ML - [facility] LB SARS-CoV-2 Ag* Reviewed date:12/23/2024 04:44:41 PM Interpretation: Performing Lab: Notes/Report: [facility] , SARS-CoV-2 Ag NEGATIVE NEGATIVE This test has not been FDA cleared or approved, but has been authorized by the FDA under an Emergency Use Authorization (EUA) for use by authorized laboratories certified under CLIA that meet the requirements to perform moderate or high complexity testing. This test has been authorized only for the detection of proteins from SARS-CoV-2, not for any other viruses or pathogens. The emergency use of this test is authorized for the duration of the declaration that circumstances exist justifying the authorization of emergency use of in vitro diagnostic tests for detection and/or diagnosis of Covid-19 under section 564(b)(1) of the Act, 21 U.S.C. 360bbb-3(b)(1), unless the declaration is terminated or authorization is revoked sooner. Performing Lab: see note ML - [facility] LB Complete Blood Count Auto Di ff Reviewed date:10/26/2024 04:27:20 PM Interpretation: Performing Lab: Notes/Report: [facility] , White Blood Count 8.1 4.0-11.0 10 3/uL Red Blood Count 4.45 4.70-6.10 10 6/uL Hemoglobin 14.3 14.0-18.0 g/dL Hematocrit 43.3 42.0-54.0 % Mean Corpuscular Volume 97.3 80.0-94.0 fL Mean Corpuscular Hemoglobin 32.1 25.9-34.0 pg Mean Corpuscular HGB Conc 33.0 29.9-35.2 g/dL Red Cell Distribution Width 13.1 11.0-15.0 % Platelet Count 256 150-450 10 3/uL Mean Platelet Volume 8.3 9.5-13.5 fL Neutrophils Percent Auto 59.7 43.0-75.0 % Lymphocytes Percent Auto 24.2 20.5-60.0 % Monocytes Percent Auto 10.5 1.7-12.0 % Eosinophils Percent Auto 4.3 0.9-7.0 % Basophils Percent Auto 1.1 0.2-2.0 % Immature Granulocytes Pct Auto 0.2 0.0-0.5 % Neutrophils Absolute Auto 4.8 1.4-6.5 10 3/uL Lymphocytes Absolute Auto 2.0 1.2-3.8 10 3/uL Monocytes Absolute Auto 0.9 0.3-0.8 10 3/uL Eosinophils Absolute Auto 0.4 0.0-0.7 10 3/uL Basophils Absolute Auto 0.1 0.0-0.1 10 3/uL Immature Granulocytes Abs Auto 0.02 0.00-0.03 10 3/uL Performing Lab: see note ML - [facility] LB Prostate Specific Antigen Nghia robledo Reviewed date:10/26/2024 04:26:07 PM Interpretation: Performing Lab: Notes/Report: [facility] , Prostate Specific Antigen Scrn 1.00 <=4.00 ng/mL Performing Lab: see note ML - [facility] LB Basic Metabolic Panel Reviewed date:10/26/2024 04:26:47 PM Interpretation: Performing Lab: Notes/Report: , [facility] Sodium 141 136-145 mmol/L Potassium 4.4 3.5-5.1 mmol/L Chloride 105 98-107 mmol/L Carbon Dioxide 28.6 21.0-32.0 mmol/L Anion Gap 11.8 Glucose 89 74-106 mg/dL Blood Urea Nitrogen 13.0 7.0-18.0 mg/dL Creatinine 1.37 0.70-1.30 mg/dL Estimated GFR ( Mercedes >60 >=60 mL/min/1.73m 2 Estimated GFR (Non- Alice 52 >=60 mL/min/1.73m 2 BUN Creatinine Ratio 9.5 Calcium 9.1 8.5-10.1 mg/dL Performing Lab: see note ML - [facility] Reason For Referral No Information Medications Medication SIG (Take, Route, Frequency, Duration) Notes Start Date End Date Status predniSONE 10 MG 1 tablet with food o r milk Oral Once a day for 15 days Active NIFEdipine ER 60 MG 1 tablet on an empty stomach Orally Once a day for 90 days Active Albuterol Sulfate HFA 108 (90 Base) MCG/ACT 1 puff as needed Inhalation every 8 hrs as needed for 90 days Active Famotidine 20 MG 1 tablet at bedtime as needed Oral Once a day for 30 days Active Trelegy Ellipta 100-62.5-25 MCG/ACT 1 puff Inhalation Once a day Active Albuterol Sulfate (2.5 MG/3ML) 0.083% 3 mL as needed Inhalation every 6 hrs for 30 days Active Furosemide 40 MG 1 tablet Orally Once a day Active Xarelto 20 MG 1 tablet with food O rally Once a day Active buPROPion HCl ER (SR) 150 MG 1 tablet in the morning Orally Once a day for 90 days 12/28/2024 Active Immunizations Vaccine Route Administration Date Status Comme nts *Emavhujyw-Mtzvvcegq-Cznaj te IM Intramuscular 08/06/2023 Administered Social History Tobacco Use: Social History Observation Description Date Details (start date - stop date) Former Smoker 10/21/1975 - 01/23/2024 Sex Assigned At : Social History Observation Description Sex Assigned At Male Tobacco Use/Smoking Question Answer Notes How long has it been since y ou last smoked? 6-12 months patient entered data Are you interested in quitting? Thinking about q uitting patient entered data How many cigarettes a day do you smoke? 5 or less patient entered data How soon after you wake up d o you smoke your first cigarette? 6-30 minutes patient entered data How often do you smoke cigarettes? every day patient entered data When did you start smoking? 10/21/1975 p atient entered data When did you start smoking? 1975 p atient entered data When did you stop smoking? 01/23/2024 sarah frederick entered data Tobacco use: former smoker patient enter ed data CAGE-AID Questionnaire (2018 Edition) Question Answer Notes Have you ever felt that you ought to cut down on your drinking or drug use? No patient entered data Have people annoyed you by c riticizing your drinking or drug use? No patient entered data Have you ever felt bad or gu ilty about your drinking or drug use? No patient entered data Have you ever had a drink or used drugs first thing in the morning to steady your nerves or to get rid of a hangover? No patient entered data CAGE-AID Score 0 Interpretation Negative PRAPARE Question Answer Notes Date Completed/Updated: 10/22/2024 cathy garland entered data What is your current housing situation? I have housing patient entered data Are you worried about losing your housing? No patient entered data What is the highest level of school that you have finished? High school diploma or GED patient entered data What is your current work situation? Otherwise unemployed but not seeking work (ex. 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 Check all that apply I do not have problems meeting my needs Has lack of transportation k ept you from medical appointments, meetings, work or from getting things needed for daily living? No How often do you see or talk to people that you care about and feel close to? (For example: talking to friends on the phone, visiting friends or family, going to tenriism or club meetings) 3 to 5 times a week patient entered data How stressed are you? Stress is when someone feels tense, nervous, anxious, or can't sleep at night because their mind is troubled A little bit patient entered data In the past year have you sp ent more than 2 nights in a row in a [facility], [facility], long term center, or juvenile correctional facility? No patient entered data Are you a refugee? No patient en tered data What country are you from? [place] sarah frederick entered data Do you feel physically and emotionally safe where you currently live? Yes patient entered data In the past year, have you b een afraid of your partner or ex-partner? No patient entered data PRAPARE Score: 4 Problems Problem Type SNOMED Code ICD Code Onset Dates Problem Status W/U Status Risk Notes Problem 754315283 Body mass index [BMI] 32.0-32.9, adult (Z68.32) Active confirmed Problem 154222567 GERD without esophagitis (K21.9) Active confirmed Problem 15239605 Chronic obstructive pulmonary disease, unspecified COPD type (J44.9) Active confirmed Problem 100293394 Chronic atrial fibrillation (I48.20) Active confirmed Problem Essential hypertension (94653382) Essential hypertension (401.9) (I10) Active confirmed -home and office BP readings consistently WNLS now with Procardia 60 mg ER -Labs drawn on 09/04/23 were all WNLS, labs ordered now -pt strongly encouraged to follow DASH diet, check BP at home, brings log along -f/u with Cardiology as scheduled for 07/01/24, Med refilled, f/u in 6 months Problem Elevated blood pressure reading without diagnosis of hypertension (435733119) Elevated BP without diagnosis of hypertension (R03.0) Inactive confirmed -elevated BP X2 and during last visit -pt strongly encouraged to follow DASH diet -check BP at home, brings log along, f/u in 2 weeks Problem Tobacco user (282512227) Cigarette nicotine dependence without complication (F17.210) Problem resolved confirmed Problem Influenza vaccination given ([id number] 9) Influenza vaccination given (Z23) Problem resolved confirmed Vital Signs Heart Rate 85 /min 12/28/2024 Delmy Briscoe 12/28/2024 10:33:16 AM EDT > Temperature 98.5 degrees Fahrenheit 12/28/2024 Delmy Brooks 12/28/2024 10:33:16 AM EDT > Respiratory Rate 18 /min 12/28/2024 Santana Briscoe 12/28/2024 10:33:16 AM EDT > Height-cm 175.26 cm 12/28/2024 Delmy Briscoe 12/28/2024 10:33:16 AM EDT > Oximetry 97 % 12/28/2024 Delmy Briscoe 12/28/2024 10:33:16 AM EDT > Blood pressure diastolic 83 mm Hg 12/28/2024 MargaretteDelmy zambrano 12/28/2024 10:33:16 AM EDT > Weight-kg 98.7 kg 12/28/2024 Delmy Briscoe 12/28/2024 10:33:16 AM EDT > Height 69 in 12/28/2024 Delmy Briscoe 12/28/2024 10:33:16 AM EDT > Blood pressure systolic 130 mm Hg 12/28/2024 Delmy Brooks 12/28/2024 10:33:16 AM EDT > Weight 217.6 lbs 12/28/2024 Delmy Briscoe 12/28/2024 10:33:16 AM EDT > BMI 32.13 kg/m2 12/28/2024 Delmy Briscoe 12/28/2024 10:33:16 AM EDT > Encounters Encounter Location Date Provider Diagnosis Main [address] [place], [place] [id number] 04/30/2024 Malathi Chago Rash R21 and Mild intermittent asthma J45.20 Main [address] [place], [place] [id number] 06/29/2024 Joriraphael Lala Essential hypertensi on (401.9) I10 and Nasal congestion R09.81 Main [address] [place], [place] [id number] 10/22/2024 Hetal Ocampo Well adult exam Z00. 00 ; Body mass index [BMI] 32.0-32.9, adult Z68.32 ; Obesity, class 1 E66.811 ; Cigarette nicotine dependence without complication F17.210 and Screening for prostate cancer Z12.5 Main [address] [place], [place] [id number] 12/28/2024 Hetal Ocampo Chronic obstructive pulmonary disease, unspecified COPD type J44.9 ; Chronic atrial fibrillation I48.20 ; GERD without esophagitis K21.9 ; Essential hypertension (401.9) I10 ; Encounter for smoking cessation counseling Z71.6 ; Body mass index [BMI] 32.0-32.9, adult Z68.32 and Obesity, class 1 E66.811 [address] [place], [place] [id number] 03/24/2025 Hetal Ocampo [address] [place] [address] 03/24/2024 Jori Lala Mild intermittent asthma J45.[address] [place] [address] 03/26/2024 Jori Dai [address] [facility], [place] [id number] 04/29/2024 Joriraphael Lala Mild intermittent asthma J45.20 [address] [facility], [place] [id number] 04/29/2024 Jori Lala [address] [place] [address], [place] [address] 05/01/2024 Malathi Anders [address] [place], [place] [id number] 06/11/2024 Malathi Anders Mild intermittent asthma J45.[address] [place], [place] [id number] 06/11/2024 Malathi Anders [address] [place], [place] [id number] 09/25/2024 Hetal Ocampo Essential hypertensi on (401.9) I10 [address] [place], [place] [id number] 11/25/2024 Hetal Ocampo Mild intermittent asthma J45.20 Assessments Encounter Date Diagnosis (ICD Code) Assessment Notes Treatment Notes Treatment Clinical Notes Section Notes 03/24/2024 Mild intermittent asthma (ICD-10 - J45.20) 04/29/2024 Mild intermittent asthma (ICD-10 - J45.20) 04/30/2024 Rash (ICD-10 - R21) Unclear etiology. Likely allergic, less likely due to meds. advised to take hydroxyzine as needed for itching. Can get steroids only if symptoms worsening. Advised to keep an eye and see if we can find out carlos trigger and avoid it to help prevent recurrence of symptoms. f/up in clinic if symptoms do not imrpove and I can refer to allergy/immunologi st for further evaluation 06/11/2024 Mild intermittent asthma (ICD-10 - J45.20) 06/29/2024 Nasal congestion (ICD-10 - R09.81) 06/29/2024 Essential hypertension (401.9) (ICD-10 - I10) -home and office BP readings consistently WNLS now with Procardia 60 mg ER -Labs drawn on 09/04/23 were all WNLS, labs ordered now -pt strongly encouraged to follow DASH diet, check BP at home, brings log along -f/u with Cardiology as scheduled for 07/01/24, Med refilled, f/u in 6 months 09/25/2024 Essential hypertension (401.9) (ICD-10 - I10) -home and office BP readings consistently WNLS now with Procardia 60 mg ER -Labs drawn on 09/04/23 were all WNLS, labs ordered now -pt strongly encouraged to follow DASH diet, check BP at home, brings log along -f/u with Cardiology as scheduled for 07/01/24, Med refilled, f/u in 6 months 10/22/2024 Body mass index [BMI] 32.0-32.9, adult (ICD-10 - Z68.32) Body Mass Index: Care Instructions material was printed 10/22/2024 Well adult exam (ICD-10 - Z00.00) Patient presents to office today for their Annual Wellness Visit. Education was provided on healthy nutrition, including a diet rich in fruits and vegetables, minimizing simple carbohydrates, salt, and saturated fats. Encouraged regular cardiovascular exercise such as walking at least 30 minutes daily, 5 times per week. Emphasized preventive health measures and educated pt on fall prevention and community-based lifestyle interventions to help reduce health risks and promote healthy living. 11/25/2024 Mild intermittent asthma (ICD-10 - J45.20) 12/28/2024 Chronic obstructive pulmonary disease, unspecified COPD type (ICD-10 - J44.9) Pt to continue to f/u with Pulmonary 12/28/2024 Chronic atrial fibrillation (ICD-10 - I48.20) Pt to continue to f/u with Cardiology 04/30/2024 Mild intermittent asthma (ICD-10 - J45.20) 10/22/2024 Obesity, class 1 (ICD-10 - E66.811) 12/28/2024 GERD without esophagitis (ICD-10 - K21.9) GERD stable. Will continue current medications. F/u 3 months & PRN 10/22/2024 Cigarette nicotine dependence without complication (ICD-10 - F17.210) Patient provided with [phone] phone line., Quitting Tobacco: Care Instructions material was printed 12/28/2024 Essential hypertension (401.9) (ICD-10 - I10) HTN stable. Will continue current medications. Encouraged healthy diet and exercise. F/u 3 months & PRN 12/28/2024 Encounter for smoking cessation counseling (ICD-10 - Z71.6) Pt would like to go back on the bupropion as it was helping him not smoke and also helped his mood. F/u 3 months & PRN 10/22/2024 Screening for prostate cancer (ICD-10 - Z12.5) 12/28/2024 Body mass index [BMI] 32.0-32.9, adult (ICD-10 - Z68.32) Body Mass Index: Care Instructions material was printed 12/28/2024 Obesity, class 1 (ICD-10 - E66.811) Plan Of Treatment Next Appt Details Provider Name:Hetal Rocha barbara, 04/15/2025 03:15:00 PM, [address] [place], [place], [id number], Insurance Providers Payer Name Payer Address Payer Phone Subscriber Number Group Number Insured Name Patient Relationship to Insured Coverage Start Date Coverage End Date Medicare NGS PPS [address] [place], [place] [id number] Paige Velasquez Self - patient is the insured 3 [employer] Senior Supplement [address] [address] [place], [place] [id number] Paige Velasquez Self - patient is the insured 3 Medical (General) History Medical History History ICD Code COPD HTN Chronic atrial fibrillation I48.2 GERD Surgical History Surgery Date(Month/Year) Heart albation Hospitalization History Reason Date(Month/Year) [facility]- SOB/COPD 12/2024 SOB 2023
--- OUTSIDE RECORDS SUMMARY | 2025-03-24 12:51 | XMS_ITS | Clinical Summary ---
Author Organization [facility] Address [address] [place] [address] Care Team Providers Care Automotive Parts Counter Person Name Role Phone AjbarbaraHetal Primary Care Provider Allergies No known active allergies Medications Medication Sig Dispensed Refills Start Date End Date Status albuterol 90 mcg/actuation inhaler inhale 1 puff by mouth and INTO THE LUNGS every 8 hours if needed 03/02/2024 Active NIFEdipine CC (Adalat CC) 60 mg 24 hr tablet take 1 tablet by mouth once daily ON AN EMPTY STOMACH Active rivaroxaban (Xarelto) 20 mg tabletIndications:P aroxysmal atrial fibrillation (CMS/HCC) Take 1 tablet (20 mg) by mouth daily with evening meal. Take with food. 90 tablet 3 04/07/2024 04/07/2025 Active fluticasone-umeclid in-vilanter (Trelegy Ellipta) 100-62.5-25 mcg blister with device Inhale. Activ e famotidine (Pepcid) 20 mg tabletIndications:P ersistent atrial fibrillation (CMS/HCC) Take 1 tablet (20 mg) by mouth two times daily. 60 tablet 10/28/2024 Active Additional Information Patient taking differently:20 mg oralAs needed, Reported on 12/01/2024 furosemide (Lasix) 40 mg tabletIndications:D yspnea on exertion Take 1 tablet (40 mg) by mouth in the morning. 90 tablet 3 12/02/2024 12/02/2025 Active buPROPion SR (Wellbutrin SR) 150 mg 12 hr tablet Take 150 mg by mouth once daily as directed. 12/28/2024 Active Active Problems Problem Noted Date Diagnosed Date Body mass index (BMI) 32.0-32.9, adult 02/11/202 5 Persistent atrial fibrillation 09/23/2024 Centrilobular emphysema 06/16/2024 History of tobacco use 06/16/2024 Other secondary pulmonary hypertension 4 Peripheral eosinophilia 06/16/2024 Paroxysmal atrial fibrillation 04/07/2024 Assessment & Plan (07/01/2024 1:15 PM EDT): -Discussed with patient the recommendation for atrial ablation s/p cardioversion. Procedure with risk and benefits was explained. Follow-up scheduled with Dr. Carrillo for additional recommendations regarding atrial ablation. -Patient is no longer taking amiodarone due to adverse reaction of chest tightness. -Patient has switched from Eliquis to Xarelto for anticoagulation. Hypoxia 01/27/2024 Shortness of breath 01/27/2024 Smoker 01/27/2024 Encounters Date Type Department Care Team Description 01/20/2025 Telephone [facility] [address] [place] [address] Mia Son MA 01/05/2025 11:20 AM EDT Office Visit [facility] [address] [facility] [place] [address] Jeniffer Arteaga CNP Pulmonary HTN (CMS/HCC) (Primary Dx); Diastolic dysfunction; Paroxysmal atrial fibrillation (CMS/HCC); S/P ablation of atrial fibrillation; Chronic obstructive pulmonary disease, unspecified COPD type (CMS/HCC); Other form of dyspnea 01/05/2025 Refill [facility] [address] [place] [address] Mia Son MA from Last 3 Months Family History Medical History Relation Name Comments Liver disease Brother Transient ischemic attack Father Heart attack Mother massive [place] Relation Name Status Comments Brother Father Mother Social History Tobacco Use Types Packs/Day Years Used Date Smoking Tobacco: Former Cigarettes Q uit: 02/2024 Smokeless Tobacco: Never Tobacco Cessation:Counseling Given: Not Answered Alcohol Use Standard Drinks/Week Comments Yes 0 (1 standard drink = 0.6 oz pur e alcohol) DAILY BEER 2-3 [place] Safety & Environment Answer Date Rec orded Fear of Current or Ex-Partner Not on file Emotionally Abused Not on file 03/11/2024 Physically Abused Not on file 03/11/2024 Sexually Abused Not on file 03/11/2024 Physically or Sexually Abused Not on file Sex and Gender Information Value Date Recorded Sex Assigned at Not on file Gender Identity Not on file Sexual Orientation Not on file Last Filed Vital Signs Vital Sign Reading Time Taken Comments Blood Pressure 128/82 01/05/2025 11:27 AM EDT Pulse 78 01/05/2025 11:27 AM EDT Temperature 36 C (96.8 F) 10/28/2024 12:10 PM EST Respiratory Rate 21 10/28/2024 5:50 PM EST Oxygen Saturation 95% 01/05/2025 11:27 AM EDT Inhaled Oxygen Concentration - - Weight 96.2 kg (212 lb) 01/05/2025 11:27 AM EDT Height 182.9 cm (6') 01/05/2025 11:27 AM EDT Body Mass Index 28.75 01/05/2025 11:27 AM EDT Plan of Treatment Upcoming Encounters Date Type Department Care Team (Late st Contact Info) Description 04/07/2025 11:00 AM EDT Office Visit [facility] [address] [place] [address] Jeniffer Arteaga, MD PHYSICIAN DERMATOLOGIST [address] [place] [address] Health Maintenance Due Date Last Done Comments CT Colonography 1958 Colonoscopy 1958 Colorectal Cancer Screening 1960 FIT-DNA 1958 FIT 1958 FOBT 1960 Medicare Annual Wellness (AWV) 1958 Sigmoidoscopy 1960 Pneumococcal Vaccine: 65+ Years (1 of 2 - PCV) 1964 Depression Screening 1970 Adult Tetanus 1980 Zoster Vaccines (1 of 2) 2008 Fall Risk Screening 2023 COVID-19 Vaccine (3 - 2023-2 5 season) 2024 02/06/2021, 01/09/2021 Influenza Vaccine (Season Ended) 2025 08/06/2023 HIB Vaccines Aged Out No longer eligi ble based on patient's age to complete this topic HPV Vaccines Aged Out No longer eligi ble based on patient's age to complete this topic IPV Vaccines Aged Out No longer eligi ble based on patient's age to complete this topic Meningococcal B Vaccine Aged Out No l onger eligible based on patient's age to complete this topic Meningococcal Vaccine Aged Out No chad silas eligible based on patient's age to complete this topic Rotavirus Vaccines Aged Out No longer eligible based on patient's age to complete this topic Advance Directives * Full Code (Latest Code Status on File) Date Activated Date Inactivated Comments 10/28/2024 1:18 PM 10/28/2024 8:04 PM Care Teams Automotive Parts Counter Person Relationship Specialty Start Date End Date [facility] 12/01/24
--- OUTSIDE RECORDS SUMMARY | 2025-03-24 12:51 | XMS_ITS | Referral Summary ---
Author Organization [facility] Address [address] [place] [address] Care Team Providers Care Bone Char Kiln Tender Name Role Phone AjbarbaraHetal Primary Care Provider Encounters Date Type Department Care Team Description 01/20/2025 Telephone [facility] [address] [place] [address] Mia Son [place] 01/05/2025 Refill [facility] [address] [place] [address] Mia Son MA 01/05/2025 11:20 AM EDT Office Visit [facility] [address] [place] [address] Jeniffer Arteaga CNP Pulmonary HTN (CMS/HCC) (Primary Dx); Diastolic dysfunction; Paroxysmal atrial fibrillation (CMS/HCC); S/P ablation of atrial fibrillation; Chronic obstructive pulmonary disease, unspecified COPD type (CMS/HCC); Other form of dyspnea from Last 3 Months Allergies No known active allergies Medications Medication [...] Date Body mass index (BMI) 32.0-32.9, adult 5 Persistent atrial fibrillation 09/23/2024 Centrilobular emphysema [...] 01/27/2024 Shortness of breath 01/27/2024 Smoker 01/27/2024 Social History Tobacco Use [...] Description 04/07/2025 11:00 AM EDT Office Visit [facility] at [facility] [address] [place] [address] Jeniffer Arteaga, CATERPILLAR TRACTOR OPERATOR [address] [place] [address] Advance Directives * Full Code (Latest Code Status on File) Date Activated Date Inactivated Comments 10/28/2024 1:18 PM 10/28/2024 8:04 PM Care Teams Bone Char Kiln Tender Relationship Specialty Start Date End Date MitzyajmesbarbaraLiliHetal [address] PCP - General 12/01/24
--- OUTSIDE RECORDS SUMMARY | 2025-03-24 12:51 | XMS_ITS | Patient Health Record ---
Author Organization The [facility] in [place] Address [address] [place] [address] Care Team Providers Care Cherry Sorter Name Role Phone Terrence MONAE, Hetal Primary Care Provider Un available Lang Miller [phone] Allergies No Known Allergies Results Component Value Reference Range Notes RT pulmonary function test Reviewed date:05/13/2024 01:16:22 PM Interpretation: Performing Lab: Notes/Report: Source Facility: [place] [address] Respiratory Report Signed Patient: PAIGE BALTAZAR MR#: [id number] : 1960 Acct:[id number] Age/Sex: 63 / M ADM Date: 05/12/24 Loc: CARD Attending Dr: Lang Miller D.O. Ordering Physician: Lang Miller D.O. 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 Findings were considered accurate and reproducible, with exception of FVC which did not meet ATS standards. Both pre- and post-bronchodilator values utilized for spirometry. Spirometry (based on pre-bronchodilator values): -FEV1/FVC: Reduced @ 32% -FEV1: Severely reduced @ 32% -FVC: Mildly reduced @ 75% -UIP52-73%: Reduced @ 9 -There is a positive bronchodilator response in FEV1 and FVC. Lung volumes by plethysmography: -RV: Increased @ 162% -TLC: Normal @ 101% Diffusion capacity: -DLCO: Severe reduction @ 42% when corrected for Hb 12.6g/dL Flow-volume loop: -Very severe obstructive pattern Flow-pressure loop: ???Emphysematous pattern Impressions: -Spirometry suggests severe obstruction. There is a positive bronchodilator response. An elevated RV suggests air trapping. There is a severely reduced diffusion capacity. Overall study is compatible with COPD with a bronchodilator response or asthma/COPD overlap. Patient is at risk for ambulatory desaturations with a decreased DLCO. Clinical correlation required. Electronically Signed On 05-12-2024 17:03:33 EDT by Lang Miller Dictated By: Lang Miller D.O. Signed By: 05/12/24 17005/12/24 170 DD/ 1302 TD/TT: [employer] Installer: [place] [address] Respiratory Report Signed Patient: PAIGE BALTAZAR MR#: [id number] : 1960 Acct:[id number] Age/Sex: 63 / M ADM Date: 05/12/24 Loc: CARD Attending Dr: Lang Miller D.O. Ordering Physician: Lang Miller D.O. 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 Findings were considered accurate and reproducible, with exception of FVC which did not meet ATS standar ds. Both pre- and post-bronchodilator values utilized for spirometry. Spirometry (based on pre-bronchodilator values): -FEV1/FVC: Reduced @ 32% -FEV1: Severely redu suha @ 32% -FVC: Mildly reduced @ 75% -CMW47-69%: Reduced @ 9 -There is a positive bronchodilator response in FEV1 and FVC. Lung volumes by plethysmography: -RV: Increased @ 162% -TLC: Normal @ 101% Diffusion capacity: -DLCO: Severe reduct ion @ 42% when corrected for Hb 12.6g/dL Flow-volume loop: -Very severe obstructive pattern Flow-pressure loop: ???Emphysematous pattern Impressions: -Spirometry suggests severe obstruction. There is a positive bronchodilator response. An elevate d RV suggests air trapping. There is a severely reduced diffusion capacity. Overall study is compatible with COPD with a bronchodilator respo nse or asthma/COPD overlap. Patient is at risk for ambulatory desaturations with a decreased DLCO. Clinical correlation required. Electronically Lisa d On 05-12-2024 17:03:33 EDT by Lang Miller Dictated By: Lang Miller D.O. Signed By: 05/12/24170205/12/24 170 DD/ 1302 TD/TT: [employer] Installer: SHERRY Reviewed date:08/24/2024 06:55:13 AM Interpretation: Performing Lab: Notes/Report: Source Facility: [place] [address] [place] [address] Cardiac Rehab Report Signed Patient: PAIGE BALTAZAR MR#: [id number] : 1960 Acct:[id number] Age/Sex: 64 / M ADM Date: 08/17/24 Loc: CR Attending Dr: Lang Miller D.O. Ordering Physician: Lang Miller D.O. 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 Signed By: 08/20/24229908/20/242299 DD/ 1249 TD/TT: [employer] Installer: [place] [address] Cardiac Rehab Report Signed Patient: PAIGE BALTAZAR MR#: [id number] : 1960 Acct:[id number] Age/Sex: 64 / M ADM Date: 08/17/24 Loc: CR Attending Dr: Lang Miller D.O. Ordering Physician: Lang Miller D.O. 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 Signed By: 08/20/24229908/20/242299 DD/ 1249 TD/TT: [employer] Installer: SHERRY Reviewed date:09/21/2024 06:54:20 AM Interpretation: Performing Lab: Notes/Report: Source Facility: [place] [address] [place] [address] Cardiac Rehab Report Signed Patient: PAIGE BALTAZAR MR#: [id number] : 1960 Acct:[id number] Age/Sex: 64 / M ADM Date: 09/16/24 Loc: CR Attending Dr: Lang Miller D.O. Ordering Physician: Lang Miller D.O. 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 Signed By: 09/16/24184409/16/241844 DD/ 0750 TD/TT: [employer] Installer: [place] [address] Cardiac Rehab Report Signed Patient: PAIGE BALTAZAR MR#: [id number] : 1960 Acct:[id number] Age/Sex: 64 / M ADM Date: 09/16/24 Loc: CR Attending Dr: Lang Miller D.O. Ordering Physician: Lang Miller D.O. 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 Signed By: 09/16/24184409/16/241844 DD/ 0750 TD/TT: [employer] Installer: SHERRY Reviewed date:10/22/2024 11:30:25 AM Interpretation: Performing Lab: Notes/Report: Source Facility: [place] [address] [place] [address] Cardiac Rehab Report Signed Patient: PAIGE BALTAZAR MR#: [id number] : 1960 Acct:[id number] Age/Sex: 64 / M ADM Date: 10/19/24 Loc: CR Attending Dr: Lang Miller D.O. Ordering Physician: Lang Miller D.O. 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 Signed By: 10/21/24 0810/21/24805 DD/ 0748 TD/TT: [employer] Installer: [place] [address] Cardiac Rehab Report Signed Patient: PAIGE BALTAZAR MR#: [id number] : 1960 Acct:[id number] Age/Sex: 64 / M ADM Date: 10/19/24 Loc: CR Attending Dr: Lang Miller D.O. Ordering Physician: Lang Miller D.O. 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 Signed By: 10/21/24 0810/21/24805 DD/ 0748 TD/TT: [employer] Installer: SHERRY Reviewed date:11/24/2024 07:28:06 AM Interpretation: Performing Lab: Notes/Report: Source Facility: [place] [address] [place] [address] Cardiac Rehab Report Signed Patient: PAIGE BALTAZAR MR#: [id number] : 1960 Acct:[id number] Age/Sex: 64 / M ADM Date: 11/18/24 Loc: CR Attending Dr: Lang Miller D.O. Ordering Physician: Lang Miller D.O. 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 Signed By: 11/20/24 0707 11/20/24 0707 DD/ 0806 TD/TT: [employer] Installer: [place] [address] Cardiac Rehab Report Signed Patient: APIGE BALTAZAR MR#: [id number] : 1960 Acct:[id number] Age/Sex: 64 / M ADM Date: 11/18/24 Loc: CR Attending Dr: Lang Miller D.O. Ordering Physician: Lang Miller D.O. 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 Signed By: 11/20/24 0707 11/20/24 0707 DD/ 0806 TD/TT: [employer] Installer: SHERRY Reviewed date:12/22/2024 07:30:06 AM Interpretation: Performing Lab: Notes/Report: Source Facility: [place] [address] [place] [address] Cardiac Rehab Report Signed Patient: PAIGE BALTAZAR MR#: [id number] : 1960 Acct:[id number] Age/Sex: 64 / M ADM Date: 12/16/24 Loc: CR Attending Dr: Lang Miller D.O. Ordering Physician: Lang Miller D.O. 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 Signed By: 12/17/24180412/17/241804 DD/ 1 TD/TT: [employer] Installer: [place] [address] Cardiac Rehab Report Signed Patient: PAIGE BALTAZAR MR#: [id number] : 1960 Acct:[id number] Age/Sex: 64 / M ADM Date: 12/16/24 Loc: CR Attending Dr: Lang Miller D.O. Ordering Physician: Lang Miller D.O. 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 Signed By: 12/17/24180412/17/241804 DD/ 1 TD/TT: [employer] Installer: BLOOD GASES BTY Reviewed date:12/23/2024 09:28:45 PM Interpretation: Performing Lab: Notes/Report: [facility] , pH ABG 7.418 7.350-7.450 ABG PCO2 40.2 35.0-45.0 mmHg PO2 ABG 77.5 80.0-100.0 mmHg HCO3 ABG 25.9 22.0-26.0 mmol/L Base Excess ABG 1.4 -2.0-2.0 mmol/L Oxygen Saturation ABG 96.7 [place] Test POSITIVE POSITIVE O2 Mode NASAL CANNULA Liters per Minute 2 Puncture Site RR Performing Lab: see note ML - [facility] LB LACTATE or LACTIC ACID Reviewed date:12/23/2024 09:28:45 PM Interpretation: Performing Lab: Notes/Report: [facility] , Lactate/Lactic Acid 1.4 0.4-2.0 mmol/L Performing Lab: see note ML - [facility] LB MAGNESIUM Reviewed date:12/23/2024 09:28:45 PM Interpretation: Performing Lab: Notes/Report: [facility] , Magnesium 1.9 1.8-2.4 mg/dL Performing Lab: see note ML - [facility] LB BNP Reviewed date:12/24/2024 09:03:08 PM Interpretation: Performing Lab: Notes/Report: [facility] , NT Pro B Type Natriuretic Pept 204.0 <=900.0 pg/mL Performing Lab: see note ML - [facility] LB CBC AUTO DIFF Reviewed date:12/24/2024 09:03:08 PM Interpretation: Performing Lab: Notes/Report: [facility] , White Blood Count 4.6 4.0-11.0 [...] 8.4 9.5-13.5 fL Performing Lab: see note - [facility] Troponin I High Sensitivity Reviewed date:12/24/2024 09:03:09 PM Interpretation: Performing Lab: Notes/Report: [facility] , Troponin I High Sensitivity 5.1 4.0-76.1 pg/mL DIAGNOSIS. UNIVERSAL DEFINITION OF MYOCARDIAL INFARCTION. THE UPPER CUT-OFF POINTS HAVE BEEN ESTABLISHED BASED ON THE FOURTH WITH OTHER DIAGNOSTIC AND CLINICAL INFORMATION. 99TH PERCENTILE = 76.2 PG/ML HAS BEEN CONFIRMED THE DECISION THRESHOLD FOR [place] NOTE: HIGH-SENSITIVITY TROPONIN ASSAY IS NOT INTENDED TO BE USED IN ISOLATION BUT SHOULD BE INTERPRETED IN CONJUNCTION PERCENTILE OF cTnI DISTRIBUTION IN A REFERENCE POPULATION, REFERENCE LIMIT (URL) OF TROPONIN, DEFINED THE 99TH Performing Lab: see note - [facility] Lower Respiratory Culture Reviewed date:12/28/2024 07:26:49 PM Interpretation: Performing Lab: Notes/Report: [facility] , Lower Respiratory Culture See Below For Report Lower Respiratory Culture WILL FOLLOW Lower Respiratory Culture Routine respiratory maribel Lower Respiratory Culture WILL FOLLOW Lower Respiratory Culture Performed at[facility] - [facility] Lower Respiratory Culture WILL FOLLOW Lower Respiratory Culture [address] [place] [phone] Lower Respiratory Culture WILL FOLLOW Lower Respiratory Culture Carrier Associate: Wesley Sierra PhD, Phone: [phone] Lower Respiratory Culture WILL FOLLOW Performing Lab: see note SEE REPORT - [place] Repairer Id information not found for OBX-specific experimental plastics fabricator legend - [facility] LB BNP Reviewed date:12/27/2024 10:17:50 AM Interpretation: Performing Lab: Notes/Report: [facility] , NT Pro B Type Natriuretic Pept 493.0 <=900.0 pg/mL Performing Lab: see note - [facility] LB CBC AUTO DIFF Reviewed date:12/27/2024 10:17:50 AM Interpretation: Performing Lab: Notes/Report: [facility] , White Blood Count 13.1 4.0-11.0 10 [...] 3/uL Performing Lab: see note ML - [facility] LB PROF CHEM 8 (BAS METB) Reviewed date:12/27/2024 10:17:50 AM Interpretation: Performing Lab: Notes/Report: [facility] , Sodium 140 136-145 mmol/L Potassium [...] 8.5-10.1 mg/dL Performing Lab: see note - [facility] LB Troponin I High Sensitivity Reviewed date:12/27/2024 10:17:50 AM Interpretation: Performing Lab: Notes/Report: [facility] , Troponin I High Sensitivity 4.4 4.0-76.1 pg/mL CUT-OFF POINTS HAVE BEEN ESTABLISHED BASED ON THE FOURTH PERCENTILE OF cTnI DISTRIBUTION IN A REFERENCE POPULATION, 99TH PERCENTILE = 76.2 PG/ML HAS BEEN CONFIRMED THE DECISION THRESHOLD FOR [place] NOTE: HIGH-SENSITIVITY TROPONIN ASSAY IS NOT INTENDED TO BE UNIVERSAL DEFINITION OF MYOCARDIAL INFARCTION. THE UPPER REFERENCE LIMIT (URL) OF TROPONIN, DEFINED THE 99TH DIAGNOSIS. WITH OTHER DIAGNOSTIC AND CLINICAL INFORMATION. USED IN ISOLATION BUT SHOULD BE INTERPRETED IN CONJUNCTION Performing Lab: see note - [facility] LB Gram Stain Evaluation Reviewed date:12/28/2024 07:26:49 PM Interpretation: Performing Lab: Notes/Report: [facility] , Gram Stain Evaluation See Below For Report Gram Stain Evaluation This specimen is of good quality and is acceptable for routine Gram Stain Evaluation bacterial culture. Gram Stain Evaluation This specimen is of good quality and is acceptable for routine Performing Lab: see note LC - [facility] LB Result 4 Reviewed date:12/28/2024 07:26:49 PM Interpretation: Performing Lab: Notes/Report: [facility] , Result 4 See Below For Report Small amount of yeast seen. Result 4 Performing Lab: see note LC - [facility] LB Result 3 Reviewed date:12/28/2024 07:26:49 PM Interpretation: Performing Lab: Notes/Report: [facility] , Result 3 See Below For Report Result 3 Few gram positive cocci Performing Lab: see note LC - [facility] LB Result 2 Reviewed date:12/28/2024 07:26:49 PM Interpretation: Performing Lab: Notes/Report: [facility] , Result 2 See Below For Report Moderate number of gram positive rods. Result 2 Performing Lab: see note LC - [facility] LB Result 1 Reviewed date:12/28/2024 07:26:49 PM Interpretation: Performing Lab: Notes/Report: [facility] , Result 1 See Below For Report Moderate gram negative rods. Result 1 Performing Lab: see note LC - [facility] LB Epithelial Cells Reviewed date:12/28/2024 07:26:49 PM Interpretation: Performing Lab: Notes/Report: [facility] , Epithelial Cells See Below For Report Epithelial Cells Few Performing Lab: see note LC - [facility] LB White Blood Cells Reviewed date:12/28/2024 07:26:49 PM Interpretation: Performing Lab: Notes/Report: [facility] , White Blood Cells See Below For Report White Blood Cells White Blood Cells None seen White Blood Cells Performing Lab: see note LC - [facility] LB Manual Differential Reviewed date:12/24/2024 09:03:08 PM Interpretation: Performing Lab: Notes/Report: [facility] , Segmented Neutrophils % Manual 87.0 43.0-75.0 Lymphocytes Percent Manual 11.0 20.5-60.0 % Monocytes Percent Manual 2.0 1.7-12.0 % Eosinophils Percent Manual 0.0 0.9-7.0 % Basophils Percent Manual 0.0 0.2-2.0 % Segmented Neut Absolute Manual 4.00 1.4-6.5 10 3/uL Lymphocytes Absolute Manual 0.50 1.20-3.80 10 3/uL Monocytes Absolute Manual 0.09 0.30-0.80 10 3/uL Eosinophils Absolute Manual 0.00 0.00-0.70 10 3/uL Basophils Abs Manual 0.00 0.00-0.10 10 3/uL Performing Lab: see note ML - [facility] LB PROF CHEM 8 (BAS METB) Reviewed date:12/24/2024 09:03:08 PM Interpretation: Performing Lab: Notes/Report: [facility] , Sodium 137 136-145 mmol/L Potassium 4.3 3.5-5.1 [...] Performing Lab: see note ML - [facility] LB ITP Reviewed date:07/24/2024 01:46:40 PM Interpretation: Performing Lab: Notes/Report: Source Facility: [facility] [place] [address] [place] [address] Cardiac Rehab Report Signed Patient: PAIGE BALTAZAR MR#: [id number] : 1960 Acct:[id number] Age/Sex: 64 / M ADM Date: 07/22/24 Loc: CR Attending Dr: Lang Miller D.O. Ordering Physician: Lang Miller D.O. 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 Signed By: 07/23/24200807/23/242008 DD/ 144 TD/TT: [employer] Installer: [place] [address] Cardiac Rehab Report Signed Patient: PAIGE BALTAZAR MR#: [id number] : 1960 Acct:[id number] Age/Sex: 64 / M ADM Date: 07/22/24 Loc: CR Attending Dr: Lang Miller D.O. Ordering Physician: Lang Miller D.O. 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 Signed By: 07/23/24200807/23/242008 DD/ 40 TD/TT: [employer] Installer: [id number] SCREENTULIO G SWAB Reviewed date:05/18/2024 07:03:06 AM Interpretation: Performing Lab: Notes/Report: ITP Reviewed date:02/10/2025 12:03:13 PM Interpretation: Performing Lab: Notes/Report: Source Facility: [place] [address] [place] [address] Cardiac Rehab Report Signed Patient: PAIGE BALTAZAR MR#: [id number] : 1960 Acct:[id number] Age/Sex: 64 / M ADM Date: 01/08/25 Loc: CR Attending Dr: Lang Miller D.O. Ordering Physician: Lang Miller D.O. 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 It is strongly advised that he re-enroll to complete his sessions. Electronically Signed On 02-10-2025 11:34:16 EDT by Lang Miller Dictated By: Lang Miller D.O. Signed By: 02/10/25 1134 02/10/25 1134 DD/ TD/TT: [employer] Installer: [place] [address] Cardiac Rehab Report Signed Patient: PAIGE BALTAZAR MR#: [id number] : 1960 Acct:[id number] Age/Sex: 64 / M ADM Date: 01/08/25 Loc: CR Attending Dr: Lang iMller D.O. Ordering Physician: Lang Miller D.O. 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 It is strongly advised that he re-enroll to complete his sessions. Electronically Lisa d On 02-10-2025 11:34:16 EDT by Lang Miller Dictated By: Lang Miller D.O. Signed By: 02/10/25 1134 02/10/25 1134 DD/ 0918 TD/TT: [employer] Installer: SHERRY Reviewed date:01/19/2025 07:30:10 AM Interpretation: Performing Lab: Notes/Report: Source Facility: [place] [address] [place] [address] Cardiac Rehab Report Signed Patient: PAIGE BALTAZAR MR#: [id number] : 1960 Acct:[id number] Age/Sex: 64 / M ADM Date: 01/08/25 Loc: CR Attending Dr: Lang Miller D.O. Ordering Physician: Lang Miller D.O. 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 Signed By: 01/16/25 1430 01/16/25 143 DD/ 0709 TD/TT: [employer] Installer: [place] [address] Cardiac Rehab Report Signed Patient: PAIGE BALTAZAR MR#: [id number] : 1960 Acct:[id number] Age/Sex: 64 / M ADM Date: 01/08/25 Loc: CR Attending Dr: Lang Miller D.O. Ordering Physician: Lang Miller D.O. Date of Service: 01/13/25 Procedure(s): ITP Accession Number(s): [id number] cc: [facility] Test Date: 2025-01-13 Pat Name: PAIGE BALTAZAR Department: 42 Room: - Gender: Male Deicer Repairer Electric: : 1960 Requested By: Lang Miller Order Number: [id number] Clau MD: FAHAD MURPHY Interpretive Statements Session Date: Electronically Lias d On 01-16-2025 14:29:49 EDT by FAHAD MURPHY Dictated By: Fahad Murphy D.O. Signed By: 01/16/25 1430 01/16/25 143 DD/ 0709 TD/TT: [employer] Installer: Reason For Referral No Information Medications Medication SIG (Take, Route, Frequency, Duration) Notes Start Date End Date Status Albuterol Sulfate (2.5 MG/3ML) 0.083% INHALE CONTENTS OF 1 VIAL VIA NEBULIZER EVERY 8 HOURS NEEDED Inhalation for 8 Days Active Albuterol Sulfate HFA 108 (90 Base) MCG/ACT INHALE 2 PUFFS BY MOUTH INTO THE LUNGS EVERY 4-6 HOURS NEEDED Inhalation for 16 Days Active Cetirizine HCl 10 MG take 1 tablet [...] 300 MG/2ML Subcutaneous for 56 Days Active Immunizations Vaccine Route Administration Date Status Comme nts Flu, Flucelvax (48914) 2 yrs +, single-dose syringe (8874-4232) Unknown 08/06/2023 Administered SARS-COV-2 (COVID 19 Moderna - Booster 0.25mL) Unknown 02/06/2021 Administered Social History Tobacco Use: Social History Observation Description Date Details (start date - stop date) Former Smoker NA - NA Tobacco Control (Standard) Question Answer Notes Tobacco use: Former smoker Additional Findings: Tobacco non-user Ex-moderat e cigarette smoker (-) Problems Problem Type SNOMED Code ICD Code Onset Dates Problem Status W/U Status Risk Notes Problem Centrilobular emphysema (48283029) Centrilobular emphysema (J43.2) Active confirmed Problem 211830340 Chronic obstructive pulmonary disease with (acute) exacerbation (J44.1) Active confirmed Problem 959459950 [facility] (current) use of inhaled steroids (Z79.51) Active confirmed Problem Atrial fibrillation (32324193) Atrial fibrillation (I48.91) Active confirmed Problem Ex-tobacco user (finding) (741697786) History of tobacco abuse (Z87.891) Active confirmed Problem Atrial fibrillation with rapid ventricular response (322519579333307) Atrial fibrillation with rapid ventricular response (I48.91) Active confirmed Problem Secondary pulmonary hypertension (24868524) Other secondary pulmonary hypertension (I27.29) Active confirmed Problem 47607258 Other eosinophilia (D72.19) Active confirmed Problem Peripheral eosinophilia (D72.19) Active confirmed Vital Signs Heart Rate 90 /min 03/10/2025 Pre & Post Inje ction Temperature 96.8 degrees Fahrenheit 03/10/2025 Pre & Post Injection Respiratory Rate 18 /min 03/10/2025 Pre & Post Injection Blood pressure diastolic 87 mm Hg 03/10/2025 Pre & Post Injection Oximetry 96 % 03/10/2025 Pre & Post Inje ction Height 69 in 03/10/2025 Pre & Post Inje ction Blood pressure systolic 123 mm Hg 03/10/2025 Pre & Post Injection Weight 219.4 lbs 03/10/2025 Pre & Post Inje ction BMI 32.4 kg/m2 03/10/2025 Pre & Post Inje ction Procedures Procedure Date Ordered Date Performed Result Body Sit e PFT (04003, 49105, 69841) 05/05/2024 05/12/2024 N/A Inhaler Teaching/Aerosol-performed 07/15/2024 07/15/2024 N /A Pulmonary Rehabilitation 07/15/2024 08/12/2024 N/A Encounters Encounter Location Date Provider Diagnosis [facility] [address] [facility] [place] [address] 04/06/2024 [facility] [address] [facility] [place] [address] 05/04/2024 [facility] [address] [facility] [place] [address] 05/05/2024 [facility] [address] [facility] [place] [address] 05/19/2024 [facility] [address] [facility] [place] [address] 07/06/2024 [facility] [address] [facility] [place] [address] 08/05/2024 [facility] [address] [facility] [place] [address] 03/02/2025 [facility] [address] [facility] [place] [address] 03/10/2025 [facility] [address] [facility] [place] [address] 08/11/2024 [facility] [address] [facility] [place] [address] 08/20/2024 [facility] Centrilobular emphys julio J43.2 [facility] [address] [facility] [place] [address] 08/26/2024 [facility] [address] [facility] [place] [address] 09/01/2024 [facility] [address] [place] [address] 12/23/2024 [facility] [address] [place] [address] 01/26/2025 [facility] [address] [place] [address] 08/12/2024 Lang Samsa Centrilobular emphys julio J43.2 ; Peripheral eosinophilia D72.19 ; Other secondary pulmonary hypertension I27.29 ; Atrial fibrillation I48.91 ; History of tobacco abuse Z87.891 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 of inhaled steroids Z79.51 [facility] [address] [place] [address] 07/15/2024 Lang Samsa Centrilobular emphys julio J43.2 ; Peripheral eosinophilia D72.19 ; Other secondary pulmonary hypertension I27.29 ; Atrial fibrillation I48.91 ; History of tobacco abuse Z87.891 and [facility] (current) use of inhaled steroids Z79.51 [facility] [address] [place] [address] 10/27/2024 Lang Samsa Centrilobular emphys julio J43.2 ; Peripheral eosinophilia D72.19 ; Other secondary pulmonary hypertension I27.29 ; Atrial fibrillation I48.91 ; History of tobacco abuse Z87.891 and [facility] (current) use of inhaled steroids Z79.51 [facility] [address] [place] [address] 02/15/2025 Lang Samsa Centrilobular emphys julio J43.2 ; Peripheral eosinophilia D72.19 ; Other secondary pulmonary hypertension I27.29 ; Atrial fibrillation I48.91 ; History of tobacco abuse Z87.891 and [facility] (current) use of inhaled steroids Z79.51 [facility] [address] [place] [address] 05/05/2024 Lang Samsa Centrilobular emphys julio J43.2 ; Peripheral eosinophilia D72.19 ; Other secondary pulmonary hypertension I27.29 ; Atrial fibrillation I48.91 ; History of tobacco abuse Z87.891 and Encounter for screening for malignant neoplasm of respiratory organs Z12.[address] [address] 03/10/2025 Lang Miller Centrilobular emphys julio J43.2 Assessments Encounter Date Diagnosis (ICD Code) Assessment Notes Treatment Notes Treatment Clinical Notes Section Notes 05/05/2024 Centrilobular emphysema (ICD-10 - J43.2) Moderate emphyematous changes noted on chest CT 03/09/2024 - reviewed imaging with patient and . Best thing patient did was to stop smoking. He is using albuterol with some benefit, but remains symptomatic during off hours. He is responding very well to prednisone (which he is currently on for a rash). There is a questionable diagnosis of asthma. He has an elevated eosinophil count which may suggest asthma as well (though this could also be an eosinophilic phenotype of COPD). Explained that PFT are needed to establish a correct diagnosis (e.g. asthma-COPD overlap vs. asthma vs. COPD). He voiced understanding. In the meantime, will start a maintenance inhaler. Will begin with ICS/LABA opposed to a LABA/LAMA d/t possible underlying asthma. Attempted to eRx Symbicort 160, but Judy faxed back a response that it is not covered. Will Rx Dulera 200, 2 puffs BID instead (as that was listed as a covered entity). He was counseled to rinse after use. He was instructed to attempt to not use the albuterol nebulized and stay with the albuterol HFA only for rescue use. Will check for alpha-1 antitrypsin (AAT) deficiency. Pamphlet discussing AAT causes, testing, and potential treatment was provided to the patient. Appropriate follow-up is dependent on identified genotype. Will have him F/U in 2 months to review response to Dulera and PFT findings. 05/05/2024 Peripheral eosinophilia (ICD-10 - D72.19) Eosinophil levels: -04/02/2024: 13.7% / abs. ct. 1.0 -03/09/2024: 7.3% / abs. ct. 0.6 Elevated eosinophils. Suggests eosinophilic phenotype of either COPD or asthma. Possible biologic candidate in the future if symptoms cannot be controlled by inhalers alone. 07/15/2024 Centrilobular emphysema (ICD-10 - J43.2) Moderate emphyematous changes noted on chest CT 03/09/2024 Which are corroborated with nearly very severe obstruction on spirometry. Alpha-1 antitrypsin was normal genotype MM; therefore his emphysematous changes would be most consistent with his years of tobacco abuse. There is a positive bronchodilator response on PFT which could indicate asthma, but other findings such as a severe diffusion impairment and an emphysematous pattern on the flow-pressure loop suggest more of COPD with a bronchodilator response over asthma-COPD overlap. Patient has used generic Symbicort with limited improvement. Discussed changing inhalers; given the severe obstruction, recommended triple therapy. Will start Trelegy 200; 1 puff daily. Inhaler demonstration was performed with the patient. Appropriate technique was demonstrated. Proper timing for administration was reviewed. Counseled on rinsing after steroid-containing inhalers. Inhaler samples provided. He was instructed to contact office to let us know if it is helping or not. If it is not helping, then we will try Breztri. He does have an elevated eosinophil count suggesting a eosinophilic phenotype of COPD. Currently there are no biologics approved for COPD; however, I anticipate that Dupixent will receive FDA-approval within the next several months for this indication. This may be a possibility for the patient if he fails Trelegy or Breztri. Given his severe obstruction, he qualifies for pulmonary rehabilitation. I discussed the pulmonary habilitation program with the patient and he voiced that he would like to have a referral. Follow-up 3 months or sooner if needed. 07/15/2024 Peripheral eosinophilia (ICD-10 - D72.19) Eosinophil levels: -04/02/2024: 13.7% / abs. ct. 1000 -03/09/2024: 7.3% / abs. ct. 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 He may be a candidate for biologic therapy if this is approved for COPD in the near future. 10/27/2024 Centrilobular emphysema (ICD-10 - J43.2) Prior treatment: Trelegy 200 ~ Symbicort Patient previously reported no significant benefit from Trelegy compared to Symbicort. Trelegy was then changed to Breztri, but he did not feel that helped, and then he requested to go back to Trelegy. Today, he cannot tell me if he feels better on Trelegy or not... At this time, he has not favorably responded to either triple ICS/LABA/LAMA inhaler (Trelegy, Breztr). I suggested that we hold off on any further pulmonary medication changes until he has the cardiac ablation. It is possible his afib is contributing to his dyspnea. If he does not have any relief of dyspnea, then I suggested looking into Dupixent. I had discussed Dupixent with him last visit - he would be a candidate given underlying eosinophilia; I provided him with literature at that time. He voiced zero recollection of this discussion, nor could not recall that he received the pamphlet... I gave him another Dupixent pamphlet. F/U 3 months. 08/12/2024 Centrilobular emphysema (ICD-10 - J43.2) Prior treatment: Trelegy 200 ~ Symbicort Patient reports little, if any, improvement with Trelegy over Symbicort. He was using additional albuterol up to 4 times a day with scant benefit. In my opinion, if he is receiving that little improvement with Trelegy, it is not worth continuing. Discussed that there is a competitor, Breztri, which is also triple inhaler. I explained that it is Symbicort with a third ingredient (LAMA) that may be better than Symbicort alone.He voiced agreement to try Breztri. I provided him with 2 samples. He was instructed multiple times to call the office in 2 weeks to let me know how he is doing on Breztri. If Breztri has improved his breathing, he will continue it-A prescription will be sent in locally, and if too expensive, we can look into either mail order, or going to [facility]. In the event that he has failed Breztri, the next option to look into would be Dupixent as he does have an elevated eosinophil count and it has finally been FDA approved for COPD. He has had 1 episode requiring prednisone in April.I provided him some literature regarding Dupixent and I encouraged him to research it on his own so that in 2 weeks, if Dupixent is an option, he is educated enough to make a decision whether or not he would want to proceed with Dupixent.I did careers counsellor him that if he wishes to proceed with Dupixent that he would need to return to the office to complete some paperwork. He voiced understanding to the above plan of care. I also brought up consideration for endobronchial valves given his severe pulmonary disease. However, he does lack an elevated TLC which may be a contraindication to surgery. 02/15/2025 Centrilobular emphysema (ICD-10 - J43.2) Prior treatment: Trelegy 200 ~ Breztri ~ Symbicort Ongoing symptoms, not responding favorably to Trelegy or Breztri. Ablation did not improve symptoms. Had exacerbation 12/25/2024 with eosinophil count on presentation @ 1200. Prednisone improves dyspnea - he asks can't you just keep me on prednisone? Explained the litany of adverse effects associated with chronic systemic steroid therapy - it is last line treatment. Discussed Dupixent again. I provided him with literature regarding Dupixent last visit and discussed it again with him during his hospitalization 12/25/2024, but he still has not read up on it... Eosinophil count is slowly climbing over the past year. 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 He is at the point to initiate therapy. I explained that biologics are very expensive and even with patient assistance, he may not be able to afford it (seeing he gets Trelegy from [place] to save money). Discussed patient assistance may be available. Paperwork was signed. If he does qualify and get Dupixent, he was instructed not to stop Trelegy for the time being. He was discharged from pulmonary rehabilitation for not returning after hospitalization. He will be encouraged to restart it up. F/U 3 months. 03/10/2025 Centrilobular emphysema (ICD-10 - J43.2) Vitals obtained. Patient requesting Dupixent to be given in the Right upper arm subcutaneously . Area was cleaned with Alcohol and allowed [...] reactions were noted. Post Injection Vitals taken. [facility]:[id number]- 00. Lot#[id number]. Exp:2026-11-20 . Patient was advised to self administer Dupixent in 2 weeks at home. Brian Jordan CMA. 08/20/2024 Centrilobular emphysema (ICD-10 - J43.2) 02/15/2025 Peripheral eosinophilia (ICD-10 - D72.19) Eosinophil levels: -12/25/2024: 14/6% / abs. ct. 1200 -04/02/2024: 13.7% / abs. ct. 1000 -03/09/2024: 7.3% / abs. ct. 600 Persistent elevation in eosinophils; it was at his highest upon admission for AECOPD 12/25/2024. Beginning paperwork regarding Dupixent for eosinophilic phenotype of COPD. 08/12/2024 Peripheral eosinophilia (ICD-10 - D72.19) Eosinophil levels: -04/02/2024: 13.7% / abs. ct. 1000 -03/09/2024: 7.3% / abs. ct. 600 Will look into Dupixent for COPD if he fails Breztri. Literature was provided to him. 10/27/2024 Peripheral eosinophilia (ICD-10 - D72.19) Eosinophil levels: -04/02/2024: 13.7% / abs. ct. 1000 -03/09/2024: 7.3% / abs. ct. 600 Possible Dupixent candidate. He did not recall the discussion regarding Dupixent nor receiving the pamphlet. I gave him another pamplet. 07/15/2024 Other secondary pulmonary hypertension (ICD-10 - I27.29) RVSP mildly elevated at 40mmHg on echocardiogram 03/09/2024. Suspect combination group 2 (cardiac) + group 3 (pulmonary). 05/05/2024 Other secondary pulmonary hypertension (ICD-10 - I27.29) RVSP mildly elevated at 40mmHg on echocardiogram 03/09/2024. Suspect combination group 2 (cardiac) + group 3 (pulmonary). Goal is to treat the underlying pulmonary disease. I addressed potential BEATRIZ as a contributing factor to both elevated pulmonary pressures and afib - he did not feel he had issues sleeping and declined PSG evaluation for now. 05/05/2024 Atrial fibrillation (ICD-10 - I48.91) Being managed by [facility] Cardiology. Explained to patient that beta agonists can exacerbate heart rate and afib, especially nebulized formulations as there is longer time for systemic absoprtion over HFA. 07/15/2024 Atrial fibrillation (ICD-10 - I48.91) Follow-up with [facility] cardiology. 10/27/2024 Other secondary pulmonary hypertension (ICD-10 - I27.29) RVSP mildly elevated at 40mmHg on echocardiogram 03/09/2024. Suspect combination group 2 (cardiac) + group 3 (pulmonary). 08/12/2024 Other secondary pulmonary hypertension (ICD-10 - I27.29) RVSP mildly elevated at 40mmHg on echocardiogram 03/09/2024. Suspect combination group 2 (cardiac) + group 3 (pulmonary). 02/15/2025 Other secondary pulmonary hypertension (ICD-10 - I27.29) RVSP mildly elevated at 40mmHg on echocardiogram 03/09/2024. Suspect combination group 2 (cardiac) + group 3 (pulmonary). 02/15/2025 Atrial fibrillation (ICD-10 - I48.91) Cardiac abalation 10/28/2024 did not improve dyspnea, he states. F/U with [facility] Cardiology. 08/12/2024 Atrial fibrillation (ICD-10 - I48.91) Follow-up with [facility] cardiology. 10/27/2024 Atrial fibrillation (ICD-10 - I48.91) Plan for cardiac abalation tomorrow 10/28/2024. F/U with [facility] Cardiology. 07/15/2024 History of tobacco abuse (ICD-10 - Z87.891) 1ppd x 49 years, quit 01/2024. LDCT due 02/2025. 05/05/2024 History of tobacco abuse (ICD-10 - Z87.891) 1ppd x 49 years, quit 01/2024. He was lauded for his cessation. He meets LDCT criteria. As last chest CT was on 03/09/2024, can begin LDCT screening mid-February 2025. Patient voiced agreement to participate. 05/05/2024 Encounter for screening for malignant neoplasm of respiratory organs (ICD-10 - Z12.2) Low-dose CT (LDCT) was recommended for lung cancer screening. The patient meets criteria including age 50-77, a smoking history of at least 20 pack-years, is currently smoking or has ceased smoking within the past 15 years, and has no signs or symptoms of lung cancer. Shared decision making performed with the patient. After LDCT has been completed, will review report and/or imaging and provide appropriate recommendations for the patient, including additional follow up if needed. Patient was counseled on smoking cessation/continued tobacco abstinence. 07/15/2024 [facility] (current) use of inhaled steroids (ICD-10 - Z79.51) Patient was counseled to rinse & gargle with water after inhaled corticosteroid use. 10/27/2024 History of tobacco abuse (ICD-10 - Z87.891) 1ppd x 49 years, quit 01/2024. LDCT due 02/2025. 08/12/2024 History of tobacco abuse (ICD-10 - Z87.891) 1ppd x 49 years, quit 01/2024. LDCT due 02/2025. 02/15/2025 History of tobacco abuse (ICD-10 - Z87.891) 1ppd x 49 years, quit 01/2024. LDCT due 02/2025. 02/15/2025 [facility] (current) use of inhaled steroids (ICD-10 - Z79.51) Patient was counseled to rinse & gargle with water after inhaled corticosteroid use. 08/12/2024 [facility] (current) use of inhaled steroids (ICD-10 - Z79.51) Patient was counseled to rinse & gargle with water after inhaled corticosteroid use. 10/27/2024 [facility] (current) use of inhaled steroids (ICD-10 - Z79.51) Patient was counseled to rinse & gargle with water after inhaled corticosteroid use. Plan Of Treatment Future Test Test Name Order Date CT Chest Low Dose for Screening* 025 Next Appt Details Provider Name:Lang Dakota, 05/18/2025 02:30:00 PM, [address] [place], [address], Insurance Providers Payer Name Payer Address Payer Phone Subscriber Number Group Number Insured Name Patient Relationship to Insured Coverage Start Date Coverage End Date [place]IC[place] [address] [place] [address] [phone] [id number] Arturo herr Paige Self - patient is the insured 3 [employer] [address] [address] [place] [address] [id number] CH[employer] Bender Sonyahamlet herrPaige Self - patient is the insured 3 Medications Administered Medication Instructions Date of Administration Dosage Notes Dupixent 03/10/2025 300 mg Patient rand t the medication with him to the appt. Medical (General) History Medical History History ICD Code Centrilobular emphysema J43.2 Heart failure with preserved left ventri cular function (HFpEF) I50.30 Atrial fibrillation I48.91 Other secondary pulmonary hypertension I 27.29 Peripheral eosinophilia D72.19 History of tobacco abuse Z87.891 Surgical History Surgery Date(Month/Year) Cardioversion 05/25/2024 Hospitalization History Reason Date(Month/Year) COPD Exacerbation-[facility] 12/23/2024 COPD Exacerbation-[facility] 04/02/2024 AFIB/COPD Exacerbation-TB 03/09/2024 [facility] 01/27/2024
== END 2025-03-24 12:49 | disposition home or self-care (01) ==
LOC: CT 12:48
PROVIDERS: PCP Nurse Practitioner Family; Visit Provider Internal Medicine
DX: R91.8 Other nonspecific abnormal finding of lung field (principal); Z87.891 Personal history of nicotine dependence; Z12.2 Encounter for screening for malignant neoplasm of respiratory organs; J44.9 Chronic obstructive pulmonary disease, unspecified
CPT/HCPCS: 71271